=== PATIENT | female | born 1935 | race Caucasian/White ===

== ENCOUNTER → 2017-11-23 13:40 | Outpatient (CLI) | payer MEDICARE, OTHER, SELFPAY | PROVIDERS: Family Provider Family Medicine; PCP Family Medicine; Visit Provider Family Medicine | DX: M85.88 Other specified disorders of bone density and structure, other site (principal); Z78.0 Asymptomatic menopausal state; E07.9 Disorder of thyroid, unspecified; Z82.62 Family history of osteoporosis | CPT/HCPCS: 77080 ==

== ENCOUNTER → 2018-05-12 15:24 | Outpatient (CLI) | payer MEDICARE, OTHER, SELFPAY ==
--- NOTE | 2018-05-12 | DI.RAD.S_ITS ---
PROCEDURE: XR FEMUR RT MIN 2V INDICATIONS: Right Thigh Pain, intermittent TECHNIQUE: 2 views of the femur were acquired. COMPARISON: None. FINDINGS: Bones: No fractures or dislocations. No suspicious bony lesions. There is a severe right hip joint degeneration. Soft tissues: No suspicious soft tissue calcifications or masses. Moderate atherosclerosis. IMPRESSION: 1. No fracture or dislocation. 2. Severe right hip joint degeneration. 3. Atherosclerosis. Dictated by: Nathaly Hugo M.D. on 05/12/2018 at 17:39 Approved by: Nathaly Hugo M.D. on 05/12/2018 at 17:40
== END ==
PROVIDERS: PCP Family Medicine; Visit Provider Family Medicine
DX: M79.651 Pain in right thigh (principal); M16.11 Unilateral primary osteoarthritis, right hip; I70.90 Unspecified atherosclerosis
CPT/HCPCS: 73552

== ENCOUNTER 2018-07-22 10:30 | Outpatient (RCR) | payer MEDICARE, OTHER, SELFPAY ==
--- NOTE | 2018-06-03 14:30 | PT.OPPOC ---
Current Diagnoses Unilateral primary osteoarthritis, right hip (06/03/18) Pain in right hip (06/03/18) Stiffness of right hip, not elsewhere classified (06/03/18) Muscle weakness (generalized) (06/03/18) Trochanteric bursitis, right hip (06/03/18) Iliotibial band syndrome, right leg (06/03/18) Provider Visit Care Team Role Provider Type Jonatan Prince MD Primary Care Provider Physician Specialty: Family Practice Address: [address] [place] [address], [id number] Email: [email or web address] Nahum Diana MD Attending Provider Physician Specialty: Orthopedic Surgery Address: [address] [place] [address], [id number] Email: [email or web address] Plan Of Care PT-OP-T Assessment and Plan Start: 06/03/18 17:28 Freq: Status: Active Protocol: Document 06/03/18 13:45 DCW (Rec: 06/04/18 08:57 DCW [id number]) Physical Therapy Assessment Rehab Potential Rehabilitation Potential Fair Evaluation Complexity Number of Personal Factors/Comorbidities 1-2 Number of Body Systems Impaired 3 Clinical Presentation at Evaluation Evolving Impairments Impairments Functional Activities Functional Mobility Pain ROM Strength Other Concerns Barriers to Rehabilitation Severe R hip degeneration Goals Four Impairment ITB tenderness Farm Mechanic Goal (LTG) Pt to exhibit no tenderness to palpation along right ITB LTG Duration 08/02/18 Three Impairment Limited hip ROM Farm Mechanic Goal (LTG) R hip flexion to 110? R hip abduction to 20? R hip ER and IR to 20? each LTG Duration 08/02/18 Two Impairment Pt unable to tolerate working in her yard Jail Goal (LTG) Pt to return to normal level of yard work with no increased pain LTG Duration 08/02/18 One Impairment Pt does not have an appropriate Home Exercise Program Short Term Goal (STG) Pt to be independent and compliant with an appropriate HEP STG Duration 07/02/18 Assessment Summary Assessment Pt presents with signs and symptoms of right ITB syndrome and Greater Trochanteric bursitis, which is affecting her ability to ambulate without pain and work out in her yard, and gives her occasional pain up to 7/10. Additionally, although pt reports no actual hip pain, her right hip joint degeneration is severely affecting her range of motion and functional movement, and is likely the underlying cause of her Bursitis and ITB pain. Pt will likely benefit some from stretching and strengthening, as well as pain control modalities and Iontophoresis to decrease bursitis inflammation, however will in the long run likely require a SALONI, which pt reports she has already been planning, as she is unhappy which how much her hip has been limiting her. Physical Therapy Plan Frequency and Duration Frequency of Treatment 2x/Week Duration of Treatment 12 weeks Plan of Care Start Date 06/03/18 Plan of Care End Date 08/26/18 Therapeutic Interventions Therapeutic Interventions Aquatic Therapy Gait Training Home Exercise Program Joint Mobilizations Manual Therapy Neuromuscular Re-education Soft Tissue Mobilization Taping Therapeutic Activities Therapeutic Exercises Modalities Cold Pack/Ice Massage Electric Stimulation Hot Packs Iontophoresis Ultrasound Other Therapeutic Interventions Iontophoresis with Dexamethasone 4 mg/mL Next Visit Focus/Plan Next Note Type Treatment Note Next Visit Plan Flexibility, strengthening, STM, Ionto, US, E-stim Plan of Care Dates Plan of Care Start Date 06/03/18 Plan of Care End Date 08/26/18 Please Sign and Return: I have reviewed this Plan of Care and certify that the skilled therapy services above are required to meet the patient?s needs. Physician Signature Date Printed Name and Credentials Clinical Instructor Signature Printed Name and Credentials
--- NOTE | 2018-06-03 14:30 | PT.OIE ---
Current Diagnoses Unilateral primary osteoarthritis, right hip (06/03/18) Pain in right hip (06/03/18) Stiffness of right hip, not elsewhere classified (06/03/18) Muscle weakness (generalized) (06/03/18) Trochanteric bursitis, right hip (06/03/18) Iliotibial band syndrome, right leg (06/03/18) Past Surgical History History of carpal tunnel repair Status post appendectomy Status post hysterectomy Status post rotator cuff repair Provider Visit Care Team Role Provider Type Jonatan Prince MD Primary Care Provider Physician Specialty: Family Practice Address: [address] [place] [address], [address] Email: [email or web address] [email or web address] Diana MD Attending Provider Physician Specialty: Orthopedic Surgery Address: [address] [place] [address], [id number] Email: [email or web address] Physical Therapy Initial Evaluation PT-OP-A Visit Information Start: 06/03/18 17:28 Freq: Status: Active Protocol: Document 06/03/18 13:45 DCW (Rec: 06/03/18 17:37 DCW [id number]) Out-Patient Physical Therapy Visit Information Visit Information Visit Type Initial Evaluation Visit Start Time 13:45 Visit Stop Time 14:25 Total Visit Minutes 40 Visit Number 1 Number of RENDERER Visits 0 Evaluation Information Evaluation Date 06/03/18 PT-OP-B Current Condition Start: 06/03/18 17:28 Freq: Status: Active Protocol: Document 06/03/18 13:45 DCW (Rec: 06/03/18 17:37 DC [id number]) Current Condition History of Current Condition Onset Date 6 months Current Complaints pain and stiffness in right leg limiting mobility and function History of Current Condition Pt is an 82 year old female presenting with a six month history of right leg pain. Pt reports that it just started in November for no reason, and it was initially just a heaviness on my right thigh, which has slowly progressed to pain in her lateral upper leg . Pt notes that the pain worsens when first getting up or rolling over in bed. Does admits that her hip never really bothers be, it's just along the side, despite an x- ray on 05/12/18 showing severe right hip joint degeneration. Pt reports her pain and stiffness prevented a lot of her yard work over the summer, and is now beginning to limit her speed and distance when trying to walk. Prior Treatments and Tests R hip x-ray: severe right hip joint degeneration - maricarmen Hugo M.D on 05/12/18 Treatment Goals Patient/Caregiver Goals Pt would like to decrease pain and return to yard work with no limitations Prior Functional Status Baseline Function- ADL's Independent Baseline Function- Mobility Independent Current Functional Impairments (Reported) Functional Limitations- Recreation/ Unable to participate in Hobbies normal yard work due to pain and stiffness PT-OP-C Subjective Start: 06/03/18 17:28 Freq: Status: Active Protocol: Document 06/03/18 13:45 DCW (Rec: 06/03/18 17:37 DCW [id number]) OP-PT Subjective Patient Comments Patient Comments It's been getting worse over time. Patient Reported Progress Worse Patient Questionnaires Lower Extremity Functional Scale LEFS Score 41/80 = 51.25% LEFS Impairment 40 to 59% Impaired (Score 32- 47) OP-PT Pain Assessment Location Right Upper Lateral Leg Intensity 7 Scale Used Numeric (1 - 10) Description Aching Burning Dull Throbbing Frequency Occasional PT-OP-F Manual Assessment Start: 06/03/18 17:28 Freq: Status: Active Protocol: Document 06/03/18 13:45 DCW (Rec: 06/04/18 08:57 DCW [id number]) Manual Assessments Soft Tissue Assessment Soft Tissue Mobility Assessment Tenderness to palpation at GT Bursa and along ITB 2/4 - Pain with wincing Joint Mobility Assessment Joint Mobility Assessment Severely limited mobility with all movements in right hip, left hip WNL PT-OP-K Range of Motion Start: 06/03/18 17:28 Freq: Status: Active Protocol: Document 06/03/18 13:45 DCW (Rec: 06/04/18 08:57 DCW [id number]) Hip Goniometric Range of Motion Hip Measured in Degrees Left Passive Hip ROM WFL Yes Right Passive Hip ROM WFL No Testing Position Supine Flexion w/Knee Flexed 96 Straight Leg Raise 87 Abduction 7 Internal Rotation 13 External Rotation 5 PT-OP-L Special Tests Start: 06/03/18 17:28 Freq: Status: Active Protocol: Document 06/03/18 13:45 DCW (Rec: 06/04/18 08:57 DCW [id number]) Special Tests Hip Special Tests Thea's Test Test Results Positive Piriformis Test Results Negative Straight Leg Raise Test Results Negative for LBP CHEIKH Test Results Limited ROM made testing impossible PT-OP-M Strength Start: 06/03/18 17:28 Freq: Status: Active Protocol: Document 06/03/18 13:45 DCW (Rec: 06/04/18 08:57 DCW [id number]) Hip Strength Hip Manual Muscle Testing Right Flexion (L2) 3+ Fair+ Abduction 3+ Fair+ Adduction 4 Good External Rotation 4 Good Internal Rotation 4+ Good+ Left Flexion (L2) 4 Good Abduction 4- Good- Adduction 4 Good External Rotation 4+ Good+ Internal Rotation 4+ Good+ Knee Strength Knee Manual Muscle Testing Right Flexion (S2) 4+ Good+ Extension (L3) 4- Good- Comments Pain with extension testing Left Flexion (S2) 5 Normal Extension (L3) 5 Normal PT-OP-Q Treatments Start: 06/03/18 17:28 Freq: Status: Active Protocol: Document 06/03/18 13:45 DCW (Rec: 06/04/18 08:57 DCW [id number]) Therapeutic Exercises Supine Exercises Supine ITB stretch Supine Exercise Name ITB stretch Comments use left leg to IR right Sidelying Exercises Sidelying ITB stretch Sidelying Exercise Name ITB stretch /c top leg hanging over side of plinth Standing Exercises Standing ITB stretch Standing Exercise Name ITB stretch /c legs crossed PT-OP-T Assessment and Plan Start: 06/03/18 17:28 Freq: Status: Active Protocol: Document 06/03/18 13:45 DCW (Rec: 06/04/18 08:57 DCW [id number]) Physical Therapy Assessment Rehab Potential Rehabilitation Potential Fair Evaluation Complexity Number of Personal Factors/Comorbidities 1-2 Number of Body Systems Impaired 3 Clinical Presentation at Evaluation Evolving Impairments Impairments Functional Activities Functional Mobility Pain ROM Strength Other Concerns Barriers to Rehabilitation Severe R hip degeneration Goals Four Impairment ITB tenderness Half-Way Goal (LTG) Pt to exhibit no tenderness to palpation along right ITB LTG Duration 08/02/18 Three Impairment Limited hip ROM Instant Print Operator Goal (LTG) R hip flexion to 110? R hip abduction to 20? R hip ER and IR to 20? each LTG Duration 08/02/18 Two Impairment Pt unable to tolerate working in her yard Instant Print Operator Goal (LTG) Pt to return to normal level of yard work with no increased pain LTG Duration 08/02/18 One Impairment Pt does not have an appropriate Home Exercise Program Short Term Goal (STG) Pt to be independent and compliant with an appropriate HEP STG Duration 07/02/18 Assessment Summary Assessment Pt presents with signs and symptoms of right ITB syndrome and Greater Trochanteric bursitis, which is affecting her ability to ambulate without pain and work out in her yard, and gives her occasional pain up to 7/10. Additionally, although pt reports no actual hip pain, her right hip joint degeneration is severely affecting her range of motion and functional movement, and is likely the underlying cause of her Bursitis and ITB pain. Pt will likely benefit some from stretching and strengthening, as well as pain control modalities and Iontophoresis to decrease bursitis inflammation, however will in the long run likely require a SALONI, which pt reports she has already been planning, as she is unhappy which how much her hip has been limiting her. Physical Therapy Plan Frequency and Duration Frequency of Treatment 2x/Week Duration of Treatment 12 weeks Plan of Care Start Date 06/03/18 Plan of Care End Date 08/26/18 Therapeutic Interventions Therapeutic Interventions Aquatic Therapy Gait Training Home Exercise Program Joint Mobilizations Manual Therapy Neuromuscular Re-education Soft Tissue Mobilization Taping Therapeutic Activities Therapeutic Exercises Modalities Cold Pack/Ice Massage Electric Stimulation Hot Packs Iontophoresis Ultrasound Other Therapeutic Interventions Iontophoresis with Dexamethasone 4 mg/mL Next Visit Focus/Plan Next Note Type Treatment Note Next Visit Plan Flexibility, strengthening, STM, Ionto, US, E-stim
--- NOTE | 2018-06-22 16:51 | PT.OTN ---
Current Diagnoses Unilateral primary osteoarthritis, right hip (06/22/18) Physical Therapy Treatment Note PT-OP-A Visit Information Start: 06/03/18 17:28 Freq: Status: Active Protocol: Document 06/22/18 16:00 DCW (Rec: 06/22/18 16:51 DCW [id number]) Out-Patient Physical Therapy Visit Information Visit Information Visit Type Treatment Note Visit Start Time 16:00 Visit Stop Time 16:45 Total Visit Minutes 45 Visit Number 2 Number of MECHANICAL PROCESS ENGINEER Visits 0 Evaluation Information Evaluation Date 06/03/18 PT-OP-B Current Condition Start: 06/03/18 17:28 Freq: Status: Active Protocol: Document 06/03/18 13:45 DCW (Rec: 06/03/18 17:37 DCW [id number]) Current Condition History of Current Condition Onset Date 6 months Current Complaints pain and stiffness in right leg limiting mobility and function History of Current Condition Pt is an 82 year old female presenting with a six month history of right leg pain. Pt reports that it just started in November for no reason, and it was initially just a heaviness on my right thigh, which has slowly progressed to pain in her lateral upper leg . Pt notes that the pain worsens when first getting up or rolling over in bed. Does admits that her hip never really bothers be, it's just along the side, despite an x- ray on 05/12/18 showing severe right hip joint degeneration. Pt reports her pain and stiffness prevented a lot of her yard work over the summer, and is now beginning to limit her speed and distance when trying to walk. Prior Treatments and Tests R hip x-ray: severe right hip joint degeneration - per Nathaly Hugo M.D on 05/12/18 Treatment Goals Patient/Caregiver Goals Pt would like to decrease pain and return to yard work with no limitations Prior Functional Status Baseline Function- ADL's Independent Baseline Function- Mobility Independent Current Functional Impairments (Reported) Functional Limitations- Recreation/ Unable to participate in Hobbies normal yard work due to pain and stiffness PT-OP-C Subjective Start: 06/03/18 17:28 Freq: Status: Active Protocol: Document 06/22/18 16:00 DCW (Rec: 06/22/18 16:51 DCW [id number]) OP-PT Subjective Patient Comments Patient Comments Pt reports her pain goes and comes, but notes that it is not too bad right now. PT-OP-F Manual Assessment Start: 06/03/18 17:28 Freq: Status: Active Protocol: Document 06/03/18 13:45 DCW (Rec: 06/04/18 08:57 DCW [id number]) Manual Assessments Soft Tissue Assessment Soft Tissue Mobility Assessment Tenderness to palpation at GT Bursa and along ITB 2/4 - Pain with wincing Joint Mobility Assessment Joint Mobility Assessment Severely limited mobility with all movements in right hip, left hip WNL PT-OP-K Range of Motion Start: 06/03/18 17:28 Freq: Status: Active Protocol: Document 06/03/18 13:45 DCW (Rec: 06/04/18 08:57 DCW [id number]) Hip Goniometric Range of Motion Hip Measured in Degrees Left Passive Hip ROM WFL Yes Right Passive Hip ROM WFL No Testing Position Supine Flexion w/Knee Flexed 96 Straight Leg Raise 87 Abduction 7 Internal Rotation 13 External Rotation 5 PT-OP-L Special Tests Start: 06/03/18 17:28 Freq: Status: Active Protocol: Document 06/03/18 13:45 DCW (Rec: 06/04/18 08:57 DCW [id number]) Special Tests Hip Special Tests Thea's Test Test Results Positive Piriformis Test Results Negative Straight Leg Raise Test Results Negative for LBP CHEIKH Test Results Limited ROM made testing impossible PT-OP-M Strength Start: 06/03/18 17:28 Freq: Status: Active Protocol: Document 06/03/18 13:45 DCW (Rec: 06/04/18 08:57 DCW [id number]) Hip Strength Hip Manual Muscle Testing Right Flexion (L2) 3+ Fair+ Abduction 3+ Fair+ Adduction 4 Good External Rotation 4 Good Internal Rotation 4+ Good+ Left Flexion (L2) 4 Good Abduction 4- Good- Adduction 4 Good External Rotation 4+ Good+ Internal Rotation 4+ Good+ Knee Strength Knee Manual Muscle Testing Right Flexion (S2) 4+ Good+ Extension (L3) 4- Good- Comments Pain with extension testing Left Flexion (S2) 5 Normal Extension (L3) 5 Normal PT-OP-Q Treatments Start: 06/03/18 17:28 Freq: Status: Active Protocol: Document 06/22/18 16:00 DCW (Rec: 06/22/18 16:51 DCW [id number]) Cardio Equipment Recumbent Bicycle Duration (Minutes) 5 Resistance 3 Seat Position 1 + Lumbar pillow Gym Equipment Shuttle Recovery Unilateral Squats Details Right Resistance 25# Shuttle Recovery Platform Stable Bilateral Squats Resistance 37# Shuttle Recovery Platform Stable Therapeutic Exercises Standing Exercises Standing ITB stretch Standing Exercise Name ITB stretch /c legs crossed Other Exercises Resisted Side-stepping Other Exercise Name Resisted side-stepping Side bilateral Resistance Yellow Equipment Used T-band Manual Therapy Treatment Soft Tissue Mobilization ITB Body Location ITB Mobilization Type Strumming Sustained Pressure Intensity/Depth Moderate Piriformis Body Location Piriformis Mobilization Type Strumming Sustained Pressure Intensity/Depth Deep Manual Traction LE Traction Details Short-axis LE traction Body Position Hooklying PT-OP-R Modalities Start: 06/03/18 17:28 Freq: Status: Active Protocol: Document 06/22/18 16:00 DCW (Rec: 06/22/18 16:51 DCW [id number]) Iontophoresis Treatment Right Lateral Hip Treatment Medication Dexamethasone (-) Medication Amount (mL) (ml) 1.0 Medication Dosage 4 mg/mL Treatment Polarity Negative to Negative Treatment Duration (minutes) 5 PT-OP-T Assessment and Plan Start: 06/03/18 17:28 Freq: Status: Active Protocol: Document 06/22/18 16:00 DCW (Rec: 06/22/18 16:51 DCW [id number]) Physical Therapy Assessment Impairments Impairments Functional Activities Functional Mobility Pain ROM Strength Goals Four Impairment ITB tenderness Manager Sound Goal (LTG) Pt to exhibit no tenderness to palpation along right ITB LTG Duration 08/02/18 Three Impairment Limited hip ROM Retirement Goal (LTG) R hip flexion to 110? R hip abduction to 20? R hip ER and IR to 20? each LTG Duration 08/02/18 Two Impairment Pt unable to tolerate working in her yard Manager Sound Goal (LTG) Pt to return to normal level of yard work with no increased pain LTG Duration 08/02/18 One Impairment Pt does not have an appropriate Home Exercise Program Short Term Goal (STG) Pt to be independent and compliant with an appropriate HEP STG Duration 07/02/18 Assessment Summary Assessment Pt tired out quickly with activity, and by the end of her session reported she was feeling like she was pretty much done between her activity and the manual STM. Trial of Ionto at end of session, will assess effectiveness next visit. Physical Therapy Plan Frequency and Duration Frequency of Treatment 2x/Week Duration of Treatment 12 weeks Plan of Care Start Date 06/03/18 Plan of Care End Date 08/26/18 Therapeutic Interventions Therapeutic Interventions Aquatic Therapy Gait Training Home Exercise Program Joint Mobilizations Manual Therapy Neuromuscular Re-education Soft Tissue Mobilization Taping Therapeutic Activities Therapeutic Exercises Modalities Cold Pack/Ice Massage Electric Stimulation Hot Packs Iontophoresis Ultrasound Other Therapeutic Interventions Iontophoresis with Dexamethasone 4 mg/mL Next Visit Focus/Plan Next Note Type Treatment Note Next Visit Plan Flexibility, strengthening, STM, Ionto, US, E-stim
--- NOTE | 2018-06-25 15:19 | PT.OTN ---
Current Diagnoses Unilateral primary osteoarthritis, right hip (06/25/18) Physical Therapy Treatment Note PT-OP-A Visit Information Start: 06/03/18 17:28 Freq: Status: Active Protocol: Document 06/25/18 14:30 DCW (Rec: 06/25/18 15:18 DCW [id number]) Out-Patient Physical Therapy Visit Information Visit Information Visit Type Treatment Note Visit Start Time 14:30 Visit Stop Time 15:15 Total Visit Minutes 45 Visit Number 3 Number of METAL FABRICATING INSPECTOR Visits 0 Evaluation Information Evaluation Date 06/03/18 PT-OP-B Current Condition Start: 06/03/18 17:28 Freq: Status: Active Protocol: Document 06/03/18 13:45 DCW (Rec: 06/03/18 17:37 DCW [id number]) Current Condition History of Current Condition Onset Date 6 months Current Complaints pain and stiffness in right leg limiting mobility and function History of Current Condition Pt is an 82 year old female presenting with a six month history of right leg pain. Pt reports that it just started in November for no reason, and it was initially just a heaviness on my right thigh, which has slowly progressed to pain in her lateral upper leg . Pt notes that the pain worsens when first getting up or rolling over in bed. Does admits that her hip never really bothers be, it's just along the side, despite an x- ray on 05/12/18 showing severe right hip joint degeneration. Pt reports her pain and stiffness prevented a lot of her yard work over the summer, and is now beginning to limit her speed and distance when trying to walk. Prior Treatments and Tests R hip x-ray: severe right hip joint degeneration - per Nathaly Hugo M.D on 05/12/18 Treatment Goals Patient/Caregiver Goals Pt would like to decrease pain and return to yard work with no limitations Prior Functional Status Baseline Function- ADL's Independent Baseline Function- Mobility Independent Current Functional Impairments (Reported) Functional Limitations- Recreation/ Unable to participate in Hobbies normal yard work due to pain and stiffness PT-OP-C Subjective Start: 06/03/18 17:28 Freq: Status: Active Protocol: Document 06/25/18 14:30 DCW (Rec: 06/25/18 15:18 DCW [id number]) OP-PT Subjective Patient Comments Patient Comments I really felt it after last visit, but it was gone by the next morning. Feels that the Ionto patch was helpful, has noticed decreased tightness and soreness through her hip. PT-OP-F Manual Assessment Start: 06/03/18 17:28 Freq: Status: Active Protocol: Document 06/03/18 13:45 DCW (Rec: 06/04/18 08:57 DCW [id number]) Manual Assessments Soft Tissue Assessment Soft Tissue Mobility Assessment Tenderness to palpation at GT Bursa and along ITB 2/4 - Pain with wincing Joint Mobility Assessment Joint Mobility Assessment Severely limited mobility with all movements in right hip, left hip WNL PT-OP-K Range of Motion Start: 06/03/18 17:28 Freq: Status: Active Protocol: Document 06/03/18 13:45 DCW (Rec: 06/04/18 08:57 DCW [id number]) Hip Goniometric Range of Motion Hip Measured in Degrees Left Passive Hip ROM WFL Yes Right Passive Hip ROM WFL No Testing Position Supine Flexion w/Knee Flexed 96 Straight Leg Raise 87 Abduction 7 Internal Rotation 13 External Rotation 5 PT-OP-L Special Tests Start: 06/03/18 17:28 Freq: Status: Active Protocol: Document 06/03/18 13:45 DCW (Rec: 06/04/18 08:57 DCW [id number]) Special Tests Hip Special Tests Thea's Test Test Results Positive Piriformis Test Results Negative Straight Leg Raise Test Results Negative for LBP CHEIKH Test Results Limited ROM made testing impossible PT-OP-M Strength Start: 06/03/18 17:28 Freq: Status: Active Protocol: Document 06/03/18 13:45 DCW (Rec: 06/04/18 08:57 DCW [id number]) Hip Strength Hip Manual Muscle Testing Right Flexion (L2) 3+ Fair+ Abduction 3+ Fair+ Adduction 4 Good External Rotation 4 Good Internal Rotation 4+ Good+ Left Flexion (L2) 4 Good Abduction 4- Good- Adduction 4 Good External Rotation 4+ Good+ Internal Rotation 4+ Good+ Knee Strength Knee Manual Muscle Testing Right Flexion (S2) 4+ Good+ Extension (L3) 4- Good- Comments Pain with extension testing Left Flexion (S2) 5 Normal Extension (L3) 5 Normal PT-OP-Q Treatments Start: 06/03/18 17:28 Freq: Status: Active Protocol: Document 06/25/18 14:30 DCW (Rec: 06/25/18 15:18 DCW [id number]) Cardio Equipment Recumbent Bicycle Duration (Minutes) 6 Resistance 4 Seat Position 1 + Lumbar pillow Gym Equipment Shuttle Recovery Unilateral Squats Details Right Resistance 25# Shuttle Recovery Platform Stable Bilateral Squats Resistance 50# Shuttle Recovery Platform Stable Therapeutic Exercises Supine Exercises Bridging Supine Exercise Name Bridging Reps/Minutes 5 hold Supine ITB stretch Supine Exercise Name ITB stretch Comments use left leg to IR right Standing Exercises Lunge Standing Exercise Name BOSU Lunge Other Exercises Step-up/over/retro Other Exercise Name Step-up/over/retro in // bars Side right Equipment Used 4 step Resisted Side-stepping Other Exercise Name Resisted side-stepping Side bilateral Resistance Yellow Equipment Used T-band Manual Therapy Treatment Soft Tissue Mobilization ITB Body Location ITB Mobilization Type Strumming Sustained Pressure Intensity/Depth Moderate Piriformis Body Location Piriformis Mobilization Type Strumming Sustained Pressure Intensity/Depth Deep PT-OP-R Modalities Start: 06/03/18 17:28 Freq: Status: Active Protocol: Document 06/25/18 14:30 DCW (Rec: 06/25/18 15:18 DCW [id number]) Iontophoresis Treatment Right Lateral Hip Treatment Medication Dexamethasone (-) Medication Amount (mL) (ml) 1.0 Medication Dosage 4 mg/mL Treatment Polarity Negative to Negative Treatment Duration (minutes) 5 PT-OP-T Assessment and Plan Start: 06/03/18 17:28 Freq: Status: Active Protocol: Document 06/25/18 14:30 DCW (Rec: 06/25/18 15:18 DCW [id number]) Physical Therapy Assessment Impairments Impairments Functional Activities Functional Mobility Pain ROM Strength Goals Four Impairment ITB tenderness Prison Goal (LTG) Pt to exhibit no tenderness to palpation along right ITB LTG Duration 08/02/18 Three Impairment Limited hip ROM Prison Goal (LTG) R hip flexion to 110? R hip abduction to 20? R hip ER and IR to 20? each LTG Duration 08/02/18 Two Impairment Pt unable to tolerate working in her yard Senior Resident Care Director Goal (LTG) Pt to return to normal level of yard work with no increased pain LTG Duration 08/02/18 One Impairment Pt does not have an appropriate Home Exercise Program Short Term Goal (STG) Pt to be independent and compliant with an appropriate HEP STG Duration 07/02/18 Assessment Summary Assessment Pt showing much improvement today, feels like her hip overall is stronger. Planning SALONI in the upcoming weeks, and agreeable to continue therapy to help strengthen until then . Physical Therapy Plan Frequency and Duration Frequency of Treatment 2x/Week Duration of Treatment 12 weeks Plan of Care Start Date 06/03/18 Plan of Care End Date 08/26/18 Therapeutic Interventions Therapeutic Interventions Aquatic Therapy Gait Training Home Exercise Program Joint Mobilizations Manual Therapy Neuromuscular Re-education Soft Tissue Mobilization Taping Therapeutic Activities Therapeutic Exercises Modalities Cold Pack/Ice Massage Electric Stimulation Hot Packs Iontophoresis Ultrasound Other Therapeutic Interventions Iontophoresis with Dexamethasone 4 mg/mL Next Visit Focus/Plan Next Note Type Treatment Note Next Visit Plan Flexibility, strengthening, STM, Ionto, US, E-stim
--- NOTE | 2018-06-29 16:46 | PT.OTN ---
Current Diagnoses Unilateral primary osteoarthritis, right hip (06/29/18) Physical Therapy Treatment Note PT-OP-A Visit Information Start: 06/03/18 17:28 Freq: Status: Active Protocol: Document 06/29/18 16:00 DCW (Rec: 06/29/18 16:46 DCW [id number]) Out-Patient Physical Therapy Visit Information Visit Information Visit Type Treatment Note Visit Start Time 16:00 Visit Stop Time 16:45 Total Visit Minutes 45 Visit Number 4 Number of CELL OPERATOR Visits 0 Evaluation Information Evaluation Date 06/03/18 PT-OP-B Current Condition Start: 06/03/18 17:28 Freq: Status: Active Protocol: Document 06/03/18 13:45 DCW (Rec: 06/03/18 17:37 DCW [id number]) Current Condition History of Current Condition Onset Date 6 months Current Complaints pain and stiffness in right leg limiting mobility and function History of Current Condition Pt is an 82 year old female presenting with a six month history of right leg pain. Pt reports that it just started in November for no reason, and it was initially just a heaviness on my right thigh, which has slowly progressed to pain in her lateral upper leg . Pt notes that the pain worsens when first getting up or rolling over in bed. Does admits that her hip never really bothers be, it's just along the side, despite an x- ray on 05/12/18 showing severe right hip joint degeneration. Pt reports her pain and stiffness prevented a lot of her yard work over the summer, and is now beginning to limit her speed and distance when trying to walk. Prior Treatments and Tests R hip x-ray: severe right hip joint degeneration - per Nathaly Hugo M.D on 05/12/18 Treatment Goals Patient/Caregiver Goals Pt would like to decrease pain and return to yard work with no limitations Prior Functional Status Baseline Function- ADL's Independent Baseline Function- Mobility Independent Current Functional Impairments (Reported) Functional Limitations- Recreation/ Unable to participate in Hobbies normal yard work due to pain and stiffness PT-OP-C Subjective Start: 06/03/18 17:28 Freq: Status: Active Protocol: Document 06/29/18 16:00 DCW (Rec: 06/29/18 16:46 DCW [id number]) OP-PT Subjective Patient Comments Patient Comments Pt notes that she has no new complaints, everything is about the same. PT-OP-F Manual Assessment Start: 06/03/18 17:28 Freq: Status: Active Protocol: Document 06/03/18 13:45 DCW (Rec: 06/04/18 08:57 DCW [id number]) Manual Assessments Soft Tissue Assessment Soft Tissue Mobility Assessment Tenderness to palpation at GT Bursa and along ITB 2/4 - Pain with wincing Joint Mobility Assessment Joint Mobility Assessment Severely limited mobility with all movements in right hip, left hip WNL PT-OP-K Range of Motion Start: 06/03/18 17:28 Freq: Status: Active Protocol: Document 06/03/18 13:45 DCW (Rec: 06/04/18 08:57 DCW [id number]) Hip Goniometric Range of Motion Hip Measured in Degrees Left Passive Hip ROM WFL Yes Right Passive Hip ROM WFL No Testing Position Supine Flexion w/Knee Flexed 96 Straight Leg Raise 87 Abduction 7 Internal Rotation 13 External Rotation 5 PT-OP-L Special Tests Start: 06/03/18 17:28 Freq: Status: Active Protocol: Document 06/03/18 13:45 DCW (Rec: 06/04/18 08:57 DCW [id number]) Special Tests Hip Special Tests Thea's Test Test Results Positive Piriformis Test Results Negative Straight Leg Raise Test Results Negative for LBP CHEIKH Test Results Limited ROM made testing impossible PT-OP-M Strength Start: 06/03/18 17:28 Freq: Status: Active Protocol: Document 06/03/18 13:45 DCW (Rec: 06/04/18 08:57 DCW [id number]) Hip Strength Hip Manual Muscle Testing Right Flexion (L2) 3+ Fair+ Abduction 3+ Fair+ Adduction 4 Good External Rotation 4 Good Internal Rotation 4+ Good+ Left Flexion (L2) 4 Good Abduction 4- Good- Adduction 4 Good External Rotation 4+ Good+ Internal Rotation 4+ Good+ Knee Strength Knee Manual Muscle Testing Right Flexion (S2) 4+ Good+ Extension (L3) 4- Good- Comments Pain with extension testing Left Flexion (S2) 5 Normal Extension (L3) 5 Normal PT-OP-Q Treatments Start: 06/03/18 17:28 Freq: Status: Active Protocol: Document 06/29/18 16:00 DCW (Rec: 06/29/18 16:46 DCW [id number]) Cardio Equipment Recumbent Bicycle Duration (Minutes) 6 Resistance 4 Seat Position 1 + Lumbar pillow Gym Equipment Shuttle Recovery Unilateral Squats Details Right Resistance 25# Shuttle Recovery Platform Stable Bilateral Squats Resistance 50# Shuttle Recovery Platform Stable Therapeutic Exercises Standing Exercises Lunge Standing Exercise Name BOSU Lunge Other Exercises Step-up/over/retro Other Exercise Name Step-up/over/retro in // bars Side right Equipment Used 4 step Resisted Side-stepping Other Exercise Name Resisted side-stepping Side bilateral Resistance Yellow Equipment Used T-band Manual Therapy Treatment Soft Tissue Mobilization ITB Body Location ITB Mobilization Type Strumming Sustained Pressure Intensity/Depth Moderate Piriformis Body Location Piriformis Mobilization Type Strumming Sustained Pressure Intensity/Depth Deep Manual Traction LE Traction Details Short-axis LE traction Body Position Hooklying PT-OP-R Modalities Start: 06/03/18 17:28 Freq: Status: Active Protocol: Document 06/29/18 16:00 DCW (Rec: 06/29/18 16:46 DCW [id number]) Iontophoresis Treatment Right Lateral Hip Treatment Medication Dexamethasone (-) Medication Amount (mL) (ml) 1.0 Medication Dosage 4 mg/mL Treatment Polarity Negative to Negative Treatment Duration (minutes) 5 PT-OP-T Assessment and Plan Start: 06/03/18 17:28 Freq: Status: Active Protocol: Document 06/29/18 16:00 DCW (Rec: 06/29/18 16:46 DCW [id number]) Physical Therapy Assessment Impairments Impairments Functional Activities Functional Mobility Pain ROM Strength Goals Four Impairment ITB tenderness Robotic Machine Operator Goal (LTG) Pt to exhibit no tenderness to palpation along right ITB LTG Duration 08/02/18 Three Impairment Limited hip ROM [facility] Goal (LTG) R hip flexion to 110? R hip abduction to 20? R hip ER and IR to 20? each LTG Duration 08/02/18 Two Impairment Pt unable to tolerate working in her yard Robotic Machine Operator Goal (LTG) Pt to return to normal level of yard work with no increased pain LTG Duration 08/02/18 One Impairment Pt does not have an appropriate Home Exercise Program Short Term Goal (STG) Pt to be independent and compliant with an appropriate HEP STG Duration 07/02/18 Assessment Summary Assessment Pt continues to improve, has decreased complaints of stiffness, except for when initially getting up from sitting. Physical Therapy Plan Frequency and Duration Frequency of Treatment 2x/Week Duration of Treatment 12 weeks Plan of Care Start Date 06/03/18 Plan of Care End Date 08/26/18 Therapeutic Interventions Therapeutic Interventions Aquatic Therapy Gait Training Home Exercise Program Joint Mobilizations Manual Therapy Neuromuscular Re-education Soft Tissue Mobilization Taping Therapeutic Activities Therapeutic Exercises Modalities Cold Pack/Ice Massage Electric Stimulation Hot Packs Iontophoresis Ultrasound Other Therapeutic Interventions Iontophoresis with Dexamethasone 4 mg/mL Next Visit Focus/Plan Next Note Type Treatment Note Next Visit Plan Flexibility, strengthening, STM, Ionto, US, E-stim
--- NOTE | 2018-07-06 17:33 | PT.OTN ---
Current Diagnoses Unilateral primary osteoarthritis, right hip (07/06/18) Physical Therapy Treatment Note PT-OP-A Visit Information Start: 06/03/18 17:28 Freq: Status: Active Protocol: Document 07/06/18 16:50 DCW (Rec: 07/06/18 17:33 DCW [id number]) Out-Patient Physical Therapy Visit Information Visit Information Visit Type Treatment Note Visit Start Time 16:50 Visit Stop Time 17:30 Total Visit Minutes 40 Visit Number 5 Number of ACCOUNTING SUPPORT SPECIALIST Visits 0 Evaluation Information Evaluation Date 06/03/18 PT-OP-B Current Condition Start: 06/03/18 17:28 Freq: Status: Active Protocol: Document 06/03/18 13:45 DCW (Rec: 06/03/18 17:37 DCW [id number]) Current Condition History of Current Condition Onset Date 6 months Current Complaints pain and stiffness in right leg limiting mobility and function History of Current Condition Pt is an 82 year old female presenting with a six month history of right leg pain. Pt reports that it just started in November for no reason, and it was initially just a heaviness on my right thigh, which has slowly progressed to pain in her lateral upper leg . Pt notes that the pain worsens when first getting up or rolling over in bed. Does admits that her hip never really bothers be, it's just along the side, despite an x- ray on 05/12/18 showing severe right hip joint degeneration. Pt reports her pain and stiffness prevented a lot of her yard work over the summer, and is now beginning to limit her speed and distance when trying to walk. Prior Treatments and Tests R hip x-ray: severe right hip joint degeneration - per Nathaly Hugo M.D on 05/12/18 Treatment Goals Patient/Caregiver Goals Pt would like to decrease pain and return to yard work with no limitations Prior Functional Status Baseline Function- ADL's Independent Baseline Function- Mobility Independent Current Functional Impairments (Reported) Functional Limitations- Recreation/ Unable to participate in Hobbies normal yard work due to pain and stiffness PT-OP-C Subjective Start: 06/03/18 17:28 Freq: Status: Active Protocol: Document 07/06/18 16:50 DCW (Rec: 07/06/18 17:33 DCW [id number]) OP-PT Subjective Patient Comments Patient Comments Pt reports she was in [place] over the weekend, and I about did myself in with all the walking, reporting she was pretty fatigued, but her hip did not get worse, however it also is not really feeling any better either. PT-OP-F Manual Assessment Start: 06/03/18 17:28 Freq: Status: Active Protocol: Document 06/03/18 13:45 DCW (Rec: 06/04/18 08:57 DCW [id number]) Manual Assessments Soft Tissue Assessment Soft Tissue Mobility Assessment Tenderness to palpation at GT Bursa and along ITB 2/4 - Pain with wincing Joint Mobility Assessment Joint Mobility Assessment Severely limited mobility with all movements in right hip, left hip WNL PT-OP-K Range of Motion Start: 06/03/18 17:28 Freq: Status: Active Protocol: Document 06/03/18 13:45 DCW (Rec: 06/04/18 08:57 DCW [id number]) Hip Goniometric Range of Motion Hip Measured in Degrees Left Passive Hip ROM WFL Yes Right Passive Hip ROM WFL No Testing Position Supine Flexion w/Knee Flexed 96 Straight Leg Raise 87 Abduction 7 Internal Rotation 13 External Rotation 5 PT-OP-L Special Tests Start: 06/03/18 17:28 Freq: Status: Active Protocol: Document 06/03/18 13:45 DCW (Rec: 06/04/18 08:57 DCW [id number]) Special Tests Hip Special Tests Thea's Test Test Results Positive Piriformis Test Results Negative Straight Leg Raise Test Results Negative for LBP CHEIKH Test Results Limited ROM made testing impossible PT-OP-M Strength Start: 06/03/18 17:28 Freq: Status: Active Protocol: Document 06/03/18 13:45 DCW (Rec: 06/04/18 08:57 DCW [id number]) Hip Strength Hip Manual Muscle Testing Right Flexion (L2) 3+ Fair+ Abduction 3+ Fair+ Adduction 4 Good External Rotation 4 Good Internal Rotation 4+ Good+ Left Flexion (L2) 4 Good Abduction 4- Good- Adduction 4 Good External Rotation 4+ Good+ Internal Rotation 4+ Good+ Knee Strength Knee Manual Muscle Testing Right Flexion (S2) 4+ Good+ Extension (L3) 4- Good- Comments Pain with extension testing Left Flexion (S2) 5 Normal Extension (L3) 5 Normal PT-OP-Q Treatments Start: 06/03/18 17:28 Freq: Status: Active Protocol: Document 07/06/18 16:50 DCW (Rec: 07/06/18 17:33 DCW [id number]) Cardio Equipment Recumbent Bicycle Duration (Minutes) 6 Resistance 4 Seat Position 1 + Lumbar pillow Gym Equipment Cable Column (Body Solid) Hip Abduction Resistance 10# Shuttle Recovery Unilateral Squats Details Right Resistance 25# Shuttle Recovery Platform Stable Bilateral Squats Resistance 62# Shuttle Recovery Platform Stable Therapeutic Exercises Sidelying Exercises Reverse Clamshell Sidelying Exercise Name Reverse Clamshell Side right Clamshell Sidelying Exercise Name Clamshell Side right Other Exercises Skaters Other Exercise Name Combined hip ext/abd Side bilateral Resistance Yellow Equipment Used T-band Resisted Side-stepping Other Exercise Name Resisted side-stepping Side bilateral Resistance Yellow Equipment Used T-band Manual Therapy Treatment Soft Tissue Mobilization ITB Body Location ITB Mobilization Type Strumming Sustained Pressure Intensity/Depth Moderate Piriformis Body Location Piriformis Mobilization Type Strumming Sustained Pressure Intensity/Depth Deep Manual Traction LE Traction Details Short-axis LE traction Body Position Hooklying PT-OP-R Modalities Start: 06/03/18 17:28 Freq: Status: Active Protocol: Document 06/29/18 16:00 DCW (Rec: 06/29/18 16:46 DCW [id number]) Iontophoresis Treatment Right Lateral Hip Treatment Medication Dexamethasone (-) Medication Amount (mL) (ml) 1.0 Medication Dosage 4 mg/mL Treatment Polarity Negative to Negative Treatment Duration (minutes) 5 PT-OP-T Assessment and Plan Start: 06/03/18 17:28 Freq: Status: Active Protocol: Document 07/06/18 16:50 DCW (Rec: 07/06/18 17:33 DCW [id number]) Physical Therapy Assessment Impairments Impairments Functional Activities Functional Mobility Pain ROM Strength Goals Four Impairment ITB tenderness Replenishment Merchandising Associate Goal (LTG) Pt to exhibit no tenderness to palpation along right ITB LTG Duration 08/02/18 Three Impairment Limited hip ROM Usp Goal (LTG) R hip flexion to 110? R hip abduction to 20? R hip ER and IR to 20? each LTG Duration 08/02/18 Two Impairment Pt unable to tolerate working in her yard Replenishment Merchandising Associate Goal (LTG) Pt to return to normal level of yard work with no increased pain LTG Duration 08/02/18 One Impairment Pt does not have an appropriate Home Exercise Program Short Term Goal (STG) Pt to be independent and compliant with an appropriate HEP STG Duration 07/02/18 Assessment Summary Assessment Pt reports today that she would like to call her Ortho surgeon to schedule her SALONI, because it's going to happen sooner or later, I might as well just get it done. Pt does not feel the Ionto is helping any more, so it was skipped today. Physical Therapy Plan Frequency and Duration Frequency of Treatment 2x/Week Duration of Treatment 12 weeks Plan of Care Start Date 06/03/18 Plan of Care End Date 08/26/18 Therapeutic Interventions Therapeutic Interventions Aquatic Therapy Gait Training Home Exercise Program Joint Mobilizations Manual Therapy Neuromuscular Re-education Soft Tissue Mobilization Taping Therapeutic Activities Therapeutic Exercises Modalities Cold Pack/Ice Massage Electric Stimulation Hot Packs Iontophoresis Ultrasound Other Therapeutic Interventions Iontophoresis with Dexamethasone 4 mg/mL Next Visit Focus/Plan Next Note Type Treatment Note Next Visit Plan Flexibility, strengthening, STM, Ionto, US, E-stim
--- NOTE | 2018-07-13 17:31 | PT.OTN ---
Current Diagnoses Unilateral primary osteoarthritis, right hip (07/13/18) Physical Therapy Treatment Note PT-OP-A Visit Information Start: 06/03/18 17:28 Freq: Status: Active Protocol: Document 07/13/18 16:45 DCW (Rec: 07/13/18 17:30 DCW [id number]) Out-Patient Physical Therapy Visit Information Visit Information Visit Type Treatment Note Visit Start Time 16:45 Visit Stop Time 17:30 Total Visit Minutes 45 Visit Number 6 Number of CLIENT ENGAGEMENT MANAGER Visits 0 Evaluation Information Evaluation Date 06/03/18 PT-OP-B Current Condition Start: 06/03/18 17:28 Freq: Status: Active Protocol: Document 06/03/18 13:45 DCW (Rec: 06/03/18 17:37 DCW [id number]) Current Condition History of Current Condition Onset Date 6 months Current Complaints pain and stiffness in right leg limiting mobility and function History of Current Condition Pt is an 82 year old female presenting with a six month history of right leg pain. Pt reports that it just started in November for no reason, and it was initially just a heaviness on my right thigh, which has slowly progressed to pain in her lateral upper leg . Pt notes that the pain worsens when first getting up or rolling over in bed. Does admits that her hip never really bothers be, it's just along the side, despite an x- ray on 05/12/18 showing severe right hip joint degeneration. Pt reports her pain and stiffness prevented a lot of her yard work over the summer, and is now beginning to limit her speed and distance when trying to walk. Prior Treatments and Tests R hip x-ray: severe right hip joint degeneration - per Nathaly Hugo M.D on 05/12/18 Treatment Goals Patient/Caregiver Goals Pt would like to decrease pain and return to yard work with no limitations Prior Functional Status Baseline Function- ADL's Independent Baseline Function- Mobility Independent Current Functional Impairments (Reported) Functional Limitations- Recreation/ Unable to participate in Hobbies normal yard work due to pain and stiffness PT-OP-C Subjective Start: 06/03/18 17:28 Freq: Status: Active Protocol: Document 07/13/18 16:45 DCW (Rec: 07/13/18 17:30 DCW [id number]) OP-PT Subjective Patient Comments Patient Comments Pt reports she feels like her hips are getting worse in the morning, and it is taking her longer to get everything loosened up. PT-OP-F Manual Assessment Start: 06/03/18 17:28 Freq: Status: Active Protocol: Document 06/03/18 13:45 DCW (Rec: 06/04/18 08:57 DCW [id number]) Manual Assessments Soft Tissue Assessment Soft Tissue Mobility Assessment Tenderness to palpation at GT Bursa and along ITB 2/4 - Pain with wincing Joint Mobility Assessment Joint Mobility Assessment Severely limited mobility with all movements in right hip, left hip WNL PT-OP-K Range of Motion Start: 06/03/18 17:28 Freq: Status: Active Protocol: Document 06/03/18 13:45 DCW (Rec: 06/04/18 08:57 DCW [id number]) Hip Goniometric Range of Motion Hip Measured in Degrees Left Passive Hip ROM WFL Yes Right Passive Hip ROM WFL No Testing Position Supine Flexion w/Knee Flexed 96 Straight Leg Raise 87 Abduction 7 Internal Rotation 13 External Rotation 5 PT-OP-L Special Tests Start: 06/03/18 17:28 Freq: Status: Active Protocol: Document 06/03/18 13:45 DCW (Rec: 06/04/18 08:57 DCW [id number]) Special Tests Hip Special Tests Thea's Test Test Results Positive Piriformis Test Results Negative Straight Leg Raise Test Results Negative for LBP CHEIKH Test Results Limited ROM made testing impossible PT-OP-M Strength Start: 06/03/18 17:28 Freq: Status: Active Protocol: Document 06/03/18 13:45 DCW (Rec: 06/04/18 08:57 DCW [id number]) Hip Strength Hip Manual Muscle Testing Right Flexion (L2) 3+ Fair+ Abduction 3+ Fair+ Adduction 4 Good External Rotation 4 Good Internal Rotation 4+ Good+ Left Flexion (L2) 4 Good Abduction 4- Good- Adduction 4 Good External Rotation 4+ Good+ Internal Rotation 4+ Good+ Knee Strength Knee Manual Muscle Testing Right Flexion (S2) 4+ Good+ Extension (L3) 4- Good- Comments Pain with extension testing Left Flexion (S2) 5 Normal Extension (L3) 5 Normal PT-OP-Q Treatments Start: 06/03/18 17:28 Freq: Status: Active Protocol: Document 07/13/18 16:45 DCW (Rec: 07/13/18 17:30 DCW [id number]) Cardio Equipment Recumbent Bicycle Duration (Minutes) 6 Resistance 4 Seat Position 1 + Lumbar pillow Gym Equipment Cable Column (Body Solid) Hip Abduction Resistance 10# Shuttle Recovery Unilateral Squats Details Right Resistance 25# Shuttle Recovery Platform Stable Bilateral Squats Resistance 62# Shuttle Recovery Platform Stable Therapeutic Exercises Sidelying Exercises Reverse Clamshell Sidelying Exercise Name Reverse Clamshell Side right Clamshell Sidelying Exercise Name Clamshell Side right Other Exercises Skaters Other Exercise Name Combined hip ext/abd Side bilateral Resistance Yellow Equipment Used T-band Resisted Side-stepping Other Exercise Name Resisted side-stepping Side bilateral Resistance Yellow Equipment Used T-band Manual Therapy Treatment Soft Tissue Mobilization ITB Body Location ITB Mobilization Type Strumming Sustained Pressure Intensity/Depth Moderate Piriformis Body Location Piriformis Mobilization Type Strumming Sustained Pressure Intensity/Depth Deep Manual Traction LE Traction Details Short-axis LE traction Body Position Hooklying PT-OP-R Modalities Start: 06/03/18 17:28 Freq: Status: Active Protocol: Document 06/29/18 16:00 DCW (Rec: 06/29/18 16:46 DCW [id number]) Iontophoresis Treatment Right Lateral Hip Treatment Medication Dexamethasone (-) Medication Amount (mL) (ml) 1.0 Medication Dosage 4 mg/mL Treatment Polarity Negative to Negative Treatment Duration (minutes) 5 PT-OP-T Assessment and Plan Start: 06/03/18 17:28 Freq: Status: Active Protocol: Document 07/13/18 16:45 DCW (Rec: 07/13/18 17:30 DCW [id number]) Physical Therapy Assessment Impairments Impairments Functional Activities Functional Mobility Pain ROM Strength Goals Four Impairment ITB tenderness Recreational Therapist Goal (LTG) Pt to exhibit no tenderness to palpation along right ITB LTG Duration 08/02/18 Three Impairment Limited hip ROM Skilled Nursing Goal (LTG) R hip flexion to 110? R hip abduction to 20? R hip ER and IR to 20? each LTG Duration 08/02/18 Two Impairment Pt unable to tolerate working in her yard Skilled Nursing Goal (LTG) Pt to return to normal level of yard work with no increased pain LTG Duration 08/02/18 One Impairment Pt does not have an appropriate Home Exercise Program Short Term Goal (STG) Pt to be independent and compliant with an appropriate HEP STG Duration 07/02/18 Assessment Summary Assessment Pt requested having the Ionto patch again today, so she can compare how she feels in the morning. Physical Therapy Plan Frequency and Duration Frequency of Treatment 2x/Week Duration of Treatment 12 weeks Plan of Care Start Date 06/03/18 Plan of Care End Date 08/26/18 Therapeutic Interventions Therapeutic Interventions Aquatic Therapy Gait Training Home Exercise Program Joint Mobilizations Manual Therapy Neuromuscular Re-education Soft Tissue Mobilization Taping Therapeutic Activities Therapeutic Exercises Modalities Cold Pack/Ice Massage Electric Stimulation Hot Packs Iontophoresis Ultrasound Other Therapeutic Interventions Iontophoresis with Dexamethasone 4 mg/mL Next Visit Focus/Plan Next Note Type Treatment Note Next Visit Plan Flexibility, strengthening, STM, Ionto, US, E-stim
--- NOTE | 2018-07-15 16:43 | PT.OTN ---
Current Diagnoses Unilateral primary osteoarthritis, right hip (07/15/18) Physical Therapy Treatment Note PT-OP-A Visit Information Start: 06/03/18 17:28 Freq: Status: Active Protocol: Document 07/15/18 16:00 DCW (Rec: 07/15/18 16:42 DCW [id number]) Out-Patient Physical Therapy Visit Information Visit Information Visit Type Treatment Note Visit Start Time 16:00 Visit Stop Time 16:45 Total Visit Minutes 45 Visit Number 7 Number of POWDER CUTTING OPERATOR Visits 0 Evaluation Information Evaluation Date 06/03/18 PT-OP-B Current Condition Start: 06/03/18 17:28 Freq: Status: Active Protocol: Document 06/03/18 13:45 DCW (Rec: 06/03/18 17:37 DCW [id number]) Current Condition History of Current Condition Onset Date 6 months Current Complaints pain and stiffness in right leg limiting mobility and function History of Current Condition Pt is an 82 year old female presenting with a six month history of right leg pain. Pt reports that it just started in November for no reason, and it was initially just a heaviness on my right thigh, which has slowly progressed to pain in her lateral upper leg . Pt notes that the pain worsens when first getting up or rolling over in bed. Does admits that her hip never really bothers be, it's just along the side, despite an x- ray on 05/12/18 showing severe right hip joint degeneration. Pt reports her pain and stiffness prevented a lot of her yard work over the summer, and is now beginning to limit her speed and distance when trying to walk. Prior Treatments and Tests R hip x-ray: severe right hip joint degeneration - per Nathaly Hugo M.D on 05/12/18 Treatment Goals Patient/Caregiver Goals Pt would like to decrease pain and return to yard work with no limitations Prior Functional Status Baseline Function- ADL's Independent Baseline Function- Mobility Independent Current Functional Impairments (Reported) Functional Limitations- Recreation/ Unable to participate in Hobbies normal yard work due to pain and stiffness PT-OP-C Subjective Start: 06/03/18 17:28 Freq: Status: Active Protocol: Document 07/15/18 16:00 DCW (Rec: 07/15/18 16:42 DCW [id number]) OP-PT Subjective Patient Comments Patient Comments That patch made a significant difference last time. I had the best sleep I've had in a long time, and felt fantastic the next day. PT-OP-F Manual Assessment Start: 06/03/18 17:28 Freq: Status: Active Protocol: Document 06/03/18 13:45 DCW (Rec: 06/04/18 08:57 DCW [id number]) Manual Assessments Soft Tissue Assessment Soft Tissue Mobility Assessment Tenderness to palpation at GT Bursa and along ITB 2/4 - Pain with wincing Joint Mobility Assessment Joint Mobility Assessment Severely limited mobility with all movements in right hip, left hip WNL PT-OP-K Range of Motion Start: 06/03/18 17:28 Freq: Status: Active Protocol: Document 06/03/18 13:45 DCW (Rec: 06/04/18 08:57 DCW [id number]) Hip Goniometric Range of Motion Hip Measured in Degrees Left Passive Hip ROM WFL Yes Right Passive Hip ROM WFL No Testing Position Supine Flexion w/Knee Flexed 96 Straight Leg Raise 87 Abduction 7 Internal Rotation 13 External Rotation 5 PT-OP-L Special Tests Start: 06/03/18 17:28 Freq: Status: Active Protocol: Document 06/03/18 13:45 DCW (Rec: 06/04/18 08:57 DCW [id number]) Special Tests Hip Special Tests Thea's Test Test Results Positive Piriformis Test Results Negative Straight Leg Raise Test Results Negative for LBP CHEIKH Test Results Limited ROM made testing impossible PT-OP-M Strength Start: 06/03/18 17:28 Freq: Status: Active Protocol: Document 06/03/18 13:45 DCW (Rec: 06/04/18 08:57 DCW [id number]) Hip Strength Hip Manual Muscle Testing Right Flexion (L2) 3+ Fair+ Abduction 3+ Fair+ Adduction 4 Good External Rotation 4 Good Internal Rotation 4+ Good+ Left Flexion (L2) 4 Good Abduction 4- Good- Adduction 4 Good External Rotation 4+ Good+ Internal Rotation 4+ Good+ Knee Strength Knee Manual Muscle Testing Right Flexion (S2) 4+ Good+ Extension (L3) 4- Good- Comments Pain with extension testing Left Flexion (S2) 5 Normal Extension (L3) 5 Normal PT-OP-Q Treatments Start: 06/03/18 17:28 Freq: Status: Active Protocol: Document 07/15/18 16:00 DCW (Rec: 07/15/18 16:42 DCW [id number]) Cardio Equipment Recumbent Bicycle Duration (Minutes) 6 Resistance 4 Seat Position 1 + Lumbar pillow Gym Equipment Cable Column (Body Solid) Hip Abduction Resistance 10# Shuttle Recovery Unilateral Squats Details Right Resistance 37# Shuttle Recovery Platform Stable Bilateral Squats Resistance 62# Shuttle Recovery Platform Stable Therapeutic Exercises Other Exercises Skaters Other Exercise Name Combined hip ext/abd Side bilateral Resistance Yellow Equipment Used T-band Resisted Side-stepping Other Exercise Name Resisted side-stepping Side bilateral Resistance Yellow Equipment Used T-band Manual Therapy Treatment Soft Tissue Mobilization ITB Body Location ITB Mobilization Type Strumming Sustained Pressure Intensity/Depth Moderate Piriformis Body Location Piriformis Mobilization Type Strumming Sustained Pressure Intensity/Depth Deep Manual Traction LE Traction Details Short-axis LE traction Body Position Hooklying PT-OP-R Modalities Start: 06/03/18 17:28 Freq: Status: Active Protocol: Document 07/15/18 16:00 DCW (Rec: 07/15/18 16:43 DCW [id number]) Iontophoresis Treatment Right Lateral Hip Treatment Medication Dexamethasone (-) Medication Amount (mL) (ml) 1.0 Medication Dosage 4 mg/mL Treatment Polarity Negative to Negative Treatment Duration (minutes) 5 PT-OP-T Assessment and Plan Start: 06/03/18 17:28 Freq: Status: Active Protocol: Document 07/15/18 16:00 DCW (Rec: 07/15/18 16:42 DCW [id number]) Physical Therapy Assessment Impairments Impairments Functional Activities Functional Mobility Pain ROM Strength Goals Four Impairment ITB tenderness Chucking And Boring Machine Operator Goal (LTG) Pt to exhibit no tenderness to palpation along right ITB LTG Duration 08/02/18 Three Impairment Limited hip ROM Chucking And Boring Machine Operator Goal (LTG) R hip flexion to 110? R hip abduction to 20? R hip ER and IR to 20? each LTG Duration 08/02/18 Two Impairment Pt unable to tolerate working in her yard Longterm Goal (LTG) Pt to return to normal level of yard work with no increased pain LTG Duration 08/02/18 One Impairment Pt does not have an appropriate Home Exercise Program Short Term Goal (STG) Pt to be independent and compliant with an appropriate HEP STG Duration 07/02/18 Assessment Summary Assessment Pt feeling much better today, tolerates her TherEx well. Physical Therapy Plan Frequency and Duration Frequency of Treatment 2x/Week Duration of Treatment 12 weeks Plan of Care Start Date 06/03/18 Plan of Care End Date 08/26/18 Therapeutic Interventions Therapeutic Interventions Aquatic Therapy Gait Training Home Exercise Program Joint Mobilizations Manual Therapy Neuromuscular Re-education Soft Tissue Mobilization Taping Therapeutic Activities Therapeutic Exercises Modalities Cold Pack/Ice Massage Electric Stimulation Hot Packs Iontophoresis Ultrasound Other Therapeutic Interventions Iontophoresis with Dexamethasone 4 mg/mL Next Visit Focus/Plan Next Note Type Treatment Note Next Visit Plan Flexibility, strengthening, STM, Ionto, US, E-stim
--- NOTE | 2018-07-20 17:31 | PT.OTN ---
Current Diagnoses Unilateral primary osteoarthritis, right hip (07/20/18) Physical Therapy Treatment Note PT-OP-A Visit Information Start: 06/03/18 17:28 Freq: Status: Active Protocol: Document 07/20/18 17:00 DCW (Rec: 07/20/18 17:31 DCW [id number]) Out-Patient Physical Therapy Visit Information Visit Information Visit Type Treatment Note Visit Note Pt arrived 15 minutes late Visit Start Time 17:00 Visit Stop Time 17:30 Total Visit Minutes 30 Visit Number 8 Number of GERMINATION WORKER Visits 0 Evaluation Information Evaluation Date 06/03/18 PT-OP-B Current Condition Start: 06/03/18 17:28 Freq: Status: Active Protocol: Document 06/03/18 13:45 DCW (Rec: 06/03/18 17:37 DCW [id number]) Current Condition History of Current Condition Onset Date 6 months Current Complaints pain and stiffness in right leg limiting mobility and function History of Current Condition Pt is an 82 year old female presenting with a six month history of right leg pain. Pt reports that it just started in November for no reason, and it was initially just a heaviness on my right thigh, which has slowly progressed to pain in her lateral upper leg . Pt notes that the pain worsens when first getting up or rolling over in bed. Does admits that her hip never really bothers be, it's just along the side, despite an x- ray on 05/12/18 showing severe right hip joint degeneration. Pt reports her pain and stiffness prevented a lot of her yard work over the summer, and is now beginning to limit her speed and distance when trying to walk. Prior Treatments and Tests R hip x-ray: severe right hip joint degeneration - per Nathaly Hugo M.D on 05/12/18 Treatment Goals Patient/Caregiver Goals Pt would like to decrease pain and return to yard work with no limitations Prior Functional Status Baseline Function- ADL's Independent Baseline Function- Mobility Independent Current Functional Impairments (Reported) Functional Limitations- Recreation/ Unable to participate in Hobbies normal yard work due to pain and stiffness PT-OP-C Subjective Start: 06/03/18 17:28 Freq: Status: Active Protocol: Document 07/20/18 17:00 DCW (Rec: 07/20/18 17:31 DCW [id number]) OP-PT Subjective Patient Comments Patient Comments Pt apologizes for her late arrival, states that she was stuck at Dr Diana's office, but notes that we're getting closer to surgery. Pt also notes she is walking around better today than yesterday, but she doesn't really know what happened, because there doesn't seem to be any difference. PT-OP-F Manual Assessment Start: 06/03/18 17:28 Freq: Status: Active Protocol: Document 06/03/18 13:45 DCW (Rec: 06/04/18 08:57 DCW [id number]) Manual Assessments Soft Tissue Assessment Soft Tissue Mobility Assessment Tenderness to palpation at GT Bursa and along ITB 2/4 - Pain with wincing Joint Mobility Assessment Joint Mobility Assessment Severely limited mobility with all movements in right hip, left hip WNL PT-OP-K Range of Motion Start: 06/03/18 17:28 Freq: Status: Active Protocol: Document 06/03/18 13:45 DCW (Rec: 06/04/18 08:57 DCW [id number]) Hip Goniometric Range of Motion Hip Measured in Degrees Left Passive Hip ROM WFL Yes Right Passive Hip ROM WFL No Testing Position Supine Flexion w/Knee Flexed 96 Straight Leg Raise 87 Abduction 7 Internal Rotation 13 External Rotation 5 PT-OP-L Special Tests Start: 06/03/18 17:28 Freq: Status: Active Protocol: Document 06/03/18 13:45 DCW (Rec: 06/04/18 08:57 DCW [id number]) Special Tests Hip Special Tests Thea's Test Test Results Positive Piriformis Test Results Negative Straight Leg Raise Test Results Negative for LBP CHEIKH Test Results Limited ROM made testing impossible PT-OP-M Strength Start: 06/03/18 17:28 Freq: Status: Active Protocol: Document 06/03/18 13:45 DCW (Rec: 06/04/18 08:57 DCW [id number]) Hip Strength Hip Manual Muscle Testing Right Flexion (L2) 3+ Fair+ Abduction 3+ Fair+ Adduction 4 Good External Rotation 4 Good Internal Rotation 4+ Good+ Left Flexion (L2) 4 Good Abduction 4- Good- Adduction 4 Good External Rotation 4+ Good+ Internal Rotation 4+ Good+ Knee Strength Knee Manual Muscle Testing Right Flexion (S2) 4+ Good+ Extension (L3) 4- Good- Comments Pain with extension testing Left Flexion (S2) 5 Normal Extension (L3) 5 Normal PT-OP-Q Treatments Start: 06/03/18 17:28 Freq: Status: Active Protocol: Document 07/20/18 17:00 DCW (Rec: 07/20/18 17:31 DCW [id number]) Cardio Equipment Recumbent Bicycle Duration (Minutes) 6 Resistance 4 Seat Position 1 + Lumbar pillow Gym Equipment Shuttle Recovery Unilateral Squats Details Right Resistance 37# Shuttle Recovery Platform Stable Bilateral Squats Resistance 62# Shuttle Recovery Platform Stable Therapeutic Exercises Other Exercises Skaters Other Exercise Name Combined hip ext/abd Side bilateral Resistance Yellow Equipment Used T-band Resisted Side-stepping Other Exercise Name Resisted side-stepping Side bilateral Resistance Yellow Equipment Used T-band Manual Therapy Treatment Soft Tissue Mobilization ITB Body Location ITB Mobilization Type Strumming Sustained Pressure Intensity/Depth Moderate Piriformis Body Location Piriformis Mobilization Type Strumming Sustained Pressure Intensity/Depth Deep Manual Traction LE Traction Details Short-axis LE traction Body Position Hooklying PT-OP-R Modalities Start: 06/03/18 17:28 Freq: Status: Active Protocol: Document 07/15/18 16:00 DCW (Rec: 07/15/18 16:43 DCW [id number]) Iontophoresis Treatment Right Lateral Hip Treatment Medication Dexamethasone (-) Medication Amount (mL) (ml) 1.0 Medication Dosage 4 mg/mL Treatment Polarity Negative to Negative Treatment Duration (minutes) 5 PT-OP-T Assessment and Plan Start: 06/03/18 17:28 Freq: Status: Active Protocol: Document 07/20/18 17:00 DCW (Rec: 07/20/18 17:31 DCW [id number]) Physical Therapy Assessment Impairments Impairments Functional Activities Functional Mobility Pain ROM Strength Goals Four Impairment ITB tenderness Care Home Goal (LTG) Pt to exhibit no tenderness to palpation along right ITB LTG Duration 08/02/18 Three Impairment Limited hip ROM Care Home Goal (LTG) R hip flexion to 110? R hip abduction to 20? R hip ER and IR to 20? each LTG Duration 08/02/18 Two Impairment Pt unable to tolerate working in her yard C Python Developer Goal (LTG) Pt to return to normal level of yard work with no increased pain LTG Duration 08/02/18 One Impairment Pt does not have an appropriate Home Exercise Program Short Term Goal (STG) Pt to be independent and compliant with an appropriate HEP STG Duration 07/02/18 Assessment Summary Assessment Pt looking forward to her SALONI, has one remaining PT appointment scheduled, and will then return closer to her surgery for her pre-op [facility] visit. Physical Therapy Plan Frequency and Duration Frequency of Treatment 2x/Week Duration of Treatment 12 weeks Plan of Care Start Date 06/03/18 Plan of Care End Date 08/26/18 Therapeutic Interventions Therapeutic Interventions Aquatic Therapy Gait Training Home Exercise Program Joint Mobilizations Manual Therapy Neuromuscular Re-education Soft Tissue Mobilization Taping Therapeutic Activities Therapeutic Exercises Modalities Cold Pack/Ice Massage Electric Stimulation Hot Packs Iontophoresis Ultrasound Other Therapeutic Interventions Iontophoresis with Dexamethasone 4 mg/mL Next Visit Focus/Plan Next Note Type Treatment Note Next Visit Plan Flexibility, strengthening, STM, Ionto, US, E-stim
--- NOTE | 2018-07-22 11:11 | PT.OTN ---
Current Diagnoses Unilateral primary osteoarthritis, right hip (07/22/18) Physical Therapy Treatment Note PT-OP-A Visit Information Start: 06/03/18 17:28 Freq: Status: Active Protocol: Document 07/22/18 10:30 DCW (Rec: 07/22/18 11:11 DCW [id number]) Out-Patient Physical Therapy Visit Information Visit Information Visit Type Discharge Summary Visit Start Time 10:30 Visit Stop Time 11:15 Total Visit Minutes 45 Visit Number 9 Number of DEVELOPMENT LEAD Visits 0 Evaluation Information Evaluation Date 06/03/18 PT-OP-B Current Condition Start: 06/03/18 17:28 Freq: Status: Active Protocol: Document 06/03/18 13:45 DCW (Rec: 06/03/18 17:37 DCW [id number]) Current Condition History of Current Condition Onset Date 6 months Current Complaints pain and stiffness in right leg limiting mobility and function History of Current Condition Pt is an 82 year old female presenting with a six month history of right leg pain. Pt reports that it just started in November for no reason, and it was initially just a heaviness on my right thigh, which has slowly progressed to pain in her lateral upper leg . Pt notes that the pain worsens when first getting up or rolling over in bed. Does admits that her hip never really bothers be, it's just along the side, despite an x- ray on 05/12/18 showing severe right hip joint degeneration. Pt reports her pain and stiffness prevented a lot of her yard work over the summer, and is now beginning to limit her speed and distance when trying to walk. Prior Treatments and Tests R hip x-ray: severe right hip joint degeneration - per Nathaly Hugo M.D on 05/12/18 Treatment Goals Patient/Caregiver Goals Pt would like to decrease pain and return to yard work with no limitations Prior Functional Status Baseline Function- ADL's Independent Baseline Function- Mobility Independent Current Functional Impairments (Reported) Functional Limitations- Recreation/ Unable to participate in Hobbies normal yard work due to pain and stiffness PT-OP-C Subjective Start: 06/03/18 17:28 Freq: Status: Active Protocol: Document 07/22/18 10:30 DCW (Rec: 07/22/18 11:11 DCW [id number]) OP-PT Subjective Patient Comments Patient Comments Pt reports she has herself all scheduled out for therapy following her hip replacement. PT-OP-F Manual Assessment Start: 06/03/18 17:28 Freq: Status: Active Protocol: Document 06/03/18 13:45 DCW (Rec: 06/04/18 08:57 DCW [id number]) Manual Assessments Soft Tissue Assessment Soft Tissue Mobility Assessment Tenderness to palpation at GT Bursa and along ITB 2/4 - Pain with wincing Joint Mobility Assessment Joint Mobility Assessment Severely limited mobility with all movements in right hip, left hip WNL PT-OP-K Range of Motion Start: 06/03/18 17:28 Freq: Status: Active Protocol: Document 06/03/18 13:45 DCW (Rec: 06/04/18 08:57 DCW [id number]) Hip Goniometric Range of Motion Hip Measured in Degrees Left Passive Hip ROM WFL Yes Right Passive Hip ROM WFL No Testing Position Supine Flexion w/Knee Flexed 96 Straight Leg Raise 87 Abduction 7 Internal Rotation 13 External Rotation 5 PT-OP-L Special Tests Start: 06/03/18 17:28 Freq: Status: Active Protocol: Document 06/03/18 13:45 DCW (Rec: 06/04/18 08:57 DCW [id number]) Special Tests Hip Special Tests Thea's Test Test Results Positive Piriformis Test Results Negative Straight Leg Raise Test Results Negative for LBP CHEIKH Test Results Limited ROM made testing impossible PT-OP-M Strength Start: 06/03/18 17:28 Freq: Status: Active Protocol: Document 06/03/18 13:45 DCW (Rec: 06/04/18 08:57 DCW [id number]) Hip Strength Hip Manual Muscle Testing Right Flexion (L2) 3+ Fair+ Abduction 3+ Fair+ Adduction 4 Good External Rotation 4 Good Internal Rotation 4+ Good+ Left Flexion (L2) 4 Good Abduction 4- Good- Adduction 4 Good External Rotation 4+ Good+ Internal Rotation 4+ Good+ Knee Strength Knee Manual Muscle Testing Right Flexion (S2) 4+ Good+ Extension (L3) 4- Good- Comments Pain with extension testing Left Flexion (S2) 5 Normal Extension (L3) 5 Normal PT-OP-Q Treatments Start: 06/03/18 17:28 Freq: Status: Active Protocol: Document 07/22/18 10:30 DCW (Rec: 07/22/18 11:11 DCW [id number]) Cardio Equipment Recumbent Bicycle Duration (Minutes) 6 Resistance 4 Seat Position 1 + Lumbar pillow Gym Equipment Cable Column (Body Solid) Hip Abduction Resistance 10# Shuttle Recovery Unilateral Squats Details Right Resistance 37# Shuttle Recovery Platform Stable Bilateral Squats Resistance 62# Shuttle Recovery Platform Stable Therapeutic Exercises Other Exercises Skaters Other Exercise Name Combined hip ext/abd Side bilateral Resistance Yellow Equipment Used T-band Step-up/over/retro Other Exercise Name Step-up/over/retro in // bars Side right Equipment Used 4 step Resisted Side-stepping Other Exercise Name Resisted side-stepping Side bilateral Resistance Yellow Equipment Used T-band Manual Therapy Treatment Soft Tissue Mobilization ITB Body Location ITB Mobilization Type Strumming Sustained Pressure Intensity/Depth Moderate Piriformis Body Location Piriformis Mobilization Type Strumming Sustained Pressure Intensity/Depth Deep Manual Traction LE Traction Details Short-axis LE traction Body Position Hooklying PT-OP-R Modalities Start: 06/03/18 17:28 Freq: Status: Active Protocol: Document 07/15/18 16:00 DCW (Rec: 07/15/18 16:43 DCW [id number]) Iontophoresis Treatment Right Lateral Hip Treatment Medication Dexamethasone (-) Medication Amount (mL) (ml) 1.0 Medication Dosage 4 mg/mL Treatment Polarity Negative to Negative Treatment Duration (minutes) 5 PT-OP-T Assessment and Plan Start: 06/03/18 17:28 Freq: Status: Active Protocol: Document 07/22/18 10:30 DCW (Rec: 07/22/18 11:11 DCW [id number]) Physical Therapy Assessment Impairments Impairments Functional Activities Functional Mobility Pain ROM Strength Goals Four Impairment ITB tenderness Prison Goal (LTG) Pt to exhibit no tenderness to palpation along right ITB LTG Duration 08/02/18 Three Impairment Limited hip ROM Prison Goal (LTG) R hip flexion to 110? R hip abduction to 20? R hip ER and IR to 20? each LTG Duration 08/02/18 Two Impairment Pt unable to tolerate working in her yard Plasterer Journeyman Goal (LTG) Pt to return to normal level of yard work with no increased pain LTG Duration 08/02/18 One Impairment Pt does not have an appropriate Home Exercise Program Short Term Goal (STG) Pt to be independent and compliant with an appropriate HEP STG Duration 07/02/18 Assessment Summary Assessment Pt will now be discharged until her SALONI occurs in one month, will return to skilled PT with a new referral following surgery. Physical Therapy Plan Frequency and Duration Frequency of Treatment 2x/Week Duration of Treatment 12 weeks Plan of Care Start Date 06/03/18 Plan of Care End Date 08/26/18 Therapeutic Interventions Therapeutic Interventions Aquatic Therapy Gait Training Home Exercise Program Joint Mobilizations Manual Therapy Neuromuscular Re-education Soft Tissue Mobilization Taping Therapeutic Activities Therapeutic Exercises Modalities Cold Pack/Ice Massage Electric Stimulation Hot Packs Iontophoresis Ultrasound Other Therapeutic Interventions Iontophoresis with Dexamethasone 4 mg/mL Discharge Physical Therapy Discharge Comments Discharge until /p surgery. Next Visit Focus/Plan Next Note Type Discharge Summary
== END 2018-09-28 11:46 | disposition home or self-care (01) ==
LOC: PHYS 10:30
PROVIDERS: PCP Family Medicine; Visit Provider Orthopaedic Surgery
DX: M16.11 Unilateral primary osteoarthritis, right hip (principal)
CPT/HCPCS: 97110; 97140; 97162

== ENCOUNTER 2018-08-26 11:45 | Outpatient (RCR) | payer MEDICARE, OTHER, SELFPAY ==
--- NOTE | 2018-08-26 17:13 | PT.OPPOC ---
Current Diagnoses Unilateral primary osteoarthritis, unspecified hip (08/26/18) Provider Visit Care Team Role Provider Type Jonatan Prince MD Primary Care Provider Physician Specialty: Family Practice Address: [facility] [place], [address] Email: [email or web address] Nahum Diana MD Attending Provider Physician Specialty: Orthopedic Surgery Address: [address] [place] [address], [id number] Email: [email or web address] Plan Of Care PT-OP-T Assessment and Plan Start: 08/26/18 13:40 Freq: Status: Active Protocol: Document 08/26/18 16:10 EA (Rec: 08/30/18 13:52 EA [id number]) Physical Therapy Assessment Rehab Potential Rehabilitation Potential Good Evaluation Complexity Number of Personal Factors/Comorbidities 1-2 Number of Body Systems Impaired 3 Clinical Presentation at Evaluation Evolving Impairments Impairments Activity Tolerance Functional Mobility Gait Pain ROM Soft Tissue Mobility Strength Goals Four Impairment NO HEP in place Stone Setter Goal (LTG) Patient will exhibit independent in all HEP LTG Duration 4 wks Three Impairment 25/80 LEFS score Retirement Goal (LTG) LEFS score of > 55 LTG Duration 6 wks Two Impairment Impaired distance ambulation Retirement Goal (LTG) Patient will ambulate > 2 miles with no AD indep LTG Duration 6 wks One Impairment Impaired R hip ROM Retirement Goal (LTG) Patient will exhibit functional R HIP ROM to improve gait and mobility LTG Duration 6 wks Assessment Summary Assessment Pleasant 82 y/o F patient who is referred today for pre-hip surgery evaluation with a recommendation of hip pre- cautions, strengthening and home exercises program. Assessment reveals decreased R hip ROM with pain and weakness during MMT. Gait evaluation exhibits antalgic gait that requires walking poles to decreased pain. Patient, caregiver, and home care provider educated with all hip pre-cautions, HEP and safe mobility post the hip surgery . Pt demonstrates good understanding and agreeable to comply to all recommendation. Patient will require re- assessment on her first PT session post surgery. Physical Therapy Plan Frequency and Duration Frequency of Treatment 2x/Week Duration of Treatment 8 wks Plan of Care Start Date 08/26/18 Plan of Care End Date 10/21/18 Therapeutic Interventions Therapeutic Interventions Balance Training Gait Training Home Exercise Program Joint Mobilizations Manual Therapy Neuromuscular Re-education Patient/Caregiver Education Self-Care/Home Management Soft Tissue Mobilization Taping Therapeutic Exercises Modalities Cold Pack/Ice Massage Electric Stimulation Hot Packs Ultrasound Next Visit Focus/Plan Next Note Type Treatment Note Next Visit Plan Review HEP and pre-caution, reassess hip strength and ROM to away from pre-cautions. Plan of Care Dates Plan of Care Start Date 08/26/18 Plan of Care End Date 10/21/18 Please Sign and Return: I have reviewed this Plan of Care and certify that the skilled therapy services above are required to meet the patient?s needs. Physician Signature Date Printed Name and Credentials Clinical Instructor Signature Printed Name and Credentials
--- NOTE | 2018-08-26 17:13 | PT.OIE ---
Current Diagnoses Unilateral primary osteoarthritis, unspecified hip (08/26/18) Past Medical History (Last Updated 08/18/18 @ 14:18 by Odalys Aldrich RN) Easy bruisability (Acute) GERD (gastroesophageal reflux disease) (Acute) HLD (hyperlipidemia) (Acute) HTN (hypertension) (Acute) Hypothyroidism (Acute) Numbness and tingling in both hands (Acute) Ocular migraine (Acute) Osteoarthritis (Acute) Past Surgical History (Last Updated 08/18/18 @ 14:18 by Odalys Aldrich RN) History of bladder suspension procedure (Acute) Hx of bilateral cataract extraction (Acute) Hx of repair of left rotator cuff (Acute ~2006) History of carpal tunnel repair Status post appendectomy Status post hysterectomy Provider Visit Care Team Role Provider Type Jonatan Prince MD Primary Care Provider Physician Specialty: [facility] Address: [address] [place] [address], [address] Email: [email or web address] Nahum Diana MD Attending Provider Physician Specialty: Orthopedic Surgery Address: [address] [place] [address], [address] Email: [email or web address] Physical Therapy Initial Evaluation PT-OP-A Visit Information Start: 08/26/18 13:40 Freq: Status: Active Protocol: Document 08/26/18 16:10 EA (Rec: 08/30/18 13:52 EA [id number]) Out-Patient Physical Therapy Visit Information Visit Information Visit Type Initial Evaluation Visit Start Time 12:15 Visit Stop Time 13:00 Total Visit Minutes 45 Visit Number 1 Number of NUTRITION MANAGER Visits 0 Evaluation Information Evaluation Date 08/26/18 Precautions Precautions Pre-cautions to anterior SALONI PT-OP-B Current Condition Start: 08/26/18 13:40 Freq: Status: Active Protocol: Document 08/26/18 16:10 EA (Rec: 08/30/18 13:52 EA [id number]) Current Condition History of Current Condition Onset Date Pre-hip surgery 08/30/2018 Current Complaints Pre-hip surgery 08/30/18 History of Current Condition Pt presents today with limited hip mobility due to pain and stiffness of the right hip and is scheduled for a R SALONI surgery on 08/30/2018. Patient reports he went for a formal PT months ago and helped but not completely resolved the issue. Her and acting caregiver wants to know today about post surgery pre- cautions and exercises to perform after the surgery. Prior Treatments and Tests R hip x-ray: severe right hip joint degeneration - per Nathaly Hugo M.D on 05/12/18 R hip formal PT treament at Future Testing and Treatments Planned R total hip arthroplasty on Treatment Goals Patient/Caregiver Goals Pt would like to decrease pain and return to yard work with no limitations Prior Functional Status Baseline Function- ADL's Independent Baseline Function- Mobility Independent Baseline Function- Gait Able to amb > 2 miles prior to last month hip symptoms aggravation. Baseline Function- Work/School Retired. Lives alone with children comes and visit sometimes a in a month. Baseline Function- Recreation/Hobbies Likes to walk outdoors. Current Functional Impairments (Reported) Functional Limitations- ADL's Indep indoors, currently requires helps from friend and community with all outside ADL's Functional Limitations- Mobility/Gait Unable to walk more than a block indepedently and requires AD Functional Limitations- Work/School retired Functional Limitations- Recreation/ Unable to participate in Hobbies normal yard work due to pain and stiffness PT-OP-C Subjective Start: 08/26/18 13:40 Freq: Status: Active Protocol: Document 08/26/18 16:10 EA (Rec: 08/30/18 13:52 EA [id number]) OP-PT Subjective Patient Comments Patient Comments I would like to be able to get back to my previous level of function a month ago. Patient Reported Progress Worse Patient Questionnaires Lower Extremity Functional Scale LEFS Score 25 LEFS Impairment 60 to 79% Impaired (Score 17- 31) OP-PT Pain Assessment Location Right Hip Pain Location Details Right hip PT-OP-D Balance Start: 08/26/18 13:40 Freq: Status: Active Protocol: Document 08/26/18 16:27 EA (Rec: 08/31/18 07:28 EA [id number]) Balance Tests Single Limb Standing Single Limb- Right < 3 secs Single Limb- Left <5 seconds PT-OP-G Mobility & Gait Start: 08/26/18 13:40 Freq: Status: Active Protocol: Document 08/26/18 16:25 EA (Rec: 08/31/18 07:26 EA [id number]) OP Gait Assessment Gait Gait Assistance Required: Independent Distance (Feet) 100 Assistive Devices Assistive Device Straight Cane Gait Deviations General Gait Pattern Antalgic Factors Limiting Gait Function Factors Limiting Gait Function Decreased Strength Limited Range of Motion Pain PT-OP-K Range of Motion Start: 08/26/18 13:40 Freq: Status: Active Protocol: Document 08/26/18 16:10 EA (Rec: 08/30/18 13:52 EA [id number]) Hip Goniometric Range of Motion Hip Measured in Degrees Left Passive Hip ROM WFL Yes Right Passive Hip ROM WFL No Flexion w/Knee Flexed 90 Straight Leg Raise 80 Internal Rotation 5 External Rotation 20 Knee Goniometric Range of Motion Knee ROM Limitations Knee ROM Limitations Soft Tissue Tightness Bony Restriction Pain PT-OP-L Special Tests Start: 08/26/18 13:40 Freq: Status: Active Protocol: Document 08/26/18 16:10 EA (Rec: 08/30/18 13:52 EA [id number]) Special Tests Hip Special Tests Thea's Test Test Results Positive Piriformis Test Results Negative Straight Leg Raise Test Results Negative for LBP CHEIKH Test Results Test is not possible due to LOM PT-OP-M Strength Start: 08/26/18 13:40 Freq: Status: Active Protocol: Document 08/26/18 16:10 EA (Rec: 08/30/18 13:52 EA [id number]) Hip Strength Hip Manual Muscle Testing Right Flexion (L2) 3+ Fair+ Extension (S1) 4- Good- Abduction 3+ Fair+ Adduction 4- Good- External Rotation 3 Fair Internal Rotation 3 Fair Comments Weakness with pain Left Reason Not Measured WFL PT-OP-Q Treatments Start: 08/26/18 13:40 Freq: Status: Active Protocol: Document 08/26/18 16:10 EA (Rec: 08/30/18 13:52 EA [id number]) Self-Care/Home Management Treatment Education Patient Education Home Exercise Program Joint Protection Pain Management Posture Safety Caregiver Education Post surgery HEP education. Other Education Post surgery HEP, safety, pre- cautions, use of assistive device PT-OP-T Assessment and Plan Start: 08/26/18 13:40 Freq: Status: Active Protocol: Document 08/26/18 16:10 NANDA (Rec: 08/30/18 13:52 EA [id number]) Physical Therapy Assessment Rehab Potential Rehabilitation Potential Good Evaluation Complexity Number of Personal Factors/Comorbidities 1-2 Number of Body Systems Impaired 3 Clinical Presentation at Evaluation Evolving Impairments Impairments Activity Tolerance Functional Mobility Gait Pain ROM Soft Tissue Mobility Strength Goals Four Impairment NO HEP in place Senior Living Goal (LTG) Patient will exhibit independent in all HEP LTG Duration 4 wks Three Impairment 25/80 LEFS score Senior Living Goal (LTG) LEFS score of > 55 LTG Duration 6 wks Two Impairment Impaired distance ambulation Senior Living Goal (LTG) Patient will ambulate > 2 miles with no AD indep LTG Duration 6 wks One Impairment Impaired R hip ROM Rigging Loft Mechanic Goal (LTG) Patient will exhibit functional R HIP ROM to improve gait and mobility LTG Duration 6 wks Assessment Summary Assessment Pleasant 82 y/o F patient who is referred today for pre-hip surgery evaluation with a recommendation of hip pre- cautions, strengthening and home exercises program. Assessment reveals decreased R hip ROM with pain and weakness during MMT. Gait evaluation exhibits antalgic gait that requires walking poles to decreased pain. Patient, caregiver, and senior care specialist educated with all hip pre-cautions, HEP and safe mobility post the hip surgery . Pt demonstrates good understanding and agreeable to comply to all recommendation. Patient will require re- assessment on her first PT session post surgery. Physical Therapy Plan Frequency and Duration Frequency of Treatment 2x/Week Duration of Treatment 8 wks Plan of Care Start Date 08/26/18 Plan of Care End Date 10/21/18 Therapeutic Interventions Therapeutic Interventions Balance Training Gait Training Home Exercise Program Joint Mobilizations Manual Therapy Neuromuscular Re-education Patient/Caregiver Education Self-Care/Home Management Soft Tissue Mobilization Taping Therapeutic Exercises Modalities Cold Pack/Ice Massage Electric Stimulation Hot Packs Ultrasound Next Visit Focus/Plan Next Note Type Treatment Note Next Visit Plan Review HEP and pre-caution, reassess hip strength and ROM to away from pre-cautions.
--- NOTE | 2018-09-02 14:20 | PT.OPDS ---
Current Diagnoses Unilateral primary osteoarthritis, unspecified hip (08/26/18) Provider Visit Care Team Role Provider Type Jonatan Prince MD Primary Care Provider Physician Specialty: Family Practice Address: [facility] [place], [address] Email: [email or web address] Nahum Diana MD Attending Provider Physician Specialty: Orthopedic Surgery Address: [address] [place] [address], [address] Email: [email or web address] Visit Number Visit Number 1 Discharge Summary PT-OP-B Current Condition Start: 08/26/18 13:40 Freq: Status: Active Protocol: Document 08/26/18 16:10 EA (Rec: 08/30/18 13:52 EA [id number]) Current Condition History of Current Condition Onset Date Pre-hip surgery 08/30/2018 Current Complaints Pre-hip surgery 08/30/18 History of Current Condition Pt presents today with limited hip mobility due to pain and stiffness of the right hip and is scheduled for a R SALONI surgery on 08/30/2018. Patient reports he went for a formal PT months ago and helped but not completely resolved the issue. Her and acting caregiver wants to know today about post surgery pre- cautions and exercises to perform after the surgery. Prior Treatments and Tests R hip x-ray: severe right hip joint degeneration - per Nathaly Hugo M.D on 05/12/18 R hip formal PT treament at Future Testing and Treatments Planned R total hip arthroplasty on Treatment Goals Patient/Caregiver Goals Pt would like to decrease pain and return to yard work with no limitations Prior Functional Status Baseline Function- ADL's Independent Baseline Function- Mobility Independent Baseline Function- Gait Able to amb > 2 miles prior to last month hip symptoms aggravation. Baseline Function- Work/School Retired. Lives alone with children comes and visit sometimes a in a month. Baseline Function- Recreation/Hobbies Likes to walk outdoors. Current Functional Impairments (Reported) Functional Limitations- ADL's Indep indoors, currently requires helps from friend and community with all outside ADL's Functional Limitations- Mobility/Gait Unable to walk more than a block indepedently and requires AD Functional Limitations- Work/School retired Functional Limitations- Recreation/ Unable to participate in Hobbies normal yard work due to pain and stiffness PT-OP-C Subjective Start: 08/26/18 13:40 Freq: Status: Active Protocol: Document 09/02/18 14:16 EA (Rec: 09/02/18 14:20 EA [id number]) OP-PT Subjective Patient Comments Patient Comments [facility] reports discharge clints file as patient will be discharging to SNF for hip post surgery recovery. PT-OP-D Balance Start: 08/26/18 13:40 Freq: Status: Active Protocol: Document 08/26/18 16:27 EA (Rec: 08/31/18 07:28 EA [id number]) Balance Tests Single Limb Standing Single Limb- Right < 3 secs Single Limb- Left <5 seconds PT-OP-G Mobility & Gait Start: 08/26/18 13:40 Freq: Status: Active Protocol: Document 08/26/18 16:25 EA (Rec: 08/31/18 07:26 EA [id number]) OP Gait Assessment Gait Gait Assistance Required: Independent Distance (Feet) 100 Assistive Devices Assistive Device Straight Cane Gait Deviations General Gait Pattern Antalgic Factors Limiting Gait Function Factors Limiting Gait Function Decreased Strength Limited Range of Motion Pain PT-OP-K Range of Motion Start: 08/26/18 13:40 Freq: Status: Active Protocol: Document 08/26/18 16:10 EA (Rec: 08/30/18 13:52 EA [id number]) Hip Goniometric Range of Motion Hip Measured in Degrees Left Passive Hip ROM WFL Yes Right Passive Hip ROM WFL No Flexion w/Knee Flexed 90 Straight Leg Raise 80 Internal Rotation 5 External Rotation 20 Knee Goniometric Range of Motion Knee ROM Limitations Knee ROM Limitations Soft Tissue Tightness Bony Restriction Pain PT-OP-L Special Tests Start: 08/26/18 13:40 Freq: Status: Active Protocol: Document 08/26/18 16:10 EA (Rec: 08/30/18 13:52 EA [id number]) Special Tests Hip Special Tests Thea's Test Test Results Positive Piriformis Test Results Negative Straight Leg Raise Test Results Negative for LBP CHEIKH Test Results Test is not possible due to LOM PT-OP-M Strength Start: 08/26/18 13:40 Freq: Status: Active Protocol: Document 08/26/18 16:10 EA (Rec: 08/30/18 13:52 EA [id number]) Hip Strength Hip Manual Muscle Testing Right Flexion (L2) 3+ Fair+ Extension (S1) 4- Good- Abduction 3+ Fair+ Adduction 4- Good- External Rotation 3 Fair Internal Rotation 3 Fair Comments Weakness with pain Left Reason Not Measured WFL PT-OP-T Assessment and Plan Start: 08/26/18 13:40 Freq: Status: Active Protocol: Document 09/02/18 14:16 EA (Rec: 09/02/18 14:20 EA [id number]) Physical Therapy Assessment Assessment Summary Assessment Patient is discharge from skilled PT due to changed of medical status. Physical Therapy Plan Discharge Physical Therapy Discharge Reasons Change in Medical Status
== END 2018-09-09 11:08 ==
LOC: PHYS 11:45
PROVIDERS: PCP Family Medicine; Visit Provider Orthopaedic Surgery
DX: M16.10 Unilateral primary osteoarthritis, unspecified hip (principal)
CPT/HCPCS: 97110; 97161; 97535

== ENCOUNTER 2018-08-30 06:01 | Inpatient (IN) | payer MEDICARE, OTHER, SELFPAY ==
[2018-08-18 13:47] VITALS: BMI 23.4
[2018-08-30] VITALS (14 sets, daily range): BP systolic 106–176; BP diastolic 59–85; PULSE 56–100; RESP 12–19; TEMP 35.3–36.7; O2SAT 96–100; BMI 23.4
--- NOTE | 2018-08-30 | DI.RAD.S_ITS ---
PROCEDURE: XR HIP RT 1V INDICATIONS: RIGHT ANTERIOR HIP REPLACEMENT TECHNIQUE: 8 view(s) of the hip acquired. COMPARISON: None. FINDINGS: Bones: Intraoperative and immediate postoperative evaluations show sequence of preparation 4 and then placement of final total hip arthroplasty device on the right. Soft tissues: Overlying postoperative changes are noted. No suspicious soft tissue densities. IMPRESSION: Normal postoperative alignment at completion of the operative procedure detail through this study. Dictated by: Cristi Jones M.D. on 08/30/2018 at 10:23 Approved by: Cristi Jones M.D. on 08/30/2018 at 10:25
--- NOTE | 2018-08-30 06:00 | DI.RAD.S_ITS ---
PROCEDURE: XR HIP W PEL IF DONE RT 2V INDICATIONS: prosthesis placement TECHNIQUE: AP pelvis and view of the right hip acquired. COMPARISON: None. FINDINGS: Bones: Patient is status post right hip arthroplasty, with hardware components in expected positions. The hip joint appears congruent. The visualized bony structures appear intact. Soft tissues: Overlying postoperative changes are noted. No suspicious soft tissue densities. IMPRESSION: Normal alignment after right total hip arthroplasty. Dictated by: Cristi Jones M.D. on 08/30/2018 at 10:22 Approved by: Cristi Jones M.D. on 08/30/2018 at 10:23
[2018-08-30] MEDS: LACTATED RINGERS 1,000 ML 42 ML IV (07:06)
[2018-08-30] MEDS: PREGABALIN 75 MG CAPSULE PO (07:10)
[2018-08-30] MEDS: ACETAMINOPHEN 325 MG TABLET 975 MG PO (07:10)
[2018-08-30] MEDS: MELOXICAM 7.5 MG TABLET 15 MG PO (07:11)
[2018-08-30] MEDS: CLINDAMYCIN 900 MG/50 ML PIGGYBACK 50 MG IV ×2 (07:47→17:22)
--- NOTE | 2018-08-30 07:50 | PM.PREOP ---
Pre-operative Note Interval Note History & Physical reviewed/Exam performed by Physician: Yes Changes to H&P: No
--- NOTE | 2018-08-30 08:34 | SUR.OPER ---
Head on pillow. Supine on [place] table with both legs secured in boots,traction. Right leg under control of surgeon. Right arm across chest, elbow padded with gel, secured with sheet, left arm on padded arm board.
[2018-08-30] MEDS: ROPIVACAINE 0.5% PF 5 MG/ML 20ML AMP 60 ML INJ (08:45)
[2018-08-30] MEDS: MORPHINE 4 MG/ML INJ INJ (08:46)
[2018-08-30] MEDS: KETOROLAC 30 MG/ML VIAL IV (08:46)
[2018-08-30] MEDS: TRANEXAMIC ACID 1,000 MG VIAL 1000 MG INJ (08:47)
--- NOTE | 2018-08-30 10:14 | P.OP_ITS ---
Operative Date/Time/Diagnoses Date of procedure: 08/30/18 Time of procedure: 10:04 Pre-op diagnosis: Right hip degenerative joint disease Post-op diagnosis: same Procedure & Clinicians Procedure: Right total hip arthroplasty, direct anterior approach (CPT code 99773 with physicians assistant) Same procedure as scheduled: Yes Indications: Patient is an 82-year-old female with severe right hip DJD. The patient has pain with activities and at rest, limited ambulation and activity tolerance, difficulties with ADLs, and failure of conservative treatment. We have discussed the nature of condition, treatment options, risks and benefits, and patient elects to proceed with total hip arthroplasty via direct anterior approach and gives informed consent. Surgeon: Nahum Diana Traveling Nurse: Lyle Lopez Anesthesia Type: General and Spinal Operative Notes Closure Type: primary Specimen(s): none sent Prosthetic devices, grafts, tissues, transplants, or devices: Acetabulum: Sellers and Nephew R3 acetabular component size 46 mm Femoral component: Sellers [employer] Nephew Anthology stem size 4 with standard offset Femoral head: 28 mm + 0 cobalt chrome Estimated Blood Loss (mL): 150 Blood products transfused: none Procedure in detail: Patient brought to the operating room and after satisfactory induction of anesthetic, and administration of IV antibiotics and 1st intravenous dose of tranexamic acid the patient was placed on the [place] table with all bony prominences well padded and both feet in the ski boots in neutral position. right hip and lower extremity prepped and draped in usual sterile fashion. incision made over the anterolateral thigh beginning just distal and lateral to the ASIS and extending distally. fascia incised longitudinally over the TFL, and the intermuscular interval identified with a Cobra retractor placed in the superior capsule and the TFL and sartorius retracted with the Gelpi. Circumflex vessels then identified and cauterized and the pre capsular fat pad was removed. capsulotomy created in the capsule was retracted medially the lateral capsule was excised. femoral neck cut made according to preoperative templating with neck cut confirmed with C-arm. Femoral head was removed with the corkscrew device then acetabular retractors were placed. labrum and foveal tissue then excised and sequential reaming to 45 mm was performed with an excellent circumferential rim of the acetabulum. trial component had excellent and snug fit so a size 46 Sellers and Nephew R3 acetabular component was selected, inserted, and impacted into position under fluoroscopic guidance. Satisfactory position and fixation confirmed, the permanent liner was then inserted. The femur was then externally rotated, extended, and abducted and while doing this a further superior and supero posterior capsular release was performed. proximal femoral retractors were placed and the lateral femoral neck was entered with a box osteotome and a canal finder. The chili pepper broach was then placed down the canal, satisfactory position was confirmed with AP and lateral fluoroscopic images. Sequential broaching to 4 was performed in the 4 broach had a nice snug fit and was left in place for trial reduction which yielded excellent leg length range of motion and stability characteristics as well as satisfactory position, size, and leg length on fluoroscopic views. The trial broach were then removed and a size 4 Sellers and Nephew anthology stem was selected inserted and impacted into position with excellent position and fixation achieved. the final 28 mm +0 cobalt chrome head was impacted on the femoral component and the hip was reduced. excellent position and leg length was achieved and confirmed both visually and with fluoroscopy. The wound was copiously irrigated and the fascia overlying the TFL was closed with running 0 Vicryl. periarticular tissues were infiltrated with ropivacaine, Toradol, and morphine. Subcutaneous tissue closed with 2 O Vicryl and skin was closed with a running intracuticular locking stitch and skin further closed with skin adhesive. Sterile dressings applied, the anesthetic terminated, a 2nd dose of tranexamic acid was administered. patient taken to postanesthetic recovery in satisfactory condition. Complications: none Condition: stable Disposition: PACU Plan for aftercare: Patient will be admitted to the acute care roy, and anticipate discharge on postop day 1 or 2 with follow-up in office in 10-14 days. Outpatient physical therapy will be arranged and patient will continue to observe posterior hip precautions. Patient will continue use of postoperative Lovenox for 10 days postop.
[2018-08-30] MEDS: LACTATED RINGERS 1,000 ML 125 ML IV ×2 (10:28→18:15)
[2018-08-30] MEDS: ONDANSETRON 4 MG/2 ML INJ IV ×3 (11:12→18:31)
--- NOTE | 2018-08-30 13:29 | CM.DANOTE ---
DCP/Assessment: Reviewed chart. Patient is a 82yr old female admitted to [facility] today for right SALONI performed by Dr. Diana. PCP is Dr. Prince. Primary payor is 1)Medicare 2)[employer]. Met briefly with patient explained CM/SW role. Patient reports still being somewhat numb waist down. Patient reports that she resides alone in [place]. Patient resides in 1 level home and has 4 steps to enter. Patient reports that she hopes to go home when medically stable. Patient has son/Rommel and grandson/Hank available to assist if needed. Patient has outpatient therapy arranged at [facility] when appropriate. At this time notified patient that CM team would follow closely. Therapy evaluations pending and to soon to determine safest plan. P: Anticipate home, pending progress, recovery, and therapy. ALBERTO Causey Discharge Planning/Care Management Advanced directive, confirm from FAMILY Start: 08/30/18 10:39 Freq: Q24H Status: Active Protocol: Document 08/30/18 10:39 JOCELYNE (Rec: 08/30/18 10:40 JOCELYNE [id number]) Advance Directive, confirm on record Time 10:40 Person contacted hank Copy received Yes CM Discharge Assessment Start: 08/30/18 13:20 Freq: Status: Active Protocol: Document 08/30/18 13:20 KJS (Rec: 08/30/18 13:29 KJS [id number]) Discharge Planning Assessment Assigned Game Tester ALBERTO Causey Contact Information Rommel Warren Advance Directives? Yes Advance Directives on File No History Provided By Patient Prior Living Arrangements House Household Members none Type of transporation used prior to Drives own vehicle admit Independent with ADL's Yes Is patient alert and oriented? Yes Caregiver for Another No DME Already Rented / Owned FWW / Walker Patient/Family Preference OP PT Therapy Comment Patient has outpatient therapy arranged at [facility]. Barriers to Discharge No Comment Surgery today, therapy currently pending. Discharge Plan Home Transportation Arrangement Family to provide transport Whiteboard Updated in Patient Room with Yes name and ext. # of Game Tester Review Status In Process Next Review Type Continued Stay Review Pre-Anesthesia Assessment Start: 08/18/18 13:47 Freq: Status: Active Protocol: Document 08/18/18 13:47 CAB (Rec: 08/18/18 14:40 CAB [id number]) Pre-Anesthesia Assessment Patient Also Known As (JOSE MIGUEL Aguiar or [place] Patient Information Reviewed Via Phone Assessment Assessment Completed With Patient Diagnostic Results CBC EKG Electrolytes Comment Outside labs/ECG 08/05/18 scanned to record Primary Care Provider Jonatan Prince Seen Specialist in Last 12 Months Yes Specialist Seen Orthopedist Primary Language Portuguese Sales Program Coordinator Required No Height 152.4 cm Weight 54.431 kg Body Mass Index (BMI) 23.4 Hearing Ability Normal Visual Assist Glasses Magnifying Glass Dentition Type Partial- Upper Dental Implants Barriers to Learning None Other Aids No Hx Anesthesia Reactions No Hx Family Anesthesia Reaction No Hx Malignant Hyperthermia No Hx Blood Transfusions No Anesthesia Review Requested No Customer Account Specialist No alcohol intake current alcohol intake frequency 0-2 drinks per day Smoking Status Never smoker Substance Use Type does not use Pain Present Pain Reported Musculoskeletal Symptoms Abnormal Gait Difficulty Walking Joint Pain Joint Stiffness Limited Range of Motion Numbness History of Falling (Recent or History of No ) Patient is completely paralyzed or No completely immobile Mental Status Oriented to own ability Comment Walking stick Is patient on oxygen? No Does patient have CHAVARRIA/SOB Yes: Very rare Hx Sleep Apnea No Currently Taking a Beta Calvin No Can You Climb a Flight of Stairs Without Yes SOB Hx Chest Pain No Hx SOB Yes: Very rare Hx Syncope or Dizziness Yes: Dizziness maya rare Anti-Coagulant Therapy No Has a Tar Roofer No Cardiac Testing No Hx Pacemaker/ICD No Pacemaker Rep Required? No Cardiac Clearance Received Not Applicable Diet Type At Home Regular dysphagia No Bladder Pattern Incontinent Nocturia Urgency Urinary Catheter Present No Hx Urinary Self Catheterization No Diabetes No Patient No Lactating No Hx Drug Resistant Organism No Presence of External or Internal Medical Yes: Bilateral eye lens, Devices dental implants Have you traveled outside the [facility] in the last 30 days? Marital Status / Lives With none Prior Living Arrangements House Support System Child/Children Family Does the Patient Have Assistance After Yes Surgery Patient Discharge Plan Description Return Home Comment Family will stay w/pt at [facility] to assist with care Feels Safe in Current Environment Yes Been Physically Hurt or Threatened By a No Person in Current Environment Do you have thoughts of harming yourself None or others? Are you currently considering suicide? No Do you have a plan to hurt yourself or No Plan others? Do You Have Any Spiritual Beliefs That No May Affect Your HC Choices? Do You Have Any Cultural Practices That No May Affect Your HC Choices? Spiritual Referral In-House Rn Clinical Quality Comment [facility] Who Can We Speak to About Patient's Care Family, friends Identifying Code for Release of Patient Declines to issue Information Health Care Proxy/Next of Kin Rommel (son) Hank (Robert) Health Care Proxy Phone Number Rommel: [phone] Hank: [phone] Emergency Contact Name Rommel (son) Hank (Robert) Emergency Contact Phone Number Rommel: [phone] Hank: [phone] Advance Directives? Yes Advance Directives on File No Requested Patient Bring Advanced Yes Directives DOS PAC Instructions Do not shave/clip surgical site Durable medical equipment Medications to take/avoid Nasal antibiotic No ETOH/petroleum product on skin DOS NPO Post-op transportation Pre-surgical wash Sensory aids Sturdy shoes/comfortable clothes Do not bring valuables and remove jewelry
[2018-08-30] MEDS: METOCLOPRAMIDE 10 MG/2 ML INJ IV ×2 (14:22→21:35)
--- NOTE | 2018-08-30 14:36 | PT.IPTN ---
Current Diagnoses Unilateral primary osteoarthritis, right hip (08/30/18) Surgery Performed Operation Date: 08/30/18 07:45 Actual Procedures p Total Hip Arthroplasty/Anterior Approach(Right) - Nahum Diana MD Physical Therapy Treatment Note M3 PT-IP Subjective Start: 08/30/18 14:33 Freq: NEEDED Status: Active Protocol: Document 08/30/18 14:00 HH (Rec: 08/30/18 14:36 [id number]) Subjective Physical Therapy Visit Type Type Administrative Note Visit Start Time 14:00 Notes Per RN, pt has been vomiting and drowsy since she arrived to AC unit at 12pm. Pt states he feels weak and very nausea upon assessment, along with inability to mobilize her R LE yet. Reattempt PT later this pm/ tomorrow am depends on pt' s status. Post op SALONI anterior approach is given.
--- NOTE | 2018-08-30 14:59 | PC.NURSE ---
Pt has had nausea with emesis post op - given zofran x 2 doses and reglan IV with little to no effect. Call out to Dylan Diana and Lina who are in surgery at this time. Pt denies pain but complains of dizziness. Sensation reduced in lower extremities. O2 sats = 97% on RA.
--- NOTE | 2018-08-30 16:30 | PT.IPTN ---
Current Diagnoses Unilateral primary osteoarthritis, right hip (08/30/18) Surgery Performed Operation Date: 08/30/18 07:45 Actual Procedures p Total Hip Arthroplasty/Anterior Approach(Right) - Nahum Diana MD Physical Therapy Treatment Note M3 PT-IP Subjective Start: 08/30/18 14:33 Freq: NEEDED Status: Active Protocol: Document 08/30/18 16:00 HH (Rec: 08/30/18 16:30 [id number]) Subjective Physical Therapy Visit Type Type Administrative Note Visit Start Time 16:00 Notes Per RN Daisy, Pt is cont vomiting and given zofran x 2 doses and reglan IV with little to no effect. Dr. Diana was notified who is in surgery at that time. Pt is currently sleeping deeply upon assessment. Reattempt PT in tomorrow AM.
[2018-08-30] MEDS: NALOXONE 0.4 MG/ML VIAL IV (17:12)
[2018-08-31] VITALS (9 sets, daily range): BP systolic 114–155; BP diastolic 51–79; PULSE 70–83; RESP 16–18; TEMP 36.4–36.9; O2SAT 96–100
[2018-08-31] MEDS: LACTATED RINGERS 1,000 ML 125 ML IV ×2 (02:52→18:59)
--- NOTE | 2018-08-31 05:41 | PC.NURSE ---
Addendum entered by Anya William R.N. 08/31/18 06:55: Updated bladder scan showed <200ml, pt attempted to void but was unable, does not meet criteria for straight cath. Will pass on to day shift nurse. Original Note: Shift note: Pt has been quite somnolent but arousable on shift. Pt had been straight cath'd on evening shift at 2125, and at 0530 was still dry in brief and did not feel the urge to go. Bladder scan revealed average volume of 355ml which did not meet criteria for another in and out straight cath. Will check pt again before change of shift to see if volume has increased and/or pt feels the urge to urinate.
[2018-08-31 05:52] LABS: Hematocrit 29.3 % (36-46); Hemoglobin 10.4 g/dL (12.0-16.0)
[2018-08-31] MEDS: LEVOTHYROXINE 50 MCG TABLET PO (06:04)
[2018-08-31] MEDS: PANTOPRAZOLE 40 MG TABLET PO (06:04)
--- NOTE | 2018-08-31 09:25 | PM.PNPO.1 ---
Subjective Date Patient Seen: 08/31/18 Time Patient Seen: 09:25 Interval history: Hospital day 2, postop day 1 following right anterior total hip arthroplasty by Dr. Diana. Patient has remained stable postoperatively. She did have nausea and vomiting most of yesterday. Doing better this morning and able to eat a little bit. Also had difficulty voiding. She has not had any physical therapy yet other than getting up to chair. She does plan to go home post hospitalization with her grandson and his girlfriend helping to take care of her. Using Tylenol for pain. she would like to avoid narcotics if possible. Exam Vital Signs (past 8 hours): - 08/31/18 05:47 Temperature 97.7 F Pulse Rate 73 Respiratory Rate 16 Blood Pressure 122/70 Pulse Oximetry 99 Oxygen Delivery Method Room Air Oxygen Flow Rate 0 Narrative Exam Narrative: Alert, oriented no acute distress sitting in chair. Legs. Dressing to right hip is dry without drainage or inflammation. No calf pain or swelling. Pulses symmetrical. Objective Labs Result Diagrams: 08/31/18 05:35 Labs: Laboratory Results - last 24 hr 08/31/18 05:35 Hgb 10.4 L Hct 29.3 L Assessment & Plan Post-op Postoperative Procedures Operation Date: 08/30/18 07:45 Actual Procedures Side Surgeon p Total Hip Arthroplasty/Anterior Approach Right Nahum Diana MD Plan: Patient will work with PT today. observe for improvement and voiding and nausea and vomiting. Anticipate discharge home tomorrow if she is stable. she will need Lovenox prescription. Patient wants to avoid narcotics if possible. Quality VTE Deep Vein Thrombosis/Pulmonary Embolism Present on Admission: No
[2018-08-31] MEDS: ACETAMINOPHEN 325 MG TABLET 975 MG PO ×3 (09:27→21:20)
[2018-08-31] MEDS: LOSARTAN 50 MG TABLET PO (09:27)
[2018-08-31] MEDS: ASPIRIN EC 81 MG TABLET PO (09:27)
[2018-08-31] MEDS: SODIUM CHLORIDE 0.9% FLUSH 10 ML IV (09:28)
[2018-08-31] MEDS: ENOXAPARIN 40 MG/0.4 ML SYRINGE SUBCUT (09:28)
[2018-08-31] MEDS: ONDANSETRON 4 MG/2 ML INJ IV (09:49)
--- NOTE | 2018-08-31 10:14 | PT.IIE ---
Current Diagnoses Unilateral primary osteoarthritis, right hip (08/30/18) Surgery Performed Operation Date: 08/30/18 07:45 Actual Procedures p Total Hip Arthroplasty/Anterior Approach(Right) - Nahum Diana MD Surgical History (Last Updated 08/18/18 @ 14:18 by Odalys Aldrich RN) History of bladder suspension procedure (Acute) Hx of bilateral cataract extraction (Acute) Hx of repair of left rotator cuff (Acute ~2006) History of carpal tunnel repair Status post appendectomy Status post hysterectomy Medical History (Last Updated 08/18/18 @ 14:18 by Odalys Aldrich RN) Easy bruisability (Acute) GERD (gastroesophageal reflux disease) (Acute) HLD (hyperlipidemia) (Acute) HTN (hypertension) (Acute) Hypothyroidism (Acute) Numbness and tingling in both hands (Acute) Ocular migraine (Acute) Osteoarthritis (Acute) Physical Therapy Inpatient Evaluation/Re-Eval M1 PT/OT-IP Prior Functional Status Start: 08/30/18 14:33 Freq: NEEDED Status: Active Protocol: Document 08/31/18 08:13 EA (Rec: 08/31/18 08:16 EA [id number]) Medical Review Prior Functional Status Medical History Reviewed Yes Diet/Fluid Consistency Regular Communication Normal Mobility and Gait Indep in all mobility with difficulty in stairs and uneven surfaces; uses walking pole as PRN. Able to walk more than 200 ft a month prior to current condition. No fall in the past 6 months Social History Household Members family caregiver none Living Arrangements House Number of Floors (Floors) One Floor Number of Stairs To Enter/Railing? 4 steps to get in Home Environment Walk in Shower Built-In Shower Seat Home Equipment Front Wheel Walker Straight Cane Raised Toilet Seat w/Armrests Employment Status Retired Additional Social History Comment Lives alone with very supportive neighbours and niece/nephew who will stay with her few days after the surgery. M2 PT-IP Current Condition Start: 08/30/18 14:33 Freq: NEEDED Status: Active Protocol: Document 08/31/18 08:13 EA (Rec: 08/31/18 08:16 EA [id number]) Physical Therapy Current Condition Current Condition Evaluation Date 08/31/18 Treatment Diagnosis s/p R SALONI anterior approach Onset Date 08/30/2018 Precautions Anterior Hip Precautions No Hip Extension No Hip External Rotation Weight Bearing Status Weight Bearing Status Weight Bear as Tolerated M3 PT-IP Subjective Start: 08/30/18 14:33 Freq: NEEDED Status: Active Protocol: Document 08/31/18 09:57 EA (Rec: 08/31/18 10:08 EA [id number]) Subjective Physical Therapy Visit Type Type Initial Evaluation Visit Start Time 07:30 Visit Stop Time 08:10 Total Visit Minutes 40 Number of BARREL INSPECTOR TIGHT Visits 0 Physical Therapy Visit Comments Patient Comments Patient wants to get at least independent to all transfers and mobility with AD prior to discharge. Pt reports niece and nephew and neighbour who is a nurse will stay with her once d/c in the hospital. Patient Goals To get independent in all transfers and mobility prior to discharge. Therapy Pain Assessment Pain When Pain Assessed At Rest Pain Present Pain Present Pain Reported Location Right Anterior Hip Intensity 2 Scale Used Numeric (1 - 10) Description Acute M4 PT-IP Mobility and Gait Start: 08/30/18 14:33 Freq: NEEDED Status: Active Protocol: Document 08/31/18 09:57 EA (Rec: 08/31/18 10:08 EA [id number]) PT-Bed Mobility Assessment Rolling Type of Rolling Roll to Right Level of Assist Moderate Assistance 1 Person Assistance Supine to Sit Supine to Sit Moderate Assistance 1 Person Assistance Sit to Supine Sit to Supine Moderate Assistance 1 Person Assistance Scooting Scooting to Edge of Bed Moderate Assistance Scooting Up and Down in Bed Minimal Assistance PT-Transfer Assessment Sit to and From Stand Sit to and from Stand Minimal Assistance Equipment Transfer Assistive Device Gait Belt Front Wheeled Walker Transfers Transfer Destination Bed Chair Transfer Technique stepping Transfer Ability Level of Assist Minimal Assistance Comments Mobility Comments Patient requires Vc's for upright posture as patient tends to lean back; requires cues with weight bearing to bad side as tolerated. Gait Assessment Gait Gait Assistance Required: Minimum Assistance Distance (Feet) 6 Able to Maintain Weight Bearing Status Yes During Gait Assistive Devices Assistive Device Gait Belt Front Wheeled Walker Gait Deviations General Gait Pattern Step-to Gait Factors Limiting Gait Function Factors Limiting Gait Function Decreased Activity Tolerance Decreased Strength Limited Range of Motion Pain Comments Gait Comments Gait assessment is not applicable at this time but patient tend to avoid placing weight to right side; walking pre-caution implemented for anterior hip surgery. PT-Balance Assessment Sitting Balance and Reactions Static Sitting Balance Ability Fair Dynamic Sitting Balance Ability Fair Standing Balance and Reactions Static Standing Balance Ability Fair Dynamic Standing Balance Ability Fair M5 PT-IP Objective Assessments Start: 08/30/18 14:33 Freq: NEEDED Status: Active Protocol: Document 08/31/18 09:57 EA (Rec: 08/31/18 10:08 EA [id number]) Orientation Orientation/Cognition Level of Alertness Alert Orientation Name Age Birthday Month Date Year Day of Week Place Situation Language Function Ability No Deficits Noted Safety Awareness Understands Safety Issues Memory Description No Deficits Noted Gross Range of Motion Upper Extremity ROM Assessment Within Functional Limits Lower Extremity ROM Assessment Right Impaired Impairments Not tested to hip ER/flexion/ extension planes of motion due to post sx hip pre-cautions Strength Upper Extremity Strength Assessment Within Functional Limits Lower Extremity Strength Assessment Right Impaired Hip at least 3/5 Comments Strength Comments R hip Not tested ER/EXT/ rotators due to hip pre-caution but with at least 3/5 to all functional mobility. Coordination Assessment Gross Coordination Gross Coordination WNL Sensation Assessment Sensation Gross Sensation WNL Light Touch Intact Proprioception (Position) Intact M6 PT-IP Treatment Start: 08/30/18 14:33 Freq: NEEDED Status: Active Protocol: Document 08/31/18 09:57 EA (Rec: 08/31/18 10:08 EA [id number]) Physical Therapy Treatment Exercises Exercises Ankle Pumps Gluteal Sets Quad Sets Heel Slides Education Education Provided Precautions Weight Bearing Status Post-Op Packet Safety M7 PT-IP Assessment and Plan Start: 08/30/18 14:33 Freq: NEEDED Status: Active Protocol: Document 08/31/18 08:13 EA (Rec: 08/31/18 08:16 EA [id number]) PT Summary Assessment and Plan Potential Rehabilitation Potential Good Status of Condition at Evaluation Stable Summary Impairments Pain ROM Strength Balance Bed Mobility Transfers Gait Activity Tolerance Assessment Summary Patient exhibits decreased tolerance to transfers and gait due to pain, fatigue, right hip weakness, fair standing balance and requires mod assist at this time for safety. Noted slight c/o dizziness but normal vitals. Patient is good candidate for skilled PT to reach at least independent transfers and mobility at home prior to discharge. Goals Bed Mobility Goal Independent Transfer Goal Independent Gait Goal Independent Gait Distance 100 ft Days to Meet Goals 3 Frequency of Treatment Frequency Of Treatment Twice a Day Treatment Plan Physical Therapy Treatment Plan Bed Mobility Training Transfer Training Gait Training Therapeutic Exercise Post Op Education Discharge Planning Hot or Cold Pack Recommendations To Nursing Amount of Assist Needed 1 Person Assist Discharge Recommendations PT Discharge Recommendations Home with 24/11 Assist
--- NOTE | 2018-08-31 11:59 | PC.NURSE ---
Pt has been unable to void urine sufficiently this shift and last shift. Urination of 25mls into bed adan. Post residual void, bladder scan showed 589mls urine remaining. Per protocol on ortho order set, pt has been i/o cathed for a second time since she has arrived to the AC floor. 585mls urine has been drained. Urine is clear yellow.
--- NOTE | 2018-08-31 16:53 | PT.IPTN ---
Current Diagnoses Unilateral primary osteoarthritis, right hip (08/30/18) Surgery Performed Operation Date: 08/30/18 07:45 Actual Procedures p Total Hip Arthroplasty/Anterior Approach(Right) - Nahum Diana MD Physical Therapy Treatment Note M2 PT-IP Current Condition Start: 08/30/18 14:33 Freq: NEEDED Status: Active Protocol: Document 08/31/18 08:13 EA (Rec: 08/31/18 08:16 EA [id number]) Physical Therapy Current Condition Current Condition Evaluation Date 08/31/18 Treatment Diagnosis s/p R SALONI anterior approach Onset Date 08/30/2018 Precautions Anterior Hip Precautions No Hip Extension No Hip External Rotation Weight Bearing Status Weight Bearing Status Weight Bear as Tolerated M3 PT-IP Subjective Start: 08/30/18 14:33 Freq: NEEDED Status: Active Protocol: Document 08/31/18 14:35 CLB (Rec: 08/31/18 16:53 CLB [id number]) Subjective Physical Therapy Visit Type Type Treatment Note Visit Start Time 14:35 Visit Stop Time 15:05 Total Visit Minutes 30 Number of COMPUTER TYPESETTER KEYLINER Visits 1 Physical Therapy Visit Comments Patient Comments Pt wanting to transfer to BSC to try and urinate. Therapy Pain Assessment Pain When Pain Assessed During Mobility Pain Present Pain Present Pain Reported M4 PT-IP Mobility and Gait Start: 08/30/18 14:33 Freq: NEEDED Status: Active Protocol: Document 08/31/18 14:35 CLB (Rec: 08/31/18 16:53 CLB [id number]) PT-Bed Mobility Assessment Supine to Sit Supine to Sit Maximum Assistance 1 Person Assistance Head of Bed Elevated Bedrails Sit to Supine Sit to Supine Maximum Assistance 1 Person Assistance Scooting Scooting to Edge of Bed Maximum Assistance Scooting Up and Down in Bed Maximum Assistance PT-Transfer Assessment Sit to and From Stand Sit to and from Stand Minimal Assistance 1 Person Assistance Equipment Transfer Assistive Device Gait Belt Front Wheeled Walker Transfers Transfer Destination Bed Bedside Commode Transfer Technique stepping Transfer Ability Level of Assist Moderate Assistance 1 Person Assistance Comments Mobility Comments Pt requires vc for upright posture due to posterior lean, pt also needed cues for step sequencing and walker management. Pt able to urinate RN informed. Student nurse assisted with boosting pt up in bed. Gait Assessment Comments Gait Comments unable to ambulate due to fatigue after using BSC. M5 PT-IP Objective Assessments Start: 08/30/18 14:33 Freq: NEEDED Status: Active Protocol: Document 08/31/18 09:57 EA (Rec: 08/31/18 10:08 EA [id number]) Orientation Orientation/Cognition Level of Alertness Alert Orientation Name Age Birthday Month Date Year Day of Week Place Situation Language Function Ability No Deficits Noted Safety Awareness Understands Safety Issues Memory Description No Deficits Noted Gross Range of Motion Upper Extremity ROM Assessment Within Functional Limits Lower Extremity ROM Assessment Right Impaired Impairments Not tested to hip ER/flexion/ extension planes of motion due to pre-cautions Strength Upper Extremity Strength Assessment Within Functional Limits Lower Extremity Strength Assessment Right Impaired Hip at least 3/5 Comments Strength Comments R hip Not tested ER/EXT/ rotatrs due to hip pre-caution but with at least 3/5 to all functional mobility. Coordination Assessment Gross Coordination Gross Coordination WNL Sensation Assessment Sensation Gross Sensation WNL Light Touch Intact Proprioception (Position) Intact M6 PT-IP Treatment Start: 08/30/18 14:33 Freq: NEEDED Status: Active Protocol: Document 08/31/18 14:35 CLB (Rec: 08/31/18 16:53 CLB [id number]) Physical Therapy Treatment Exercises Exercises Quad Sets Heel Slides Education Education Provided Precautions M7 PT-IP Assessment and Plan Start: 08/30/18 14:33 Freq: NEEDED Status: Active Protocol: Document 08/31/18 14:35 CLB (Rec: 08/31/18 16:53 CLB [id number]) PT Summary Assessment and Plan Summary Impairments Pain ROM Strength Balance Bed Mobility Transfers Gait Activity Tolerance Assessment Summary Pt had one instance of dizziness with initial sit- stand. Pt sat down on bedside and dizziness subsided. Pt then was able to transfer [place] [facility] [place]iness. Pt required increased assist with all mobility today. Pt required Mod A for transfer [place] [facility] due to posterior lean, pt needed cues for step sequencing and walker management during step pivot transfer. Pt may require SNF rehab before returning home if pt is unable to improve mobility before d/c. If pt goes home CG training will be required before d/c home. Goals Bed Mobility Goal Independent Transfer Goal Independent Gait Goal Independent Gait Distance 100 ft Days to Meet Goals 3 Frequency of Treatment Frequency Of Treatment Twice a Day Treatment Plan Physical Therapy Treatment Plan Bed Mobility Training Transfer Training Gait Training Therapeutic Exercise Post Op Education Discharge Planning Hot or Cold Pack Other Recommendations and Next Treatment bed mobility, transfers, gait Focus and schedule CG training with grandson and neighbor. Recommendations To Nursing Amount of Assist Needed 1 Person Assist Discharge Recommendations PT Discharge Recommendations Home with 24/ Assist SNF Rehab Other Discharge Recommendations SNF rehab depending on assist at home and pt progression.
[2018-08-31] MEDS: FERROUS SULFATE 325 MG TABLET PO (17:19)
[2018-08-31] MEDS: ASCORBIC ACID 500 MG TABLET PO (17:19)
--- NOTE | 2018-08-31 18:08 | PC.NURSE ---
Addendum entered by Khadijah Holcomb R.N. 08/31/18 22:23: Stable post op course. Denies discomfort. Dsg to right hip CDI. Voiding qs, incont. @ times IVF continue as per orders. Call light w/in reach, bed alarm on for pt safety. Continue w/plan of care. Original Note: Pt visiting w/family. Denies discomfort at this time. Lungs clear, SpO2 98% RA Bri[place]ell Dsg to right hip CDI. IV LR infusing into right hand @ 125cc/hr via pump w/o incidence. Stable post op course. Call light w/in reach, be alrm on for pt safety.
[2018-09-01 03:08] VITALS: BP 154/81; PULSE 78; RESP 18; TEMP 36.6; O2SAT 95
[2018-09-01] MEDS: ACETAMINOPHEN 325 MG TABLET 975 MG PO ×3 (04:18→21:12)
[2018-09-01] MEDS: SODIUM CHLORIDE 0.9% FLUSH 10 ML IV ×3 (04:47→21:13)
[2018-09-01] MEDS: LEVOTHYROXINE 50 MCG TABLET PO (05:55)
[2018-09-01] MEDS: PANTOPRAZOLE 40 MG TABLET PO (05:55)
[2018-09-01 08:00] VITALS: BP 147/71; PULSE 71; RESP 14; TEMP 36.6; O2SAT 95
[2018-09-01] MEDS: FERROUS SULFATE 325 MG TABLET PO (09:06)
[2018-09-01] MEDS: LOSARTAN 50 MG TABLET PO (09:06)
[2018-09-01] MEDS: ENOXAPARIN 40 MG/0.4 ML SYRINGE SUBCUT (09:06)
[2018-09-01] MEDS: OXYCODONE IR 5 MG TABLET PO ×2 (09:13→13:00)
[2018-09-01] MEDS: ONDANSETRON 4 MG ODT PO (09:13)
--- NOTE | 2018-09-01 09:42 | P.PN_ITS ---
Subjective Date Patient Seen: 09/01/18 Time Patient Seen: 09:34 Interval history: 82 year old female who is POD#2 s/p right anterior hip arthroplasty with Dr. Diana. She states her pain is well controlled. She report nausea has resolved and has been tolerating food. Has been independently v oiding, though some issue with incontinence. Was able to mobilize with PT in the room but states it was very difficult and was only able to go to chair and commode. She denies any chest pain, shortness of breath or calf tenderness. Exam Vital Signs (past 8 hours): - 09/01/18 03:08 09/01/18 08:00 Temperature 97.9 F 97.9 F Pulse Rate 78 71 Respiratory Rate 18 14 Blood Pressure 154/81 H 147/71 H Pulse Oximetry 95 95 Oxygen Delivery Method Room Air Oxygen Flow Rate 0 Narrative Exam Narrative: Pleasant 82 year old female resting comfortably in bed, in no acute distress. Alert and oriented. Dressing in place over right hip is clean, dry, and intact with no visible drainage. Able to actively dorsiflex and plantar flex the foot and toes. Distal sensation intact with 2+ distal pulses. Objective Labs Result Diagrams: 08/31/18 05:35 Assessment & Plan Post-op Postoperative Procedures Operation Date: 08/30/18 07:45 Actual Procedures Side Surgeon p Total Hip Arthroplasty/Anterior Approach Right Nahum Diana MD 1. Patient has been slow to mobilize with PT and is having significant difficulty. She no longer has caregiver who will be present at home in her post op period. Due to her poor progress and her lack of support in the home environ may require short stay at SNF. 2. Consult to OT added today. 3. Continue pain control. Quality VTE Deep Vein Thrombosis/Pulmonary Embolism Present on Admission: No
--- NOTE | 2018-09-01 11:58 | PT.IPTN ---
Current Diagnoses Unilateral primary osteoarthritis, right hip (08/30/18) Surgery Performed Operation Date: 08/30/18 07:45 Actual Procedures p Total Hip Arthroplasty/Anterior Approach(Right) - Nahum Diana MD Physical Therapy Treatment Note M2 PT-IP Current Condition Start: 08/30/18 14:33 Freq: NEEDED Status: Active Protocol: Document 08/31/18 08:13 EA (Rec: 08/31/18 08:16 EA [id number]) Physical Therapy Current Condition Current Condition Evaluation Date 08/31/18 Treatment Diagnosis s/p R SALONI anterior approach Onset Date 08/30/2018 Precautions Anterior Hip Precautions No Hip Extension No Hip External Rotation Weight Bearing Status Weight Bearing Status Weight Bear as Tolerated M3 PT-IP Subjective Start: 08/30/18 14:33 Freq: NEEDED Status: Active Protocol: Document 09/01/18 10:05 CLB (Rec: 09/01/18 11:58 CLB [id number]) Subjective Physical Therapy Visit Type Type Treatment Note Visit Start Time 10:05 Visit Stop Time 10:35 Total Visit Minutes 30 Number of ELECTION CLERK Visits 2 Physical Therapy Visit Comments Patient Comments Pt willing to do therapy. States she feels more mentally clear today. Therapy Pain Assessment Pain When Pain Assessed During Mobility Pain Present Pain Present Pain Reported Location Right Anterior Hip Intensity 3 Scale Used Numeric (1 - 10) M4 PT-IP Mobility and Gait Start: 08/30/18 14:33 Freq: NEEDED Status: Active Protocol: Document 09/01/18 10:05 CLB (Rec: 09/01/18 11:58 CLB [id number]) PT-Bed Mobility Assessment Rolling Type of Rolling Roll to Right Level of Assist Minimal Assistance 1 Person Assistance Supine to Sit Supine to Sit Minimal Assistance 1 Person Assistance Head of Bed Elevated Bedrails Scooting Scooting to Edge of Bed Standby Assistance PT-Transfer Assessment Sit to and From Stand Sit to and from Stand Minimal Assistance 1 Person Assistance Equipment Transfer Assistive Device Gait Belt Front Wheeled Walker Transfers Transfer Destination Chair Transfer Technique Stand Step Pivot Transfer Ability Level of Assist Minimal Assistance 1 Person Assistance Comments Mobility Comments Pt improved with bed mobility but needs increased time. Pt felt dizzy when sitting BP when seated at EOB 167/87, dizziness subsided. Pt felt a bit dizzy with standing BP 157/76. Gait Assessment Gait Gait Assistance Required: Minimum Assistance Distance (Feet) 10 Able to Maintain Weight Bearing Status Yes During Gait Assistive Devices Assistive Device Gait Belt Front Wheeled Walker Gait Deviations General Gait Pattern Step-to Gait Factors Limiting Gait Function Factors Limiting Gait Function Decreased Activity Tolerance Decreased Strength Limited Range of Motion Pain Comments Gait Comments Pt able to ambulate ~10ft with chair follow Min A. Pt able to manage FWW but needs cues for walker/step sequencing. M5 PT-IP Objective Assessments Start: 08/30/18 14:33 Freq: NEEDED Status: Active Protocol: Document 08/31/18 09:57 EA (Rec: 08/31/18 10:08 EA [id number]) Orientation Orientation/Cognition Level of Alertness Alert Orientation Name Age Birthday Month Date Year Day of Week Place Situation Language Function Ability No Deficits Noted Safety Awareness Understands Safety Issues Memory Description No Deficits Noted Gross Range of Motion Upper Extremity ROM Assessment Within Functional Limits Lower Extremity ROM Assessment Right Impaired Impairments Not tested to hip ER/flexion/ extension planes of motion due to pre-cautions Strength Upper Extremity Strength Assessment Within Functional Limits Lower Extremity Strength Assessment Right Impaired Hip at least 3/5 Comments Strength Comments R hip Not tested ER/EXT/ rotatrs due to hip pre-caution but with at least 3/5 to all functional mobility. Coordination Assessment Gross Coordination Gross Coordination WNL Sensation Assessment Sensation Gross Sensation WNL Light Touch Intact Proprioception (Position) Intact M6 PT-IP Treatment Start: 08/30/18 14:33 Freq: NEEDED Status: Active Protocol: Document 09/01/18 10:05 CLB (Rec: 09/01/18 11:58 CLB [id number]) Physical Therapy Treatment Exercises Exercises Ankle Pumps Quad Sets Heel Slides Education Education Provided Precautions Weight Bearing Status M7 PT-IP Assessment and Plan Start: 08/30/18 14:33 Freq: NEEDED Status: Active Protocol: Document 09/01/18 10:05 CLB (Rec: 09/01/18 11:58 CLB [id number]) PT Summary Assessment and Plan Summary Impairments Pain ROM Strength Balance Bed Mobility Transfers Gait Activity Tolerance Assessment Summary Pt improving with bed mobility but requires increased time and cues for sequencing to EOB . Pt requires Min A for ambulation and cues for walker /step sequencing. According to pt her grandson will not be able to assist her at home. Pt would benefit from SNF rehab to increase strength and endurance for safe independence before returning home. Goals Bed Mobility Goal Independent Transfer Goal Independent Gait Goal Independent Gait Distance 100 ft Days to Meet Goals 3 Frequency of Treatment Frequency Of Treatment Twice a Day Treatment Plan Physical Therapy Treatment Plan Bed Mobility Training Transfer Training Gait Training Therapeutic Exercise Post Op Education Discharge Planning Hot or Cold Pack Other Recommendations and Next Treatment bed mobility, transfers and Focus gait. Recommendations To Nursing Amount of Assist Needed 1 Person Assist Discharge Recommendations PT Discharge Recommendations SNF Rehab
[2018-09-01 12:25] VITALS: BP 176/78; PULSE 75; RESP 16; TEMP 37.1; O2SAT 99
--- NOTE | 2018-09-01 14:42 | PC.NURSE ---
Jess.Violet. is an 82 year old female, former high school learning support teacher, who is day two post-op for a Right Hip arthroplasty. Patient has allergy to latex. Patient expressed increase in pain with movement but did successful ambulate to bedside commode. Patient has requested narcotic pain meds in relation to PT. Patient has good muscle strength demonstrated by lifting of pelvic floor when using bedpan and beside transfer. Patient is aware of the need to keep hydrating and produce stool, evidenced by using coffee and water to move things along. I&O's seem appropriately balanced. Patient has not had any complaints of nausea today. Patient is OX4 and is pleasant to talk to.
--- NOTE | 2018-09-01 14:55 | PC.NURSE ---
Day Shift Note: Patient doing well this shift. Patient allowed percolone to help with pain control and has had good results with that. Patient able to work more with PT/OT with better pain control. Patient still moving slowly in and out of bed and ambulation but posture and toleration with mobilization much better today per patient and PT. No acute distress. Will continue to monitor.
--- NOTE | 2018-09-01 15:06 | OT.IP.EVAL ---
Current Diagnoses Unilateral primary osteoarthritis, right hip (08/30/18) Surgery Performed Operation Date: 08/30/18 07:45 Actual Procedures p Total Hip Arthroplasty/Anterior Approach(Right) - Nahum Diana MD Past Medical History (Last Updated 08/18/18 @ 14:18 by Odalys Aldrich, RN) Easy bruisability (Acute) GERD (gastroesophageal reflux disease) (Acute) HLD (hyperlipidemia) (Acute) HTN (hypertension) (Acute) Hypothyroidism (Acute) Numbness and tingling in both hands (Acute) Ocular migraine (Acute) Osteoarthritis (Acute) Surgical History (Last Updated 08/18/18 @ 14:18 by Odalys Aldrich RN) History of bladder suspension procedure (Acute) Hx of bilateral cataract extraction (Acute) Hx of repair of left rotator cuff (Acute ~2006) History of carpal tunnel repair Status post appendectomy Status post hysterectomy Occupational Therapy Inpatient Evaluation/Re-Eval M1 PT/OT-IP Prior Functional Status Start: 08/30/18 14:33 Freq: NEEDED Status: Active Protocol: Document 09/01/18 15:06 LEONARDO (Rec: 09/02/18 08:40 LEONARDO [id number]) Medical Review Prior Functional Status Medical History Reviewed Yes Diet/Fluid Consistency Regular Communication WNL Mobility and Gait Pt states she was indep in all mobility with difficulty in stairs and uneven surfaces; uses walking pole PRN. Able to walk more than 200 ft a month prior to current condition. No falls in the past 6 months Activities of Daily Living and IADL's Pt states she was indep with all self care, IADLS, driving and manages her own meds and finances. She hires help with some yard work. Prior Functional Level (Other details) Pt has one cat. Friends are caring for it while pt in the hospital. Social History Household Members caregiver none Living Arrangements House Number of Floors (Floors) One Floor Number of Stairs To Enter/Railing? 4 steps to enter Home Environment Standard Height Toilet Walk in Shower Tub/Shower Built-In Shower Seat Home Equipment Front Wheel Walker Straight Cane Raised Toilet Seat w/Armrests Employment Status Retired Additional Social History Comment Lives alone, has supportive neighbors, son lives [place] of [place], grandson lives locally; pt has not identified anyone who can provide 24 hr assist after d/c M2 OT-IP Current Condition Start: 09/01/18 13:37 Freq: Status: Active Protocol: Document 09/01/18 15:06 PJM (Rec: 09/02/18 08:40 PJM [email or web address]) Occupational Therapy Current Condition Current Condition Evaluation Date 09/01/18 Treatment Diagnosis decreased self care, mobility s/p R SALONI Diagnosis Onset Date 08/30/18 Post Operative Precautions Anterior Hip Precautions No Hip Extension No Hip External Rotation Weight Bearing Status Weight Bearing Status Weight Bear as Tolerated M3 OT- IP Subjective and Pain Start: 09/01/18 13:37 Freq: Status: Active Protocol: Document 09/01/18 15:06 PJM (Rec: 09/02/18 08:40 PJM [email or web address]) OT- Subjective Occupational Therapy Visit Type Type Initial Evaluation Visit Start Time 14:29 Visit Stop Time 15:06 Total Visit Minutes 37 Notes Pt up in chair when therapist arrived. Occupational Therapy Visit Comments Patient Comments I don't think I can manage on my own at home yet. Patient/Caregiver Goals to get stronger and be independent again OT Pain Assessment Pain When Pain Assessed After Treatment Pain Present Pain Present Pain Reported Location Right Anterior Hip Intensity 4 Scale Used Numeric (1 - 10) Description Aching Acute Pain Behaviors Guarding Management Techniques Distraction Timing of Activity with Medications M4 OT- IP ADL's Start: 09/01/18 13:37 Freq: Status: Active Protocol: Document 09/01/18 15:06 PJM (Rec: 09/02/18 08:40 PJM [email or web address]) OT JLF-Jujz-Astfnkh General Evaluation Self-Feeding Ability Independent OT ADL-Grooming General Evaluation Grooming Ability Standby Assistance Areas Needing Assistance Retrieving/Set-up of Grooming Items Combing/Brushing Hair Face Washing Comments OT Grooming Comments after set up in chair OT ADL-Oral Care General Eval Oral Care Ability Standby Assistance Areas of Assistance Retrieving/Set-Up of Items Devices Oral Care Devices Toothbrush Comments Oral Care Comments after set up in chair OT ADL-Dressing General Eval Upper Body Dressing Ability Standby Assistance Lower Body Dressing Ability Maximum Assistance Assistive Devices Dressing Assistive Devices Long Handled Shoe Horn Surgical Specialist Sock Aid Comments OT Dressing Comments Began education with pt re: use of partnership manager, sock aid and long shoe horn to increase independence in lower body dressing. Although pt does not have a forward flexion precaution, she is unable to bend over to reach her feet due to incisional pain. Provided partnership manager to pt at her request. Pt already has hard sock aid, but has been unable to use it effectively at home. Provided long shoe horn. pt ahs obtained slip on shoes. OT ADL-Toileting Comments OT Toileting Comments did not occur this session OT ADL-Bathing Comments OT Bathing Comments to be assessed as activity tolerance improves M5 OT- IP IADL's Start: 09/01/18 13:37 Freq: Status: Active Protocol: Document 09/01/18 15:06 PJM (Rec: 09/02/18 08:40 PJ [email or web address]) OT-Instrumental Activities of Daily Living Deficits IADL Deficits Identified Deficits Home Safety Awareness Awareness of Need for Assistance at Home Good Awareness Ability to Problem Solve Emergency Able to Problem Solve Situations Medication Management Medication Management No Deficits Identified Money Management Money Management No Deficits Identified Meal Preparation Meal Preparation Comments pt currently need assist with all meal prep due to decreased mobility and activity tolerance Public Relations Supervisor Public Relations Supervisor Comments pt currently need assist with all cable installer repairer due to decreased mobility and activity tolerance Driving Driving Comments pt currently needs assist with transport due to decreased RLE function M6 OT- IP Functional Cognition Start: 09/01/18 13:37 Freq: Status: Active Protocol: Document 09/01/18 15:06 PJM (Rec: 09/02/18 08:40 PJ [email or web address]) Cognitive Factors Limiting Selfcare Function Cognitive Ability Level of Alertness Alert Patient Orientation Name Age Birthday Month Date Year Day of Week Place Situation Attention Span Ability Capable of Focused Attention Capable of Sustained Attention Ability to Follow Commands Able to Follow One Step Commands Memory Description Short Term Impaired Safety Awareness Decreased Recall of Precautions Decreased Ability to Apply Precautions Underestimates Need for Assistance Problem Solving Ability Needs Assist to Identify Solutions Cognitive Comments Cognitive Assessment Comments Pt presents with slowed speed of processing and decreased problem solving re: use of adaptive equipt even after initial demo. Pt has difficulty verbalizing anterior hip precautions. practice OT- Vision and Hearing OT- Hearing Assessment OT- Hearing Assessment WFL OT- Vision Assessment Visual Acuity Glasses For Reading Vision Assessment Comments pt s/p B cataract surgery M7 OT- IP Mobility and Balance Start: 09/01/18 13:37 Freq: Status: Active Protocol: Document 09/01/18 15:06 PJM (Rec: 09/02/18 08:40 PJ [email or web address]) OT-Transfer Assessment Comments Mobility Comments pt seen up in chair this session, see P.T. notes OT- Gait Assessment Comments Gait Ability Comments pt seen up in chair this session, see P.T. notes OT- Balance Assessment Sitting Balance and Reactions Static Sitting Balance Ability Good Dynamic Sitting Balance Ability Good M8 OT- IP Objective Assessments Start: 09/01/18 13:37 Freq: Status: Active Protocol: Document 09/01/18 15:06 PJM (Rec: 09/02/18 08:40 PJ [email or web address]) OT Gross Range of Motion Upper Extremity Range of Motion Assessment Within Functional Limits ROM Impairments R shoulder scaption ~110 degrees, L shoulder scaption ~ 90 degrees s/p RCR 6 yrs ago. BUE AROM is adequate for indep self care. OT Strength Upper Extremity Strength Assessment Within Functional Limits Hand Marketing Administrator Strength Hand Dominance Right OT- Coordination Assessment Comments Coordination Comments BUE WFL OT-Muscle Tone Assessment Muscle Tone WNL Yes OT Sensation Assessment Comments Summary Comments Pt denies deficits in BUE's Edema Edema Absent M9 OT- IP Assessment and Plan Start: 09/01/18 13:37 Freq: Status: Active Protocol: Document 09/01/18 15:06 PJM (Rec: 09/02/18 08:40 PJ [email or web address]) OT Summary Assessment and Plan Potential Rehabilitation Potential Good Analytic Complexity at Evaluation Low Summary OT Impairments Pain Strength Balance Functional Cognition Functional Mobility Grooming Dressing Toileting Bathing Toilet Transfers Shower Transfers Assessment Summary Low complexity OT assessment completed with emphasis on self care skills on this 82 yr old pt s/p elective R SALONI. Pt progressing slowly with activity tolerance and functional mobility/transfers. She has only walked 10 ft with P.T. with chair follow. Pt currently has performance deficits in speed of processing and functional problem solving of adapted ADL techniques which may be pain medication related. She also has decreased independence in all standing self care tasks such as grooming at sink, lower body dressing, bathing and toileting. Pt is not safe to return home alone and currently requires 24 hr assist for safety. Recommend SNF at d/c for further rehab services. Pt is motivated to return to independent living in her own home. Goals Grooming Goal Standby Assistance Dressing Goal Minimal Assistance Toileting Goal Minimal Assistance Bathing Goal Minimal Assistance Toilet Transfer Goal Contact Guard Assistance Shower Transfer Goal Contact Guard Assistance Patient/Caregiver Education Goal Demonstrate Post-Op Precautions Demonstrate Energy Conservation and Pacing OT-Other Goals Grooming to be done standing aat sink with no loss of balance. Days to Meet Goals 3 Frequency of Treatment Frequency Of Treatment Once a Day Treatment Plan OT Treatment Plan ADL Training Functional Mobility Patient/Family Education Discharge Planning Discharge Recommendations OT Discharge Recommendations SNF Rehab Home Equipment Needs partnership manager and long shoe horn provided
--- NOTE | 2018-09-01 15:39 | PT.IPTN ---
Current Diagnoses Unilateral primary osteoarthritis, right hip (08/30/18) Surgery Performed Operation Date: 08/30/18 07:45 Actual Procedures p Total Hip Arthroplasty/Anterior Approach(Right) - Nahum Diana MD Physical Therapy Treatment Note M2 PT-IP Current Condition Start: 08/30/18 14:33 Freq: NEEDED Status: Active Protocol: Document 08/31/18 08:13 EA (Rec: 08/31/18 08:16 EA [id number]) Physical Therapy Current Condition Current Condition Evaluation Date 08/31/18 Treatment Diagnosis s/p R SALONI anterior approach Onset Date 08/30/2018 Precautions Anterior Hip Precautions No Hip Extension No Hip External Rotation Weight Bearing Status Weight Bearing Status Weight Bear as Tolerated M3 PT-IP Subjective Start: 08/30/18 14:33 Freq: NEEDED Status: Active Protocol: Document 09/01/18 15:37 LJ (Rec: 09/01/18 15:39 LJ [email or web address]) Subjective Physical Therapy Visit Type Type Patient Refusal Notes Nursing in room with pt assisting her off the BSC. Pt states she is in too much pain and has done too much activity recently to do any more today. M4 PT-IP Mobility and Gait Start: 08/30/18 14:33 Freq: NEEDED Status: Active Protocol: Document 09/01/18 10:05 CLB (Rec: 09/01/18 11:58 CLB [id number]) PT-Bed Mobility Assessment Rolling Type of Rolling Roll to Right Level of Assist Minimal Assistance 1 Person Assistance Supine to Sit Supine to Sit Minimal Assistance 1 Person Assistance Head of Bed Elevated Bedrails Scooting Scooting to Edge of Bed Standby Assistance PT-Transfer Assessment Sit to and From Stand Sit to and from Stand Minimal Assistance 1 Person Assistance Equipment Transfer Assistive Device Gait Belt Front Wheeled Walker Transfers Transfer Destination Chair Transfer Technique Stand Step Pivot Transfer Ability Level of Assist Minimal Assistance 1 Person Assistance Comments Mobility Comments Pt improved with bed mobility but needs increased time. Pt felt dizzy when sitting BP when seated at EOB 167/87, dizziness subsided. Pt felt a bit dizzy with standing BP 157/76. Gait Assessment Gait Gait Assistance Required: Minimum Assistance Distance (Feet) 10 Able to Maintain Weight Bearing Status Yes During Gait Assistive Devices Assistive Device Gait Belt Front Wheeled Walker Gait Deviations General Gait Pattern Step-to Gait Factors Limiting Gait Function Factors Limiting Gait Function Decreased Activity Tolerance Decreased Strength Limited Range of Motion Pain Comments Gait Comments Pt able to ambulate ~10ft with chair follow Min A. Pt able to manage FWW but needs cues for walker/step sequencing. M5 PT-IP Objective Assessments Start: 08/30/18 14:33 Freq: NEEDED Status: Active Protocol: Document 08/31/18 09:57 EA (Rec: 08/31/18 10:08 EA [id number]) Orientation Orientation/Cognition Level of Alertness Alert Orientation Name Age Birthday Month Date Year Day of Week Place Situation Language Function Ability No Deficits Noted Safety Awareness Understands Safety Issues Memory Description No Deficits Noted Gross Range of Motion Upper Extremity ROM Assessment Within Functional Limits Lower Extremity ROM Assessment Right Impaired Impairments Not tested to hip ER/flexion/ extension planes of motion due to pre-cautions Strength Upper Extremity Strength Assessment Within Functional Limits Lower Extremity Strength Assessment Right Impaired Hip at least 3/5 Comments Strength Comments R hip Not tested ER/EXT/ rotatrs due to hip pre-caution but with at least 3/5 to all functional mobility. Coordination Assessment Gross Coordination Gross Coordination WNL Sensation Assessment Sensation Gross Sensation WNL Light Touch Intact Proprioception (Position) Intact M6 PT-IP Treatment Start: 08/30/18 14:33 Freq: NEEDED Status: Active Protocol: Document 09/01/18 10:05 CLB (Rec: 09/01/18 11:58 CLB [id number]) Physical Therapy Treatment Exercises Exercises Ankle Pumps Quad Sets Heel Slides Education Education Provided Precautions Weight Bearing Status M7 PT-IP Assessment and Plan Start: 08/30/18 14:33 Freq: NEEDED Status: Active Protocol: Document 09/01/18 10:05 CLB (Rec: 09/01/18 11:58 CLB [id number]) PT Summary Assessment and Plan Summary Impairments Pain ROM Strength Balance Bed Mobility Transfers Gait Activity Tolerance Assessment Summary Pt improving with bed mobility but requires increased time and cues for sequencing to EOB . Pt requires Min A for ambulation and cues for walker /step sequencing. According to pt her grandson will not be able to assist her at home. Pt would benefit from SNF rehab to increase strength and endurance for safe independence before returning home. Goals Bed Mobility Goal Independent Transfer Goal Independent Gait Goal Independent Gait Distance 100 ft Days to Meet Goals 3 Frequency of Treatment Frequency Of Treatment Twice a Day Treatment Plan Physical Therapy Treatment Plan Bed Mobility Training Transfer Training Gait Training Therapeutic Exercise Post Op Education Discharge Planning Hot or Cold Pack Other Recommendations and Next Treatment bed mobility, transfers and Focus gait. Recommendations To Nursing Amount of Assist Needed 1 Person Assist Discharge Recommendations PT Discharge Recommendations SNF Rehab
[2018-09-01 15:48] VITALS: BP 122/90; PULSE 77; RESP 20; TEMP 36.7; O2SAT 96
[2018-09-01 19:51] VITALS: BP 168/78; PULSE 76; RESP 20; TEMP 36.6; O2SAT 99
[2018-09-02] VITALS (11 sets, daily range): BP systolic 82–181; BP diastolic 41–87; PULSE 64–78; RESP 16–20; TEMP 36.4–37; O2SAT 96–98
[2018-09-02] MEDS: ACETAMINOPHEN 325 MG TABLET 975 MG PO ×3 (04:07→20:46)
--- NOTE | 2018-09-02 04:24 | PC.NURSE ---
C/O burning sensation when voiding, will report to day RN. Pt. requesting [facility]AC before DC today. Will Cont. POC & monitor.
[2018-09-02] MEDS: LEVOTHYROXINE 50 MCG TABLET PO (05:54)
[2018-09-02] MEDS: PANTOPRAZOLE 40 MG TABLET PO (05:55)
[2018-09-02] MEDS: BISACODYL 10 MG SUPP PR (08:48)
[2018-09-02] MEDS: MAGNESIUM HYDROXIDE 30 ML UDC PO (08:48)
[2018-09-02] MEDS: ENOXAPARIN 40 MG/0.4 ML SYRINGE SUBCUT (08:48)
[2018-09-02] MEDS: LOSARTAN 50 MG TABLET PO (08:49)
[2018-09-02] MEDS: FERROUS SULFATE 325 MG TABLET PO (08:49)
[2018-09-02] MEDS: SODIUM CHLORIDE 0.9% FLUSH 10 ML IV ×2 (08:50→20:45)
[2018-09-02] MEDS: ONDANSETRON 4 MG ODT PO ×2 (08:51→12:50)
[2018-09-02] MEDS: OXYCODONE IR 5 MG TABLET PO ×2 (08:51→13:38)
[2018-09-02 10:59] LABS: Appearance Urine UA SL CLOUDY; Bilirubin Urine UA NEGATIVE (NEGATIVE); Color Urine UA YELLOW; Glucose Urine UA NEGATIVE (Negative); Ketones Urine UA NEGATIVE (NEGATIVE); Leukocyte Esterase Urine UA 3+ (NEGATIVE); Nitrite Urine UA NEGATIVE (Negative); Occult Blood Urine UA 3+ (Negative); Protein Urine UA NEGATIVE (Negative); Urobilinogen Urine UA 0.2 E.U./dL (0.2)
[2018-09-02 11:29] LABS: Bacteria Urine Many (>30); Culture Indicated Urine Specimen Cultured; RBC Urine 30-100/HPF (0-5/HPF); Squamous Epithelial Cell Urine 1-5 /HPF (0-5/HPF); Transitional Epi Cells Urine 0-1/HPF (0-5/HPF); WBC Urine >100/HPF (0-5/HPF)
--- NOTE | 2018-09-02 12:16 | PT.IPTN ---
Current Diagnoses Unilateral primary osteoarthritis, right hip (08/30/18) Surgery Performed Operation Date: 08/30/18 07:45 Actual Procedures p Total Hip Arthroplasty/Anterior Approach(Right) - Nahum Diana MD Physical Therapy Treatment Note M2 PT-IP Current Condition Start: 08/30/18 14:33 Freq: NEEDED Status: Active Protocol: Document 08/31/18 08:13 EA (Rec: 08/31/18 08:16 EA [id number]) Physical Therapy Current Condition Current Condition Evaluation Date 08/31/18 Treatment Diagnosis s/p R SALONI anterior approach Onset Date 08/30/2018 Precautions Anterior Hip Precautions No Hip Extension No Hip External Rotation Weight Bearing Status Weight Bearing Status Weight Bear as Tolerated M3 PT-IP Subjective Start: 08/30/18 14:33 Freq: NEEDED Status: Active Protocol: Document 09/02/18 12:08 SA (Rec: 09/02/18 12:16 SA [email or web address]) Subjective Physical Therapy Visit Type Type Treatment Note Visit Start Time 09:33 Visit Stop Time 10:10 Total Visit Minutes 37 Number of REAL ESTATE ASSESSOR Visits 3 Physical Therapy Visit Comments Patient Comments Pt needing to get up and go to bathroom. Patient Goals To get indepedent in all transfers and mobility prior to discharge. Therapy Pain Assessment Pain When Pain Assessed During Mobility Pain Present Pain Present Pain Reported Location Right Anterior Hip Intensity 3 Scale Used Numeric (1 - 10) Pain Management Techniques Apply Cold Re-positioning Timing of Activity with Medications M4 PT-IP Mobility and Gait Start: 08/30/18 14:33 Freq: NEEDED Status: Active Protocol: Document 09/02/18 12:08 SA (Rec: 09/02/18 12:16 SA [email or web address]) PT-Bed Mobility Assessment Rolling Type of Rolling Roll to Right Level of Assist Minimal Assistance 1 Person Assistance Supine to Sit Supine to Sit Minimal Assistance 1 Person Assistance Sit to Supine Sit to Supine Minimal Assistance 1 Person Assistance Scooting Scooting to Edge of Bed Standby Assistance PT-Transfer Assessment Sit to and From Stand Sit to and from Stand Minimal Assistance 1 Person Assistance Equipment Transfer Assistive Device Gait Belt Front Wheeled Walker Transfers Transfer Destination Bedside Commode Transfer Technique Stand Step Pivot Transfer Ability Level of Assist Contact Guard Assistance Minimal Assistance 1 Person Assistance Comments Mobility Comments Pt Min A with bed mobility, Min-CGA with transfers and improved during session as we completed several txs, pt needs increased time for all mobility tasks. Gait Assessment Gait Gait Assistance Required: Contact Guard Assist 1 Person Assist Distance (Feet) 20 Able to Maintain Weight Bearing Status Yes During Gait Assistive Devices Assistive Device Gait Belt Front Wheeled Walker Gait Deviations General Gait Pattern Step-to Gait Factors Limiting Gait Function Factors Limiting Gait Function Decreased Activity Tolerance Decreased Strength Limited Range of Motion Pain Comments Gait Comments Gait training in room with step to gait pattern, pt understands anterior hip precautions, decreasing level of asisst with txs. M5 PT-IP Objective Assessments Start: 08/30/18 14:33 Freq: NEEDED Status: Active Protocol: Document 08/31/18 09:57 EA (Rec: 08/31/18 10:08 EA [id number]) Orientation Orientation/Cognition Level of Alertness Alert Orientation Name Age Birthday Month Date Year Day of Week Place Situation Language Function Ability No Deficits Noted Safety Awareness Understands Safety Issues Memory Description No Deficits Noted Gross Range of Motion Upper Extremity ROM Assessment Within Functional Limits Lower Extremity ROM Assessment Right Impaired Impairments Not tested to hip ER/flexion/ extension planes of motion due to pre-cautions Strength Upper Extremity Strength Assessment Within Functional Limits Lower Extremity Strength Assessment Right Impaired Hip at least 3/5 Comments Strength Comments R hip Not tested ER/EXT/ rotatrs due to hip pre-caution but with at least 3/5 to all functional mobility. Coordination Assessment Gross Coordination Gross Coordination WNL Sensation Assessment Sensation Gross Sensation WNL Light Touch Intact Proprioception (Position) Intact M6 PT-IP Treatment Start: 08/30/18 14:33 Freq: NEEDED Status: Active Protocol: Document 09/02/18 12:08 SA (Rec: 09/02/18 12:16 SA [email or web address]) Physical Therapy Treatment Exercises Exercises Ankle Pumps Quad Sets Heel Slides Education Education Provided Precautions Weight Bearing Status M7 PT-IP Assessment and Plan Start: 08/30/18 14:33 Freq: NEEDED Status: Active Protocol: Document 09/02/18 12:08 SA (Rec: 09/02/18 12:16 [id number]) PT Summary Assessment and Plan Summary Assessment Summary Gradual improvements with mobility, pt is anxious and anticipates pain, needs increased time to perform tasks and states it is hurting less today with movement. Pt will benefit from SNF placement for continued rehab prior to d/c home. Frequency of Treatment Frequency Of Treatment Twice a Day Treatment Plan Physical Therapy Treatment Plan Bed Mobility Training Transfer Training Gait Training Therapeutic Exercise Post Op Education Discharge Planning Hot or Cold Pack Other Recommendations and Next Treatment bed mobility, transfers and Focus gait. Recommendations To Nursing Amount of Assist Needed 1 Person Assist Discharge Recommendations PT Discharge Recommendations [facility] Rehab [id number]
--- NOTE | 2018-09-02 13:09 | PC.NURSE ---
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 Patient is having poor pain management due to avoidance of narcotics. Ambulation is difficult due to pain. Patient did agree to a narcotic along with anti-nausea medication. Ambulation to bedside commode was successful but patient stated that she felt weak and shaky. Patient requested to transferred back to bed. While on commode patient was able to have a small bowel movement. Small amount of prolapsed rectum noted. Will continue to monitor.
--- NOTE | 2018-09-02 13:47 | OT.IP.TRT ---
Current Diagnoses Unilateral primary osteoarthritis, right hip (08/30/18) Surgery Performed Operation Date: 08/30/18 07:45 Actual Procedures p Total Hip Arthroplasty/Anterior Approach(Right) - Nahum Diana MD Occupational Therapy Treatment Note M2 OT-IP Current Condition Start: 09/01/18 13:37 Freq: Status: Active Protocol: Document 09/01/18 15:06 PJM (Rec: 09/02/18 08:40 PJM [id number]) Occupational Therapy Current Condition Current Condition Evaluation Date 09/01/18 Treatment Diagnosis decreased self care, mobility s/p R SALONI Diagnosis Onset Date 08/30/18 Post Operative Precautions Anterior Hip Precautions No Hip Extension No Hip External Rotation Weight Bearing Status Weight Bearing Status Weight Bear as Tolerated M3 OT- IP Subjective and Pain Start: 09/01/18 13:37 Freq: Status: Active Protocol: Document 09/02/18 13:47 PJM (Rec: 09/02/18 18:17 PJM [id number]) OT- Subjective Occupational Therapy Visit Type Type Treatment Note Visit Start Time 13:35 Visit Stop Time 13:47 Total Visit Minutes 12 Notes Pt's son here for education this session. Per RN, pt had episode of hypotension with possible vasovagal episode while on bedpan this afternoon . Pt may also have new UTI per RN. Hospitalist consult pending. Occupational Therapy Visit Comments Patient Comments I can't practice with that stuff right now because I had a bad spell on the bedpan, but my son is here so will you tell him about it? Patient/Caregiver Goals to get stronger and go home OT Pain Assessment Pain When Pain Assessed After Treatment Pain Present Pain Present Pain Reported Location Right Anterior Hip Intensity 3 Description Aching Acute M4 OT- IP ADL's Start: 09/01/18 13:37 Freq: Status: Active Protocol: Document 09/02/18 13:47 PJM (Rec: 09/02/18 18:17 PJM [id number]) OT ADL-Dressing Comments OT Dressing Comments Provided education to pt's son re: use of adaptive equipment for lower body dressing. Pt provided with sintering press operator yesterday. Son to pickler helper her hard sock aid from home and bring both to pt either here or at rehab facility. Also provided education re: optimal clothing choices for rehab and son to obtain additional clothing for pt. M5 OT- IP IADL's Start: 09/01/18 13:37 Freq: Status: Active Protocol: Document 09/01/18 15:06 PJM (Rec: 09/02/18 08:40 PJ [id number]) OT-Instrumental Activities of Daily Living Deficits IADL Deficits Identified Deficits Home Safety Awareness Awareness of Need for Assistance at Home Good Awareness Ability to Problem Solve Emergency Able to Problem Solve Situations Medication Management Medication Management No Deficits Identified Money Management Money Management No Deficits Identified Meal Preparation Meal Preparation Comments pt currently need assist with all meal prep due to decreased mobility and activity tolerance Neurology Specialist Neurology Specialist Comments pt currently need assist with all partition setter due to decreased mobility and activity tolerance Driving Driving Comments pt currently needs assist with transport due to decreased RLE function M9 OT- IP Assessment and Plan Start: 09/01/18 13:37 Freq: Status: Active Protocol: Document 09/02/18 13:47 PJM (Rec: 09/02/18 18:17 PJ [id number]) OT Summary Assessment and Plan Potential Rehabilitation Potential Good Summary OT Impairments Pain Strength Balance Functional Cognition Functional Mobility Grooming Dressing Toileting Bathing Toilet Transfers Shower Transfers Assessment Summary Son here for education re: rehab process as described above. P.T. arrived at end of session to work with pt also. Pt may d/c to SNF tomorrow for further rehab services as medical status permits. Will continue OT plan of care here if pt does not d/c. Goals Grooming Goal Standby Assistance Dressing Goal Minimal Assistance Toileting Goal Minimal Assistance Bathing Goal Minimal Assistance Toilet Transfer Goal Contact Guard Assistance Shower Transfer Goal Contact Guard Assistance Patient/Caregiver Education Goal Demonstrate Post-Op Precautions Demonstrate Energy Conservation and Pacing OT-Other Goals Grooming to be done standing at sink with no loss of balance. Days to Meet Goals 3 Frequency of Treatment Frequency Of Treatment Once a Day Treatment Plan OT Treatment Plan ADL Training Functional Mobility Patient/Family Education Discharge Planning Discharge Recommendations OT Discharge Recommendations SNF Rehab Home Equipment Needs sintering press operator and long shoe horn provided
--- NOTE | 2018-09-02 14:11 | PC.NURSE ---
Addendum entered by Rusty Sandoval R.N. 09/02/18 14:51: charge nurse able to reach May[facility] Wright. ordered hospitalist consult. Original Note: PATIENT HAD EPISODE OF HYPOTENSION, NAUSEA AND LIGHTHEADEDNESS WHILE IN BED THIS AFTERNOON. SHE WAS ACTUALLY ON THE BEDPAN AND WAS HAVING A BM. HER BLOOD PRESSURE WENT DOWN TO 88/44, AND WHEN RECHECKED 5MIN LATER REMAINED THERE. SL ZOFRAN GIVEN. FAX SENT DOWN TO [facility] [place] REGARDING SAME, AND ALSO THAT UA CAME BACK POSITIVE. RECHECKED BP AFTERWARDS AND SBP IN THE 140'S/ . NAUSEA AND LIGHTHEADEDNESS HAD RESOLVED. THINKING POSSIBLY VASOVAGAL. [facility] IN [place] SUITE CALLED WITH [facility] . SHE WOULD LIKE ORTHOSTATIC VS OBTAINED AND CALLED INTO [facility]. VS FOLLOWS: LAYING 181/68. SITTING 154/80. STANDING 149/87 HR 79. PATIENT ASYMPTOMATIC. AFTER AMBULATING IN PATIENT SAT DOWN, REPORTED MILD LIGHTHEADEDNESS W/ BP 153/69. HR 77. LEFT [facility] W/ CLINIC FOR [facility] WRIGHT TO RETURN CALL.
--- NOTE | 2018-09-02 15:48 | CM.DPNOTE ---
Addendum entered by ALBERTO Medina 09/03/18 15:39: DC today to [facility], pt remains agreeable to this plan. [facility] coordinated details to include faxing of DC ppk and PASRR, p/u time arranged and RN/pt notified of such. P: DC to [facility] via w/c. JW Original Note: Therapy team continues to recommend SNF. Pt aware her care/rehab needs exceed what is available from her family at her home and she is now agreeable to SNF stay, requests [facility]. This [employer] SYSTEMS ENGINEER worked w/ Nancy at [facility] to secure bed for pt's DC today. DC got cancelled by Ortho team as they wanted to request a hospitalist consult d/t a vaso event on the commode and positive UTI. Updated [facility] and encouraged them to hold a bed for pt tomorrow. This FUEL CELL SYSTEMS ENGINEER following closely for coordination of safe DCP. PASRR completed. ALBERTO Medina
--- NOTE | 2018-09-02 16:20 | P.CONS_ITS ---
History of Present Illness Date Patient Seen: 09/02/18 Time Patient Seen: 16:18 Chief complaint: [id number] Reason for consult: Hypotension Requesting provider: Bindu Tobias Narrative: 82-year-old female with past medical history of osteoarthritis, hypothyroidism, hypertension, hyperlipidemia, GERD was admitted under the orthopedics team for right hip replacement. Patient underwent preop and successful procedure on 08/30/2018. Patient was recovering well and was planned to go to rehab facility today. Earlier in the afternoon, patient needed to have a bowel movement. When she was sitting on the bed adan and pushing, patient all of the sudden felt lightheadedness and became very sweaty which lasted a few minutes. During that time patient was noted to be hypotensive with blood pressure 88/44 and pulse of 65. She did not lose her consciousness at that time. No confusion. Patient states she did felt a little nauseous at that time, but did not vomit. She does states she has been constipated since the procedure as she has not had 1 bowel movement since 08/30/2018. After patient has passed stool, her blood pressure and pulse went up to normal again. Repeat vitals have been subsequently normal. Orthostatics were done and were negative. Hospitalist team was consulted for an episode of hypotension. Patient states she has never had this problem in her life before. However, she also states she is usually very regular with bowel movements and this is 1 of the very few times in her life she is constipated. Otherwise patient is feeling great. She is no longer lightheaded or nauseous. Denies any chest pain or shortness of breath. Denies any abdominal pain. Denies any urinary symptoms. [facility] Medical History (Updated 08/18/18 @ 14:18 by Odalys Aldrich RN) Easy bruisability (Acute) GERD (gastroesophageal reflux disease) (Acute) HLD (hyperlipidemia) (Acute) HTN (hypertension) (Acute) Hypothyroidism (Acute) Numbness and tingling in both hands (Acute) Ocular migraine (Acute) Osteoarthritis (Acute) Surgical History (Updated 08/18/18 @ 14:18 by Odalys Aldrich RN) History of bladder suspension procedure (Acute) Hx of bilateral cataract extraction (Acute) Hx of repair of left rotator cuff (Acute ~2006) History of carpal tunnel repair Status post appendectomy Status post hysterectomy Social History household members: caregiver and none Smoking Status: Never smoker alcohol intake: current Social History household members: caregiver and none Smoking Status: Never smoker alcohol intake: current Meds Home Medications Medication Instructions Recorded Confirmed Type Myrbetriq 25 mg PO BEDTIME 08/18/18 08/18/18 History Premarin 0.3 mg PO DAILY 08/18/18 08/30/18 History levothyroxine 50 mcg PO DAILY 08/18/18 08/18/18 History losartan 50 mg PO DAILY 08/18/18 08/18/18 History rabeprazole 20 mg PO DAILY 08/18/18 08/18/18 History acetaminophen 975 mg PO TID #0 tab 09/02/18 Rx enoxaparin [Lovenox] 40 mg SUBCUT DAILY 6 Days #2.4 ml 09/02/18 Rx ferrous sulfate 325 mg PO DAILY #0 tab 09/02/18 Rx hydroxyzine pamoate 25 mg PO Q6HR PRN #0 cap 09/02/18 Rx magnesium hydroxide [Milk of 5 ml PO BEDTIME PRN #118 ml 09/02/18 Rx Magnesia] ondansetron 4 mg PO Q4HR PRN #40 tab 09/02/18 Rx oxycodone 5 mg PO Q3HR PRN 2 Days #12 tab 09/02/18 Rx Allergies Allergy/AdvReac Type Severity Reaction Status Date / Time latex Allergy Intermediate Rash Verified 08/30/18 11:12 doxycycline [DOXYCYCLINE] Allergy Unknown Pt does Verified 08/30/18 11:12 not remember nitrofurantoin Allergy Unknown Verified 08/30/18 11:12 [NITROFURANTOIN] sulfamethoxazole Allergy Unknown Pt does Verified 08/30/18 11:12 [From SEPTRA] not remember trimethoprim [From SEPTRA] Allergy Unknown Pt does Verified 08/30/18 11:12 not remember ranitidine AdvReac Severe Diarrhea Verified 08/30/18 11:12 amoxicillin [From Augmentin] AdvReac Unknown Pt does Verified 08/30/18 11:12 not remember clavulanic acid AdvReac Unknown Pt does Verified 08/30/18 11:12 [From Augmentin] not remember Review of Systems Review of Systems All systems reviewed & are unremarkable except as noted in HPI and below Exam Vital Signs (past 8 hours): - 09/02/18 11:58 09/02/18 12:42 09/02/18 12:44 Temperature 97.7 F Pulse Rate 75 67 65 Respiratory Rate 16 Blood Pressure 150/71 H 118/62 82/41 L Blood Pressure [Orthostatic Lying] Blood Pressure [Orthostatic Sitting] Blood Pressure [Orthostatic Standing] Pulse Oximetry 97 09/02/18 12:49 09/02/18 13:07 09/02/18 13:50 Temperature Pulse Rate 64 71 Respiratory Rate Blood Pressure 88/44 L 143/65 H Blood Pressure [Orthostatic Lying] 181/68 H Blood Pressure [Orthostatic Sitting] 154/80 H Blood Pressure [Orthostatic Standing] 149/87 H Pulse Oximetry 09/02/18 15:58 Temperature 97.6 F Pulse Rate 76 Respiratory Rate 20 Blood Pressure 139/68 Blood Pressure [Orthostatic Lying] Blood Pressure [Orthostatic Sitting] Blood Pressure [Orthostatic Standing] Pulse Oximetry 98 Oxygen Delivery Method Room Air Oxygen Flow Rate 0 Narrative Exam Narrative: General: No acute distress, A/O x3 HEENT: PERRLA bilaterally, moist mucous membranes. Normocephalic/atraumatic head Neck: Supple, no LAD or JVD CV: Regular rate rhythm, no murmurs or gallops Respiratory: Clear to auscultation bilaterally, no wheezes or crackles GI: Positive bowel sounds in all 4 quadrants, no tenderness. No organomegaly Extremities: Right lower extremity is propped with pillows was dressings in place. No edema observed Neuro: No focal deficits, AAO x3 Psych: Appropriate mood and behavior. Able to make her own decisions. Objective Labs Result Diagrams: 08/31/18 05:35 Labs: Laboratory Results - last 24 hr 09/02/18 10:20 Urine Color Yellow Urine Appearance Sl cloudy Urine pH 7.0 Ur Specific Gary 1.010 Urine Protein Negative Urine Glucose (UA) Negative Urine Ketones Negative Urine Occult Blood 3+ H Urine Nitrate Negative Urine Bilirubin Negative Urine Urobilinogen 0.2 Ur Leukocyte Esterase 3+ H Urine RBC 30-100/hpf H Urine WBC >100/hpf H Ur Squamous Epith Cells 1-5 /hpf Ur Transition Epith Cell 0-1/hpf Urine Bacteria Many (>30) H Ur Culture Indicated? Specimen cultured Assessment & Plan Assessment & Plan narrative: 82-year-old female with past medical history of osteoarthritis, hypothyroidism, hypertension, hyperlipidemia, GERD was admitted under the orthopedics team for right hip replacement. Hospitalist services were consulted for transient hypotension. 1. Transient hypotension, acute, resolved -likely due to vasovagal reaction given constipation -orthostatics are negative -recommend bowel regimen with senna/docusate 1 tab p.o. b.i.d. with MiraLax daily as needed to ensure regular bowel movements while patient is on [place] and oxycodone for pain control -will give 500 cc NS bolus to optimize intravascular volume 2. UTI, acute -UA performed today revealed more than 100 WBCs, positive for leukocyte esterase, and many bacteria -recommend starting patient on ceftriaxone IV while pending for urine cultures 3. Hypertension -blood pressure is now stable after hypotensive episodes -continue losartan daily -monitor blood pressure 4. Hypothyroidism, chronic, controlled -continue levothyroxine 5. Status post right hip arthroplasty -management as per primary team Dispo: Patient is back to baseline. Transient hypotension was likely vasovagal reaction, which is benign. Recommend to optimize bowel regimen. Also recommend treatment for UTI with ceftriaxone IV until blood cultures are back. Will sign off but feel free to contact if you have any more questions. Thank you.
[2018-09-02] MEDS: SODIUM CHLORIDE 0.9% 500 ML 1000 ML IV (16:21)
--- NOTE | 2018-09-02 16:30 | PT.IPTN ---
Current Diagnoses Unilateral primary osteoarthritis, right hip (08/30/18) Surgery Performed Operation Date: 08/30/18 07:45 Actual Procedures p Total Hip Arthroplasty/Anterior Approach(Right) - Nahum Diana MD Physical Therapy Treatment Note M2 PT-IP Current Condition Start: 08/30/18 14:33 Freq: NEEDED Status: Active Protocol: Document 08/31/18 08:13 EA (Rec: 08/31/18 08:16 EA [id number]) Physical Therapy Current Condition Current Condition Evaluation Date 08/31/18 Treatment Diagnosis s/p R SALONI anterior approach Onset Date 08/30/2018 Precautions Anterior Hip Precautions No Hip Extension No Hip External Rotation Weight Bearing Status Weight Bearing Status Weight Bear as Tolerated M3 PT-IP Subjective Start: 08/30/18 14:33 Freq: NEEDED Status: Active Protocol: Document 09/02/18 16:08 SA (Rec: 09/02/18 16:30 SA [id number]) Subjective Physical Therapy Visit Type Type Treatment Note Visit Start Time 13:43 Visit Stop Time 14:13 Total Visit Minutes 30 Number of PODIATRY PROFESSOR Visits 4 Physical Therapy Visit Comments Patient Comments Pt in room with son present, agreeable to PT. Patient Goals To get indepedent in all transfers and mobility prior to discharge. Therapy Pain Assessment Pain When Pain Assessed During Mobility Pain Present Pain Present Pain Reported Location Right Anterior Hip Intensity 3 Scale Used Numeric (1 - 10) Pain Management Techniques Apply Cold Re-positioning Timing of Activity with Medications M4 PT-IP Mobility and Gait Start: 08/30/18 14:33 Freq: NEEDED Status: Active Protocol: Document 09/02/18 16:08 SA (Rec: 09/02/18 16:30 SA [id number]) PT-Bed Mobility Assessment Rolling Type of Rolling Roll to Right Level of Assist Minimal Assistance 1 Person Assistance Supine to Sit Supine to Sit Minimal Assistance 1 Person Assistance Sit to Supine Sit to Supine Minimal Assistance 1 Person Assistance Scooting Scooting to Edge of Bed Standby Assistance Scooting Up and Down in Bed Minimal Assistance PT-Transfer Assessment Sit to and From Stand Sit to and from Stand Contact Guard Assistance Moderate Assistance 1 Person Assistance Equipment Transfer Assistive Device Gait Belt Front Wheeled Walker Transfers Transfer Destination Bed Transfer Technique Stand Step Pivot Transfer Ability Level of Assist Contact Guard Assistance 1 Person Assistance Comments Mobility Comments Monitored BP through out session. Supine:181/68, seated 154/80, standing 149/87 and seated after ambulation 153/69 . Pt did not have c/o dizziness with mobility. Gait Assessment Gait Gait Assistance Required: Contact Guard Assist 1 Person Assist Distance (Feet) 40 Able to Maintain Weight Bearing Status Yes During Gait Assistive Devices Assistive Device Gait Belt Front Wheeled Walker Gait Deviations General Gait Pattern Step-to Gait Factors Limiting Gait Function Factors Limiting Gait Function Decreased Activity Tolerance Decreased Strength Limited Range of Motion Pain Comments Gait Comments Gradual increase in gait tolerance, pt maintains step to gait pattern well and uses FWW safely. M5 PT-IP Objective Assessments Start: 08/30/18 14:33 Freq: NEEDED Status: Active Protocol: Document 08/31/18 09:57 EA (Rec: 08/31/18 10:08 EA [id number]) Orientation Orientation/Cognition Level of Alertness Alert Orientation Name Age Birthday Month Date Year Day of Week Place Situation Language Function Ability No Deficits Noted Safety Awareness Understands Safety Issues Memory Description No Deficits Noted Gross Range of Motion Upper Extremity ROM Assessment Within Functional Limits Lower Extremity ROM Assessment Right Impaired Impairments Not tested to hip ER/flexion/ extension planes of motion due to pre-cautions Strength Upper Extremity Strength Assessment Within Functional Limits Lower Extremity Strength Assessment Right Impaired Hip at least 3/5 Comments Strength Comments R hip Not tested ER/EXT/ rotatrs due to hip pre-caution but with at least 3/5 to all functional mobility. Coordination Assessment Gross Coordination Gross Coordination WNL Sensation Assessment Sensation Gross Sensation WNL Light Touch Intact Proprioception (Position) Intact M6 PT-IP Treatment Start: 08/30/18 14:33 Freq: NEEDED Status: Active Protocol: Document 09/02/18 16:08 (Rec: 09/02/18 16:30 [id number]) Physical Therapy Treatment Exercises Exercises Ankle Pumps Quad Sets Heel Slides Education Education Provided Precautions Weight Bearing Status M7 PT-IP Assessment and Plan Start: 08/30/18 14:33 Freq: NEEDED Status: Active Protocol: Document 09/02/18 16:08 SA (Rec: 09/02/18 16:30 [id number]) PT Summary Assessment and Plan Summary Assessment Summary Pt making gradual mobility gains and BPs better this afternoon, anticipate pt being ready for d/c to SNF soon. Frequency of Treatment Frequency Of Treatment Twice a Day Treatment Plan Physical Therapy Treatment Plan Bed Mobility Training Transfer Training Gait Training Therapeutic Exercise Post Op Education Discharge Planning Hot or Cold Pack Other Recommendations and Next Treatment bed mobility, transfers and Focus gait. Recommendations To Nursing Amount of Assist Needed 1 Person Assist Discharge Recommendations PT Discharge Recommendations SNF Rehab
--- NOTE | 2018-09-02 16:45 | P.PN_ITS ---
Subjective Date Patient Seen: 09/02/18 Interval history: Called to the evaluate patient after blood pressure dropped secondary to a vasovagal response while on the commode. Patient's color is better after receiving 1500 cc of fluid. Because patient was anemic at hemoglobin 10.4 2 days ago, I did order repeat labs to make sure that her hemoglobin has not dropped excessively. Hospitalist saw the patient and has signed off. The UA taken from bedpan had a lot of bacteria in it but it was not a clean catch. We will see what the culture status is tomorrow. Exam Vital Signs (past 8 hours): - 09/02/18 11:58 09/02/18 12:42 09/02/18 12:44 Temperature 97.7 F Pulse Rate 75 67 65 Respiratory Rate 16 Blood Pressure 150/71 H 118/62 82/41 L Blood Pressure [Orthostatic Lying] Blood Pressure [Orthostatic Sitting] Blood Pressure [Orthostatic Standing] Pulse Oximetry 97 09/02/18 12:49 09/02/18 13:07 09/02/18 13:50 Temperature Pulse Rate 64 71 Respiratory Rate Blood Pressure 88/44 L 143/65 H Blood Pressure [Orthostatic Lying] 181/68 H Blood Pressure [Orthostatic Sitting] 154/80 H Blood Pressure [Orthostatic Standing] 149/87 H Pulse Oximetry 09/02/18 15:58 Temperature 97.6 F Pulse Rate 76 Respiratory Rate 20 Blood Pressure 139/68 Blood Pressure [Orthostatic Lying] Blood Pressure [Orthostatic Sitting] Blood Pressure [Orthostatic Standing] Pulse Oximetry 98 Oxygen Delivery Method Room Air Oxygen Flow Rate 0 Narrative Exam Narrative: Well-developed, well-nourished, no acute distress. Alert and oriented to person, place, and time. Dressing on operative hip is clean, dry, and intact with no signs of drainage. Minimal erythema and generalized swelling around the surgical site. Neurovascularly intact in the operative extremity with a soft and compressible calf. Range of motion of the operative ankle intact. Objective Labs Result Diagrams: 08/31/18 05:35 Labs: Laboratory Results - last 24 hr 09/02/18 10:20 Urine Color Yellow Urine Appearance Sl cloudy Urine pH 7.0 Ur Specific [place] 1.010 Urine Protein Negative Urine Glucose (UA) Negative Urine Ketones Negative Urine Occult Blood 3+ H Urine Nitrate Negative Urine Bilirubin Negative Urine Urobilinogen 0.2 Ur Leukocyte Esterase 3+ H Urine RBC 30-100/hpf H Urine WBC >100/hpf H Ur Squamous Epith Cells 1-5 /hpf Ur Transition Epith Cell 0-1/hpf Urine Bacteria Many (>30) H Ur Culture Indicated? Specimen cultured Assessment & Plan Post-op Postoperative Procedures Operation Date: 08/30/18 07:45 Actual Procedures Side Surgeon p Total Hip Arthroplasty/Anterior Approach Right Nahum Diana MD 1. Hypotension secondary to vasovagal response-fluids, bowel regiment. 2. Bacteremia-wait for culture since UA was a dirty catch. 3. POD #3 s/p above procedure-to SNF tomorrow if medically stable. Quality VTE Deep Vein Thrombosis/Pulmonary Embolism Present on Admission: No
[2018-09-02 16:53] LABS: Add Manual Diff / Slide Review NO; Basophils Absolute Auto 0 /uL (0-100); Basophils Percent Auto 0.1 % (0-2); Eosinophils Absolute Auto 100 /uL (0-450); Eosinophils Percent Auto 0.7 % (2-4); Hematocrit 28.8 % (36-46); Hemoglobin 9.8 g/dL (12.0-16.0); Lymphocytes Absolute Auto 1000 /uL (1100-4500); Lymphocytes Percent Auto 9.4 % (25-40); Mean Corpuscular HGB Conc 34.1 % (30-36); Mean Corpuscular Hemoglobin 30.7 PG (26-34); Mean Corpuscular Volume 90.1 fL (80-100); Monocytes Absolute Auto 700 /uL (0-900); Monocytes Percent Auto 6.9 % (3-14); Neutrophils Absolute Auto 8500 /uL (1500-7000); Neutrophils Percent Auto 82.9 % (50-75); Platelet Count 184 X10^3/uL (150-400); Red Blood Cell Count 3.19 X10^6/uL (4.0-5.2); Red Cell Distribution Width 12.7 % (11.6-14.8); White Blood Cell Count 10.2 X10^3/uL (4.5-11.0)
[2018-09-02 17:05] LABS: BUN Creatinine Ratio 16.7 (6-22); Blood Urea Nitrogen 15 mg/dL (7-17); Calcium 7.6 mg/dL (8.4-10.2); Carbon Dioxide 27 mmol/L (22-32); Chloride 100 mmol/L (98-107); Estimated Glomerular Filt Rate > 60.0 mL/min (>60); Glucose 110 mg/dL (80-110); HEMOLYSIS < 15 (0-50); Magnesium 1.6 mg/dL (1.6-2.3); Potassium 3.9 mmol/L (3.4-5.1); Sodium 133 mmol/L (137-145)
[2018-09-02] MEDS: DOCUSATE 100 MG CAPSULE PO (20:46)
[2018-09-03 00:40] VITALS: BP 158/72; PULSE 78; RESP 16; TEMP 36.8; O2SAT 97
[2018-09-03 05:00] VITALS: BP 146/69; PULSE 71; RESP 18; TEMP 36.7; O2SAT 97
[2018-09-03] MEDS: PANTOPRAZOLE 40 MG TABLET PO (05:52)
[2018-09-03] MEDS: LEVOTHYROXINE 50 MCG TABLET PO (05:52)
--- NOTE | 2018-09-03 07:37 | P.DS_ITS ---
History of Present Illness Date Patient Seen: 09/03/18 Chief complaint: [id number] Narrative: Patient is seen bedside status post right anterior total hip arthroplasty by Dr. Diana on 08/30/2018. Patient is postop day 4. Patient did not go to rehab yesterday she a hypotensive episode likely secondary to vasovagal response during a bowel movement. Her vital signs improved after 1.5 L bolus of NS. Her labs yesterday were stable. She does have mild anemia likely secondary to acute blood loss perioperatively. She is complaining more today of burning with urination but feels better overall. Denies nausea/vomiting/chest pain/shortness of breath. Discharge Providers Date of admission: 08/30/18 06:01 Discharge Date: 09/03/18 Primary care physician: Jonatan Prince MD Consults: 08/30/18 10:21 Consult to Discharge Planning Routine Comment: Consult to Physical Therapy Evaluate & Treat Comment: Physician Instructions: post op SALONI protocol Consult to Respiratory Therapy Evaluate & Treat Comment: Physician Instructions: Evaluate and treat 08/30/18 10:38 Consult to Pastoral Services Routine Comment: pt states always nice ot talk 09/01/18 09:24 Consult to Occupational Therapy Evaluate & Treat Comment: s/p right total hip Physician Instructions: Evaluate and treat 09/02/18 14:41 Consult to Hospitalist Service Routine Comment: Consulting Provider: Danielle Terry Reason for consultation: needed for assesment vital signs abnormal Has provider been notified: Yes Discharge provider: Bindu Tobias PA-C Summary Discharge Diagnosis: Right hip osteoarthritis Stable mild anemia secondary to acute blood loss wolf-operatively UTI Hospital Course: Patient admitted to the hospital s/p R. anterior SALONI with Dr. Diana on 08/30/18. Patient tolerated the procedure well with no major complications. They were transferred to the acute care floor where they were placed on the standard joint replacement pathway and protocol. They were seen by physical therapy who recommended that they be discharged to a SNF. She had mild hypertensive episode on 08/31/18 likely secondary to a vasovagal response. She was bolused and felt better afterwards. She also had symptoms of UTI, but UA was not performed with a clean catch. Will treat preemptively based on symptoms. They were stable and ready for discharge on 09/03/18. Status at Discharge Cognitive/behavioral status at discharge: oriented Functional status at discharge: independent ambulation Overall status at discharge: patient is progressing back to baseline Time Spent with Patient Less than 30 minutes Exam Vital Signs (past 8 hours): - 09/03/18 00:40 09/03/18 05:00 Temperature 98.3 F 98.1 F Pulse Rate 78 71 Respiratory Rate 16 18 Blood Pressure 158/72 H 146/69 H Pulse Oximetry 97 97 Oxygen Delivery Method Room Air Oxygen Flow Rate 0 Narrative Exam Narrative: Well-developed, well-nourished, no acute distress. Alert and oriented to person, place, and time. Dressing on operative hip is clean, dry, and intact with no signs of drainage. Minimal erythema and generalized swelling around the surgical site. Neurovascularly intact in the operative extremity with a soft and compressible calf. Range of motion of the operative ankle intact. Objective Labs Result Diagrams: 09/02/18 16:45 09/02/18 16:45 Labs: Laboratory Results - last 24 hr 09/02/18 09/02/18 09/02/18 10:20 16:45 16:45 WBC 10.2 RBC 3.19 L Hgb 9.8 L Hct 28.8 L MCV 90.1 MCH 30.7 MCHC 34.1 RDW 12.7 Plt Count 184 Neut % (Auto) 82.9 H Lymph % (Auto) 9.4 L [place] % (Auto) 6.9 Eos % (Auto) 0.7 L Baso % (Auto) 0.1 Neut # (Auto) 8500 H Lymph # (Auto) 1000 L [place] # (Auto) 700 Eos # (Auto) 100 Baso # (Auto) 0 Sodium 133 L Potassium 3.9 Chloride 100 Carbon Dioxide 27 BUN 15 Creatinine 0.90 Estimated GFR > 60.0 BUN/Creatinine Ratio 16.7 Glucose 110 Calcium 7.6 L Magnesium 1.6 Urine Color Yellow Urine Appearance Sl cloudy Urine pH 7.0 Ur Specific [place] 1.010 Urine Protein Negative Urine Glucose (UA) Negative Urine Ketones Negative Urine Occult Blood 3+ H Urine Nitrate Negative Urine Bilirubin Negative Urine Urobilinogen 0.2 Ur Leukocyte Esterase 3+ H Urine RBC 30-100/hpf H Urine WBC >100/hpf H Ur Squamous Epith Cells 1-5 /hpf Ur Transition Epith Cell 0-1/hpf Urine Bacteria Many (>30) H Ur Culture Indicated? Specimen cultured Discharge Plan Discharge Plan Patient Disposition: SNF Under care of provider: facility provider Discharge comment: Treat UTI symptoms 5 days of ceftin and pyridium. Retest as needed with UA and clean catch. I certify the [facility] care is medically necessary on a continuing basis for any conditions for which he/ she received care during this hospitalization.: Yes The receiving facility has agreed to accept transfer and provide medical treatment.: Yes Discharge Med Rec/Prescriptions Prescriptions: New acetaminophen 325 mg Tablet 975 mg PO TID Qty: 0 RF: 0 ferrous sulfate 325 mg (65 mg iron) Tablet 325 mg PO DAILY Qty: 0 RF: 0 oxycodone 5 mg Tablet 5 mg PO Q3HR PRN (Reason: Pain, Severe (7-10)) 2 Days Qty: 12 RF: 0 hydroxyzine pamoate 25 mg Capsule 25 mg PO Q6HR PRN (Reason: Spasms) Qty: 0 RF: 0 ondansetron 4 mg Tablet,Disintegrating 4 mg PO Q4HR PRN (Reason: Nausea) Qty: 40 RF: 0 magnesium hydroxide [Milk of Magnesia] 400 mg/5 mL suspension 5 ml PO BEDTIME PRN (Reason: constipation) Qty: 118 RF: 0 sennosides [senna] 8.6 mg Tablet 8.6 mg PO BID Qty: 0 RF: 0 phenazopyridine 100 mg Tablet 100 mg PO TID 5 Days Qty: 15 RF: 0 docusate sodium 100 mg Capsule 100 mg PO BID Qty: 0 RF: 0 enoxaparin [Lovenox] 40 mg/0.4 mL syringe 40 mg SUBCUT DAILY 6 Days Qty: 2.4 RF: 0 cefuroxime axetil 250 mg Tablet 500 mg PO BID 5 Days Qty: 0 RF: 0 Continued losartan 50 mg Tablet 50 mg PO DAILY RF: 0 rabeprazole 20 mg Tablet,Delayed Release (Dr/Ec) 20 mg PO DAILY RF: 0 Premarin 0.3 mg Tablet 0.3 mg PO DAILY RF: 0 levothyroxine 50 mcg Capsule 50 mcg PO DAILY RF: 0 Myrbetriq 25 mg Tablet Extended Release 24 Hr 25 mg PO BEDTIME RF: 0 Discontinued ibuprofen [Advil] 200 mg Tablet 200 mg PO QID PRN (Reason: Pain) RF: 0 Follow up/Referrals: Nahum Diana MD [Physician] - (Follow up in the office at your previously scheduled post-operative appointment.) Discharge Health Status Precautions: [place] Provider Discharge Instructions Diet: Diet as Tolerated Activity: Weight bearing as tolerated. Follow anterior hip precautions Cold/Heat Therapy: Apply ice to affected area for 20 minutes at a time at least hourly while awake. Other treatments: Please refer to [facility] path book for other questions and concerns Skin/Wound/Dressing Care Report to your healthcare provider any signs of infection, such as:: chills, fever, night sweats, increased pain, unusual drainage and unusual redness Dressing: Keep dressing clean, dry, and intact. May shower with it in place but no soaking. Special Rehabilitation Services Reason for rehabilitation: Post-operative therapy Rehab type: Physical therapy and Occupational therapy Restrictions to mobility: Follow anterior hip precautions Visit Report/Discharge Packet Instructions: DI for Hip Replacement Stand Alone Forms: Surgery Discharge Discharge Data Primary Care Provider: Jonatan Prince Attending Provider: Nahum Diana Admit Date/Time: 08/30/18 06:01 Quality VTE Deep Vein Thrombosis/Pulmonary Embolism Present on Admission: No
[2018-09-03 07:50] VITALS: BP 96/42; PULSE 61
[2018-09-03 08:00] VITALS: BP 146/77; PULSE 70; RESP 16; TEMP 36.8; O2SAT 96
[2018-09-03] MEDS: ACETAMINOPHEN 325 MG TABLET 975 MG PO (08:44)
[2018-09-03] MEDS: ENOXAPARIN 40 MG/0.4 ML SYRINGE SUBCUT (08:44)
[2018-09-03] MEDS: ONDANSETRON 4 MG ODT PO (08:44)
[2018-09-03] MEDS: SODIUM CHLORIDE 0.9% FLUSH 10 ML IV (08:45)
[2018-09-03] MEDS: FERROUS SULFATE 325 MG TABLET PO (08:45)
--- NOTE | 2018-09-03 09:03 | PC.NURSE ---
Addendum entered by Rusty Sandoval R.N. 09/03/18 13:48: report given to NEHAL Morin at [facility]. Reported the episode below, and the hypotensive episode yesterday as well in detail. she will monitor for same at snf. Original Note: PATIENT UP TO COMMODE, HAD SOFT BM AND URINE, STOOD TO TRANSF TO RECLINER AND BECAME DIZZY AND NAUSEATED IMMEDIATELY. UPON SITTING BP WAS OBTAINED 96/42 HR 61. SYMPTOMS RESOLVED QUICKLY AFTER SITTING. BP RECHECKED 5MIN LATER 145/70 HR 72. HOSPITALIST AND ORTHO PA NOTIFIED OF SAME. TRANSIENT VASOVAGAL SYMPTOMS, BENIGN PROCESS PER HOSPITALIST. OK TO GIVE BP MED ORDERED AND TRANSF TO SNF TODAY PLANNED.
[2018-09-03] MEDS: cefUROXime 250 MG TABLET 500 MG PO (10:17)
[2018-09-03] MEDS: PHENAZOPYRIDINE 100 MG TABLET PO (10:17)
[2018-09-03] MEDS: LOSARTAN 50 MG TABLET PO (10:17)
[2018-09-03 12:30] VITALS: BP 139/65; PULSE 75; RESP 17; TEMP 36.8; O2SAT 97
== END 2018-09-03 14:30 | DRG 470 ==
PROVIDERS: Physician Assistant; Physician Assistant Surgical; Admitting Provider Orthopaedic Surgery; PCP Family Medicine; Visit Provider Orthopaedic Surgery
PROC: 0SR902Z Replacement of Right Hip Joint with Metal on Polyethylene Synthetic Substitute, Open Approach (ICD-10-PCS; CPT 27130; principal; 2018-08-30 07:45)
DX: M16.11 Unilateral primary osteoarthritis, right hip (principal); N39.0 Urinary tract infection, site not specified; D62 Acute posthemorrhagic anemia; I10 Essential (primary) hypertension; E78.5 Hyperlipidemia, unspecified; E03.9 Hypothyroidism, unspecified; K21.9 Gastro-esophageal reflux disease without esophagitis; R11.2 Nausea with vomiting, unspecified; I95.9 Hypotension, unspecified; R55 Syncope and collapse
CPT/HCPCS: 36415; 73501; 73502; 76000; 80048; 81001; 83735; 85014; 85018; 85025; 87077; 87086; 87186; 97110; 97116; 97161; 97165; 97530; 97535; C1776; J1100; J1650; J1885; J2270; J2274; J2310; J2405; J2704; J2765; J2795

== ENCOUNTER → 2018-10-21 08:33 | Outpatient (ROUT) | payer MEDICARE, OTHER, SELFPAY ==
[2018-09-23 16:43] VITALS: BMI 23.4
[2018-10-21 08:56] LABS: Add Manual Diff / Slide Review NO; Alanine Aminotransferase 15 IU/L (9-52); Albumin 4.3 g/dL (3.5-5.0); Albumin Globulin Ratio 1.2 (1.0-2.8); Alkaline Phosphatase 81 U/L (38-126); Aspartate Aminotransferase 29 IU/L (14-36); Basophils Absolute Auto 0 /uL (0-100); Basophils Percent Auto 0.8 % (0-2); Bilirubin Total 0.5 mg/dL (0.2-1.3); Blood Urea Nitrogen 17 mg/dL (7-17); Calcium 9.6 mg/dL (8.4-10.2); Carbon Dioxide 28 mmol/L (22-32); Chloride 103 mmol/L (98-107); Cholesterol 294 mg/dL (140-199); Eosinophils Absolute Auto 300 /uL (0-450); Eosinophils Percent Auto 5.4 % (2-4); Estimated Glomerular Filt Rate 53.3 mL/min (>60); Globulin 3.6 g/dL (1.7-4.1); Glucose 97 mg/dL (80-110); HDL Cholesterol 46 mg/dL (40-60); HEMOLYSIS < 15 (0-50); Hematocrit 35.5 % (36-46); Hemoglobin 11.9 g/dL (12.0-16.0); LDL Cholesterol Calculated 220 mg/dL (<100); Lymphocytes Absolute Auto 1300 /uL (1100-4500); Lymphocytes Percent Auto 22.8 % (25-40); Mean Corpuscular HGB Conc 33.4 % (30-36); Mean Corpuscular Hemoglobin 29.9 PG (26-34); Mean Corpuscular Volume 89.6 fL (80-100); Monocytes Absolute Auto 300 /uL (0-900); Monocytes Percent Auto 5.7 % (3-14); Neutrophils Absolute Auto 3900 /uL (1500-7000); Neutrophils Percent Auto 65.3 % (50-75); Platelet Count 338 X10^3/uL (150-400); Potassium 4.7 mmol/L (3.4-5.1); Red Blood Cell Count 3.97 X10^6/uL (4.0-5.2); Sodium 139 mmol/L (137-145); Total Protein 7.9 g/dL (6.3-8.2); Triglycerides 140 mg/dL (35-150); White Blood Cell Count 5.9 X10^3/uL (4.5-11.0)
[2018-10-21 09:24] LABS: Thyroid Stimulating Hormone 3.48 uIU/mL (0.47-4.68)
== END ==
PROVIDERS: PCP Family Medicine; Visit Provider Family Medicine
DX: E78.5 Hyperlipidemia, unspecified (principal); D64.9 Anemia, unspecified; E03.9 Hypothyroidism, unspecified; N18.3 Chronic kidney disease, stage 3 (moderate)
CPT/HCPCS: 80053; 80061; 84443; 85025

== ENCOUNTER 2019-02-02 12:24 | Emergency (ER) | payer MEDICARE, OTHER, SELFPAY ==
[2018-09-23 16:43] VITALS: BMI 23.4
[2019-02-02 13:10] VITALS: BP 180/64; PULSE 69; RESP 16; TEMP 36.3; O2SAT 94; BMI 22.4
--- NOTE | 2019-02-02 13:25 | DI.RAD.S_ITS ---
PROCEDURE: XR HAND RT MIN 3V INDICATIONS: cat bite open wound TECHNIQUE: 3 views of the hand(s) acquired. COMPARISON: [facility], , HAND 3V RIGHT, 09/10/2007, 11:38. FINDINGS: Bones: No fractures or dislocations. Carpal bones are normally aligned. No suspicious bony lesions. Advanced degenerative arthritis involving the wrist, with severe radiocarpal joint space loss, severe triscaphe joint degenerative change and advanced first carpometacarpal degenerative change. Widening of the space between the scaphoid and lunate. Large subchondral cysts in the distal radius. Degenerative arthritis involving the second and third DIPs and PIPs. Question subluxations at the second and third MCP joints. Soft tissues: No suspicious soft tissue calcifications. No soft tissue gas or radiopaque foreign body. IMPRESSION: 1. No findings suspicious for osteomyelitis or radiopaque foreign body or infection with a gas-forming organism. 2. Advanced degenerative change as described above. Dictated by: Reji Jewell M.D. on 02/02/2019 at 14:17 Approved by: Reji Jewell M.D. on 02/02/2019 at 14:22
--- NOTE | 2019-02-02 13:25 | DI.RAD.S_ITS ---
PROCEDURE: XR FOREARM RT 2V INDICATIONS: cat bite open wound TECHNIQUE: 2 views of the forearm were acquired. COMPARISON: [facility], , FOREARM RIGHT, 09/06/2012, 14:33. FINDINGS: Bones: No fractures or dislocations. No suspicious bony lesions. The severe degenerative change at the wrist, involving the radiocarpal joint and base of the thumb. Soft tissues: No suspicious soft tissue calcifications or masses. No soft tissue gas. No radiopaque foreign body. IMPRESSION: No evidence acute bony abnormality of the right forearm. No soft tissue gas or radiopaque foreign body. Dictated by: Reji Jewell M.D. on 02/02/2019 at 14:14 Approved by: Reji Jewell M.D. on 02/02/2019 at 14:17
[2019-02-02 15:30] VITALS: BP 180/62; PULSE 67; RESP 17; O2SAT 94
[2019-02-02] MEDS: MOXIFLOXACIN HCL 400 MG TABLET PO (16:26)
[2019-02-02] MEDS: ACETAMINOPHEN 325 MG TABLET 650 MG PO (16:27)
[2019-02-02] MEDS: IBUPROFEN 400 MG TABLET PO (16:27)
--- NOTE | 2019-02-02 16:50 | ED_ITS ---
HPI - Skin/Abscess/Foreign Bdy <XIN Feliz - Last Filed: 02/03/19 02:48> General Chief complaint: Skin/Abscess/Foreign Body Stated complaint: right thumb/hand laceration x30 minutes Time Seen by Provider: 02/02/19 15:45 Source: patient Mode of arrival: Ambulatory Limitations: no limitations History of Present Illness HPI narrative: This is a 83-year-old female, nonsmoker, who presents with a neighbor after she had injured multiple areas on right dorsal thumb, volar and dorsal aspect of forearm. Patient states her pet cat got scared when it saw a stray cat outside the house when the patient attempted to scare it off and got away and accidentally bit and clawed her skin at 11:00 a.m. and sustained deep cuts with puncture wounds. Patient reports her tetanus immunization is up-to-date till 2021. She has right dominant hand. Patient reports he is able to move her affected hand with full range of motion. Reports sensation is intact. Patient denies fever but reports chills and not feeling well. Patient denies on anticoagulants or anti-platelets. Patient reports throbbing pain as 10. Related Data Home Medications Medication Instructions Recorded Confirmed Premarin 0.3 mg PO DAILY 08/18/18 09/23/18 losartan 50 mg PO DAILY 08/18/18 02/02/19 rabeprazole 20 mg PO DAILY 08/18/18 02/02/19 latanoprost 1 drp OPHTHALMIC (EYE) DIRECTED 02/02/19 02/02/19 levothyroxine 50 mcg PO DAILY 02/02/19 02/02/19 mirabegron [Myrbetriq] 50 mg PO BEDTIME 02/02/19 02/02/19 Previous Rx's Medication Instructions Recorded acetaminophen 975 mg PO TID #0 tab 09/02/18 ferrous sulfate 325 mg PO DAILY #0 tab 09/02/18 hydroxyzine pamoate 25 mg PO Q6HR PRN #0 cap 09/02/18 magnesium hydroxide [Milk of 5 ml PO BEDTIME PRN #118 ml 09/02/18 Magnesia] ondansetron 4 mg PO Q4HR PRN #40 tab 09/02/18 docusate sodium 100 mg PO BID #0 cap 09/03/18 sennosides [senna] 8.6 mg PO BID #0 tab 09/03/18 moxifloxacin 400 mg PO DAILY 9 Days #9 tab 02/02/19 Allergies Allergy/AdvReac Type Severity Reaction Status Date / Time latex Allergy Intermediate Rash Verified 09/23/18 17:50 doxycycline [DOXYCYCLINE] Allergy Unknown Pt does Verified 09/23/18 17:50 not remember nitrofurantoin Allergy Unknown Verified 09/23/18 17:50 [NITROFURANTOIN] sulfamethoxazole Allergy Unknown Pt does Verified 09/23/18 17:50 [From SEPTRA] not remember trimethoprim [From SEPTRA] Allergy Unknown Pt does Verified 09/23/18 17:50 not remember ranitidine AdvReac Severe Diarrhea Verified 09/23/18 17:50 amoxicillin [From Augmentin] AdvReac Unknown Pt does Verified 09/23/18 17:50 not remember clavulanic acid AdvReac Unknown Pt does Verified 09/23/18 17:50 [From Augmentin] not remember Review of Systems <XIN Feliz - Last Filed: 02/03/19 02:48> Review of Systems Narrative: General: Reports chills and malaise. Denies fever, fatigue, sweats. HEENT: Denies sinus pain, ear pain, sore throat, difficulty swallowing, dizziness. Respiratory: Denies dyspnea, cough, wheezing, hemoptysis, sputum. Cardiovascular: Denies chest pain, palpitations, orthopnea, edema. Gastrointestinal: Denies nausea, vomiting, abdominal pain, diarrhea, constipation, melena. : Denies dysuria, frequency, incontinence, hematuria, urinary retention. Musculoskeletal: See HPI Skin: See HPI Neurologic: Denies weakness, headache, numbness, change in speech, confusion, seizures, incoordination. Psychiatric: No concerning psychosocial issues. 12-point review of systems is negative except for those stated above. PFSH <XIN Feliz - Last Filed: 02/03/19 02:48> Medical History Easy bruisability (Acute) GERD (gastroesophageal reflux disease) (Acute) HLD (hyperlipidemia) (Acute) HTN (hypertension) (Acute) Hypothyroidism (Acute) Numbness and tingling in both hands (Acute) Ocular migraine (Acute) Osteoarthritis (Acute) Surgical History History of bladder suspension procedure (Acute) History of carpal tunnel repair Hx of bilateral cataract extraction (Acute) Hx of repair of left rotator cuff (Acute ~2006) Status post appendectomy Status post hysterectomy Status post rotator cuff repair (Deleted) Social History household members: caregiver and none Smoking Status: Never smoker alcohol intake: current Social History household members: caregiver and none Smoking Status: Never smoker alcohol intake: current Exam <XIN Feliz - Last Filed: 02/03/19 02:48> Narrative Exam Narrative: General appearance: well developed, well nourished, in no acute distress. Head: normocephalic, atraumatic, no scalp lesions, non-tender. Eye: pupil equal, round. EOMI. Nose: nares patent. Oral: mucosa moist. Neck/Thyroid: neck supple, full range of motion, no visible masses. Skin: Deep 4 cm laceration to volar aspect of base of right thumb, mild erythema, bruise, swelling. Deep 4.5 cm skin tear on right forearm continue with this slow oozing bleeding. Multiple small lacerations and puncture wounds on volar and dorsal aspect of forearm. No suspicious rashes, lesions over visible areas. Warm and dry. Heart: no clubbing, no cyanosis, no edema. Lungs: Breathing even and unlabored. No stridor. No accessory muscles used. Chest: normal shape and expansion. Abdomen: non-obese, non-distended. Neurologic: alert and oriented. Cognitive exam, [employer] and PNS grossly intact on informal exam. Psych: good eye contact, normal affect. Initial Vital Signs Initial Vital Signs: Vital Signs Temperature 97.4 F L 02/02/19 13:10 Pulse Rate 69 02/02/19 13:10 Respiratory Rate 16 02/02/19 13:10 Blood Pressure 180/64 H 02/02/19 13:10 Pulse Oximetry 94 02/02/19 13:10 Extrem Right upper extremity: hand Details: abnormal to inspection, neuromotor exam normal, neurosensory exam normal, tendon exam normal, tenderness, vascular exam Details: radial pulse present and normal capillary refill, normal ROM of fingers, warmth Location: of the thumb, swelling Location: of the thumb, laceration (4 cm right base of thumb volar aspect, 4.5cm skin tear on right forearm in volar aspect) and ecchymosis <Vreenice Lynn DO - Last Filed: 02/07/19 19:37> Initial Vital Signs Initial Vital Signs: Vital Signs Temperature 97.4 F L 02/02/19 13:10 Pulse Rate 69 02/02/19 13:10 Respiratory Rate 16 02/02/19 13:10 Blood Pressure 180/64 H 02/02/19 13:10 Pulse Oximetry 94 02/02/19 13:10 Procedures <Mainor GutiérrezXIN Torres - Last Filed: 02/03/19 02:48> Laceration Repair Laceration 1: Side (If applicable): right Size (cm): 4 Description: linear and irregular Depth: simple, single layer Local Anesthetic: lidocaine 1% and with bicarb Amount of anesthesia used (mL): 2 Pre-repair: wound explored and irrigated extensively Skin layer closed with: nylon Size (cm): 4-0 Number of sutures: 3 Technique: simple, interrupted (Loose suture applied) Laceration 2: Side (If applicable): right (Volar aspect forearm) Size (cm): 4.5 Description: irregular Pre-repair: wound explored and irrigated extensively Skin layer closed with: steri-strips (3) Course <XIN Feliz - Last Filed: 02/03/19 02:48> Orders Ordered: Discontinued Medications Acetaminophen (Tylenol) 650 mg PO NOW ONE Stop: 02/02/19 15:55 Last Admin: 02/02/19 16:27 Dose: 650 mg Documented by: JUANISTO Bacitracin (Bacitracin) 3 applic TOP NOW ONE Stop: 02/02/19 16:51 Last Admin: 02/02/19 18:02 Dose: 3 applic Documented by: JUANISTO Ibuprofen (Advil) 400 mg PO NOW ONE Stop: 02/02/19 15:55 Last Admin: 02/02/19 16:27 Dose: 400 mg Documented by: JUANISTO Lidocaine/Sodium Bicarbonate (Buffered Lidocaine 10 Ml Syr) 10 ml INJ NOW ONE Stop: 02/02/19 16:53 Last Admin: 02/02/19 18:03 Dose: 10 ml Documented by: TERI Moxifloxacin HCl (Avelox) 400 mg PO NOW ONE Stop: 02/02/19 15:55 Last Admin: 02/02/19 16:26 Dose: 400 mg Documented by: TERI Vital Signs Vital signs: Vital Signs - 8 hr 02/02/19 13:10 02/02/19 15:30 Temperature 97.4 F L Pulse Rate 69 67 Respiratory Rate 16 17 Blood Pressure 180/64 H Blood Pressure [Left Arm] 180/62 H Pulse Oximetry 94 94 <Verenice Lynn DO - Last Filed: 02/07/19 19:37> Orders Ordered: Discontinued Medications Acetaminophen (Tylenol) 650 mg PO NOW ONE Stop: 02/02/19 15:55 Last Admin: 02/02/19 16:27 Dose: 650 mg Documented by: TERI Bacitracin (Bacitracin) 3 applic TOP NOW ONE Stop: 02/02/19 16:51 Last Admin: 02/02/19 18:02 Dose: 3 applic Documented by: TERI Ibuprofen (Advil) 400 mg PO NOW ONE Stop: 02/02/19 15:55 Last Admin: 02/02/19 16:27 Dose: 400 mg Documented by: TERI Lidocaine/Sodium Bicarbonate (Buffered Lidocaine 10 Ml Syr) 10 ml INJ NOW ONE Stop: 02/02/19 16:53 Last Admin: 02/02/19 18:03 Dose: 10 ml [facility]ed [facility]: [facility] Moxifloxacin HCl (Avelox) 400 mg PO NOW ONE Stop: 02/02/19 15:55 Last Admin: 02/02/19 16:26 Dose: 400 mg Documented by: TERI Vital Signs Vital signs: Vital Signs - 8 hr 02/02/19 13:10 02/02/19 15:30 Temperature 97.4 F L Pulse Rate 69 67 Respiratory Rate 16 17 Blood Pressure 180/64 H Blood Pressure [Left Arm] 180/62 H Pulse Oximetry 94 94 MDM - Skin/Abscess/Foreign Bdy <XIN Feliz - Last Filed: 02/03/19 02:48> Differential Diagnosis Differential diagnosis: Likely other (Cat bites and scratch) Medical Records Attestation: I reviewed the patient's medical records. Imaging Data XR-Hand RT: Radiologist's impression: [address] [address] XRay Report Signed Patient: Ny Mcallister [facility]#: [id number] : 8Acct:[id number] Age/Sex: 83 / FDate of Service: 02/02/19 Loc: ED Accession Number: [id number] Procedure: XR hand RT min 3V Ordering Provider: Verenice Lynn D.O. PROCEDURE: XR HAND RT MIN 3V INDICATIONS: cat bite open wound TECHNIQUE: 3 views of the hand(s) acquired. COMPARISON: [facility], HAND 3V RIGHT, 09/10/2007, 11:38. FINDINGS: Bones: No fractures or dislocations. Carpal bones are normally aligned. No suspicious bony lesions. Advanced degenerative arthritis involving the wrist, with severe radiocarpal joint space loss, severe triscaphe joint degenerative change and advanced first carpometacarpal degenerative change. Widening of the space between the scaphoid and lunate. Large subchondral cysts in the distal radius. Degenerative arthritis involving the second and third DIPs and PIPs. Question subluxations at the second and third MCP joints. Soft tissues: No suspicious soft tissue calcifications. No soft tissue gas or radiopaque foreign body. IMPRESSION: 1. No findings suspicious for osteomyelitis or radiopaque foreign body or infection with a gas-forming organism. 2. Advanced degenerative change as described above. Dictated by: Reji Jewell M.D. on 02/02/2019 at 14:17 Approved by: Reji Jewell M.D. on 02/02/2019 at 14:22 XR-Forearm LT: Radiologist's impression: [address] [address] XRay Report Signed Patient: Ny Mcallister MMR#: [id number] : 8At:[id number] Age/Sex: 83 / FDate of Service: 02/02/19 Loc: ED Accession Number: [id number] Procedure: XR forearm RT 2V Ordering Provider: Verenice Lynn D.O. PROCEDURE: XR FOREARM RT 2V INDICATIONS: cat bite open wound TECHNIQUE: 2 views of the forearm were acquired. COMPARISON: [facility], FOREARM RIGHT, 09/06/2012, 14:33. FINDINGS: Bones: No fractures or dislocations. No suspicious bony lesions. The severe degenerative change at the wrist, involving the radiocarpal joint and base of the thumb. Soft tissues: No suspicious soft tissue calcifications or masses. No soft tissue gas. No radiopaque foreign body. IMPRESSION: No evidence acute bony abnormality of the right forearm. No soft tissue gas or radiopaque foreign body. Dictated by: Reji Jewell M.D. on 02/02/2019 at 14:14 Approved by: Reji Jewell M.D. on 02/02/2019 at 14:17 [facility] Narrative Medical decision making narrative: This is a 83-year-old female status post cat bites and scratches by her pad CT inadvertentely. X-ray of right hand and forearms were obtained without acute findings such as bony lesions, foreign bodies or soft tissue gas. Patient was medicated with moxifloxacin 400 mg tab while she was waiting for wound repair due to the patient has allergies to Augmentin, doxycycline, sulfa based medication. Patient's soaked affected arm in Hibiclens and water. Wound has been irrigated and explored. Dr. Lynn kindly assess the patient's wounds at the bedside with me. Due to the deep laceration on her volar aspect of base of right thumb, 3 loose sutures had applied after discussing risk of infection of animal bites after considering not suturing which will take long period to heal. The forearm skin tear was not viable for suture due to patient's very thin and fragile skin. The skin tear was repaired by Guillaume Steri-Strips and Adaptic non adhering porous stressing with antibiotic medication. See procedure note. Slow oozing from this site has been stopped by direct pressure. Wound care was discussed with patient and patient's neighbor who is a nurse. Patient advised to follow up with her primary care physician in a day or 2 for wound recheck. Strict return precautions were discussed with patient and neighbor. Advised to take [id number] Tylenol and Motrin as needed for discomfort and elevate affected arm above chest and use ice pack on an of for next couple of days for swelling. Patient agrees with treatment plan and verbalized the understanding and no further questions were expressed at this time. <Verenice Lynn, DO - Last Filed: 02/07/19 19:37> [facility] Narrative Medical decision making narrative: Patient was physically evaluated by myself as well as our nurse practitioner. Plan for very loose closure at the wrist as patient is high risk for infection. But the area is quite gapped. At the forearm plan for some Steri-Strips although patient will definitely has scarring at both sites. We discussed that she needs to return immediately if she is having any worsening or new signs of infection. Discharge Plan Departure Patient Disposition: Home Clinical Impression: Cat bite of forearm Qualifiers: Encounter type: initial encounter Laterality: right Qualified Code(s): S51.851A - Open bite of right forearm, initial encounter Cellulitis Qualifiers: Site of cellulitis: extremity Site of cellulitis of extremity: upper extremity Laterality: right Qualified Code(s): L03.113 - Cellulitis of right upper limb Discharge Date/Time: 02/02/19 18:30 Instructions: DI for Cellulitis -- Adult, DI for Animal Bites Activity Restrictions/Additional Instructions: You have been diagnosed with [cat bites and scratches on right forearm and hand. Right thumb laceration was repaired with loose suture x3 and cellulitis ]. What to do: *Take your medications as directed. Take antibiotic medication daily for next 6 days. Your medication has been transfer needed to [facility] in [place]. *Please do not get your wound soaked in the water until suture removal. Keep your dressing intact for next 24 hrs. After then, you could remove your dressing, wash with soap and water. Pat dry with clean paper towel and dress it with antibiotic ointment. You can change dressing as needed and daily. Please monitor for signs and symptoms for infection such as increasing redness, swelling, warmth, pain, fever, purulent discharge. If this occurs, please return to ED or follow up with your primary care physician since your wound may be gotten infected. Please follow up with your primary care provider in 1-2 days for recheck wound. Your suture should be removed [7-10] days. This can be done by your primary provider, walk-in clinic or here in ED. Please keep your wound clean, dry and intact all times. Prescriptions: New moxifloxacin 400 mg tablet 400 mg PO DAILY 9 Days Qty: 9 RF: 0 No Action losartan 50 mg Tablet 50 mg PO DAILY RF: 0 rabeprazole 20 mg Tablet,Delayed Release (Dr/Ec) 20 mg PO DAILY RF: 0 Premarin 0.3 mg Tablet 0.3 mg PO DAILY RF: 0 acetaminophen 325 mg Tablet 975 mg PO TID Qty: 0 RF: 0 ferrous sulfate 325 mg (65 mg iron) Tablet 325 mg PO DAILY Qty: 0 RF: 0 hydroxyzine pamoate 25 mg Capsule 25 mg PO Q6HR PRN (Reason: Spasms) Qty: 0 RF: 0 ondansetron 4 mg Tablet,Disintegrating 4 mg PO Q4HR PRN (Reason: Nausea) Qty: 40 RF: 0 magnesium hydroxide [Milk of Magnesia] 400 mg/5 mL suspension 5 ml PO BEDTIME PRN (Reason: constipation) Qty: 118 RF: 0 sennosides [senna] 8.6 mg Tablet 8.6 mg PO BID Qty: 0 RF: 0 docusate sodium 100 mg Capsule 100 mg PO BID Qty: 0 RF: 0 latanoprost 0.005 % drops 1 drp ophthalmic (eye) DIRECTED RF: 0 levothyroxine 50 mcg tablet 50 mcg PO DAILY RF: 0 Myrbetriq 50 mg tablet extended release 24 hr 50 mg PO BEDTIME RF: 0 Referrals: Patience Gordillo MD [Primary Care Provider] -
[2019-02-02 17:15] VITALS: BP 174/75; PULSE 73; RESP 19; O2SAT 100
[2019-02-02] MEDS: BACITRACIN OINT 0.9 GM PCKT 3 APPLIC TOP (18:02)
[2019-02-02] MEDS: LIDO 1%/SOD BICARB 8.4% (10ML) 10 ML SYRINGE INJ (18:03)
== END 2019-02-02 18:30 | disposition home or self-care (01) ==
PROVIDERS: Emergency Provider Nurse Practitioner Family; PCP Student in an Organized Health Care Education/Training Program
DX: S51.851A Open bite of right forearm, initial encounter (principal); L03.113 Cellulitis of right upper limb
CPT/HCPCS: 12002; 73090; 73130; 99282; 99283

== ENCOUNTER → 2019-06-01 13:34 | Outpatient (CLI) | payer MEDICARE, OTHER, SELFPAY ==
[2018-09-23 16:43] VITALS: BMI 23.4
--- NOTE | 2019-06-01 | DI.CT.S_ITS ---
PROCEDURE: CT HEAD/BRAIN WO/W CON INDICATIONS: UNEXPLAINED FATIGUE TECHNIQUE: 4.5 mm thick angled axial sections acquired from the foramen magnum to the vertex both before and after the administration of intravenous contrast, with coronal and sagittal reformats. For radiation dose reduction, the following was used: automated exposure control, adjustment of mA and/or kV according to patient size. COMPARISON: [facility], CT, HEAD WITHOUT CONTRAST, 05/17/2016, 12:14. [facility], CT, HEAD WITHOUT CONTRAST, 12/08/2014, 15:42. FINDINGS: Image quality: Excellent. CSF spaces: Basal cisterns are patent. No extra-axial fluid collections. Ventricles are symmetric in size and shape. Brain: No midline shift. No intracranial bleeds or masses. No abnormal intracranial enhancement. There is cerebral volume loss for age. There is periventricular white matter chronic small vessel ischemic change. There is intracranial internal carotid artery atherosclerosis. Skull and face: Calvarium and visualized facial bones appear intact, without suspicious lesions. Sinuses: Visualized sinuses and mastoids are clear. IMPRESSION: Normal for advanced age, source of unexplained fatigue is not found. Dictated by: Cristi Jones M.D. on 06/01/2019 at 16:00 Approved by: Cristi Jones M.D. on 06/01/2019 at 16:01
--- NOTE | 2019-06-01 | DI.CT.S_ITS ---
PROCEDURE: CT CHEST ABD PEL W CON INDICATIONS: UNEXPLAINED FATIGUE TECHNIQUE: After the administration of oral and intravenous contrast, 5 mm thick sections acquired from the lung apices to the symphysis. 5 mm coronal and sagittal reformats were performed, with additional 7 mm coronal MIP reformats through the lungs. For radiation dose reduction, the following was used: automated exposure control, adjustment of mA and/or kV according to patient size. COMPARISON: None. FINDINGS: Image quality: Excellent. CHEST: Lungs and pleura: No acute airspace opacities. There are areas of mild linear scarring at each lung base, best seen at the posterior aspect of the inferior left lower lobe and the anterior aspect of the left upper lobe inferiorly (lingular segment). No pleural effusions or pneumothorax. Central and peripheral airways appear patent and normal in caliber. Mediastinum: Heart size is normal. No pericardial effusion. No mediastinal or hilar adenopathy by size criteria. Thoracic aorta and central pulmonary arteries are normal in size. Esophagus is abnormal in caliber distally, where a masslike region of thickening of the distal esophageal wall extends into the gastric lumen. also are abnormally thickened. appears thickened up to 2.9 cm in this area (series 6 image 46). The gastric wall more inferiorly appears unusually homogeneous, with asymmetric left lateral wall thickening up to 2.3 cm. Chest wall: No axillary or supraclavicular adenopathy by size criteria. Thyroid gland appears normal where well seen.. ABDOMEN: Solid organs: Liver is normal in size and enhancement. Gallbladder contains a single small calcified gallstone. Biliary system is non dilated. Pancreas enhances normally. Spleen is normal in size and enhancement. No adrenal nodules. Kidneys demonstrate normal size and enhancement, without hydronephrosis. Peritoneum and bowel: Bowel loops demonstrate normal wall thickness and caliber. No free fluid or air. Nodes and vessels: No retroperitoneal or mesenteric adenopathy by size criteria. Aorta and inferior vena cava are normal in size. Miscellaneous: No ventral hernias. PELVIS: Genitourinary: Bladder wall thickness is normal. Miscellaneous: No inguinal hernias or adenopathy. Bones: No suspicious bony lesions. No vertebral body compression fractures. IMPRESSION: Abnormal mural thickening of the distal esophagus, extending contiguously into the gastric wall greater on the left than the right, with an appearance worrisome for representing esophagogastric region malignancy such as adenocarcinoma or lymphoma. Endoscopy for biopsy and further evaluation likely is warranted. Also, a nuclear medicine PET CT scanning may be warranted at this time. Dictated by: Cristi Jones M.D. on 06/01/2019 at 17:34 Approved by: Cristi Jones M.D. on 06/01/2019 at 17:41
--- NOTE | 2019-06-07 09:47 | ONC.MSW ---
Description: Initial Referral Navigation T/C Activity: Called pt to confirm that we received her referral, introduced myself as the navigator and briefly explained the role and availability of navigation. Pt states that her son is planning to fly in from out of state to attend her initial consult visit here, and that she feels well supported by local friends/neighbors. Of note, she shared that her of pancreatic cancer, thus she is feeling very anxious. REGIONAL SALES DIRECTOR offered reassurance and explained what to expect with the first visit with the oncologist. No further immediate needs identified at this time. Forwarded to scheduling for next urgent appt. time.
== END ==
PROVIDERS: Family Provider Orthopaedic Surgery; PCP Student in an Organized Health Care Education/Training Program; Visit Provider Student in an Organized Health Care Education/Training Program
DX: R53.83 Other fatigue (principal); R55 Syncope and collapse; K22.9 Disease of esophagus, unspecified; K80.20 Calculus of gallbladder without cholecystitis without obstruction
CPT/HCPCS: 70470; 71260; 74177; Q9967

== ENCOUNTER → 2019-06-15 13:18 | Oncology outpatient (ONC) | payer MEDICARE, OTHER, SELFPAY ==
[2018-09-23 16:43] VITALS: BMI 23.4
--- NOTE | 2019-06-14 14:12 | ONC.SCHED ---
[facility]
[2019-06-15 14:17] VITALS: BP 134/67; PULSE 65; RESP 18; TEMP 36.5; O2SAT 97
--- NOTE | 2019-06-15 14:27 | P.CONONC_ITS ---
History of Present Illness - Data of Consult Primary Care Provider: Patience Gordillo MD - Consult Narrative Reason for consult: Gastric wall thickening, possible malignancy Narrative: Ny Mcallister is a 83 year old female with history of hypertension and hypothyroidism. She underwent right hip replacement approximately 10 months ago in August 2018. Since that time, she has been gradually losing weight, about 10 lb, without associated dysphagia or pain. she has been very fatigued. No fevers or sweats. Based on the above symptoms, she underwent CT chest abdomen and pelvis on 06/01/2019. According to Dr. Cristi Jones, this showed abnormal mural thickening of the distal esophagus, extending continuously into the gastric wall, greater on the left than the right, with an appearance worrisome for esophagogastric region malignancy, such as adenocarcinoma or lymphoma. Endoscopy was recommended, as well as PET scan for further evaluation. Subsequent PET scan on 06/08/2019 showed mild gastric wall thickening with low level FDG uptake (SUV approximately 3) is along the mucosa. Findings were felt to be nondiagnostic for malignancy, but could also represent infection or inflammatory gastritis. Further evaluation with upper endoscopy was recommended. In addition, the patient had mild FDG uptake within a small mediastinal and right hilar lymph nodes, thought to be reactive. Incidental note was made of a large hiatal hernia, colonic diverticulosis, and cholelithiasis without evidence of acute cholecystitis. Energy remains poor. She denies any significant pain. there is no family history of GI malignancy. She is a nonsmoker, although she lived with 2 smokers. She drinks a glass of wine daily. CC: Azam Pedro MD Patient reports pain?: No Home Medications and Allergies Home Medications Medication Instructions Recorded Confirmed Type losartan 50 mg PO DAILY 08/18/18 06/15/19 History rabeprazole 20 mg PO DAILY 08/18/18 06/15/19 History acetaminophen 975 mg PO TID #0 tab 09/02/18 06/15/19 Rx ferrous sulfate 325 mg PO DAILY #0 tab 09/02/18 06/15/19 Rx latanoprost 1 drp OPHTHALMIC (EYE) DIRECTED 02/02/19 06/15/19 History levothyroxine 50 mcg PO DAILY 02/02/19 06/15/19 History mirabegron [Myrbetriq] 50 mg PO BEDTIME 02/02/19 06/15/19 History Allergies Allergy/AdvReac Type Severity Reaction Status Date / Time latex Allergy Intermediate Rash Verified 09/23/18 17:50 doxycycline [DOXYCYCLINE] Allergy Unknown Pt does Verified 09/23/18 17:50 not remember nitrofurantoin Allergy Unknown Verified 09/23/18 17:50 [NITROFURANTOIN] sulfamethoxazole Allergy Unknown Pt does Verified 09/23/18 17:50 [From SEPTRA] not remember trimethoprim [From SEPTRA] Allergy Unknown Pt does Verified 09/23/18 17:50 not remember ranitidine AdvReac Severe Diarrhea Verified 09/23/18 17:50 amoxicillin [From Augmentin] AdvReac Unknown Pt does Verified 09/23/18 17:50 not remember clavulanic acid AdvReac Unknown Pt does Verified 09/23/18 17:50 [From Augmentin] not remember Medical History - Medical, Surgical, Family History Medical History: Medical History (Last Reviewed 06/15/19 @ 15:05 by Azam Pedro MD) Easy bruisability GERD (gastroesophageal reflux disease) HLD (hyperlipidemia) HTN (hypertension) Hypothyroidism Numbness and tingling in both hands Ocular migraine Osteoarthritis Surgical History: Surgical History (Last Reviewed 06/15/19 @ 15:05 by Azam Pedro MD) History of bladder suspension procedure History of carpal tunnel repair Hx of bilateral cataract extraction Hx of repair of left rotator cuff Onset Date: ~2006 Status post appendectomy Status post hysterectomy Status post rotator cuff repair - Social History Smoking Status: Never smoker Alcohol Intake: current Alcohol Intake Frequency: 0-2 drinks per day Review of Systems - Patient Self-Reported Symptoms SR Constitution: Weight loss/gain SR Genitourinary issues: Frequent urination Gastrointestinal: no change in appetite, no dysphagia, no abdominal pain Exam Vital signs: Vital Signs Temp Pulse Resp BP Pulse Ox 06/15/19 14:17 97.7 F 65 18 134/67 97 Intake and Output 06/14/19 06/15/19 06/15/19 23:59 07:59 15:59 Other: Weight 54.5 kg Patient Weight 06/15/19 23:59 Weight 54.5 kg Narrative: HEENT: Pupils equally round reactive to light extraocular muscles intact sclerae anicteric conjunctiva pink mucous membranes moist no oral lesions Nodes no palpable adenopathy in the neck axilla or groin Chest: Clear throughout Cardiac exam regular rate and rhythm with normal S1 and S2 Abdomen: Soft nontender with normoactive bowel tones no splenomegaly or masses Extremities: Trace pedal edema 2+ distal pulses no calf tenderness Results - Imaging Additional studies: Procedures Closed [endoscopic] biopsy of large intestine (01/12/14) Colonoscopy (06/23/11) Assessment and Plan (1) Gastric wall thickening Current visit: Yes Status: Acute Evaluation of poor energy and [address] weight loss included [address] chest abdomen and pelvis on 06/01/2019, which revealed gastric wall thickening, suspicious for malignancy. Subsequent PET scan is very nonspecific, with mild gastric wall thickening, with minimal elevation of SUV uptake of 2.9. In addition, there were nonspecific right hilar and mediastinal lymph nodes with maximum SUV of 3 .1. His unclear if findings are due to malignancy (gastric adenocarcinoma, lymphoma), infection, or inflammation. Agree with plans for upper endoscopy, which is scheduled with Dr. Aaliyah Geronimo in [place] on or about 06/27/2019. In the meantime, check tumor markers CEA, LDH, and sed rate, as well as baseline CBC. If endoscopy reveals a malignant lesion, we will schedule urgent follow-up for treatment recommendations, which may be heavily influenced by her advanced age. If endoscopy is benign, recommend further evaluation with her primary care provider. Thank you very much for allowing us to participate in your patient's care.
--- NOTE | 2019-06-15 14:46 | ONC.MSW ---
Description: New Patient F/F Visit Activity: Met with pt to introduce myself in person as the navigator, provided services card and established initial rapport. Pt is accompanied by her neighbor, who is planning to transport her and accompany her to visits. Pt's recently, she has struggled with grief and severe fatigue for months. CANOE MAKER provided information re: resources and ongoing support available through navigation. She has no immediate needs identified at this time. Will plan to monitor for adjustment to diagnosis and next steps in the treatment plan.
[2019-06-15 15:30] LABS: Add Manual Diff / Slide Review NO; Basophils Absolute Auto 0 /uL (0-100); Basophils Percent Auto 0.6 % (0-2); Eosinophils Absolute Auto 200 /uL (0-450); Hemoglobin 12.6 g/dL (12.0-16.0); Lymphocytes Absolute Auto 1400 /uL (1100-4500); Lymphocytes Percent Auto 17.7 % (25-40); Mean Corpuscular Hemoglobin 31.2 PG (26-34); Monocytes Absolute Auto 500 /uL (0-900); Monocytes Percent Auto 6.1 % (3-14); Neutrophils Absolute Auto 5800 /uL (1500-7000); Neutrophils Percent Auto 72.6 % (50-75); Platelet Count 252 X10^3/uL (150-400); Red Blood Cell Count 4.04 X10^6/uL (4.0-5.2); Red Cell Distribution Width 12.7 % (11.6-14.8); White Blood Cell Count 7.9 X10^3/uL (4.5-11.0)
[2019-06-15 15:48] LABS: Alanine Aminotransferase 14 IU/L (<35); Albumin 4.1 g/dL (3.5-5.0); Albumin Globulin Ratio 1.1 (1.0-2.8); Alkaline Phosphatase 71 U/L (38-126); Aspartate Aminotransferase 25 IU/L (14-36); BUN Creatinine Ratio 26.7 (6-22); Bilirubin Total 0.3 mg/dL (0.2-1.3); Blood Urea Nitrogen 24 mg/dL (7-17); Calcium 9.4 mg/dL (8.4-10.2); Carbon Dioxide 27 mmol/L (22-32); Chloride 100 mmol/L (98-107); Estimated Glomerular Filt Rate > 60.0 mL/min (>60); Globulin 3.6 g/dL (1.7-4.1); Glucose 104 mg/dL (80-110); HEMOLYSIS < 15 (0-50); Lactate Dehydrogenase 392 U/L (313-618); Potassium 4.3 mmol/L (3.4-5.1); Sodium 135 mmol/L (137-145); Total Protein 7.7 g/dL (6.3-8.2)
[2019-06-15 16:15] LABS: Erythrocyte Sedimentation Rate 24 MM/HR (0-20)
== END ==
PROVIDERS: Family Provider Orthopaedic Surgery; PCP Student in an Organized Health Care Education/Training Program; Referring Provider Student in an Organized Health Care Education/Training Program; Visit Provider Internal Medicine Hematology & Oncology
DX: K31.89 Other diseases of stomach and duodenum (principal); R63.4 Abnormal weight loss; K21.9 Gastro-esophageal reflux disease without esophagitis; R20.0 Anesthesia of skin; R53.83 Other fatigue; K44.9 Diaphragmatic hernia without obstruction or gangrene; K57.90 Diverticulosis of intestine, part unspecified, without perforation or abscess without bleeding; K80.20 Calculus of gallbladder without cholecystitis without obstruction; I10 Essential (primary) hypertension; E03.9 Hypothyroidism, unspecified; E78.5 Hyperlipidemia, unspecified
CPT/HCPCS: 36415; 80053; 83615; 85025; 85651; 99205; 99215

== ENCOUNTER 2020-02-02 10:30 | Outpatient (RCR) | payer MEDICARE, OTHER, SELFPAY ==
[2018-09-23 16:43] VITALS: BMI 23.4
--- NOTE | 2019-04-07 20:33 | PT.OIE ---
Current Diagnoses Unilateral primary osteoarthritis, left knee (04/07/19) Past Medical History (Last Reviewed 02/03/19 @ 02:22 by XIN Feliz) Easy bruisability (Acute) GERD (gastroesophageal reflux disease) (Acute) HLD (hyperlipidemia) (Acute) HTN (hypertension) (Acute) Hypothyroidism (Acute) Numbness and tingling in both hands (Acute) Ocular migraine (Acute) Osteoarthritis (Acute) Past Surgical History (Last Reviewed 02/03/19 @ 02:22 by XIN Feliz) History of bladder suspension procedure (Acute) History of carpal tunnel repair Hx of bilateral cataract extraction (Acute) Hx of repair of left rotator cuff (Acute ~2006) Status post appendectomy Status post hysterectomy Status post rotator cuff repair (Deleted) Visit Care Team Role Provider Type Patience Gordillo MD Primary Care Provider Physician Specialty: Family Practice Address: [address] [place] [address], [facility] Email: [email or web address] Nahum Diana MD Attending Provider Physician Specialty: Orthopedic Surgery Address: [address] [place] [address], [facility] Email: [email or web address] [facility] Initial Evaluation PT-OP-A Visit Information Start: 04/10/19 19:52 Freq: Status: Active Protocol: Document 04/07/19 11:15 [facility] (Rec: 04/10/19 20:33 [facility] [email or web address]) Out-Patient Physical Therapy Visit Information Visit Information Visit Type Initial Evaluation Visit Note 83 year old female who underwent a Right Total hip replacement August 30 and has new c/o left sided knee pain that began after the hip replacement Visit Start Time 11:15 Visit Stop Time 12:00 Total Visit Minutes 45 Visit Number 1 Evaluation Information Evaluation Date 04/07/19 PT-OP-B Current Condition Start: 04/10/19 19:52 Freq: Status: Active Protocol: Document 04/07/19 11:15 AM[facility] (Rec: 04/10/19 20:33 AM[facility] [email or web address]) Current Condition History of Current Condition Onset Date August 2018 Current Complaints complaints of left sided knee pain that began following her hip surgery History of Current Condition 83 year old female who 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 She notes she did really well with her hip rehab and is now walking with a walking stick in the left hand. She reports though that she began experiencing knee pain in the left knee with walking after her hip surgery. She reports feeling off kilter and has low energy since her surgery. She is limited at this time to walking only a few blocks due to left knee pain. Other past medical history includes hx of back pain, arthritis, high blood pressure Treatment Goals Patient/Caregiver Goals Ny would like to return to a walking routine without knee pain as at this time she is limited to a few blocks at a time PT-OP-C Subjective Start: 04/10/19 19:52 Freq: Status: Active Protocol: Document 04/07/19 11:15 [facility] (Rec: 04/10/19 20:33 [facility] [email or web address]) Patient Questionnaires Lower Extremity Functional Scale LEFS Score 41 LEFS Impairment 40 to 59% Impaired (Score 32- 47) OP-PT Pain Assessment Pain Assessment Grid Paper Pain Assessment Grid Completed Yes Location Left Medial Knee Intensity 2 Scale Used Numeric (1 - 10) PT-OP-F Manual Assessment Start: 04/10/19 19:52 Freq: Status: Active Protocol: Document 04/07/19 11:15 [facility] (Rec: 04/10/19 20:33 [facility] [email or web address]) Manual Assessments Soft Tissue Assessment Soft Tissue Mobility Assessment left quadratus lumborum tightness, left paraspinal tightness, Joint Mobility Assessment Joint Mobility Assessment full knee joint ROM, equal leg length today, SI instability noted with + ASLR test PT-OP-J Posture/Palpation/Skin Start: 04/10/19 19:52 Freq: Status: Active Protocol: Document 04/07/19 11:15 [facility] (Rec: 04/10/19 20:33 [facility] [email or web address]) Posture Evaluation Comments Posture Comments pt stands with the left knee bent and leaning to the left, she also has a forward shoulder posture with a flexed trunk PT-OP-K Range of Motion Start: 04/10/19 19:52 Freq: Status: Active Protocol: Document 04/07/19 11:15 [facility] (Rec: 04/10/19 20:33 [facility] [email or web address]) Knee Goniometric Range of Motion Knee Right Knee ROM WFL Yes Left Knee ROM WFL Yes PT-OP-M Strength Start: 04/10/19 19:52 Freq: Status: Active Protocol: Document 04/07/19 11:15 [facility] (Rec: 04/10/19 20:33 [facility] [email or web address]) Trunk Strength Trunk Manual Muscle Testing Flexion 3+ Fair+ Core Stabilization poor core stabilization Hip Strength Hip Manual Muscle Testing Right Flexion (L2) 4 Good Extension (S1) 3 Fair Abduction 3 Fair External Rotation 3 Fair Internal Rotation 4- Good- Left Flexion (L2) 4 Good Extension (S1) 4 Good Abduction 3+ Fair+ Adduction 4 Good External Rotation 3+ Fair+ Internal Rotation 4 Good Knee Strength Knee Manual Muscle Testing Left Flexion (S2) 4 Good Extension (L3) 4 Good Right Flexion (S2) 5 Normal Extension (L3) 5 Normal PT-OP-Q Treatments Start: 04/10/19 19:52 Freq: Status: Active Protocol: Document 04/07/19 11:15 [facility] (Rec: 04/10/19 20:33 [facility] [email or web address]) Therapeutic Exercises Supine Exercises supine TA facilitation with marches Supine Exercise Name Supine TA facilitation with marches Side bilateral Reps/Minutes x 10 each side Comments cues to keep pelvis stable lower trunk rotations Supine Exercise Name lower trunk rotations Side bilateral Bridging Supine Exercise Name Bridging Side bilateral Reps/Minutes 2 x 10 reps Comments cues to keep ASIS in the same plane as left gluteals do not want to fire Sitting Exercises 1 Sitting Exercise Name seated sidebend stretch Side bilateral Reps/Minutes x 5 reps each side Gait Training Gait Activity 1 Description gait training with walking stick Device Used walking stick PT-OP-T Assessment and Plan Start: 04/10/19 19:52 Freq: Status: Active Protocol: Document 04/07/19 11:15 [facility] (Rec: 04/10/19 20:33 [facility] [email or web address]) Physical Therapy Assessment Rehab Potential Rehabilitation Potential Good Evaluation Complexity Number of Personal Factors/Comorbidities 0 Number of Body Systems Impaired 1-2 Clinical Presentation at Evaluation Stable Impairments Impairments Activity Tolerance,Balance, Functional Activities, Functional Mobility,Gait,Pain, Posture,Soft Tissue Mobility, Strength Goals Five Impairment unable to perform a single leg stance on the left LE Tests Superintendent Goal (LTG) Stefania is able to balance 10 seconds or greater standing on the left LE Four Impairment tightness of the left lateral lumbar paraspinals and quadratus lumborum Short Term Goal (STG) pt is given stretching exercises to help her alignement in standing and decrease pressure down to her knee STG Duration 4 weeks Three Impairment 41/80 LEFS score Tests Superintendent Goal (LTG) LEFS score of > 55 LTG Duration 6 wks Two Impairment decreased core stability with left lateral lean Tests Superintendent Goal (LTG) Stefania demonstrates improved core control and she is able to lift into a bridge position with her pelvis equal and stable. LTG Duration 8 weeks One Impairment left sided knee pain limiting walking distance to two blocks at this time Short Term Goal (STG) Stefania is educated on use of her walking stick with gait to help decrease strain on her left knee STG Duration 4 weeks Tests Superintendent Goal (LTG) Stefania is able to increase her walking duration to 30 minutes of walking with decreased c/o pain in the left knee LTG Duration 8 weeks Assessment Summary Assessment Ny Wang) presents to physical therapy today with complaints of left sided knee pain that began following her hip replacement on the right hip in August of 2018. She reports feeling as if she has low energy and is Off Kilter With standing, Stefania is standing with her left knee bent and is leaning to the left. I measured her leg length today and didn't find a difference between the two sides. She is very tight is in the side of her spinal musculature and quadratus lumborum. She is also very weak in her core at this time with a lot of pelvic instability. With bridges her left side of her pelvis is down compared to her right and she is not fully firing her left gluteal muscles. She presents with full knee ROM on the left. She is using a hiking stick for gait but is not setting it down with each step. She would benefit from core stabilization and gluteal strengthening to balance her pelvis, gait training with her walking stick, side body stretches and postural education to help her overall stability. Physical Therapy Plan Frequency and Duration Frequency of Treatment 2x/Week Duration of Treatment 8 Plan of Care Start Date 04/07/19 Plan of Care End Date 06/02/19 Therapeutic Interventions Therapeutic Interventions Home Exercise Program,Manual Therapy,Neuromuscular Re- education,Patient/Caregiver Education,Self-Care/Home Management,Soft Tissue Mobilization,Therapeutic Exercises Modalities Cold Pack/Ice Massage Next Visit Focus/Plan Next Note Type Treatment Note Next Visit Plan review HEP ( see chart), work on gait with walking stick, work on core and gluteal control, stretches for the left side body, begin the recumbent bike for cardio.
--- NOTE | 2019-04-11 09:45 | PT.OTN ---
Current Diagnoses Unilateral primary osteoarthritis, left knee (04/11/19) Physical Therapy Treatment Note PT-OP-A Visit Information Start: 04/10/19 19:52 Freq: Status: Active Protocol: Document 04/11/19 09:07 SP (Rec: 04/11/19 11:54 SP [id number]) Out-Patient Physical Therapy Visit Information Visit Information Visit Type Treatment Note Visit Start Time 09:07 Visit Stop Time 09:45 Total Visit Minutes 38 PT-OP-B Current Condition Start: 04/10/19 19:52 Freq: Status: Active Protocol: Document 04/07/19 11:15 [facility] (Rec: 04/10/19 20:33 [facility] [email or web address]) Current Condition History of Current Condition Onset Date August 2018 Current Complaints complaints of left sided knee pain that began following her hip surgery History of Current Condition 83 year old female who 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 She notes she did really well with her hip rehab and is now walking with a walking stick in the left hand. She reports though that she began experiencing knee pain in the left knee with walking after her hip surgery. She reports feeling off kilter and has low energy since her surgery. She is limited at this time to walking only a few blocks due to left knee pain. Other past medical history includes hx of back pain, arthritis, high blood pressure Treatment Goals Patient/Caregiver Goals Ny would like to return to a walking routine without knee pain as at this time she is limited to a few blocks at a time PT-OP-C Subjective Start: 04/10/19 19:52 Freq: Status: Active Protocol: Document 04/11/19 09:07 SP (Rec: 04/11/19 11:54 SP [id number]) OP-PT Subjective Patient Comments Patient Comments Pt stated did well with exercises, little tired but good work out last tx. Pt stated wants to get back to yoga but hasn't been able to get on the floor since her surgery. PT-OP-F Manual Assessment Start: 04/10/19 19:52 Freq: Status: Active Protocol: Document 04/07/19 11:15 [facility] (Rec: 04/10/19 20:33 [facility] [email or web address]) Manual Assessments Soft Tissue Assessment Soft Tissue Mobility Assessment left quadratus lumborum tightness, left paraspinal tightness, Joint Mobility Assessment Joint Mobility Assessment full knee joint ROM, equal leg length today, SI instability noted with + ASLR test PT-OP-J Posture/Palpation/Skin Start: 04/10/19 19:52 Freq: Status: Active Protocol: Document 04/07/19 11:15 AM[facility] (Rec: 04/10/19 20:33 [facility] [email or web address]) Posture Evaluation Comments Posture Comments pt stands with the left knee bent and leaning to the left, she also has a forward shoulder posture with a flexed trunk PT-OP-K Range of Motion Start: 04/10/19 19:52 Freq: Status: Active Protocol: Document 04/07/19 11:15 AMH (Rec: 04/10/19 20:33 [facility] [email or web address]) Knee Goniometric Range of Motion Knee Right Knee ROM WFL Yes Left Knee ROM WFL Yes PT-OP-M Strength Start: 04/10/19 19:52 Freq: Status: Active Protocol: Document 04/07/19 11:15 AMH (Rec: 04/10/19 20:33 [facility] [email or web address]) Trunk Strength Trunk Manual Muscle Testing Flexion 3+ Fair+ Core Stabilization poor core stabilization Hip Strength Hip Manual Muscle Testing Right Flexion (L2) 4 Good Extension (S1) 3 Fair Abduction 3 Fair External Rotation 3 Fair Internal Rotation 4- Good- Left Flexion (L2) 4 Good Extension (S1) 4 Good Abduction 3+ Fair+ Adduction 4 Good External Rotation 3+ Fair+ Internal Rotation 4 Good Knee Strength Knee Manual Muscle Testing Left Flexion (S2) 4 Good Extension (L3) 4 Good Right Flexion (S2) 5 Normal Extension (L3) 5 Normal PT-OP-Q Treatments Start: 04/10/19 19:52 Freq: Status: Active Protocol: Document 04/11/19 09:07 SP (Rec: 04/11/19 11:54 SP [id number]) Therapeutic Exercises Supine Exercises knee fallouts TB Supine Exercise Name hooklying Resistance TB L 2 Reps/Minutes 2x10 reps Comments cued for slow pacing control and stable pelvis supine TA facilitation with marches Supine Exercise Name Supine TA facilitation with marches Side bilateral Reps/Minutes 2x 10 each side Comments cues to keep pelvis stable and slow pacing control lower trunk rotations Supine Exercise Name lower trunk rotations Side bilateral Reps/Minutes 2x5 Bridging Supine Exercise Name Bridging Side bilateral Reps/Minutes 2 x 10 reps Comments cues to keep ASIS in the same plane as left gluteals do not want to fire Supine ITB stretch Supine Exercise Name HS and ITB Side bilateral Equipment Used strap Reps/Minutes 20 x2 Gait Training Gait Activity 1 Description gait training with walking stick Device Used walking stick Surface level Distance/Duration 20 ft x3 laps Treatment Focus chest lift plum posture with mirror for self feedback Comments R lat lean improved with cuing PT-OP-T Assessment and Plan Start: 04/10/19 19:52 Freq: Status: Active Protocol: Document 04/11/19 09:07 SP (Rec: 04/11/19 11:54 SP [id number]) Physical Therapy Assessment Goals Five Impairment unable to perform a single leg stance on the left LE Jail Goal (LTG) Stefania is able to balance 10 seconds or greater standing on the left LE Four Impairment tightness of the left lateral lumbar paraspinals and quadratus lumborum Short Term Goal (STG) pt is given stretching exercises to help her alignement in standing and decrease pressure down to her knee STG Duration 4 weeks Three Impairment 41/80 LEFS score Advanced Solutions Architect Goal (LTG) LEFS score of > 55 LTG Duration 6 wks Two Impairment decreased core stability with left lateral lean Advanced Solutions Architect Goal (LTG) Stefania demonstrates improved core control and she is able to lift into a bridge position with her pelvis equal and stable. LTG Duration 8 weeks One Impairment left sided knee pain limiting walking distance to two blocks at this time Short Term Goal (STG) Stefania is educated on use of her walking stick with gait to help decrease strain on her left knee STG Duration 4 weeks Jail Goal (LTG) Stefania is able to increase her walking duration to 30 minutes of walking with decreased c/o pain in the left knee LTG Duration 8 weeks Assessment Summary Assessment Tx focused on HEP review and elevated plum posture during gait with mirror for self feedback. Cued patient for slow pacing during ex and gait to allow for core stabilization and strengthening. Noted improved upright posture leaving today. Added resisted knee fallout and HS/ITB stretching, sit to stands. Physical Therapy Plan Frequency and Duration Frequency of Treatment 2x/Week Duration of Treatment 8 Plan of Care Start Date 04/07/19 Plan of Care End Date 06/02/19 Therapeutic Interventions Therapeutic Interventions Home Exercise Program,Manual Therapy,Neuromuscular Re- education,Patient/Caregiver Education,Self-Care/Home Management,Soft Tissue Mobilization,Therapeutic Exercises Modalities Cold Pack/Ice Massage Discharge Physical Therapy Discharge Comments Discharge until /p surgery. Next Visit Focus/Plan Next Note Type Treatment Note Next Visit Plan Assess last tx and added rafat for self feedback. Review HEP (see chart), work on gait with walking stick, work on core and gluteal control, stretches for the left side body, begin the recumbant bike for cardio.
--- NOTE | 2019-04-13 09:45 | PT.OTN ---
Current Diagnoses Unilateral primary osteoarthritis, left knee (04/13/19) Physical Therapy Treatment Note PT-OP-A Visit Information Start: 04/10/19 19:52 Freq: Status: Active Protocol: Document 04/13/19 09:05 SP (Rec: 04/13/19 09:59 SP [id number]) Out-Patient Physical Therapy Visit Information Visit Information Visit Type Treatment Note Visit Start Time 09:05 Visit Stop Time 09:45 Total Visit Minutes 40 Visit Number 3 Number of ENTRY LEVEL MACHINE OPERATOR Visits 2 PT-OP-B Current Condition Start: 04/10/19 19:52 Freq: Status: Active Protocol: Document 04/07/19 11:15 [facility] (Rec: 04/10/19 20:33 [facility] [email or web address]) Current Condition History of Current Condition Onset Date August 2018 Current Complaints complaints of left sided knee pain that began following her hip surgery History of Current Condition 83 year old female who 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 She notes she did really well with her hip rehab and is now walking with a walking stick in the left hand. She reports though that she began experiencing knee pain in the left knee with walking after her hip surgery. She reports feeling off kilter and has low energy since her surgery. She is limited at this time to walking only a few blocks due to left knee pain. Other past medical history includes hx of back pain, arthritis, high blood pressure Treatment Goals Patient/Caregiver Goals Ny would like to return to a walking routine without knee pain as at this time she is limited to a few blocks at a time PT-OP-C Subjective Start: 04/10/19 19:52 Freq: Status: Active Protocol: Document 04/13/19 09:05 SP (Rec: 04/13/19 09:59 SP [id number]) OP-PT Subjective Patient Comments Patient Comments Pt stated L knee pretty stiff pre PT today and no concerns to report after last tx. Pt stated was able to perform 20 min on [employer] track, was doing 30 min prior to surgery. Is compliant with HEP and using mirror at home for self visual walking as did in PT last visit. PT-OP-F Manual Assessment Start: 04/10/19 19:52 Freq: Status: Active Protocol: Document 04/07/19 11:15 [facility] (Rec: 04/10/19 20:33 [facility] [email or web address]) Manual Assessments Soft Tissue Assessment Soft Tissue Mobility Assessment left quadratus lumborum tightness, left paraspinal tightness, Joint Mobility Assessment Joint Mobility Assessment full knee joint ROM, equal leg length today, SI instability noted with + ASLR test PT-OP-J Posture/Palpation/Skin Start: 04/10/19 19:52 Freq: Status: Active Protocol: Document 04/07/19 11:15 [facility] (Rec: 04/10/19 20:33 [facility] [email or web address]) Posture Evaluation Comments Posture Comments pt stands with the left knee bent and leaning to the left, she also has a forward shoulder posture with a flexed trunk PT-OP-K Range of Motion Start: 04/10/19 19:52 Freq: Status: Active Protocol: Document 04/07/19 11:15 AMH (Rec: 04/10/19 20:33 [facility] [email or web address]) Knee Goniometric Range of Motion Knee Right Knee ROM WFL Yes Left Knee ROM WFL Yes PT-OP-M Strength Start: 04/10/19 19:52 Freq: Status: Active Protocol: Document 04/07/19 11:15 [facility] (Rec: 04/10/19 20:33 [facility] [email or web address]) Trunk Strength Trunk Manual Muscle Testing Flexion 3+ Fair+ Core Stabilization poor core stabilization Hip Strength Hip Manual Muscle Testing Right Flexion (L2) 4 Good Extension (S1) 3 Fair Abduction 3 Fair External Rotation 3 Fair Internal Rotation 4- Good- Left Flexion (L2) 4 Good Extension (S1) 4 Good Abduction 3+ Fair+ Adduction 4 Good External Rotation 3+ Fair+ Internal Rotation 4 Good Knee Strength Knee Manual Muscle Testing Left Flexion (S2) 4 Good Extension (L3) 4 Good Right Flexion (S2) 5 Normal Extension (L3) 5 Normal PT-OP-Q Treatments Start: 04/10/19 19:52 Freq: Status: Active Protocol: Document 04/13/19 09:05 SP (Rec: 04/13/19 09:59 SP [id number]) Cardio Equipment Recumbent Bicycle Duration (Minutes) 6 Resistance 4 Seat Position 1 Other back pad @ back rest Therapeutic Exercises Supine Exercises knee fallouts TB Supine Exercise Name hooklying Resistance TB L 2 Reps/Minutes 2x10 reps Comments cued for slow pacing control and stable pelvis supine TA facilitation with marches Supine Exercise Name Supine TA facilitation with marches Side bilateral Reps/Minutes 2x 10 each side Comments cues to keep pelvis stable and slow pacing control lower trunk rotations Supine Exercise Name lower trunk rotations Side bilateral Reps/Minutes x10 Bridging Supine Exercise Name Bridging Side bilateral Reps/Minutes 2 x 10 reps Comments cues to keep ASIS in the same plane as left gluteals do not want to fire Supine ITB stretch Supine Exercise Name HS and ITB Side bilateral Equipment Used strap Reps/Minutes 20 x2 each Other Exercises Step-up/over/retro Other Exercise Name Step-up Side bilateral Equipment Used 4 step Reps/Minutes 2x10 Comments initially contact rail x3 then able to complete with no support, cue slow p Gait Training Gait Activity 1 Description gait training forward then high knee march Device Used no AD Surface level Distance/Duration 20 ft x3 laps Treatment Focus chest lift plum posture with mirror for self feedback Comments Improvement in R lean self corrections with mirror PT-OP-T Assessment and Plan Start: 04/10/19 19:52 Freq: Status: Active Protocol: Document 04/13/19 09:05 SP (Rec: 04/13/19 09:59 SP [id number]) Physical Therapy Assessment Goals Five Impairment unable to perform a single leg stance on the left LE Cloth Calender Goal (LTG) Stefania is able to balance 10 seconds or greater standing on the left LE Four Impairment tightness of the left lateral lumbar paraspinals and quadratus lumborum Short Term Goal (STG) pt is given stretching exercises to help her alignement in standing and decrease pressure down to her knee STG Duration 4 weeks Three Impairment 41/80 LEFS score Assisted Goal (LTG) LEFS score of > 55 LTG Duration 6 wks Two Impairment decreased core stability with left lateral lean Assisted Goal (LTG) Stefania demonstrates improved core control and she is able to lift into a bridge position with her pelvis equal and stable. LTG Duration 8 weeks One Impairment left sided knee pain limiting walking distance to two blocks at this time Short Term Goal (STG) Stefania is educated on use of her walking stick with gait to help decrease strain on her left knee STG Duration 4 weeks Assisted Goal (LTG) Stefania is able to increase her walking duration to 30 minutes of walking with decreased c/o pain in the left knee LTG Duration 8 weeks Assessment Summary Assessment Introduced recumbent bike warm up with reported decreased tightness in L knee as revolutions progressed. Assessed pelvic alignment with equal B. Cued slow pacing supine knee fallouts to allow for pelvis stability. Added step ups initially with contact support then patient was able to perform no support but cued for safety awareness of foot full support on step and slow eccentric step down for improvement in balance and stability SBA. Pt reported no more tightness in L knee end of tx. Improvement noted in self postural corrections with mirror during gait no AD today, added modified tanna knee stepping during gait with quick pacing smaller step length improved 2nd lap. Physical Therapy Plan Frequency and Duration Frequency of Treatment 2x/Week Duration of Treatment 8 Plan of Care Start Date 04/07/19 Plan of Care End Date 06/02/19 Therapeutic Interventions Therapeutic Interventions Home Exercise Program,Manual Therapy,Neuromuscular Re- education,Patient/Caregiver Education,Self-Care/Home Management,Soft Tissue Mobilization,Therapeutic Exercises Modalities Cold Pack/Ice Massage Next Visit Focus/Plan Next Note Type Treatment Note Next Visit Plan Assess response to added bike warm up and step ups to HEP last tx. Continue per PT POC:Review HEP (see chart), work on gait with walking stick, work on core and gluteal control, stretches for the left side body, begin the recumbant bike for cardio.
--- NOTE | 2019-04-18 10:02 | PT.OTN ---
Current Diagnoses Unilateral primary osteoarthritis, left knee (04/18/19) Physical Therapy Treatment Note PT-OP-A Visit Information Start: 04/10/19 19:52 Freq: Status: Active Protocol: Document 04/18/19 09:00 AMB (Rec: 04/18/19 09:38 AMB [id number]) Out-Patient Physical Therapy Visit Information Visit Information Visit Type Treatment Note Visit Start Time 09:05 Visit Stop Time 09:45 Total Visit Minutes 40 Visit Number 4 Number of BOILER HELPER Visits 0 PT-OP-B Current Condition Start: 04/10/19 19:52 Freq: Status: Active Protocol: Document 04/07/19 11:15 AMH (Rec: 04/10/19 20:33 AMH [email or web address]) Current Condition History of Current Condition Onset Date August 2018 Current Complaints complaints of left sided knee pain that began following her hip surgery History of Current Condition 83 year old female who 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 She notes she did really well with her hip rehab and is now walking with a walking stick in the left hand. She reports though that she began experiencing knee pain in the left knee with walking after her hip surgery. She reports feeling off kilter and has low energy since her surgery. She is limited at this time to walking only a few blocks due to left knee pain. Other past medical history includes hx of back pain, arthritis, high blood pressure Treatment Goals Patient/Caregiver Goals Ny would like to return to a walking routine without knee pain as at this time she is limited to a few blocks at a time PT-OP-C Subjective Start: 04/10/19 19:52 Freq: Status: Active Protocol: Document 04/18/19 09:00 AMB (Rec: 04/18/19 09:38 AMB [id number]) OP-PT Subjective Patient Comments Patient Comments Pt feels that she is feeling overall stronger. It is difficult to do her exercises at home sometimes because her bed is soft and getting on and off the floor is challenging. PT-OP-F Manual Assessment Start: 04/10/19 19:52 Freq: Status: Active Protocol: Document 04/07/19 11:15 AMH (Rec: 04/10/19 20:33 AMH [email or web address]) Manual Assessments Soft Tissue Assessment Soft Tissue Mobility Assessment left quadratus lumborum tightness, left paraspinal tightness, Joint Mobility Assessment Joint Mobility Assessment full knee joint ROM, equal leg length today, SI instability noted with + ASLR test PT-OP-J Posture/Palpation/Skin Start: 04/10/19 19:52 Freq: Status: Active Protocol: Document 04/07/19 11:15 AMH (Rec: 04/10/19 20:33 AMH [email or web address]) Posture Evaluation Comments Posture Comments pt stands with the left knee bent and leaning to the left, she also has a forward shoulder posture with a flexed trunk PT-OP-K Range of Motion Start: 04/10/19 19:52 Freq: Status: Active Protocol: Document 04/07/19 11:15 AMH (Rec: 04/10/19 20:33 AMH [email or web address]) Knee Goniometric Range of Motion Knee Right Knee ROM WFL Yes Left Knee ROM WFL Yes PT-OP-M Strength Start: 04/10/19 19:52 Freq: Status: Active Protocol: Document 04/07/19 11:15 AMH (Rec: 04/10/19 20:33 AMH [email or web address]) Trunk Strength Trunk Manual Muscle Testing Flexion 3+ Fair+ Core Stabilization poor core stabilization Hip Strength Hip Manual Muscle Testing Right Flexion (L2) 4 Good Extension (S1) 3 Fair Abduction 3 Fair External Rotation 3 Fair Internal Rotation 4- Good- Left Flexion (L2) 4 Good Extension (S1) 4 Good Abduction 3+ Fair+ Adduction 4 Good External Rotation 3+ Fair+ Internal Rotation 4 Good Knee Strength Knee Manual Muscle Testing Left Flexion (S2) 4 Good Extension (L3) 4 Good Right Flexion (S2) 5 Normal Extension (L3) 5 Normal PT-OP-Q Treatments Start: 04/10/19 19:52 Freq: Status: Active Protocol: Document 04/18/19 09:00 AMB (Rec: 04/18/19 09:38 AMB [id number]) Therapeutic Exercises Supine Exercises 1 Supine Exercise Name SLR Side bilateral Reps/Minutes 2x10 knee fallouts TB Supine Exercise Name hooklying Resistance TB L 2 Reps/Minutes 2x10 reps Comments cued for slow pacing control and stable pelvis supine TA facilitation with marches Supine Exercise Name Supine TA facilitation with marches Side bilateral Reps/Minutes 2x 10 each side Comments cues to keep pelvis stable and slow pacing control lower trunk rotations Supine Exercise Name lower trunk rotations Side bilateral Reps/Minutes x10 Supine ITB stretch Supine Exercise Name HS and ITB Side left Equipment Used strap Reps/Minutes 20 x2 each Sidelying Exercises Clamshell Sidelying Exercise Name Clamshell Side bilateral PT-OP-T Assessment and Plan Start: 04/10/19 19:52 Freq: Status: Active Protocol: Document 04/18/19 09:59 AMB (Rec: 04/18/19 10:01 AMB [email or web address]) Physical Therapy Assessment Assessment Summary Assessment Pt liked recumbent bike warm up, although is slow with it. Short step length bilaterally . Physical Therapy Plan Next Visit Focus/Plan Next Note Type Treatment Note Next Visit Plan Reassess gait/ balancd with walking stick.
--- NOTE | 2019-04-29 15:40 | PT.OTN ---
Current Diagnoses Unilateral primary osteoarthritis, left knee (04/29/19) Physical Therapy Treatment Note PT-OP-A Visit Information Start: 04/10/19 19:52 Freq: Status: Active Protocol: Document 04/29/19 14:30 LJ (Rec: 04/29/19 15:40 LJ [id number]) Out-Patient Physical Therapy Visit Information Visit Information Visit Type Treatment Note Visit Start Time 14:30 Visit Stop Time 15:17 Total Visit Minutes 47 Visit Number 5 Number of ELECTRONICS TEACHER Visits 1 PT-OP-B Current Condition Start: 04/10/19 19:52 Freq: Status: Active Protocol: Document 04/07/19 11:15 AMH (Rec: 04/10/19 20:33 AMH [email or web address]) Current Condition History of Current Condition Onset Date August 2018 Current Complaints complaints of left sided knee pain that began following her hip surgery History of Current Condition 83 year old female who 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 She notes she did really well with her hip rehab and is now walking with a walking stick in the left hand. She reports though that she began experiencing knee pain in the left knee with walking after her hip surgery. She reports feeling off kilter and has low energy since her surgery. She is limited at this time to walking only a few blocks due to left knee pain. Other past medical history includes hx of back pain, arthritis, high blood pressure Treatment Goals Patient/Caregiver Goals Ny would like to return to a walking routine without knee pain as at this time she is limited to a few blocks at a time PT-OP-C Subjective Start: 04/10/19 19:52 Freq: Status: Active Protocol: Document 04/29/19 14:30 LJ (Rec: 04/29/19 15:40 [id number]) OP-PT Subjective Patient Comments Patient Comments Pt states she has not been consistent with exercises. She feels very tired and can't do as much as she thinks she should be doing. Unable to complete 20 minutes on her nordic track when she used to complete 30 each day PT-OP-F Manual Assessment Start: 04/10/19 19:52 Freq: Status: Active Protocol: Document 04/07/19 11:15 AMH (Rec: 04/10/19 20:33 AMH [email or web address]) Manual Assessments Soft Tissue Assessment Soft Tissue Mobility Assessment left quadratus lumborum tightness, left paraspinal tightness, Joint Mobility Assessment Joint Mobility Assessment full knee joint ROM, equal leg length today, SI instability noted with + ASLR test PT-OP-J Posture/Palpation/Skin Start: 04/10/19 19:52 Freq: Status: Active Protocol: Document 04/07/19 11:15 AMH (Rec: 04/10/19 20:33 [facility] [email or web address]) Posture Evaluation Comments Posture Comments pt stands with the left knee bent and leaning to the left, she also has a forward shoulder posture with a flexed trunk PT-OP-K Range of Motion Start: 04/10/19 19:52 Freq: Status: Active Protocol: Document 04/07/19 11:15 AMH (Rec: 04/10/19 20:33 [facility] [email or web address]) Knee Goniometric Range of Motion Knee Right Knee ROM WFL Yes Left Knee ROM WFL Yes PT-OP-M Strength Start: 04/10/19 19:52 Freq: Status: Active Protocol: Document 04/07/19 11:15 AMH (Rec: 04/10/19 20:33 [facility] [email or web address]) Trunk Strength Trunk Manual Muscle Testing Flexion 3+ Fair+ Core Stabilization poor core stabilization Hip Strength Hip Manual Muscle Testing Right Flexion (L2) 4 Good Extension (S1) 3 Fair Abduction 3 Fair External Rotation 3 Fair Internal Rotation 4- Good- Left Flexion (L2) 4 Good Extension (S1) 4 Good Abduction 3+ Fair+ Adduction 4 Good External Rotation 3+ Fair+ Internal Rotation 4 Good Knee Strength Knee Manual Muscle Testing Left Flexion (S2) 4 Good Extension (L3) 4 Good Right Flexion (S2) 5 Normal Extension (L3) 5 Normal PT-OP-Q Treatments Start: 04/10/19 19:52 Freq: Status: Active Protocol: Document 04/29/19 14:30 LJ (Rec: 04/29/19 15:40 LJ [id number]) Cardio Equipment Recumbent Stepper (Sci-Fit) Duration (Minutes) 10 Resistance 2.5 Therapeutic Exercises Supine Exercises 1 Supine Exercise Name SLR Side bilateral Reps/Minutes 2x10 knee fallouts TB Supine Exercise Name hooklying Resistance TB L 2 Reps/Minutes 2x10 reps Comments cued for slow pacing control and stable pelvis supine TA facilitation with marches Supine Exercise Name Supine TA facilitation with marches Side bilateral Reps/Minutes 2x 10 each side Comments cues to keep pelvis stable and slow pacing control Bridging Supine Exercise Name Bridging Side bilateral Reps/Minutes 2 x 10 reps Comments cues to keep ASIS in the same plane as left gluteals do not want to fire Supine ITB stretch Supine Exercise Name HS and ITB Side bilateral Comments contract-relax Sidelying Exercises Clamshell Sidelying Exercise Name Clamshell Side bilateral Equipment Used TB L2 Sitting Exercises seated marches Side bilateral Reps/Minutes 2 min Comments cues for core involvement and good posture Standing Exercises hip extension Side bilateral Reps/Minutes 15x Comments hh on railing Other Exercises Resisted Side-stepping Other Exercise Name Resisted side-stepping Side bilateral Resistance Yellow Equipment Used T-band Gait Training Gait Activity 1 Description gait training forward then high knee march Device Used no AD Surface level Distance/Duration 20 ft x3 laps Treatment Focus chest lift plum posture with mirror for self feedback Comments Improvement in R lean self corrections with mirror Emphasis on heel strike w/RLE PT-OP-T Assessment and Plan Start: 04/10/19 19:52 Freq: Status: Active Protocol: Document 04/29/19 14:30 LARISA (Rec: 04/29/19 15:40 LARISA [id number]) Physical Therapy Assessment Rehab Potential Rehabilitation Potential Good Evaluation Complexity Number of Personal Factors/Comorbidities 0 Number of Body Systems Impaired 1-2 Clinical Presentation at Evaluation Stable Impairments Impairments Activity Tolerance,Balance, Functional Activities, Functional Mobility,Gait,Pain, Posture,Soft Tissue Mobility, Strength Other Concerns Barriers to Rehabilitation Severe R hip degeneration Goals Five Impairment unable to perform a single leg stance on the left LE Specialty Plant Supervisor Goal (LTG) Stefania is able to balance 10 seconds or greater standing on the left LE Four Impairment tightness of the left lateral lumbar paraspinals and quadratus lumborum Short Term Goal (STG) pt is given stretching exercises to help her alignement in standing and decrease pressure down to her knee STG Duration 4 weeks Three Impairment 41/80 LEFS score Jail Goal (LTG) LEFS score of > 55 LTG Duration 6 wks Two Impairment decreased core stability with left lateral lean Specialty Plant Supervisor Goal (LTG) Stefania demonstrates improved core control and she is able to lift into a bridge position with her pelvis equal and stable. LTG Duration 8 weeks One Impairment left sided knee pain limiting walking distance to two blocks at this time Short Term Goal (STG) Stefania is educated on use of her walking stick with gait to help decrease strain on her left knee STG Duration 4 weeks Specialty Plant Supervisor Goal (LTG) Stefania is able to increase her walking duration to 30 minutes of walking with decreased c/o pain in the left knee LTG Duration 8 weeks Assessment Summary Assessment Pt tolerated treatment and exercises well. She is aware of her deficits with posture and gait and can correct with verbal and manual cueing. Her endurance will need improvement to progress exercises. Increase glute strengthening and gait tolerance with proper posture. Physical Therapy Plan Frequency and Duration Frequency of Treatment 2x/Week Duration of Treatment 8 Plan of Care Start Date 04/07/19 Plan of Care End Date 06/02/19 Therapeutic Interventions Therapeutic Interventions Home Exercise Program,Manual Therapy,Neuromuscular Re- education,Patient/Caregiver Education,Self-Care/Home Management,Soft Tissue Mobilization,Therapeutic Exercises Modalities Cold Pack/Ice Massage Next Visit Focus/Plan Next Note Type Treatment Note Next Visit Plan Reassess gait/ balance with walking stick. Incorporate balance exercises
--- NOTE | 2019-05-03 15:20 | PT.OTN ---
Current Diagnoses Unilateral primary osteoarthritis, left knee (05/03/19) Physical Therapy Treatment Note PT-OP-A Visit Information Start: 04/10/19 19:52 Freq: Status: Active Protocol: Document 05/03/19 14:39 SP (Rec: 05/03/19 15:50 SP [id number]) Out-Patient Physical Therapy Visit Information Visit Information Visit Type Treatment Note Visit Start Time 14:39 Visit Stop Time 15:20 Total Visit Minutes 41 Visit Number 6 Number of WORD PROCESSOR Visits 2 PT-OP-B Current Condition Start: 04/10/19 19:52 Freq: Status: Active Protocol: Document 04/07/19 11:15 AMH (Rec: 04/10/19 20:33 AMH [email or web address]) Current Condition History of Current Condition Onset Date August 2018 Current Complaints complaints of left sided knee pain that began following her hip surgery History of Current Condition 83 year old female who 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 She notes she did really well with her hip rehab and is now walking with a walking stick in the left hand. She reports though that she began experiencing knee pain in the left knee with walking after her hip surgery. She reports feeling off kilter and has low energy since her surgery. She is limited at this time to walking only a few blocks due to left knee pain. Other past medical history includes hx of back pain, arthritis, high blood pressure Treatment Goals Patient/Caregiver Goals Ny would like to return to a walking routine without knee pain as at this time she is limited to a few blocks at a time PT-OP-C Subjective Start: 04/10/19 19:52 Freq: Status: Active Protocol: Document 05/03/19 14:39 SP (Rec: 05/03/19 15:50 SP [id number]) OP-PT Subjective Patient Comments Patient Comments Pt stated her balance is as good today, frustrated. Pt demonstrates just step over step length and walking cane contact each step. PT-OP-F Manual Assessment Start: 04/10/19 19:52 Freq: Status: Active Protocol: Document 04/07/19 11:15 AMH (Rec: 04/10/19 20:33 AMH [email or web address]) Manual Assessments Soft Tissue Assessment Soft Tissue Mobility Assessment left quadratus lumborum tightness, left paraspinal tightness, Joint Mobility Assessment Joint Mobility Assessment full knee joint ROM, equal leg length today, SI instability noted with + ASLR test PT-OP-J Posture/Palpation/Skin Start: 04/10/19 19:52 Freq: Status: Active Protocol: Document 04/07/19 11:15 AMH (Rec: 04/10/19 20:33 AMH [email or web address]) Posture Evaluation Comments Posture Comments pt stands with the left knee bent and leaning to the left, she also has a forward shoulder posture with a flexed trunk PT-OP-K Range of Motion Start: 04/10/19 19:52 Freq: Status: Active Protocol: Document 04/07/19 11:15 AMH (Rec: 04/10/19 20:33 AMH [email or web address]) Knee Goniometric Range of Motion Knee Right Knee ROM WFL Yes Left Knee ROM WFL Yes PT-OP-M Strength Start: 04/10/19 19:52 Freq: Status: Active Protocol: Document 04/07/19 11:15 AMH (Rec: 04/10/19 20:33 AMH [email or web address]) Trunk Strength Trunk Manual Muscle Testing Flexion 3+ Fair+ Core Stabilization poor core stabilization Hip Strength Hip Manual Muscle Testing Right Flexion (L2) 4 Good Extension (S1) 3 Fair Abduction 3 Fair External Rotation 3 Fair Internal Rotation 4- Good- Left Flexion (L2) 4 Good Extension (S1) 4 Good Abduction 3+ Fair+ Adduction 4 Good External Rotation 3+ Fair+ Internal Rotation 4 Good Knee Strength Knee Manual Muscle Testing Left Flexion (S2) 4 Good Extension (L3) 4 Good Right Flexion (S2) 5 Normal Extension (L3) 5 Normal PT-OP-Q Treatments Start: 04/10/19 19:52 Freq: Status: Active Protocol: Document 05/03/19 14:39 SP (Rec: 05/03/19 15:50 SP [id number]) Therapeutic Exercises Supine Exercises knee fallouts TB Supine Exercise Name hooklying Resistance TB L 2 Reps/Minutes 2x10 reps Comments cued for slow pacing control and stable pelvis supine TA facilitation with marches Supine Exercise Name Supine TA facilitation with marches Side bilateral Reps/Minutes 2x 10 each side Comments cues to keep pelvis stable and slow pacing control Bridging Supine Exercise Name Bridging Side bilateral Equipment Used Y TB loop Reps/Minutes 3x5 reps Comments cues to keep ASIS in the same plane as left gluteals do not want to fire Standing Exercises heel raises Reps/Minutes 2x10 hip extension Side bilateral Equipment Used HH on raised table Reps/Minutes 15x Comments cued hip ER Gait Training Gait Activity 1 Description gait training forward then high knee march Device Used no AD Surface level Distance/Duration 20 ft x3 laps Treatment Focus chest lift plum posture with mirror for self feedback Comments Improvement in trunk alignment , cued for allowing BUE arm swing. Neuro Re-Education Treatment Balance Activities stepping activities Details forward/backward/side stepping Surface level Equipment ladder, mirror Reps/Duration 3 laps each direction Comments no AD, cued step over step 2 laps without walking cane, 1 lap with walking cane for support, felt little dizzy looking down at ladder. PT-OP-T Assessment and Plan Start: 04/10/19 19:52 Freq: Status: Active Protocol: Document 05/03/19 14:39 SP (Rec: 05/03/19 15:50 SP [id number]) Physical Therapy Assessment Goals Five Impairment unable to perform a single leg stance on the left LE Special Machine Operator Goal (LTG) Stefania is able to balance 10 seconds or greater standing on the left LE Four Impairment tightness of the left lateral lumbar paraspinals and quadratus lumborum Short Term Goal (STG) pt is given stretching exercises to help her alignement in standing and decrease pressure down to her knee STG Duration 4 weeks Three Impairment 41/80 LEFS score Snf Goal (LTG) LEFS score of > 55 LTG Duration 6 wks Two Impairment decreased core stability with left lateral lean Special Machine Operator Goal (LTG) Stefania demonstrates improved core control and she is able to lift into a bridge position with her pelvis equal and stable. LTG Duration 8 weeks One Impairment left sided knee pain limiting walking distance to two blocks at this time Short Term Goal (STG) Stefania is educated on use of her walking stick with gait to help decrease strain on her left knee STG Duration 4 weeks Special Machine Operator Goal (LTG) Stefania is able to increase her walking duration to 30 minutes of walking with decreased c/o pain in the left knee LTG Duration 8 weeks Assessment Summary Assessment Pt tolerated tx well today. She reported L knee little more irritated during RLE hip ext (SLS on L) contact support but stated tolerated just needed to adjust second set. Pt was able to add hip abd TB during maintained bridge, standing heel raises AROM and forward/backward walking and side stepping ladder balance activitites today, noted improvement with increased stride length and decreased walking cane light contact every other step end of tx. Physical Therapy Plan Frequency and Duration Frequency of Treatment 2x/Week Duration of Treatment 8 Plan of Care Start Date 04/07/19 Plan of Care End Date 06/02/19 Therapeutic Interventions Therapeutic Interventions Home Exercise Program,Manual Therapy,Neuromuscular Re- education,Patient/Caregiver Education,Self-Care/Home Management,Soft Tissue Mobilization,Therapeutic Exercises Modalities Cold Pack/Ice Massage Next Visit Focus/Plan Next Note Type Treatment Note Next Visit Plan Assess added hip abd bridge TB , standing heel raises, balance f/b/side stepping ladder last tx. Next tx Reassess gait/ balance without walking stick. Incorporate balance exercises
--- NOTE | 2019-05-11 09:22 | PT.OTN ---
Current Diagnoses Unilateral primary osteoarthritis, left knee (05/10/19) Physical Therapy Treatment Note PT-OP-A Visit Information Start: 04/10/19 19:52 Freq: Status: Active Protocol: Document 05/10/19 18:19 [facility] (Rec: 05/11/19 09:17 [facility] [email or web address]) Out-Patient Physical Therapy Visit Information Visit Information Visit Type Treatment Note Visit Start Time 15:15 Visit Stop Time 16:00 Total Visit Minutes 45 Visit Number 7 Number of EXCEPTIONAL CHILDREN TEACHER ASSISTANT Visits 3 Evaluation Information Evaluation Date 04/07/19 PT-OP-B Current Condition Start: 04/10/19 19:52 Freq: Status: Active Protocol: Document 04/07/19 11:15 [facility] (Rec: 04/10/19 20:33 [facility] [email or web address]) Current Condition History of Current Condition Onset Date August 2018 Current Complaints complaints of left sided knee pain that began following her hip surgery History of Current Condition 83 year old female who 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 She notes she did really well with her hip rehab and is now walking with a walking stick in the left hand. She reports though that she began experiencing knee pain in the left knee with walking after her hip surgery. She reports feeling off kilter and has low energy since her surgery. She is limited at this time to walking only a few blocks due to left knee pain. Other past medical history includes hx of back pain, arthritis, high blood pressure Treatment Goals Patient/Caregiver Goals Ny would like to return to a walking routine without knee pain as at this time she is limited to a few blocks at a time PT-OP-C Subjective Start: 04/10/19 19:52 Freq: Status: Active Protocol: Document 05/10/19 18:19 [facility] (Rec: 05/11/19 09:17 [facility] [email or web address]) OP-PT Subjective Patient Comments Patient Comments pt is seeing her primary care doctor tomorrow. She states her energy level is very low since her surgery. I know my body and something is not right She does note that she is not experiencing as much knee pain now. PT-OP-F Manual Assessment Start: 04/10/19 19:52 Freq: Status: Active Protocol: Document 04/07/19 11:15 [facility] (Rec: 04/10/19 20:33 [facility] [email or web address]) Manual Assessments Soft Tissue Assessment Soft Tissue Mobility Assessment left quadratus lumborum tightness, left paraspinal tightness, Joint Mobility Assessment Joint Mobility Assessment full knee joint ROM, equal leg length today, SI instability noted with + ASLR test PT-OP-J Posture/Palpation/Skin Start: 04/10/19 19:52 Freq: Status: Active Protocol: Document 04/07/19 11:15 [facility] (Rec: 04/10/19 20:33 [facility] [email or web address]) Posture Evaluation Comments Posture Comments pt stands with the left knee bent and leaning to the left, she also has a forward shoulder posture with a flexed trunk PT-OP-K Range of Motion Start: 04/10/19 19:52 Freq: Status: Active Protocol: Document 04/07/19 11:15 [facility] (Rec: 04/10/19 20:33 [facility] [email or web address]) Knee Goniometric Range of Motion Knee Right Knee ROM WFL Yes Left Knee ROM WFL Yes PT-OP-M Strength Start: 04/10/19 19:52 Freq: Status: Active Protocol: Document 04/07/19 11:15 [facility] (Rec: 04/10/19 20:33 [facility] [email or web address]) Trunk Strength Trunk Manual Muscle Testing Flexion 3+ Fair+ Core Stabilization poor core stabilization Hip Strength Hip Manual Muscle Testing Right Flexion (L2) 4 Good Extension (S1) 3 Fair Abduction 3 Fair External Rotation 3 Fair Internal Rotation 4- Good- Left Flexion (L2) 4 Good Extension (S1) 4 Good Abduction 3+ Fair+ Adduction 4 Good External Rotation 3+ Fair+ Internal Rotation 4 Good Knee Strength Knee Manual Muscle Testing Left Flexion (S2) 4 Good Extension (L3) 4 Good Right Flexion (S2) 5 Normal Extension (L3) 5 Normal PT-OP-Q Treatments Start: 04/10/19 19:52 Freq: Status: Active Protocol: Document 05/10/19 15:15 [facility] (Rec: 05/11/19 09:21 [facility] [email or web address]) Cardio Equipment Recumbent Bicycle Duration (Minutes) 5 Gym Equipment Shuttle Recovery Bilateral Squats Resistance 50# Shuttle Recovery Platform Stable Reps/Time 3 x 10 reps Therapeutic Exercises Supine Exercises 1 Supine Exercise Name SLR Side bilateral Reps/Minutes 2x10 knee fallouts TB Supine Exercise Name hooklying Resistance TB L 2 Reps/Minutes 2x10 reps Comments cued for slow pacing control and stable pelvis supine TA facilitation with marches Supine Exercise Name Supine TA facilitation with marches Side bilateral Reps/Minutes 2x 10 each side Comments cues to keep pelvis stable and slow pacing control lower trunk rotations Supine Exercise Name lower trunk rotations Side bilateral Reps/Minutes x10 Bridging Supine Exercise Name Bridging Side bilateral Equipment Used Y TB loop Reps/Minutes 3x5 reps Comments cues to keep ASIS in the same plane as left gluteals do not want to fire Sidelying Exercises Clamshell Sidelying Exercise Name Clamshell Side bilateral Equipment Used TB L2 Standing Exercises 2 Standing Exercise Name side steps in standing in parallel bars 1 Standing Exercise Name standing marches Reps/Minutes 2 x 10 reps Comments in parallel bars heel raises Reps/Minutes 2x10 PT-OP-T Assessment and Plan Start: 04/10/19 19:52 Freq: Status: Active Protocol: Document 05/10/19 15:15 [facility] (Rec: 05/11/19 09:21 [facility] [email or web address]) Physical Therapy Assessment Assessment Summary Assessment pt is tolerating more exercise and looks better with her bridges than when I saw her last. She needs continued strengthening of her core and hip musculature. She will see her doctor today for additional lab work as to why her energy level has been so low since her surgery Physical Therapy Plan Frequency and Duration Frequency of Treatment 2x/Week Duration of Treatment 8 Plan of Care Start Date 04/07/19 Plan of Care End Date 06/02/19 Therapeutic Interventions Therapeutic Interventions Home Exercise Program,Manual Therapy,Neuromuscular Re- education,Patient/Caregiver Education,Self-Care/Home Management,Soft Tissue Mobilization,Therapeutic Exercises Modalities Cold Pack/Ice Massage Next Visit Focus/Plan Next Note Type Treatment Note Next Visit Plan contine to progress strength and balance and try to work on increased endurance with cardio work
--- NOTE | 2019-05-20 14:40 | PT-OP ANOTE ---
Pt called 23 min prior to appt to cancel appt due to snow and poor road conditions attempted but not felt safe so returned home. PACKER tried calling patient remind of next appt 05/23/19 at 1300 but no voicemail available to leave a message.
--- NOTE | 2019-05-23 14:10 | PT.OTN ---
Current Diagnoses Unilateral primary osteoarthritis, left knee (05/23/19) Physical Therapy Treatment Note PT-OP-A Visit Information Start: 04/10/19 19:52 Freq: Status: Active Protocol: Document 05/23/19 13:23 [facility] (Rec: 05/23/19 16:44 [facility] [id number]) Out-Patient Physical Therapy Visit Information Visit Information Visit Type Treatment Note Visit Note DRY HOUSE ATTENDANT student observed with patient permission. 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 She notes she did really well with her hip rehab and is now walking with a walking stick in the left hand. She reports though that she began experiencing knee pain in the left knee with walking after her hip surgery. She reports feeling off kilter and has low energy since her surgery. She is limited at this time to walking only a few blocks due to left knee pain. Other past medical history includes hx of back pain, arthritis, high blood pressure Treatment Goals Patient/Caregiver Goals Ny would like to return to a walking routine without knee pain as at this time she is limited to a few blocks at a time PT-OP-C Subjective Start: 04/10/19 19:52 Freq: Status: Active Protocol: Document 05/23/19 13:23 [facility] (Rec: 05/23/19 16:44 [facility] [id number]) OP-PT Subjective Patient Comments Patient Comments Pt stated frustrated still tired alot and not walking as well as would like due to R knee today than L. Willing to work getting on/off floor as discussed a previous treatment to be able to Yoga again. Pt stated Dr Gordillo increased her BP meds to 4 tablets daily but unsure how to take them, so still just taking 2 tab daily when wakes up. Pt stated hasn't taken BP logs as recommended at last appt for awareness of readings. PT-OP-F Manual Assessment Start: 04/10/19 19:52 Freq: Status: Active Protocol: Document 04/07/19 11:15 [facility] (Rec: 04/10/19 20:33 [facility] [email or web address]) Manual Assessments Soft Tissue Assessment Soft Tissue Mobility Assessment left quadratus lumborum tightness, left paraspinal tightness, Joint Mobility Assessment Joint Mobility Assessment full knee joint ROM, equal leg length today, SI instability noted with + ASLR test PT-OP-J Posture/Palpation/Skin Start: 04/10/19 19:52 Freq: Status: Active Protocol: Document 04/07/19 11:15 [facility] (Rec: 04/10/19 20:33 [facility] [email or web address]) Posture Evaluation Comments Posture Comments pt stands with the left knee bent and leaning to the left, she also has a forward shoulder posture with a flexed trunk PT-OP-K Range of Motion Start: 04/10/19 19:52 Freq: Status: Active Protocol: Document 04/07/19 11:15 [facility] (Rec: 04/10/19 20:33 [facility] [email or web address]) Knee Goniometric Range of Motion Knee Right Knee ROM WFL Yes Left Knee ROM WFL Yes PT-OP-M Strength Start: 04/10/19 19:52 Freq: Status: Active Protocol: Document 04/07/19 11:15 [facility] (Rec: 04/10/19 20:33 [facility] [email or web address]) Trunk Strength Trunk Manual Muscle Testing Flexion 3+ Fair+ Core Stabilization poor core stabilization Hip Strength Hip Manual Muscle Testing Right Flexion (L2) 4 Good Extension (S1) 3 Fair Abduction 3 Fair External Rotation 3 Fair Internal Rotation 4- Good- Left Flexion (L2) 4 Good Extension (S1) 4 Good Abduction 3+ Fair+ Adduction 4 Good External Rotation 3+ Fair+ Internal Rotation 4 Good Knee Strength Knee Manual Muscle Testing Left Flexion (S2) 4 Good Extension (L3) 4 Good Right Flexion (S2) 5 Normal Extension (L3) 5 Normal PT-OP-Q Treatments Start: 04/10/19 19:52 Freq: Status: Active Protocol: Document 05/23/19 13:23 [facility] (Rec: 05/23/19 16:44 [facility] [id number]) Therapeutic Exercises Supine Exercises knee fallouts TB Supine Exercise Name hooklying Resistance TB L 2 Equipment Used table initially, floor yoga mat Reps/Minutes 2x10 reps Comments cued for slow pacing control and stable pelvis lower trunk rotations Supine Exercise Name lower trunk rotations Side bilateral Reps/Minutes x10 Bridging Supine Exercise Name Bridging Side bilateral Resistance Y TB loop Equipment Used Table initially, floor yoga mat Reps/Minutes 3x5 reps Comments cues to keep ASIS in the same plane as left gluteals do not want to fire Therapeutic Activity Therapeutic Activity on/ off floor Comments on/ off floor with use of chair for support and yoga mat , cued motor planning R knee front down, L knee front up. Self-Care/Home Management Treatment Education Patient Education Safety Caregiver Education Taking BP meds as prescribed and if questions to call Dr office and pharmacist. PT-OP-T Assessment and Plan Start: 04/10/19 19:52 Freq: Status: Active Protocol: Document 05/23/19 13:23 [facility] (Rec: 05/23/19 16:44 [facility] [id number]) Physical Therapy Assessment Goals Five Impairment unable to perform a single leg stance on the left LE Senior Functional Analyst Goal (LTG) Stefania is able to balance 10 seconds or greater standing on the left LE Four Impairment tightness of the left lateral lumbar paraspinals and quadratus lumborum Short Term Goal (STG) pt is given stretching exercises to help her alignement in standing and decrease pressure down to her knee STG Duration 4 weeks Three Impairment 41/80 LEFS score Senior Functional Analyst Goal (LTG) LEFS score of > 55 LTG Duration 6 wks Two Impairment decreased core stability with left lateral lean Senior Functional Analyst Goal (LTG) Stefania demonstrates improved core control and she is able to lift into a bridge position with her pelvis equal and stable. LTG Duration 8 weeks One Impairment left sided knee pain limiting walking distance to two blocks at this time Short Term Goal (STG) Stefania is educated on use of her walking stick with gait to help decrease strain on her left knee STG Duration 4 weeks Halfway Goal (LTG) Stefania is able to increase her walking duration to 30 minutes of walking with decreased c/o pain in the left knee LTG Duration 8 weeks Assessment Summary Assessment Tx focused on HEP supine review initially and welcoming on working on getting onto floor to be ableto do Yoga a personal goal to get back to. Once on floor patient became light headed and dizzy supine BP taken 168/92, 2 min later 170/105, once went away 5 min seated on floor 182/90 and became light headed again so returned to supine with BLE elevated on wedge. 5 min was able to sit up in chair non symptomatic and stated felt ok to go home but BP reading 190 /90. DRY HOUSE ATTENDANT called Dr Gordillo's office, was not there but spoke with Dr. Carney and instructed BP readings have been common seen in office if patient non symptomatic can go home and continue self readings and call office to be seen by Dr Gordillo tomorrow. Discussed Dr. Carney instructions and taking BP meds as prescribed, logging self readings and call to be seen tomorrow with patient verbal understanding before left, non symptomatic. Pt demonstrated same gait: small base, decreased trunk rotation or UE swing using walking stick in LUE upon leaving, no LOB or devations and declined use following her to car. Physical Therapy Plan Frequency and Duration Frequency of Treatment 2x/Week Duration of Treatment 8 Plan of Care Start Date 04/07/19 Plan of Care End Date 06/02/19 Therapeutic Interventions Therapeutic Interventions Home Exercise Program,Manual Therapy,Neuromuscular Re- education,Patient/Caregiver Education,Self-Care/Home Management,Soft Tissue Mobilization,Therapeutic Exercises Modalities Cold Pack/Ice Massage Next Visit Focus/Plan Next Note Type Treatment Note Next Visit Plan Assess how responded after last tx and follow up with Dr Gordillo next day with BPs elevated during tx. Next tx take BPs for baseline and ask how is taking meds. continue to progress strength and balance and try to work on increased endurance with cardio work
--- NOTE | 2019-05-26 13:50 | PT.OTN ---
Current Diagnoses Unilateral primary osteoarthritis, left knee (05/26/19) Physical Therapy Treatment Note PT-OP-A Visit Information Start: 04/10/19 19:52 Freq: Status: Active Protocol: Document 05/26/19 13:25 [facility] (Rec: 05/26/19 13:33 [facility] [id number]) Out-Patient Physical Therapy Visit Information Visit Information Visit Type Treatment Note Visit Start Time 11:15 Visit Stop Time 12:00 Total Visit Minutes 45 Visit Number 9 Number of DOUBLE BOTTOM DRIVER Visits 0 PT-OP-B Current Condition Start: 04/10/19 19:52 Freq: Status: Active Protocol: Document 04/07/19 11:15 [facility] (Rec: 04/10/19 20:33 [facility] [email or web address]) Current Condition History of Current Condition Onset Date August 2018 Current Complaints complaints of left sided knee pain that began following her hip surgery History of Current Condition 83 year old female who 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 She notes she did really well with her hip rehab and is now walking with a walking stick in the left hand. She reports though that she began experiencing knee pain in the left knee with walking after her hip surgery. She reports feeling off kilter and has low energy since her surgery. She is limited at this time to walking only a few blocks due to left knee pain. Other past medical history includes hx of back pain, arthritis, high blood pressure Treatment Goals Patient/Caregiver Goals Ny would like to return to a walking routine without knee pain as at this time she is limited to a few blocks at a time PT-OP-C Subjective Start: 04/10/19 19:52 Freq: Status: Active Protocol: Document 05/26/19 13:25 [facility] (Rec: 05/26/19 13:33 [facility] [id number]) OP-PT Subjective Patient Comments Patient Comments Pt reports she has been monitoring her blood pressure at home. She has not tried yet to increase her dose of blood pressure medication as she notes she is worried it will make her dizzy. She notes sheh ad her blood work done and is waiting those results. SHe c/o her legs being very heavy especially the right side anterior thigh PT-OP-F Manual Assessment Start: 04/10/19 19:52 Freq: Status: Active Protocol: Document 04/07/19 11:15 [facility] (Rec: 04/10/19 20:33 [facility] [email or web address]) Manual Assessments Soft Tissue Assessment Soft Tissue Mobility Assessment left quadratus lumborum tightness, left paraspinal tightness, Joint Mobility Assessment Joint Mobility Assessment full knee joint ROM, equal leg length today, SI instability noted with + ASLR test PT-OP-J Posture/Palpation/Skin Start: 04/10/19 19:52 Freq: Status: Active Protocol: Document 04/07/19 11:15 [facility] (Rec: 04/10/19 20:33 [facility] [email or web address]) Posture Evaluation Comments Posture Comments pt stands with the left knee bent and leaning to the left, she also has a forward shoulder posture with a flexed trunk PT-OP-K Range of Motion Start: 04/10/19 19:52 Freq: Status: Active Protocol: Document 04/07/19 11:15 [facility] (Rec: 04/10/19 20:33 [facility] [email or web address]) Knee Goniometric Range of Motion Knee Right Knee ROM WFL Yes Left Knee ROM WFL Yes PT-OP-M Strength Start: 04/10/19 19:52 Freq: Status: Active Protocol: Document 04/07/19 11:15 [facility] (Rec: 04/10/19 20:33 [facility] [email or web address]) Trunk Strength Trunk Manual Muscle Testing Flexion 3+ Fair+ Core Stabilization poor core stabilization Hip Strength Hip Manual Muscle Testing Right Flexion (L2) 4 Good Extension (S1) 3 Fair Abduction 3 Fair External Rotation 3 Fair Internal Rotation 4- Good- Left Flexion (L2) 4 Good Extension (S1) 4 Good Abduction 3+ Fair+ Adduction 4 Good External Rotation 3+ Fair+ Internal Rotation 4 Good Knee Strength Knee Manual Muscle Testing Left Flexion (S2) 4 Good Extension (L3) 4 Good Right Flexion (S2) 5 Normal Extension (L3) 5 Normal PT-OP-Q Treatments Start: 04/10/19 19:52 Freq: Status: Active Protocol: Document 05/26/19 13:25 [facility] (Rec: 05/26/19 13:33 [facility] [id number]) Cardio Equipment Recumbent Elliptical (BiodExceleraRx) Duration (Minutes) 6 Resistance [address] the [address] forward Gym Equipment Shuttle Recovery Unilateral Squats Details Right Resistance 37# Shuttle Recovery Platform Stable Bilateral Squats Resistance 50# Shuttle Recovery Platform Stable Reps/Time 3 x 10 reps Therapeutic Exercises Supine Exercises 1 Supine Exercise Name SLR Side bilateral Reps/Minutes 2x10 Bridging Supine Exercise Name Bridging Side bilateral Resistance Y TB loop Equipment Used Table initially, floor yoga mat Reps/Minutes 3x5 reps Comments cues to keep ASIS in the same plane as left gluteals do not want to fire Standing Exercises standing squats Standing Exercise Name standing squats Comments in parallel bars with chair behind her 2 Standing Exercise Name side steps in standing in parallel bars Reps/Minutes 4 xms length of parallel bars 1 Standing Exercise Name standing marches Reps/Minutes 2 x 10 reps Comments in parallel bars heel raises Standing Exercise Name heel raises in parallel bars Reps/Minutes 2x10 Manual Therapy Treatment Soft Tissue Mobilization right quadriceps Body Location right quadriceps Mobilization Type Myofascial Release Intensity/Depth Moderate Body Position Supine Comments pt responded well and felt that she had been very tight in her right thight. She was educated on self massage with rolling pin in a seated position PT-OP-T Assessment and Plan Start: 04/10/19 19:52 Freq: Status: Active Protocol: Document 05/26/19 13:25 [facility] (Rec: 05/26/19 13:33 [facility] [id number]) Physical Therapy Assessment Goals Five Impairment unable to perform a single leg stance on the left LE Detention Goal (LTG) Stefania is able to balance 10 seconds or greater standing on the left LE GOAL NOT YET MET Four Impairment tightness of the left lateral lumbar paraspinals and quadratus lumborum Short Term Goal (STG) pt is given stretching exercises to help her alignement in standing and decrease pressure down to her knee GOOD PROGRESS STG Duration 4 weeks Three Impairment 41/80 LEFS score Detention Goal (LTG) LEFS score of > 55 Goal not yet met LTG Duration 6 wks Two Impairment decreased core stability with left lateral lean Saturator Tender Goal (LTG) Stefania demonstrates improved core control and she is able to lift into a bridge position with her pelvis equal and stable. Excellent progress LTG Duration 8 weeks One Impairment left sided knee pain limiting walking distance to two blocks at this time Short Term Goal (STG) Stefania is educated on use of her walking stick with gait to help decrease strain on her left knee GOAL MET STG Duration 4 weeks Detention Goal (LTG) Stefania is able to increase her walking duration to 30 minutes of walking with decreased c/o pain in the left knee Currently at 10 minutes LTG Duration 8 weeks Progress Towards Goals Progress Towards Goals Slow Progress due to Activity Tolerance Assessment Summary Assessment Ny has been treated in PT for c/o left sided knee pain and overall weakness that she states began following 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 With treatment c/o knee pain have decreased although Ny reports today that all her joints ache. She also reports a feeling of heaviness in both her legs. She has experienced a great deal of fatigue since her surgery and this is still with her. Last visit her blood pressure was taken as she had become very dizzy and light headed after a transfer to the floor. It was found at that time that her physician had increased her blood pressure medication but she had not yet increased her dose. Her doctors office was called and this wasd documented. Ny is tolerating PT well and she is able to do 5-10 minutes at home on her nordic track which she loves to exercise on. She would like to get up to 30 minutes on this. Her blood pressure is 150/85 today, no c/o dizzyness. We did not attmept getting down on the floor today but this would be good to try and resume. Ny would benefit from continued PT and work up as to her extreme fatigue she reports in this past year. Physical Therapy Plan Frequency and Duration Frequency of Treatment 2x/Week Duration of Treatment 8 Plan of Care Start Date 04/07/19 Plan of Care End Date 06/02/19 Next Visit Focus/Plan Next Note Type Treatment Note Next Visit Plan continue to progress strength, balance, and cardiovasular endurance
--- NOTE | 2019-05-26 13:57 | PT.OPPOC ---
Physical, Occupational & Speech Therapy At [facility] Current Diagnoses Unilateral primary osteoarthritis, left knee (05/26/19) Visit Care Team Role Provider Type Patience Gordillo MD Primary Care Provider Physician Specialty: Family Practice Address: [address] [place] [address], [facility] [place], [address] Email: [email or web address] Diana MD Attending Provider Physician Specialty: Orthopedic Surgery Address: [address] [place] [address], [id number] Email: [email or web address] Plan Of Care PT-OP-T Assessment and Plan Start: 04/10/19 19:52 Freq: Status: Active Protocol: Document 05/26/19 13:25 [facility] (Rec: 05/26/19 13:33 [facility] [id number]) Physical Therapy Assessment Goals Five Impairment unable to perform a single leg stance on the left LE Money Market Dealer Goal (LTG) Stefania is able to balance 10 seconds or greater standing on the left LE GOAL NOT YET MET Four Impairment tightness of the left lateral lumbar paraspinals and quadratus lumborum Short Term Goal (STG) pt is given stretching exercises to help her alignment in standing and decrease pressure down to her knee GOOD PROGRESS STG Duration 4 weeks Three Impairment 41/80 LEFS score Money Market Dealer Goal (LTG) LEFS score of > 55 Goal not yet met LTG Duration 6 wks Two Impairment decreased core stability with left lateral lean Money Market Dealer Goal (LTG) Stefania demonstrates improved core control and she is able to lift into a bridge position with her pelvis equal and stable. Excellent progress LTG Duration 8 weeks One Impairment left sided knee pain limiting walking distance to two blocks at this time Short Term Goal (STG) Stefania is educated on use of her walking stick with gait to help decrease strain on her left knee GOAL MET STG Duration 4 weeks Fci Goal (LTG) Stefania is able to increase her walking duration to 30 minutes of walking with decreased c/o pain in the left knee Currently at 10 minutes LTG Duration 8 weeks Progress Towards Goals Progress Towards Goals Slow Progress due to Activity Tolerance Assessment Summary Assessment Ny has been treated in PT for c/o left sided knee pain and overall weakness that she states began following 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 With treatment c/o knee pain have decreased although Ny reports today that all her joints ache. She also reports a feeling of heaviness in both her legs. She has experienced a great deal of fatigue since her surgery and this is still with her. Last visit her blood pressure was taken as she had become very dizzy and light headed after a transfer to the floor. It was found at that time that her physician had increased her blood pressure medication but she had not yet increased her dose. Her doctors office was called and this wasd documented. Ny is tolerating PT well and she is able to do 5-10 minutes at home on her nordic track which she loves to exercise on. She would like to get up to 30 minutes on this. Her blood pressure is 150/85 today, no c/o dizziness. We did not attempt getting down on the floor today but this would be good to try and resume. Ny would benefit from continued PT and work up as to her extreme fatigue she reports in this past year. Physical Therapy Plan Frequency and Duration Frequency of Treatment 2x/Week Duration of Treatment 8 Plan of Care Start Date 05/26/19 Plan of Care End Date 07/21/19 Therapeutic Interventions Therapeutic Interventions Balance Training,Gait Training ,Home Exercise Program,Manual Therapy,Patient/Caregiver Education,Self-Care/Home Management,Soft Tissue Mobilization,Therapeutic Exercises Next Visit Focus/Plan Next Note Type Treatment Note Next Visit Plan continue to progress strength, balance, and cardiovasular endurance to meet above goals. Plan of Care Dates Plan of Care Start Date 05/26/19 Plan of Care End Date 07/21/19 Electronically Signed by: Eloise Sharp, PT 05/26/19 [id number] Please Sign and Return: I have reviewed this Plan of Care and certify that the skilled therapy services above are required to meet the patient?s needs. Physician Signature Date Printed Name and Credentials Clinical Instructor Signature Printed Name and Credentials
--- NOTE | 2019-05-26 13:58 | PT.OPPN ---
Current Diagnoses Unilateral primary osteoarthritis, left knee (05/26/19) Physical Therapy Progress Note PT-OP-A Visit Information Start: 04/10/19 19:52 Freq: Status: Active Protocol: Document 05/26/19 13:25 [facility] (Rec: 05/26/19 13:33 [facility] [id number]) Out-Patient Physical Therapy Visit Information Visit Information Visit Type Treatment Note Visit Start Time 11:15 Visit Stop Time 12:00 Total Visit Minutes 45 Visit Number 9 Number of TAPE RECORDER REPAIRER Visits 0 PT-OP-B Current Condition Start: 04/10/19 19:52 Freq: Status: Active Protocol: Document 04/07/19 11:15 [facility] (Rec: 04/10/19 20:33 [facility] [id number]) Current Condition History of Current Condition Onset Date August 2018 Current Complaints complaints of left sided knee pain that began following her hip surgery History of Current Condition 83 year old female who 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 She notes she did really well with her hip rehab and is now walking with a walking stick in the left hand. She reports though that she began experiencing knee pain in the left knee with walking after her hip surgery. She reports feeling off kilter and has low energy since her surgery. She is limited at this time to walking only a few blocks due to left knee pain. Other past medical history includes hx of back pain, arthritis, high blood pressure Treatment Goals Patient/Caregiver Goals Ny would like to return to a walking routine without knee pain as at this time she is limited to a few blocks at a time PT-OP-C Subjective Start: 04/10/19 19:52 Freq: Status: Active Protocol: Document 05/26/19 13:25 [facility] (Rec: 05/26/19 13:33 [facility] [id number]) OP-PT Subjective Patient Comments Patient Comments Pt reports she has been monitoring her blood pressure at home. She has not tried yet to increase her dose of blood pressure medication as she notes she is worried it will make her dizzy. She notes sheh ad her blood work done and is waiting those results. SHe c/o her legs being very heavy especially the right side anterior thigh PT-OP-F Manual Assessment Start: 04/10/19 19:52 Freq: Status: Active Protocol: Document 04/07/19 11:15 [facility] (Rec: 04/10/19 20:33 [facility] [id number]) Manual Assessments Soft Tissue Assessment Soft Tissue Mobility Assessment left quadratus lumborum tightness, left paraspinal tightness, Joint Mobility Assessment Joint Mobility Assessment full knee joint ROM, equal leg length today, SI instability noted with + ASLR test PT-OP-J Posture/Palpation/Skin Start: 04/10/19 19:52 Freq: Status: Active Protocol: Document 04/07/19 11:15 [facility] (Rec: 04/10/19 20:33 [facility] [id number]) Posture Evaluation Comments Posture Comments pt stands with the left knee bent and leaning to the left, she also has a forward shoulder posture with a flexed trunk PT-OP-K Range of Motion Start: 04/10/19 19:52 Freq: Status: Active Protocol: Document 04/07/19 11:15 [facility] (Rec: 04/10/19 20:33 [facility] [id number]) Knee Goniometric Range of Motion Knee Measured in Degrees Right Knee ROM WFL Yes Left Knee ROM WFL Yes PT-OP-M Strength Start: 04/10/19 19:52 Freq: Status: Active Protocol: Document 04/07/19 11:15 [facility] (Rec: 04/10/19 20:33 [facility] [id number]) Trunk Strength Trunk Manual Muscle Testing Flexion 3+ Fair+ Core Stabilization poor core stabilization Hip Strength Hip Manual Muscle Testing Right Flexion (L2) 4 Good Extension (S1) 3 Fair Abduction 3 Fair External Rotation 3 Fair Internal Rotation 4- Good- Left Flexion (L2) 4 Good Extension (S1) 4 Good Abduction 3+ Fair+ Adduction 4 Good External Rotation 3+ Fair+ Internal Rotation 4 Good Knee Strength Knee Manual Muscle Testing Left Flexion (S2) 4 Good Extension (L3) 4 Good Right Flexion (S2) 5 Normal Extension (L3) 5 Normal PT-OP-T Assessment and Plan Start: 04/10/19 19:52 Freq: Status: Active Protocol: Document 05/26/19 13:25 [facility] (Rec: 05/26/19 13:33 [facility] [id number]) Physical Therapy Assessment Goals Five Impairment unable to perform a single leg stance on the left LE Information Systems Security Officer Goal (LTG) Stefania is able to balance 10 seconds or greater standing on the left LE GOAL NOT YET MET Four Impairment tightness of the left lateral lumbar paraspinals and quadratus lumborum Short Term Goal (STG) pt is given stretching exercises to help her alignement in standing and decrease pressure down to her knee GOOD PROGRESS STG Duration 4 weeks Three Impairment 41/80 LEFS score Residential Goal (LTG) LEFS score of > 55 Goal not yet met LTG Duration 6 wks Two Impairment decreased core stability with left lateral lean Residential Goal (LTG) Stefania demonstrates improved core control and she is able to lift into a bridge position with her pelvis equal and stable. Excellent progress LTG Duration 8 weeks One Impairment left sided knee pain limiting walking distance to two blocks at this time Short Term Goal (STG) Stefania is educated on use of her walking stick with gait to help decrease strain on her left knee GOAL MET STG Duration 4 weeks Information Systems Security Officer Goal (LTG) Stefania is able to increase her walking duration to 30 minutes of walking with decreased c/o pain in the left knee Currently at 10 minutes LTG Duration 8 weeks Progress Towards Goals Progress Towards Goals Slow Progress due to Activity Tolerance Assessment Summary Assessment Ny has been treated in PT for c/o left sided knee pain and overall weakness that she states began following 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 With treatment c/o knee pain have decreased although Ny reports today that all her joints ache. She also reports a feeling of heaviness in both her legs. She has experienced a great deal of fatigue since her surgery and this is still with her. Last visit her blood pressure was taken as she had become very dizzy and light headed after a transfer to the floor. It was found at that time that her physician had increased her blood pressure medication but she had not yet increased her dose. Her doctors office was called and this wasd documented. Ny is tolerating PT well and she is able to do 5-10 minutes at home on her nordic track which she loves to exercise on. She would like to get up to 30 minutes on this. Her blood pressure is 150/85 today, no c/o dizzyness. We did not attmept getting down on the floor today but this would be good to try and resume. Ny would benefit from continued PT and work up as to her extreme fatigue she reports in this past year. Physical Therapy Plan Frequency and Duration Frequency of Treatment 2x/Week Duration of Treatment 8 Plan of Care Start Date 05/26/19 Plan of Care End Date 07/21/19 Therapeutic Interventions Therapeutic Interventions Balance Training,Gait Training ,Home Exercise Program,Manual Therapy,Patient/Caregiver Education,Self-Care/Home Management,Soft Tissue Mobilization,Therapeutic Exercises Next Visit Focus/Plan Next Note Type Treatment Note Next Visit Plan continue to progress strength, balance, and cardiovasular endurance to meet above goals.
--- NOTE | 2019-05-31 16:39 | PT.OTN ---
Current Diagnoses Unilateral primary osteoarthritis, left knee (05/31/19) Physical Therapy Treatment Note PT-OP-A Visit Information Start: 04/10/19 19:52 Freq: Status: Active Protocol: Document 05/31/19 16:32 [facility] (Rec: 05/31/19 16:39 [facility] [id number]) Out-Patient Physical Therapy Visit Information Visit Information Visit Type Treatment Note Visit Start Time 11:15 Visit Stop Time 12:00 Total Visit Minutes 45 Visit Number 10 Number of LITHOGRAPHIC RETOUCHER APPRENTICE Visits 0 PT-OP-B Current Condition Start: 04/10/19 19:52 Freq: Status: Active Protocol: Document 04/07/19 11:15 [facility] (Rec: 04/10/19 20:33 [facility] [id number]) Current Condition History of Current Condition Onset Date August 2018 Current Complaints complaints of left sided knee pain that began following her hip surgery History of Current Condition 83 year old female who 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 She notes she did really well with her hip rehab and is now walking with a walking stick in the left hand. She reports though that she began experiencing knee pain in the left knee with walking after her hip surgery. She reports feeling off kilter and has low energy since her surgery. She is limited at this time to walking only a few blocks due to left knee pain. Other past medical history includes hx of back pain, arthritis, high blood pressure Treatment Goals Patient/Caregiver Goals Ny would like to return to a walking routine without knee pain as at this time she is limited to a few blocks at a time PT-OP-C Subjective Start: 04/10/19 19:52 Freq: Status: Active Protocol: Document 05/31/19 16:32 [facility] (Rec: 05/31/19 16:39 [facility] [id number]) OP-PT Subjective Patient Comments Patient Comments pt reports she has started increasing her blood pressure medication and saw her doctor this am. She will also be seeing a general engineer. She reports just feeling so low energy and reports it is just not her. Her legs feel very heavy. She reports taking a fall yesterday while talking on the phone with her son, her foot got caught up on the throw rug PT-OP-F Manual Assessment Start: 04/10/19 19:52 Freq: Status: Active Protocol: Document 04/07/19 11:15 [facility] (Rec: 04/10/19 20:33 [facility] [id number]) Manual Assessments Soft Tissue Assessment Soft Tissue Mobility Assessment left quadratus lumborum tightness, left paraspinal tightness, Joint Mobility Assessment Joint Mobility Assessment full knee joint ROM, equal leg length today, SI instability noted with + ASLR test PT-OP-J Posture/Palpation/Skin Start: 04/10/19 19:52 Freq: Status: Active Protocol: Document 04/07/19 11:15 [facility] (Rec: 04/10/19 20:33 [facility] [email or web address]) Posture Evaluation Comments Posture Comments pt stands with the left knee bent and leaning to the left, she also has a forward shoulder posture with a flexed trunk PT-OP-K Range of Motion Start: 04/10/19 19:52 Freq: Status: Active Protocol: Document 04/07/19 11:15 [facility] (Rec: 04/10/19 20:33 [facility] [email or web address]) Knee Goniometric Range of Motion Knee Right Knee ROM WFL Yes Left Knee ROM WFL Yes PT-OP-M Strength Start: 04/10/19 19:52 Freq: Status: Active Protocol: Document 04/07/19 11:15 [facility] (Rec: 04/10/19 20:33 [facility] [email or web address]) Trunk Strength Trunk Manual Muscle Testing Flexion 3+ Fair+ Core Stabilization poor core stabilization Hip Strength Hip Manual Muscle Testing Right Flexion (L2) 4 Good Extension (S1) 3 Fair Abduction 3 Fair External Rotation 3 Fair Internal Rotation 4- Good- Left Flexion (L2) 4 Good Extension (S1) 4 Good Abduction 3+ Fair+ Adduction 4 Good External Rotation 3+ Fair+ Internal Rotation 4 Good Knee Strength Knee Manual Muscle Testing Left Flexion (S2) 4 Good Extension (L3) 4 Good Right Flexion (S2) 5 Normal Extension (L3) 5 Normal PT-OP-Q Treatments Start: 04/10/19 19:52 Freq: Status: Active Protocol: Document 05/31/19 16:32 [facility] (Rec: 05/31/19 16:39 [facility] [email or web address]) Cardio Equipment Recumbent Elliptical (Biodex) Duration (Minutes) 8 Resistance [address] forward Gym Equipment Shuttle Recovery Unilateral Squats Details Unilateral squats Resistance 37# Shuttle Recovery Platform Stable Reps/Time x 15 each leg Bilateral Squats Resistance 50# Shuttle Recovery Platform Stable Reps/Time 3 x 10 reps Therapeutic Exercises Sitting Exercises 1 Sitting Exercise Name seated theraband roll outs Equipment Used level 2 theraband Reps/Minutes 3 x 10 reps Standing Exercises standing squats Standing Exercise Name standing squats Comments in parallel bars with chair behind her 2 Standing Exercise Name side steps in standing in parallel bars Reps/Minutes 4 xms length of parallel bars 1 Standing Exercise Name standing marches Reps/Minutes 2 x 10 reps Comments in parallel bars heel raises Standing Exercise Name heel raises in parallel bars Reps/Minutes 2x10 Manual Therapy Treatment Soft Tissue Mobilization right quadriceps Body Location right quadriceps Mobilization Type Myofascial Release Intensity/Depth Moderate Body Position Supine Comments pt responded well and felt that she had been very tight in her right thigh. She was educated on self massage with rolling pin in a seated position PT-OP-T Assessment and Plan Start: 04/10/19 19:52 Freq: Status: Active Protocol: Document 05/31/19 16:32 [facility] (Rec: 05/31/19 16:39 [facility] [id number]) Physical Therapy Assessment Assessment Summary Assessment continue to work on pts endurance, monitor blood pressure with increase in medication. Include balance training due to fall. I educated Ny today that the throw rugs maybe a tripping hazard for her. We also talked about her getting a life alert to wear incase of a fall. Physical Therapy Plan Frequency and Duration Frequency of Treatment 2x/Week Duration of Treatment 8 Plan of Care Start Date 05/26/19 Plan of Care End Date 07/21/19
--- NOTE | 2019-06-20 11:16 | PT.OTN ---
Current Diagnoses Unilateral primary osteoarthritis, left knee (06/20/19) Physical Therapy Treatment Note PT-OP-A Visit Information Start: 04/10/19 19:52 Freq: Status: Active Protocol: Document 06/20/19 10:26 SP (Rec: 06/20/19 11:24 SP [id number]) Out-Patient Physical Therapy Visit Information Visit Information Visit Type Treatment Note Visit Start Time 10:26 Visit Stop Time 11:16 Total Visit Minutes 50 Visit Number 11 Number of FILTROSE CRUSHER Visits 1 PT-OP-B Current Condition Start: 04/10/19 19:52 Freq: Status: Active Protocol: Document 04/07/19 11:15 [facility] (Rec: 04/10/19 20:33 [facility] [email or web address]) Current Condition History of Current Condition Onset Date August 2018 Current Complaints complaints of left sided knee pain that began following her hip surgery History of Current Condition 83 year old female who 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 She notes she did really well with her hip rehab and is now walking with a walking stick in the left hand. She reports though that she began experiencing knee pain in the left knee with walking after her hip surgery. She reports feeling off kilter and has low energy since her surgery. She is limited at this time to walking only a few blocks due to left knee pain. Other past medical history includes hx of back pain, arthritis, high blood pressure Treatment Goals Patient/Caregiver Goals Ny would like to return to a walking routine without knee pain as at this time she is limited to a few blocks at a time PT-OP-C Subjective Start: 04/10/19 19:52 Freq: Status: Active Protocol: Document 06/20/19 10:26 SP (Rec: 06/20/19 11:24 SP [id number]) OP-PT Subjective Patient Comments Patient Comments Pt reported frustrated no one has figured out why so tired still and doesn't feel making gains. Pt stated is having an endoscopy done. PT-OP-F Manual Assessment Start: 04/10/19 19:52 Freq: Status: Active Protocol: Document 04/07/19 11:15 [facility] (Rec: 04/10/19 20:33 [facility] [email or web address]) Manual Assessments Soft Tissue Assessment Soft Tissue Mobility Assessment left quadratus lumborum tightness, left paraspinal tightness, Joint Mobility Assessment Joint Mobility Assessment full knee joint ROM, equal leg length today, SI instability noted with + ASLR test PT-OP-J Posture/Palpation/Skin Start: 04/10/19 19:52 Freq: Status: Active Protocol: Document 04/07/19 11:15 [facility] (Rec: 04/10/19 20:33 [facility] [email or web address]) Posture Evaluation Comments Posture Comments pt stands with the left knee bent and leaning to the left, she also has a forward shoulder posture with a flexed trunk PT-OP-K Range of Motion Start: 04/10/19 19:52 Freq: Status: Active Protocol: Document 04/07/19 11:15 [facility] (Rec: 04/10/19 20:33 [facility] [email or web address]) Knee Goniometric Range of Motion Knee Right Knee ROM WFL Yes Left Knee ROM WFL Yes PT-OP-M Strength Start: 04/10/19 19:52 Freq: Status: Active Protocol: Document 04/07/19 11:15 [facility] (Rec: 04/10/19 20:33 [facility] [email or web address]) Trunk Strength Trunk Manual Muscle Testing Flexion 3+ Fair+ Core Stabilization poor core stabilization Hip Strength Hip Manual Muscle Testing Right Flexion (L2) 4 Good Extension (S1) 3 Fair Abduction 3 Fair External Rotation 3 Fair Internal Rotation 4- Good- Left Flexion (L2) 4 Good Extension (S1) 4 Good Abduction 3+ Fair+ Adduction 4 Good External Rotation 3+ Fair+ Internal Rotation 4 Good Knee Strength Knee Manual Muscle Testing Left Flexion (S2) 4 Good Extension (L3) 4 Good Right Flexion (S2) 5 Normal Extension (L3) 5 Normal PT-OP-Q Treatments Start: 04/10/19 19:52 Freq: Status: Active Protocol: Document 06/20/19 10:26 SP (Rec: 06/20/19 11:24 SP [id number]) Cardio Equipment Recumbent Elliptical (Biodex) Duration (Minutes) 8 Resistance 2 Seat Position seat 6 Other Vitals post activity: 162/74, 80 bpm Gym Equipment Shuttle Recovery Unilateral Squats Details Unilateral squats Resistance 37# Shuttle Recovery Platform Stable Reps/Time x 15 each leg Bilateral Squats Resistance 50# Shuttle Recovery Platform Stable Reps/Time 3 x 10 reps Therapeutic Exercises Standing Exercises hurdles Standing Exercise Name forward step to and step through, side step Reps/Minutes Length of parallel bars x 4 Comments in parallel bars, contact 1 hand 2 Standing Exercise Name step up and over Equipment Used 2lb ankle weights, 4in step Reps/Minutes 5 reps both directions Comments f/ side 1 Standing Exercise Name step taps foward Equipment Used 2lb ankle weights, 4in step Reps/Minutes 2 x 10 reps Comments in parallel bars, contact 2> 1 UE support PT-OP-T Assessment and Plan Start: 04/10/19 19:52 Freq: Status: Active Protocol: Document 06/20/19 10:26 SP (Rec: 06/20/19 11:24 SP [id number]) Physical Therapy Assessment Goals Five Impairment unable to perform a single leg stance on the left LE Band Reamer Machine Operator Goal (LTG) Stefania is able to balance 10 seconds or greater standing on the left LE GOAL NOT YET MET Four Impairment tightness of the left lateral lumbar paraspinals and quadratus lumborum Short Term Goal (STG) pt is given stretching exercises to help her alignement in standing and decrease pressure down to her knee GOOD PROGRESS STG Duration 4 weeks Three Impairment 41/80 LEFS score Band Reamer Machine Operator Goal (LTG) LEFS score of > 55 Goal not yet met LTG Duration 6 wks Two Impairment decreased core stability with left lateral lean Snf Goal (LTG) Stefania demonstrates improved core control and she is able to lift into a bridge position with her pelvis equal and stable. Excellent progress LTG Duration 8 weeks One Impairment left sided knee pain limiting walking distance to two blocks at this time Short Term Goal (STG) Stefania is educated on use of her walking stick with gait to help decrease strain on her left knee GOAL MET STG Duration 4 weeks Band Reamer Machine Operator Goal (LTG) Stefania is able to increase her walking duration to 30 minutes of walking with decreased c/o pain in the left knee Currently at 10 minutes LTG Duration 8 weeks Assessment Summary Assessment Tx focused on strengthening upright and balance with stable vital, non symptomatic during tx. Cued for proper knee alignment during shuttle recovery with slow pacing and incorporated standing glut facilitation during step ups f /lateral and increased stride oral stepping with contact of initially 2 UE on //bars then decreased to 1 UE. Pt reported quad soreness but feels doing some good workouts . No pain but noted L knee crepitus during exercises. Physical Therapy Plan Frequency and Duration Frequency of Treatment 2x/Week Duration of Treatment 8 Plan of Care Start Date 05/26/19 Plan of Care End Date 07/21/19 Therapeutic Interventions Therapeutic Interventions Balance Training,Gait Training ,Home Exercise Program,Manual Therapy,Patient/Caregiver Education,Self-Care/Home Management,Soft Tissue Mobilization,Therapeutic Exercises Next Visit Focus/Plan Next Note Type Treatment Note Next Visit Plan Check Vitals: BP, HR pre and with activity. Assess response to standidng strengthening and balance activities last tx. continue to progress strength, balance, and cardiovasular endurance to meet above goals.
--- NOTE | 2019-06-22 12:38 | PT.OTN ---
Current Diagnoses Unilateral primary osteoarthritis, left knee (06/22/19) Physical Therapy Treatment Note PT-OP-A Visit Information Start: 04/10/19 19:52 Freq: Status: Active Protocol: Document 06/22/19 12:29 AM[facility] (Rec: 06/22/19 12:38 [facility] [email or web address]) Out-Patient Physical Therapy Visit Information Visit Information Visit Type Treatment Note Visit Start Time 11:15 Visit Stop Time 12:00 Total Visit Minutes 45 Visit Number 12 Number of CRM MANAGER Visits 0 PT-OP-B Current Condition Start: 04/10/19 19:52 Freq: Status: Active Protocol: Document 04/07/19 11:15 AM[facility] (Rec: 04/10/19 20:33 [facility] [email or web address]) Current Condition History of Current Condition Onset Date August 2018 Current Complaints complaints of left sided knee pain that began following her hip surgery History of Current Condition 83 year old female who 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 She notes she did really well with her hip rehab and is now walking with a walking stick in the left hand. She reports though that she began experiencing knee pain in the left knee with walking after her hip surgery. She reports feeling off kilter and has low energy since her surgery. She is limited at this time to walking only a few blocks due to left knee pain. Other past medical history includes hx of back pain, arthritis, high blood pressure Treatment Goals Patient/Caregiver Goals Ny would like to return to a walking routine without knee pain as at this time she is limited to a few blocks at a time PT-OP-C Subjective Start: 04/10/19 19:52 Freq: Status: Active Protocol: Document 06/22/19 12:29 [facility] (Rec: 06/22/19 12:38 [facility] [email or web address]) OP-PT Subjective Patient Comments Patient Comments pt reports her knee is doing better overall other than stiffness. She still feels so fatigued. She has a appointment with a jig hand on Jun 27 to evaluate her thyroid PT-OP-F Manual Assessment Start: 04/10/19 19:52 Freq: Status: Active Protocol: Document 04/07/19 11:15 [facility] (Rec: 04/10/19 20:33 [facility] [email or web address]) Manual Assessments Soft Tissue Assessment Soft Tissue Mobility Assessment left quadratus lumborum tightness, left paraspinal tightness, Joint Mobility Assessment Joint Mobility Assessment full knee joint ROM, equal leg length today, SI instability noted with + ASLR test PT-OP-J Posture/Palpation/Skin Start: 04/10/19 19:52 Freq: Status: Active Protocol: Document 04/07/19 11:15 [facility] (Rec: 04/10/19 20:33 [facility] [email or web address]) Posture Evaluation Comments Posture Comments pt stands with the left knee bent and leaning to the left, she also has a forward shoulder posture with a flexed trunk PT-OP-K Range of Motion Start: 04/10/19 19:52 Freq: Status: Active Protocol: Document 04/07/19 11:15 AM[facility] (Rec: 04/10/19 20:33 [facility] [email or web address]) Knee Goniometric Range of Motion Knee Right Knee ROM WFL Yes Left Knee ROM WFL Yes PT-OP-M Strength Start: 04/10/19 19:52 Freq: Status: Active Protocol: Document 04/07/19 11:15 AM[facility] (Rec: 04/10/19 20:33 [facility] [email or web address]) Trunk Strength Trunk Manual Muscle Testing Flexion 3+ Fair+ Core Stabilization poor core stabilization Hip Strength Hip Manual Muscle Testing Right Flexion (L2) 4 Good Extension (S1) 3 Fair Abduction 3 Fair External Rotation 3 Fair Internal Rotation 4- Good- Left Flexion (L2) 4 Good Extension (S1) 4 Good Abduction 3+ Fair+ Adduction 4 Good External Rotation 3+ Fair+ Internal Rotation 4 Good Knee Strength Knee Manual Muscle Testing Left Flexion (S2) 4 Good Extension (L3) 4 Good Right Flexion (S2) 5 Normal Extension (L3) 5 Normal PT-OP-Q Treatments Start: 04/10/19 19:52 Freq: Status: Active Protocol: Document 06/22/19 12:29 AM[facility] (Rec: 06/22/19 12:38 [facility] [email or web address]) Cardio Equipment Recumbent Elliptical (Biodex) Duration (Minutes) 8 Resistance 2 Seat Position seat 6 Other 160/70 Gym Equipment Shuttle Recovery Unilateral Squats Details Unilateral squats Resistance 37# Shuttle Recovery Platform Stable Reps/Time x 15 each leg Bilateral Squats Resistance 50# Shuttle Recovery Platform Stable Reps/Time 3 x 10 reps Therapeutic Exercises Sitting Exercises 2 Sitting Exercise Name seated knee extension Resistance 1# ankle weights Reps/Minutes 3 x 10 reps Standing Exercises side steps with theraband Standing Exercise Name sidesteps with theraband Reps/Minutes 4 xms the length of the parallel bars hurdles Standing Exercise Name forward step to and step through, side step Reps/Minutes Length of parallel bars x 4 Comments in parallel bars, contact 1 hand standing squats Standing Exercise Name standing squats Comments in parallel bars with chair behind her 2 Standing Exercise Name step up and over Equipment Used 2lb ankle weights, 4in step Reps/Minutes 5 reps both directions Comments f/ side 1 Standing Exercise Name step taps forward Equipment Used 2lb ankle weights, 4in step Reps/Minutes 2 x 10 reps Comments in parallel bars, contact 2> 1 UE support PT-OP-T Assessment and Plan Start: 04/10/19 19:52 Freq: Status: Active Protocol: Document 06/22/19 12:29 AM[facility] (Rec: 06/22/19 12:38 [facility] [email or web address]) Physical Therapy Assessment Assessment Summary Assessment Pt liked the ankle weights added last visit, she is tolerating increased ther ex and resistance without pain. She is hoping to check out the [facility] balance and exercises classes for when she is done with PT. She will see endocrinology on thursdayJun 27 for thyroid work up Physical Therapy Plan Frequency and Duration Frequency of Treatment 2x/Week Duration of Treatment 8 Plan of Care Start Date 05/26/19 Plan of Care End Date 07/21/19 Next Visit Focus/Plan Next Note Type Treatment Note Next Visit Plan Continue working with endurance and strengthening of the LE, gluteal work and balance for improved gait
--- NOTE | 2019-07-01 13:45 | PT.OTN ---
Current Diagnoses Unilateral primary osteoarthritis, left knee (07/01/19) Physical Therapy Treatment Note PT-OP-A Visit Information Start: 04/10/19 19:52 Freq: Status: Active Protocol: Document 07/01/19 13:11 SP (Rec: 07/01/19 13:46 SP [id number]) Out-Patient Physical Therapy Visit Information Visit Information Visit Type Treatment Note Visit Start Time 13:11 Visit Stop Time 13:45 Total Visit Minutes 34 Visit Number 13 Number of [address]IEF DEPUTY COURT CLERK Visits 1 PT-OP-B Current Condition Start: 04/10/19 19:52 Freq: Status: Active Protocol: Document 04/07/19 11:15 [facility] (Rec: 04/10/19 20:33 [facility] [email or web address]) Current Condition History of Current Condition Onset Date August 2018 Current Complaints complaints of left sided knee pain that began following her hip surgery History of Current Condition 83 year old female who 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 She notes she did really well with her hip rehab and is now walking with a walking stick in the left hand. She reports though that she began experiencing knee pain in the left knee with walking after her hip surgery. She reports feeling off kilter and has low energy since her surgery. She is limited at this time to walking only a few blocks due to left knee pain. Other past medical history includes hx of back pain, arthritis, high blood pressure Treatment Goals Patient/Caregiver Goals Ny would like to return to a walking routine without knee pain as at this time she is limited to a few blocks at a time PT-OP-C Subjective Start: 04/10/19 19:52 Freq: Status: Active Protocol: Document 07/01/19 13:11 SP (Rec: 07/01/19 13:46 SP [id number]) OP-PT Subjective Patient Comments Patient Comments Pt reports having trouble with knees and keeping in good alignment and stiffness, not enought energy to do nortic track lately, to fatigued and testing lately isn't giving her anwers at to why. Pt stated taking another med recently that is keeping her BP in lower 120s, improvement. PT-OP-F Manual Assessment Start: 04/10/19 19:52 Freq: Status: Active Protocol: Document 04/07/19 11:15 [facility] (Rec: 04/10/19 20:33 [facility] [email or web address]) Manual Assessments Soft Tissue Assessment Soft Tissue Mobility Assessment left quadratus lumborum tightness, left paraspinal tightness, Joint Mobility Assessment Joint Mobility Assessment full knee joint ROM, equal leg length today, SI instability noted with + ASLR test PT-OP-J Posture/Palpation/Skin Start: 04/10/19 19:52 Freq: Status: Active Protocol: Document 04/07/19 11:15 [facility] (Rec: 04/10/19 20:33 [facility] [email or web address]) Posture Evaluation Comments Posture Comments pt stands with the left knee bent and leaning to the left, she also has a forward shoulder posture with a flexed trunk PT-OP-K Range of Motion Start: 04/10/19 19:52 Freq: Status: Active Protocol: Document 04/07/19 11:15 [facility] (Rec: 04/10/19 20:33 [facility] [email or web address]) Knee Goniometric Range of Motion Knee Right Knee ROM WFL Yes Left Knee ROM WFL Yes PT-OP-M Strength Start: 04/10/19 19:52 Freq: Status: Active Protocol: Document 04/07/19 11:15 [facility] (Rec: 04/10/19 20:33 [facility] [email or web address]) Trunk Strength Trunk Manual Muscle Testing Flexion 3+ Fair+ Core Stabilization poor core stabilization Hip Strength Hip Manual Muscle Testing Right Flexion (L2) 4 Good Extension (S1) 3 Fair Abduction 3 Fair External Rotation 3 Fair Internal Rotation 4- Good- Left Flexion (L2) 4 Good Extension (S1) 4 Good Abduction 3+ Fair+ Adduction 4 Good External Rotation 3+ Fair+ Internal Rotation 4 Good Knee Strength Knee Manual Muscle Testing Left Flexion (S2) 4 Good Extension (L3) 4 Good Right Flexion (S2) 5 Normal Extension (L3) 5 Normal PT-OP-Q Treatments Start: 04/10/19 19:52 Freq: Status: Active Protocol: Document 07/01/19 13:11 SP (Rec: 07/01/19 13:46 SP [id number]) Cardio Equipment Recumbent Elliptical ([email or web address]) Duration (Minutes) 6 Resistance 1 Seat Position 6 Other 162/76 Therapeutic Exercises Sitting Exercises 2 Sitting Exercise Name seated knee extension Resistance 1# ankle weights Reps/Minutes 3 x 10 reps, hold 2 sec each rep end range ext Comments cued slow controlled Standing Exercises side steps with theraband Standing Exercise Name sidesteps with theraband Resistance YTB Equipment Used 20 ft length rail Reps/Minutes 4 xms the length of the parallel bars hurdles Standing Exercise Name forward step to and step through, side step Reps/Minutes Rail 2 laps each Comments in parallel bars, contact 1 hand Gait Training Gait Activity 1 Description f/b/ side stepping Device Used walking cane Comments cuing increased stride, slow pacing, and head up PT-OP-T Assessment and Plan Start: 04/10/19 19:52 Freq: Status: Active Protocol: Document 07/01/19 13:11 SP (Rec: 07/01/19 13:46 SP [id number]) Physical Therapy Assessment Goals Five Impairment unable to perform a single leg stance on the left LE Quality Liaison Goal (LTG) Stefania is able to balance 10 seconds or greater standing on the left LE GOAL NOT YET MET Four Impairment tightness of the left lateral lumbar paraspinals and quadratus lumborum Short Term Goal (STG) pt is given stretching exercises to help her alignement in standing and decrease pressure down to her knee GOOD PROGRESS STG Duration 4 weeks Three Impairment 41/80 LEFS score Quality Liaison Goal (LTG) LEFS score of > 55 Goal not yet met LTG Duration 6 wks Two Impairment decreased core stability with left lateral lean Quality Liaison Goal (LTG) Stefania demonstrates improved core control and she is able to lift into a bridge position with her pelvis equal and stable. Excellent progress LTG Duration 8 weeks One Impairment left sided knee pain limiting walking distance to two blocks at this time Short Term Goal (STG) Stefania is educated on use of her walking stick with gait to help decrease strain on her left knee GOAL MET STG Duration 4 weeks Usp Goal (LTG) Stefania is able to increase her walking duration to 30 minutes of walking with decreased c/o pain in the left knee Currently at 10 minutes LTG Duration 8 weeks Assessment Summary Assessment Pt stated knees noticing tiring during LAQ, Standing ex at rail, tiring needed seated rest between sets withrail 1 UE contact. Reported little dizzy during walking using walking cane cued looking up with little improvement so seated rest helped. Physical Therapy Plan Frequency and Duration Frequency of Treatment 2x/Week Duration of Treatment 8 Plan of Care Start Date 05/26/19 Plan of Care End Date 07/21/19 Therapeutic Interventions Therapeutic Interventions Balance Training,Gait Training ,Home Exercise Program,Manual Therapy,Patient/Caregiver Education,Self-Care/Home Management,Soft Tissue Mobilization,Therapeutic Exercises Next Visit Focus/Plan Next Note Type Treatment Note Next Visit Plan Continue working with endurance and strengthening of the LE, gluteal work and balance for improved gait
--- NOTE | 2019-07-05 15:23 | PT.OTN ---
Current Diagnoses Unilateral primary osteoarthritis, left knee (07/05/19) Physical Therapy Treatment Note PT-OP-A Visit Information Start: 04/10/19 19:52 Freq: Status: Active Protocol: Document 07/05/19 14:28 SP (Rec: 07/05/19 15:47 SP [id number]) Out-Patient Physical Therapy Visit Information Visit Information Visit Type Treatment Note Visit Start Time 14:30 Visit Stop Time 15:23 Total Visit Minutes 53 Visit Number 14 Number of VFX ARTIST Visits 2 PT-OP-B Current Condition Start: 04/10/19 19:52 Freq: Status: Active Protocol: Document 04/07/19 11:15 [facility] (Rec: 04/10/19 20:33 [facility] [email or web address]) Current Condition History of Current Condition Onset Date August 2018 Current Complaints complaints of left sided knee pain that began following her hip surgery History of Current Condition 83 year old female who 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 She notes she did really well with her hip rehab and is now walking with a walking stick in the left hand. She reports though that she began experiencing knee pain in the left knee with walking after her hip surgery. She reports feeling off kilter and has low energy since her surgery. She is limited at this time to walking only a few blocks due to left knee pain. Other past medical history includes hx of back pain, arthritis, high blood pressure Treatment Goals Patient/Caregiver Goals Ny would like to return to a walking routine without knee pain as at this time she is limited to a few blocks at a time PT-OP-C Subjective Start: 04/10/19 19:52 Freq: Status: Active Protocol: Document 07/05/19 14:28 SP (Rec: 07/05/19 15:47 SP [id number]) OP-PT Subjective Patient Comments Patient Comments Pt reported quad feel achy pre PT. Pt stated was able to use her nortictrack since last tx . PT-OP-F Manual Assessment Start: 04/10/19 19:52 Freq: Status: Active Protocol: Document 04/07/19 11:15 [facility] (Rec: 04/10/19 20:33 [facility] [email or web address]) Manual Assessments Soft Tissue Assessment Soft Tissue Mobility Assessment left quadratus lumborum tightness, left paraspinal tightness, Joint Mobility Assessment Joint Mobility Assessment full knee joint ROM, equal leg length today, SI instability noted with + ASLR test PT-OP-J Posture/Palpation/Skin Start: 04/10/19 19:52 Freq: Status: Active Protocol: Document 04/07/19 11:15 [facility] (Rec: 04/10/19 20:33 [facility] [email or web address]) Posture Evaluation Comments Posture Comments pt stands with the left knee bent and leaning to the left, she also has a forward shoulder posture with a flexed trunk PT-OP-K Range of Motion Start: 04/10/19 19:52 Freq: Status: Active Protocol: Document 04/07/19 11:15 [facility] (Rec: 04/10/19 20:33 [facility] [email or web address]) Knee Goniometric Range of Motion Knee Right Knee ROM WFL Yes Left Knee ROM WFL Yes PT-OP-M Strength Start: 04/10/19 19:52 Freq: Status: Active Protocol: Document 04/07/19 11:15 [facility] (Rec: 04/10/19 20:33 [facility] [email or web address]) Trunk Strength Trunk Manual Muscle Testing Flexion 3+ Fair+ Core Stabilization poor core stabilization Hip Strength Hip Manual Muscle Testing Right Flexion (L2) 4 Good Extension (S1) 3 Fair Abduction 3 Fair External Rotation 3 Fair Internal Rotation 4- Good- Left Flexion (L2) 4 Good Extension (S1) 4 Good Abduction 3+ Fair+ Adduction 4 Good External Rotation 3+ Fair+ Internal Rotation 4 Good Knee Strength Knee Manual Muscle Testing Left Flexion (S2) 4 Good Extension (L3) 4 Good Right Flexion (S2) 5 Normal Extension (L3) 5 Normal PT-OP-Q Treatments Start: 04/10/19 19:52 Freq: Status: Active Protocol: Document 07/05/19 14:28 SP (Rec: 07/05/19 15:47 SP [id number]) Cardio Equipment Recumbent Elliptical ([employer]) Duration (Minutes) 6 Resistance 1 Seat Position 6 Other post Therapeutic Exercises Prone Exercises knee flexion Prone Exercise Name quad stretch (HS curl) Resistance AROM and strap (LB started discomfort if held to long) Reps/Minutes hold 10 sec Comments cued slow tolerant range Sitting Exercises 2 Sitting Exercise Name seated knee extension Resistance 1# ankle weights Reps/Minutes 3 x 10 reps, hold 2 sec each rep end range ext Comments cued slow controlled Standing Exercises tandem Standing Exercise Name modified stagger stance Equipment Used chair behind, rail front Reps/Minutes 10 sec single stance Equipment Used contact rail 1 finger Reps/Minutes 10 sec L, 9 sec R standing squats Standing Exercise Name standing squats Comments at rail, chair behind her 1 Standing Exercise Name step taps foward Equipment Used 1lb ankle weights, 4in step Reps/Minutes 2 x 10 reps Comments in parallel bars, contact 2> 1 UE support Other Exercises Step-up/over/retro Other Exercise Name Step-up f/ lateral Side bilateral Resistance 1# leg wt Equipment Used 4 step Reps/Minutes x10 each Comments initially contact rail x3 then able to complete with no support, cue slow p Manual Therapy Treatment Soft Tissue Mobilization right quadriceps Body Location L quad Mobilization Type Cross-Friction,Myofascial Release Intensity/Depth Moderate Body Position Supine PT-OP-T Assessment and Plan Start: 04/10/19 19:52 Freq: Status: Active Protocol: Document 07/05/19 14:28 SP (Rec: 07/05/19 15:47 SP [id number]) Physical Therapy Assessment Goals Five Impairment unable to perform a single leg stance on the left LE [employer] Production Team Member Goal (LTG) Stefania is able to balance 10 seconds or greater standing on the left LE GOAL NOT YET MET Four Impairment tightness of the left lateral lumbar paraspinals and quadratus lumborum Short Term Goal (STG) pt is given stretching exercises to help her alignement in standing and decrease pressure down to her knee GOOD PROGRESS STG Duration 4 weeks Three Impairment 41/80 LEFS score [employer] Production Team Member Goal (LTG) LEFS score of > 55 Goal not yet met LTG Duration 6 wks Two Impairment decreased core stability with left lateral lean Care Home Goal (LTG) Stefania demonstrates improved core control and she is able to lift into a bridge position with her pelvis equal and stable. Excellent progress LTG Duration 8 weeks One Impairment left sided knee pain limiting walking distance to two blocks at this time Short Term Goal (STG) Stefania is educated on use of her walking stick with gait to help decrease strain on her left knee GOAL MET STG Duration 4 weeks Care Home Goal (LTG) Stefania is able to increase her walking duration to 30 minutes of walking with decreased c/o pain in the left knee Currently at 10 minutes LTG Duration 8 weeks Assessment Summary Assessment Tx focused on cardio, strengthening and endurance of LEs and gluteal facilitation. Pt stated quad tiring and mentioned L knee little swelling but was pre PT, responded well my quad feels looser when leaving. Pt concerned only few more appts and feel needs to continue, provided purple 2x/wk for 4 weeks and can cancel if needed but will get her passed noted POC update needed prior to 07/19/19. Physical Therapy Plan Frequency and Duration Frequency of Treatment 2x/Week Duration of Treatment 8 Plan of Care Start Date 05/26/19 Plan of Care End Date 07/21/19 Therapeutic Interventions Therapeutic Interventions Balance Training,Gait Training ,Home Exercise Program,Manual Therapy,Patient/Caregiver Education,Self-Care/Home Management,Soft Tissue Mobilization,Therapeutic Exercises Next Visit Focus/Plan Next Note Type Treatment Note Next Visit Plan Assess response to leg wt LAQ, step taps, up/overs, hurdles f/b/s stepping, and sit to stands last tx. Continue working with endurance and strengthening of the LE, gluteal work and balance for improved gait
--- NOTE | 2019-07-07 17:25 | PT.OTN ---
Current Diagnoses Unilateral primary osteoarthritis, left knee (07/07/19) Physical Therapy Treatment Note PT-OP-A Visit Information Start: 04/10/19 19:52 Freq: Status: Active Protocol: Document 07/07/19 14:36 [facility] (Rec: 07/07/19 15:11 [facility] [id number]) Out-Patient Physical Therapy Visit Information Visit Information Visit Type Treatment Note Visit Start Time 14:30 Visit Stop Time 15:15 Total Visit Minutes 45 Visit Number 15 Number of PUBLIC AFFAIRS SPECIALIST Visits 0 PT-OP-B Current Condition Start: 04/10/19 19:52 Freq: Status: Active Protocol: Document 04/07/19 11:15 [facility] (Rec: 04/10/19 20:33 [facility] [email or web address]) Current Condition History of Current Condition Onset Date August 2018 Current Complaints complaints of left sided knee pain that began following her hip surgery History of Current Condition 83 year old female who 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 She notes she did really well with her hip rehab and is now walking with a walking stick in the left hand. She reports though that she began experiencing knee pain in the left knee with walking after her hip surgery. She reports feeling off kilter and has low energy since her surgery. She is limited at this time to walking only a few blocks due to left knee pain. Other past medical history includes hx of back pain, arthritis, high blood pressure Treatment Goals Patient/Caregiver Goals Ny would like to return to a walking routine without knee pain as at this time she is limited to a few blocks at a time PT-OP-C Subjective Start: 04/10/19 19:52 Freq: Status: Active Protocol: Document 07/07/19 14:36 [facility] (Rec: 07/07/19 15:11 [facility] [id number]) OP-PT Subjective Patient Comments Patient Comments endoscopy was performed last week. Everything was normal. Appointment with the rda is next. She stiffened up with the car ride and her left knee is really tight today PT-OP-F Manual Assessment Start: 04/10/19 19:52 Freq: Status: Active Protocol: Document 04/07/19 11:15 [facility] (Rec: 04/10/19 20:33 [facility] [email or web address]) Manual Assessments Soft Tissue Assessment Soft Tissue Mobility Assessment left quadratus lumborum tightness, left paraspinal tightness, Joint Mobility Assessment Joint Mobility Assessment full knee joint ROM, equal leg length today, SI instability noted with + ASLR test PT-OP-J Posture/Palpation/Skin Start: 04/10/19 19:52 Freq: Status: Active Protocol: Document 04/07/19 11:15 [facility] (Rec: 04/10/19 20:33 [facility] [email or web address]) Posture Evaluation Comments Posture Comments pt stands with the left knee bent and leaning to the left, she also has a forward shoulder posture with a flexed trunk PT-OP-K Range of Motion Start: 04/10/19 19:52 Freq: Status: Active Protocol: Document 04/07/19 11:15 [facility] (Rec: 04/10/19 20:33 [facility] [email or web address]) Knee Goniometric Range of Motion Knee Right Knee ROM WFL Yes Left Knee ROM WFL Yes PT-OP-M Strength Start: 04/10/19 19:52 Freq: Status: Active Protocol: Document 04/07/19 11:15 [facility] (Rec: 04/10/19 20:33 [facility] [email or web address]) Trunk Strength Trunk Manual Muscle Testing Flexion 3+ Fair+ Core Stabilization poor core stabilization Hip Strength Hip Manual Muscle Testing Right Flexion (L2) 4 Good Extension (S1) 3 Fair Abduction 3 Fair External Rotation 3 Fair Internal Rotation 4- Good- Left Flexion (L2) 4 Good Extension (S1) 4 Good Abduction 3+ Fair+ Adduction 4 Good External Rotation 3+ Fair+ Internal Rotation 4 Good Knee Strength Knee Manual Muscle Testing Left Flexion (S2) 4 Good Extension (L3) 4 Good Right Flexion (S2) 5 Normal Extension (L3) 5 Normal PT-OP-Q Treatments Start: 04/10/19 19:52 Freq: Status: Active Protocol: Document 07/07/19 14:36 [facility] (Rec: 07/07/19 15:11 [facility] [id number]) Cardio Equipment Recumbent Elliptical ([employer]) Duration (Minutes) 6 Resistance 1 Seat Position 6 Other post Gym Equipment Shuttle Recovery Unilateral Squats Details Unilateral squats Resistance 37# Shuttle Recovery Platform Stable Reps/Time x 15 each leg Bilateral Squats Resistance 50# Shuttle Recovery Platform Stable Reps/Time 3 x 10 reps Therapeutic Exercises Sitting Exercises 2 Sitting Exercise Name seated knee extension Resistance 1# ankle weights Reps/Minutes 3 x 10 reps, hold 2 sec each rep end range ext Comments cued slow controlled Standing Exercises tandem Standing Exercise Name modified stagger stance Equipment Used chair behind, rail front Reps/Minutes 10 sec single stance Equipment Used contact rail 1 finger Reps/Minutes 10 sec L, 9 sec R side steps with theraband Standing Exercise Name sidesteps with theraband Resistance YTB Equipment Used 20 ft length rail Reps/Minutes 4 xms the length of the parallel bars hurdles Standing Exercise Name forward step to and step through, side step Reps/Minutes Rail 2 laps each Comments in parallel bars, contact 1 hand standing squats Standing Exercise Name standing squats Comments at rail, chair behind her 2 Standing Exercise Name step up and over Equipment Used 2lb ankle weights, 4in step Reps/Minutes 5 reps both directions Comments f/ side 1 Standing Exercise Name step taps foward Equipment Used 1lb ankle weights, 4in step Reps/Minutes 2 x 10 reps Comments in parallel bars, contact 2> 1 UE support heel raises Standing Exercise Name heel raises in parallel bars Reps/Minutes 2x10 Standing ITB stretch Standing Exercise Name ITB stretch /c legs crossed PT-OP-T Assessment and Plan Start: 04/10/19 19:52 Freq: Status: Active Protocol: Document 07/07/19 17:22 [facility] (Rec: 07/07/19 17:25 [facility] [email or web address]) Physical Therapy Assessment Assessment Summary Assessment pt reports her left knee loosened up with treatment today. Continue to work on balance and strengthening and continued endurance Physical Therapy Plan Frequency and Duration Frequency of Treatment 2x/Week Duration of Treatment 8 Plan of Care Start Date 05/26/19 Plan of Care End Date 07/21/19 Therapeutic Interventions Therapeutic Interventions Balance Training,Gait Training ,Home Exercise Program,Manual Therapy,Patient/Caregiver Education,Self-Care/Home Management,Soft Tissue Mobilization,Therapeutic Exercises Next Visit Focus/Plan Next Note Type Treatment Note Next Visit Plan work on upright strengthening and balance, forward and side stepping and continue working on overall strength of the LE
--- NOTE | 2019-07-11 11:55 | PT-OP ANOTE ---
Pt cancelled today's appt, commented concerned with merritt virus.
--- NOTE | 2019-10-06 09:46 | PT.OTRE ---
Current Diagnoses Unilateral primary osteoarthritis, left knee (10/06/19) Muscle weakness (generalized) (10/06/19) Difficulty in walking, not elsewhere classified (10/06/19) Past Medical History (Last Reviewed 06/15/19 @ 15:05 by Azam Pedro MD) Easy bruisability (Acute) GERD (gastroesophageal reflux disease) (Acute) HLD (hyperlipidemia) (Acute) HTN (hypertension) (Acute) Hypothyroidism (Acute) Numbness and tingling in both hands (Acute) Ocular migraine (Acute) Osteoarthritis (Acute) Surgical History (Last Reviewed 06/15/19 @ 15:05 by Azam Pedro MD) History of bladder suspension procedure (Acute) History of carpal tunnel repair Hx of bilateral cataract extraction (Acute) Hx of repair of left rotator cuff (Acute ~2006) Status post appendectomy Status post hysterectomy Status post rotator cuff repair (Deleted) Visit Care Team Role Provider Type Patience Gordillo MD Primary Care Provider Physician Specialty: Family Practice Address: [address] [place] [address], [facility] Email: [email or web address] Diana MD Attending Provider Physician Specialty: Orthopedic Surgery Address: [address] [place] [address], [facility] Email: [email or web address] Physical Therapy Re-Evaluation PT-OP-A Visit Information Start: 04/10/19 19:52 Freq: Status: Active Protocol: Document 10/06/19 09:46 HH (Rec: 10/10/19 15:20 HH [email or web address]) Out-Patient Physical Therapy Visit Information Visit Information Visit Type Re-Evaluation Visit Note last visit 07/06 due clinic closure from COVID-19 Visit Start Time 09:46 Visit Stop Time 10:30 Total Visit Minutes 44 Visit Number 16 Number of ALTERATIONS TAILOR Visits 0 PT-OP-B Current Condition Start: 04/10/19 19:52 Freq: Status: Active Protocol: Document 04/07/19 11:15 AMH (Rec: 04/10/19 20:33 AMH [email or web address]) Current Condition History of Current Condition Onset Date August 2018 Current Complaints complaints of left sided knee pain that began following her hip surgery History of Current Condition 83 year old female who 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 She notes she did really well with her hip rehab and is now walking with a walking stick in the left hand. She reports though that she began experiencing knee pain in the left knee with walking after her hip surgery. She reports feeling off kilter and has low energy since her surgery. She is limited at this time to walking only a few blocks due to left knee pain. Other past medical history includes hx of back pain, arthritis, high blood pressure Treatment Goals Patient/Caregiver Goals Ny would like to return to a walking routine without knee pain as at this time she is limited to a few blocks at a time PT-OP-C Subjective Start: 04/10/19 19:52 Freq: Status: Active Protocol: Document 10/06/19 09:46 HH (Rec: 10/10/19 15:20 HH [email or web address]) OP-PT Subjective Patient Comments Patient Comments Porsche been getting tired easily and havent done any physical activities since the lockdown. I have no energy and i noticed my balance is getting worse too. I do not have any knee pain at this point. OP-PT Pain Assessment Location Left Medial Knee Pain Location Details pain free Intensity 0 Scale Used Numeric (0 - 10) PT-OP-D Balance Start: 10/10/19 14:49 Freq: Status: Active Protocol: Document 10/06/19 09:46 HH (Rec: 10/10/19 15:20 HH [email or web address]) Balance Tests Single Limb Standing Single Limb- Right 9s Single Limb- Left 6s Tandem Tandem Standing R foot in front = 11s Lfoot in front =6s PT-OP-E Functional Tests Start: 10/10/19 14:49 Freq: Status: Active Protocol: Document 10/06/19 09:46 HH (Rec: 10/10/19 15:20 HH [email or web address]) Functional Tests 6 Minute Walk Test Distance 650ft Device Used hiking stick on RUE Comments small steps noted Five Times Sit to Stand Test Score 15s Comments without UE support PT-OP-F Manual Assessment Start: 04/10/19 19:52 Freq: Status: Active Protocol: Document 04/07/19 11:15 AMH (Rec: 04/10/19 20:33 AMH [email or web address]) Manual Assessments Soft Tissue Assessment Soft Tissue Mobility Assessment left quadratus lumborum tightness, left paraspinal tightness, Joint Mobility Assessment Joint Mobility Assessment full knee joint ROM, equal leg length today, SI instability noted with + ASLR test PT-OP-J Posture/Palpation/Skin Start: 04/10/19 19:52 Freq: Status: Active Protocol: Document 04/07/19 11:15 AMH (Rec: 04/10/19 20:33 AMH [email or web address]) Posture Evaluation Comments Posture Comments pt stands with the left knee bent and leaning to the left, she also has a forward shoulder posture with a flexed trunk PT-OP-K Range of Motion Start: 04/10/19 19:52 Freq: Status: Active Protocol: Document 04/07/19 11:15 AMH (Rec: 04/10/19 20:33 AMH [email or web address]) Knee Goniometric Range of Motion Knee Measured in Degrees Right Knee ROM WFL Yes Left Knee ROM WFL Yes PT-OP-M Strength Start: 04/10/19 19:52 Freq: Status: Active Protocol: Document 10/06/19 09:46 HH (Rec: 10/10/19 15:24 HH [email or web address]) Hip Strength Hip Manual Muscle Testing Left Flexion (L2) 4 Good Extension (S1) 4- Good- Abduction 4- Good- Knee Strength Knee Manual Muscle Testing Left Flexion (S2) 4- Good- Extension (L3) 4- Good- PT-OP-Q Treatments Start: 04/10/19 19:52 Freq: Status: Active Protocol: Document 07/07/19 14:36 AMH (Rec: 07/07/19 15:11 AMH [email or web address]) Cardio Equipment Recumbent Elliptical (Biodex) Duration (Minutes) 6 Resistance 1 Seat Position 6 Other post Gym Equipment Shuttle Recovery Unilateral Squats Details Unilateral squats Resistance 37# Shuttle Recovery Platform Stable Reps/Time x 15 each leg Bilateral Squats Resistance 50# Shuttle Recovery Platform Stable Reps/Time 3 x 10 reps Therapeutic Exercises Sitting Exercises 2 Sitting Exercise Name seated knee extension Resistance 1# ankle weights Reps/Minutes 3 x 10 reps, hold 2 sec each rep end range ext Comments cued slow controlled Standing Exercises tandem Standing Exercise Name modified stagger stance Equipment Used chair behind, rail front Reps/Minutes 10 sec single stance Equipment Used contact rail 1 finger Reps/Minutes 10 sec L, 9 sec R side steps with theraband Standing Exercise Name sidesteps with theraband Resistance YTB Equipment Used 20 ft length rail Reps/Minutes 4 xms the length of the parallel bars hurdles Standing Exercise Name forward step to and step through, side step Reps/Minutes Rail 2 laps each Comments in parallel bars, contact 1 hand standing squats Standing Exercise Name standing squats Comments at rail, chair behind her 2 Standing Exercise Name step up and over Equipment Used 2lb ankle weights, 4in step Reps/Minutes 5 reps both directions Comments f/ side 1 Standing Exercise Name step taps foward Equipment Used 1lb ankle weights, 4in step Reps/Minutes 2 x 10 reps Comments in parallel bars, contact 2> 1 UE support heel raises Standing Exercise Name heel raises in parallel bars Reps/Minutes 2x10 Standing ITB stretch Standing Exercise Name ITB stretch /c legs crossed PT-OP-T Assessment and Plan Start: 04/10/19 19:52 Freq: Status: Active Protocol: Document 10/06/19 09:46 (Rec: 10/10/19 15:20 [email or web address]) Physical Therapy Assessment Rehab Potential Rehabilitation Potential Good Evaluation Complexity Number of Personal Factors/Comorbidities 1-2 Number of Body Systems Impaired 1-2 Clinical Presentation at Evaluation Stable Impairments Impairments Activity Tolerance,Functional Activities,Functional Mobility ,Gait,Pain,Posture,Soft Tissue Mobility,Strength Goals LLE strength Impairment weakness with LLE Mcfp Goal (LTG) Pt will improve her L LE single leg stance and tandem by 5 seconds or greater. LTG Duration 8weeks 6MWT Impairment poor activity tolerance Short Term Goal (STG) Pt will be able to reach 800 ft for 6MWT with/ without hiking stick STG Duration 4 weeks Collating Machine Operator Goal (LTG) Pt will be able to reach 1000ft for 6 MWT without hiking stick to improve her community mobility LTG Duration 8 weeks Five Impairment unable to perform a single leg stance on LLE Short Term Goal (STG) 10/09 cont in progress LLE = 6s , R=9s STG Duration 4 weeks Mcfp Goal (LTG) Stefania will be able to balance 10 seconds or greater standing on L LE to improve her balance . LTG Duration 8 weeks Four Mcfp Goal (LTG) Goal met: Pt is not complaining about her low back discomfort Three Impairment 41/80 LEFS in may Mcfp Goal (LTG) will assess next visit. One Impairment L sided knee pain Mcfp Goal (LTG) Goal: 10/09 pt does not have L knee pain at this point Progress Towards Goals Progress Towards Goals Slow Progress due to Medical Issues,Slow Progress - Other Assessment Summary Assessment Pt returned to clinic today d/ t clinic closure from COVID 19 . Pt cont to present ongiong generalized and unexplained weakness that significantly limit her activity tolerance. Pt also reports her balance has been getting poor especially during gait but her SLS/ tandem stance were both within functional limits. This PT spoke to previous leading therapist and she noticed pt's strength and fatigue have not been improved much during her course of PT. Checked EMR regarding pt's oncology consult from 06/15 and stated Evaluation of poor energy and 10 lb weight loss included CT chest abdomen and pelvis on , which revealed gastric wall thickening, suspicious for malignancy. Subsequent PET scan is very nonspecific . This PT will cont monitor pt's symptoms and will cont assess neurological signs for next visit. Pt will benefit from skilled pt to improve her overall balance and generalized muscle weakness. Physical Therapy Plan Frequency and Duration Frequency of Treatment 2x/Week Duration of Treatment 8 Plan of Care Start Date 10/10/19 Plan of Care End Date 12/09/19 Therapeutic Interventions Therapeutic Interventions Balance Training,Gait Training ,Home Exercise Program,Manual Therapy,Patient/Caregiver Education,Self-Care/Home Management,Soft Tissue Mobilization,Therapeutic Exercises Next Visit Focus/Plan Next Note Type Treatment Note Next Visit Plan check with pt's recent weight gain, appetite, blood work, MD visit start with stepper work on upright strengthening and balance, forward and side stepping and continue working on overall strength of the LE
--- NOTE | 2019-10-10 15:25 | PT.OPPOC ---
Physical, Occupational & Speech Therapy At [facility] Current Diagnoses Unilateral primary osteoarthritis, left knee (10/06/19) Muscle weakness (generalized) (10/06/19) Difficulty in walking, not elsewhere classified (10/06/19) Visit Care Team Role Provider Type Patience Gordillo MD Primary Care Provider Physician Specialty: Family Practice Address: [address] [place] [address], [facility] [place], [address] Email: [email or web address] Nahum Diana MD Attending Provider Physician Specialty: Orthopedic Surgery Address: [address] [place] [address], [place], [address] Email: [email or web address] Plan Of Care PT-OP-T Assessment and Plan Start: 04/10/19 19:52 Freq: Status: Active Protocol: Document 10/06/19 09:46 HH (Rec: 10/10/19 15:20 [email or web address]) Physical Therapy Assessment Rehab Potential Rehabilitation Potential Good Evaluation Complexity Number of Personal Factors/Comorbidities 1-2 Number of Body Systems Impaired 1-2 Clinical Presentation at Evaluation Stable Impairments Impairments Activity Tolerance,Functional Activities,Functional Mobility ,Gait,Pain,Posture,Soft Tissue Mobility,Strength Goals LLE strength Impairment weakness with LLE Speech Correction Consultant Goal (LTG) Pt will improve her L LE single leg stance and tandem by 5 seconds or greater. LTG Duration 8weeks 6MWT Impairment poor activity tolerance Short Term Goal (STG) Pt will be able to reach 800 ft for 6MWT with/ without hiking stick STG Duration 4 weeks Custodial Goal (LTG) Pt will be able to reach 1000ft for 6 MWT without hiking stick to improve her community mobility LTG Duration 8 weeks Five Impairment unable to perform a single leg stance on LLE Short Term Goal (STG) 10/09 cont in progress LLE = 6s , R=9s STG Duration 4 weeks Custodial Goal (LTG) Stefania will be able to balance 10 seconds or greater standing on L LE to improve her balance . LTG Duration 8 weeks Four Speech Correction Consultant Goal (LTG) Goal met: Pt is not complaining about her low back discomfort Three Impairment 41/80 LEFS in may Speech Correction Consultant Goal (LTG) will assess next visit. One Impairment L sided knee pain Speech Correction Consultant Goal (LTG) Goal: 10/09 pt does not have L knee pain at this point Progress Towards Goals Progress Towards Goals Slow Progress due to Medical Issues,Slow Progress - Other Assessment Summary Assessment Pt returned to clinic today d/ t clinic closure from COVID 19 . Pt cont to present ongiong generalized and unexplained weakness that significantly limit her activity tolerance. Pt also reports her balance has been getting poor especially during gait but her SLS/ tandem stance were both within functional limits. This PT spoke to previous leading therapist and she noticed pt's strength and fatigue have not been improved much during her course of PT. Checked EMR regarding pt's oncology consult from 06/15 and stated Evaluation of poor energy and 10 lb weight loss included CT chest abdomen and pelvis on , which revealed gastric wall thickening, suspicious for malignancy. Subsequent PET scan is very nonspecific . This PT will cont monitor pt's symptoms and will cont assess neurological signs for next visit. Pt will benefit from skilled pt to improve her overall balance and generalized muscle weakness. Physical Therapy Plan Frequency and Duration Frequency of Treatment 2x/Week Duration of Treatment 8 Plan of Care Start Date 10/10/19 Plan of Care End Date 12/09/19 Therapeutic Interventions Therapeutic Interventions Balance Training,Gait Training ,Home Exercise Program,Manual Therapy,Patient/Caregiver Education,Self-Care/Home Management,Soft Tissue Mobilization,Therapeutic Exercises Next Visit Focus/Plan Next Note Type Treatment Note Next Visit Plan check with pt's recent weight gain, appetite, blood work, MD visit start with stepper work on upright strengthening and balance, forward and side stepping and continue working on overall strength of the LE Plan of Care Dates Plan of Care Start Date 10/10/19 Plan of Care End Date 12/09/19 Electronically Signed by: Alcira Hood, PT 10/10/19 2326 Please Sign and Return: I have reviewed this Plan of Care and certify that the skilled therapy services above are required to meet the patient?s needs. Physician Signature Date Printed Name and Credentials Clinical Instructor Signature Printed Name and Credentials
--- NOTE | 2019-10-11 16:12 | PT.OTN ---
Current Diagnoses Unilateral primary osteoarthritis, left knee (10/11/19) Muscle weakness (generalized) (10/11/19) Difficulty in walking, not elsewhere classified (10/11/19) Physical Therapy Treatment Note PT-OP-A Visit Information Start: 04/10/19 19:52 Freq: Status: Active Protocol: Document 10/11/19 14:45 HH (Rec: 10/11/19 16:11 HH [id number]) Out-Patient Physical Therapy Visit Information Visit Information Visit Type Treatment Note Visit Start Time 14:30 Visit Stop Time 15:15 Total Visit Minutes 45 Visit Number 15 Number of ROLL MILL OPERATOR Visits 0 PT-OP-B Current Condition Start: 04/10/19 19:52 Freq: Status: Active Protocol: Document 04/07/19 11:15 AMH (Rec: 04/10/19 20:33 AMH [email or web address]) Current Condition History of Current Condition Onset Date August 2018 Current Complaints complaints of left sided knee pain that began following her hip surgery History of Current Condition 83 year old female who 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 She notes she did really well with her hip rehab and is now walking with a walking stick in the left hand. She reports though that she began experiencing knee pain in the left knee with walking after her hip surgery. She reports feeling off kilter and has low energy since her surgery. She is limited at this time to walking only a few blocks due to left knee pain. Other past medical history includes hx of back pain, arthritis, high blood pressure Treatment Goals Patient/Caregiver Goals Ny would like to return to a walking routine without knee pain as at this time she is limited to a few blocks at a time PT-OP-C Subjective Start: 04/10/19 19:52 Freq: Status: Active Protocol: Document 10/11/19 14:45 HH (Rec: 10/11/19 16:11 HH [email or web address]) OP-PT Subjective Patient Comments Patient Comments I just feel like i dont have any energy all the time. PT-OP-D Balance Start: 10/10/19 14:49 Freq: Status: Active Protocol: Document 10/06/19 09:46 HH (Rec: 10/10/19 15:20 HH [email or web address]) Balance Tests Single Limb Standing Single Limb- Right 9s Single Limb- Left 6s Tandem Tandem Standing R foot in front = 11s Lfoot in front =6s PT-OP-E Functional Tests Start: 10/10/19 14:49 Freq: Status: Active Protocol: Document 10/06/19 09:46 HH (Rec: 10/10/19 15:20 HH [email or web address]) Functional Tests 6 Minute Walk Test Distance 650ft Device Used hiking stick on RUE Comments small steps noted Five Times Sit to Stand Test Score 15s Comments without UE support PT-OP-F Manual Assessment Start: 04/10/19 19:52 Freq: Status: Active Protocol: Document 04/07/19 11:15 AMH (Rec: 04/10/19 20:33 AMH [email or web address]) Manual Assessments Soft Tissue Assessment Soft Tissue Mobility Assessment left quadratus lumborum tightness, left paraspinal tightness, Joint Mobility Assessment Joint Mobility Assessment full knee joint ROM, equal leg length today, SI instability noted with + ASLR test PT-OP-J Posture/Palpation/Skin Start: 04/10/19 19:52 Freq: Status: Active Protocol: Document 04/07/19 11:15 AMH (Rec: 04/10/19 20:33 AMH [email or web address]) Posture Evaluation Comments Posture Comments pt stands with the left knee bent and leaning to the left, she also has a forward shoulder posture with a flexed trunk PT-OP-K Range of Motion Start: 04/10/19 19:52 Freq: Status: Active Protocol: Document 04/07/19 11:15 AMH (Rec: 04/10/19 20:33 AMH [email or web address]) Knee Goniometric Range of Motion Knee Right Knee ROM WFL Yes Left Knee ROM WFL Yes PT-OP-M Strength Start: 04/10/19 19:52 Freq: Status: Active Protocol: Document 10/06/19 09:46 HH (Rec: 10/10/19 15:24 HH [email or web address]) Hip Strength Hip Manual Muscle Testing Left Flexion (L2) 4 Good Extension (S1) 4- Good- Abduction 4- Good- Knee Strength Knee Manual Muscle Testing Left Flexion (S2) 4- Good- Extension (L3) 4- Good- PT-OP-Q Treatments Start: 04/10/19 19:52 Freq: Status: Active Protocol: Document 10/11/19 14:45 HH (Rec: 10/11/19 16:11 HH [email or web address]) Cardio Equipment Recumbent Stepper (Sci-Fit) Duration (Minutes) 5 Resistance 3 Recumbent Bicycle Duration (Minutes) 5 Resistance 3 Gym Equipment Shuttle Balance red Details ankle strategy Reps/Duration 3 mins each Comments with knee extended and slightly bent x 3 mins each from B UE support to 1 finger touch to no support. Neuro Re-Education Treatment Balance Activities heel toe Surface ground level4 rounds Equipment next to //bar Comments semi tandem walker lack of reciprocal armswings noted PT-OP-T Assessment and Plan Start: 04/10/19 19:52 Freq: Status: Active Protocol: Document 10/11/19 14:45 HH (Rec: 10/11/19 16:11 HH [email or web address]) Physical Therapy Assessment Goals LLE strength Impairment weakness with LLE Wire Machine Cutter Goal (LTG) Pt will improve her L LE single leg stance and tandem by 5 seconds or greater. LTG Duration 8weeks 6MWT Impairment poor activity tolerance Short Term Goal (STG) Pt will be able to reach 800 ft for 6MWT with/ without hiking stick STG Duration 4 weeks Wire Machine Cutter Goal (LTG) Pt will be able to reach 1000ft for 6 MWT without hiking stick to improve her community mobility LTG Duration 8 weeks Five Impairment unable to perform a single leg stance on LLE Short Term Goal (STG) 10/09 cont in progress LLE = 6s , R=9s STG Duration 4 weeks Wire Machine Cutter Goal (LTG) Stefania will be able to balance 10 seconds or greater standing on L LE to improve her balance . LTG Duration 8 weeks Four Alf Goal (LTG) Goal met: Pt is not complaining about her low back discomfort Three Impairment 41/80 LEFS in may Wire Machine Cutter Goal (LTG) will assess next visit. One Impairment L sided knee pain Alf Goal (LTG) Goal: 10/09 pt does not have L knee pain at this point Assessment Summary Assessment Reviewed PMH with pt today who stated her both PET scan/ lab work from early this year was unremarkable for any pathology. Will cont closely monitor pt's activity tolerance. Introduced pt to endurance training today followed by balancing training . She seems to have difficulty with ankle strategy while using balance board. Given pt heel toe walk at home next to support. Physical Therapy Plan Next Visit Focus/Plan Next Note Type Treatment Note Next Visit Plan assess post session tolerance start with stepper work on upright strengthening and balance, forward and side stepping and continue working on overall strength of the LE
--- NOTE | 2019-10-13 16:50 | PT.OTN ---
Current Diagnoses Unilateral primary osteoarthritis, left knee (10/13/19) Muscle weakness (generalized) (10/13/19) Difficulty in walking, not elsewhere classified (10/13/19) Physical Therapy Treatment Note PT-OP-A Visit Information Start: 04/10/19 19:52 Freq: Status: Active Protocol: Document 10/13/19 13:38 LRN (Rec: 10/13/19 14:20 LRN [id number]) Out-Patient Physical Therapy Visit Information Visit Information Visit Type Treatment Note Visit Start Time 13:38 Visit Stop Time 14:16 Total Visit Minutes 38 Visit Number 16 Number of LABORER CHEESEMAKING Visits 0 Precautions Precautions Pre-cautions to anterior SALONI PT-OP-B Current Condition Start: 04/10/19 19:52 Freq: Status: Active Protocol: Document 04/07/19 11:15 AMH (Rec: 04/10/19 20:33 AMH [email or web address]) Current Condition History of Current Condition Onset Date August 2018 Current Complaints complaints of left sided knee pain that began following her hip surgery History of Current Condition 83 year old female who 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 She notes she did really well with her hip rehab and is now walking with a walking stick in the left hand. She reports though that she began experiencing knee pain in the left knee with walking after her hip surgery. She reports feeling off kilter and has low energy since her surgery. She is limited at this time to walking only a few blocks due to left knee pain. Other past medical history includes hx of back pain, arthritis, high blood pressure Treatment Goals Patient/Caregiver Goals Ny would like to return to a walking routine without knee pain as at this time she is limited to a few blocks at a time PT-OP-C Subjective Start: 04/10/19 19:52 Freq: Status: Active Protocol: Document 10/13/19 13:38 LRN (Rec: 10/13/19 14:20 LRN [id number]) OP-PT Subjective Patient Comments Patient Comments Discouraged because she feels little improvement. She states she got a good workout last session, no complaints. PT-OP-D Balance Start: 10/10/19 14:49 Freq: Status: Active Protocol: Document 10/06/19 09:46 HH (Rec: 10/10/19 15:20 HH [email or web address]) Balance Tests Single Limb Standing Single Limb- Right 9s Single Limb- Left 6s Tandem Tandem Standing R foot in front = 11s Lfoot in front =6s PT-OP-E Functional Tests Start: 10/10/19 14:49 Freq: Status: Active Protocol: Document 10/06/19 09:46 HH (Rec: 10/10/19 15:20 HH [email or web address]) Functional Tests 6 Minute Walk Test Distance 650ft Device Used hiking stick on RUE Comments small steps noted Five Times Sit to Stand Test Score 15s Comments without UE support PT-OP-F Manual Assessment Start: 04/10/19 19:52 Freq: Status: Active Protocol: Document 04/07/19 11:15 AMH (Rec: 04/10/19 20:33 AMH [email or web address]) Manual Assessments Soft Tissue Assessment Soft Tissue Mobility Assessment left quadratus lumborum tightness, left paraspinal tightness, Joint Mobility Assessment Joint Mobility Assessment full knee joint ROM, equal leg length today, SI instability noted with + ASLR test PT-OP-J Posture/Palpation/Skin Start: 04/10/19 19:52 Freq: Status: Active Protocol: Document 04/07/19 11:15 AMH (Rec: 04/10/19 20:33 AMH [email or web address]) Posture Evaluation Comments Posture Comments pt stands with the left knee bent and leaning to the left, she also has a forward shoulder posture with a flexed trunk PT-OP-K Range of Motion Start: 04/10/19 19:52 Freq: Status: Active Protocol: Document 04/07/19 11:15 AMH (Rec: 04/10/19 20:33 AMH [email or web address]) Knee Goniometric Range of Motion Knee Right Knee ROM WFL Yes Left Knee ROM WFL Yes PT-OP-M Strength Start: 04/10/19 19:52 Freq: Status: Active Protocol: Document 10/06/19 09:46 HH (Rec: 10/10/19 15:24 HH [email or web address]) Hip Strength Hip Manual Muscle Testing Left Flexion (L2) 4 Good Extension (S1) 4- Good- Abduction 4- Good- Knee Strength Knee Manual Muscle Testing Left Flexion (S2) 4- Good- Extension (L3) 4- Good- PT-OP-Q Treatments Start: 04/10/19 19:52 Freq: Status: Active Protocol: Document 10/13/19 13:38 LRN (Rec: 10/13/19 14:20 LRN [id number]) Cardio Equipment Recumbent Elliptical (Biodex) Duration (Minutes) 10 Resistance 1 Seat Position 5 Other Pt needed continual encouragement to work at somewhat hard level Gym Equipment Shuttle Balance red Details ankle strategy Reps/Duration 3 mins each Comments with knee extended and slightly bent x 3 mins each from B UE support to 1 finger touch to no support. Therapeutic Exercises Standing Exercises Toe raises Standing Exercise Name Ankle DF Side bilateral Equipment Used Wall railing Reps/Minutes 4x 4 Comments Extra time for training of posture and proper movement ( ankle vs body) heel raises Standing Exercise Name ankle PF Side bilateral Equipment Used Wall railing Reps/Minutes 10 x 2 Comments Extra time for training on proper posture and movement at ankles vs body Self-Care/Home Management Treatment Education Patient Education Home Exercise Program Activities Self-Care/Home Management Activities Issued & reviewed HEP: Standing ankle DF/PF with focus on movement at ankles keeping body still and in proper posturing. PT-OP-T Assessment and Plan Start: 04/10/19 19:52 Freq: Status: Active Protocol: Document 10/13/19 13:38 LRN (Rec: 10/13/19 14:20 LRN [id number]) Physical Therapy Assessment Goals LLE strength Impairment weakness with LLE Kosher Dietary Service Supervisor Goal (LTG) Pt will improve her L LE single leg stance and tandem by 5 seconds or greater. LTG Duration 8weeks 6MWT Impairment poor activity tolerance Short Term Goal (STG) Pt will be able to reach 800 ft for 6MWT with/ without hiking stick STG Duration 4 weeks Kosher Dietary Service Supervisor Goal (LTG) Pt will be able to reach 1000ft for 6 MWT without hiking stick to improve her community mobility LTG Duration 8 weeks Five Impairment unable to perform a single leg stance on LLE Short Term Goal (STG) 10/09 cont in progress LLE = 6s , R=9s STG Duration 4 weeks Mcc Goal (LTG) Stefania will be able to balance 10 seconds or greater standing on L LE to improve her balance . LTG Duration 8 weeks Four Kosher Dietary Service Supervisor Goal (LTG) Goal met: Pt is not complaining about her low back discomfort Three Impairment 41/80 LEFS in may Mcc Goal (LTG) will assess next visit. One Impairment L sided knee pain Kosher Dietary Service Supervisor Goal (LTG) Goal: 10/09 pt does not have L knee pain at this point Assessment Summary Assessment Pt fatigued after last session , but happy with session. Pt is not aware of intensity level for endurance ex; therefore she may need to be encouraged to work harder during aerobic conditioning progression. Also recommend progression of her HEP. Ankle DF is weak, plantarflexion is good. She probably also needs home strengthening of ankle IV/EV to improve her ankle strategy with balance. Physical Therapy Plan Frequency and Duration Frequency of Treatment 2x/Week Duration of Treatment 8 Plan of Care Start Date 10/10/19 Plan of Care End Date 12/09/19 Next Visit Focus/Plan Next Note Type Treatment Note Next Visit Plan Start with aerobic conditioning with emphasis on pt working at higher intensity level with rests as needed. Monitor time pt is able to tolerate a higher intensity work out. Might monitor HR/? BP during aerobic exercise. Work on upright strengthening (add ankle IV/EV strengthening to HEP) and balance, forward and side stepping and continue working on overall strength of the LE.
--- NOTE | 2019-10-18 11:18 | PT.OTN ---
Current Diagnoses Unilateral primary osteoarthritis, left knee (10/18/19) Muscle weakness (generalized) (10/18/19) Difficulty in walking, not elsewhere classified (10/18/19) Physical Therapy Treatment Note PT-OP-A Visit Information Start: 04/10/19 19:52 Freq: Status: Active Protocol: Document 10/18/19 10:32 HH (Rec: 10/18/19 11:17 HH [id number]) Out-Patient Physical Therapy Visit Information Visit Information Visit Type Treatment Note Visit Start Time 10:35 Visit Stop Time 11:15 Total Visit Minutes 40 Visit Number 17 Number of SCREEN TENDER Visits 0 PT-OP-B Current Condition Start: 04/10/19 19:52 Freq: Status: Active Protocol: Document 04/07/19 11:15 AMH (Rec: 04/10/19 20:33 AMH [email or web address]) Current Condition History of Current Condition Onset Date August 2018 Current Complaints complaints of left sided knee pain that began following her hip surgery History of Current Condition 83 year old female who 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 She notes she did really well with her hip rehab and is now walking with a walking stick in the left hand. She reports though that she began experiencing knee pain in the left knee with walking after her hip surgery. She reports feeling off kilter and has low energy since her surgery. She is limited at this time to walking only a few blocks due to left knee pain. Other past medical history includes hx of back pain, arthritis, high blood pressure Treatment Goals Patient/Caregiver Goals Ny would like to return to a walking routine without knee pain as at this time she is limited to a few blocks at a time PT-OP-C Subjective Start: 04/10/19 19:52 Freq: Status: Active Protocol: Document 10/18/19 10:32 HH (Rec: 10/18/19 11:17 HH [id number]) OP-PT Subjective Patient Comments Patient Comments My L knee has been bothering me and sleeping on L side is uncomfortable. Porsche not been feeling well for the past couple days and i dont know well. I should go to see my PCP again. Patient Reported Progress Worse PT-OP-D Balance Start: 10/10/19 14:49 Freq: Status: Active Protocol: Document 10/06/19 09:46 HH (Rec: 10/10/19 15:20 HH [email or web address]) Balance Tests Single Limb Standing Single Limb- Right 9s Single Limb- Left 6s Tandem Tandem Standing R foot in front = 11s Lfoot in front =6s PT-OP-E Functional Tests Start: 10/10/19 14:49 Freq: Status: Active Protocol: Document 10/06/19 09:46 HH (Rec: 10/10/19 15:20 HH [email or web address]) Functional Tests 6 Minute Walk Test Distance 650ft Device Used hiking stick on RUE Comments small steps noted Five Times Sit to Stand Test Score 15s Comments without UE support PT-OP-F Manual Assessment Start: 04/10/19 19:52 Freq: Status: Active Protocol: Document 04/07/19 11:15 AMH (Rec: 04/10/19 20:33 AMH [email or web address]) Manual Assessments Soft Tissue Assessment Soft Tissue Mobility Assessment left quadratus lumborum tightness, left paraspinal tightness, Joint Mobility Assessment Joint Mobility Assessment full knee joint ROM, equal leg length today, SI instability noted with + ASLR test PT-OP-J Posture/Palpation/Skin Start: 04/10/19 19:52 Freq: Status: Active Protocol: Document 04/07/19 11:15 AMH (Rec: 04/10/19 20:33 AMH [email or web address]) Posture Evaluation Comments Posture Comments pt stands with the left knee bent and leaning to the left, she also has a forward shoulder posture with a flexed trunk PT-OP-K Range of Motion Start: 04/10/19 19:52 Freq: Status: Active Protocol: Document 04/07/19 11:15 AMH (Rec: 04/10/19 20:33 AMH [email or web address]) Knee Goniometric Range of Motion Knee Right Knee ROM WFL Yes Left Knee ROM WFL Yes PT-OP-M Strength Start: 04/10/19 19:52 Freq: Status: Active Protocol: Document 10/06/19 09:46 HH (Rec: 10/10/19 15:24 HH [email or web address]) Hip Strength Hip Manual Muscle Testing Left Flexion (L2) 4 Good Extension (S1) 4- Good- Abduction 4- Good- Knee Strength Knee Manual Muscle Testing Left Flexion (S2) 4- Good- Extension (L3) 4- Good- PT-OP-Q Treatments Start: 04/10/19 19:52 Freq: Status: Active Protocol: Document 10/18/19 10:32 (Rec: 10/18/19 11:17 [id number]) Cardio Equipment Recumbent Stepper (Sci-Fit) Duration (Minutes) 5 Resistance 3 Gym Equipment Shuttle Balance red Details ankle strategy Reps/Duration 3 mins each Comments with knee extended and slightly bent x 3 mins each from B UE support to 1 finger touch to no support. Therapeutic Exercises Supine Exercises supine SLR Supine Exercise Name assisted with belt Side bilateral Equipment Used belt Reps/Minutes 5 x2 Comments for HEP Bridging Side bilateral Reps/Minutes 8 x2 Comments no discomfort noted Standing Exercises standing ankle board Side bilateral Equipment Used ankle board Reps/Minutes 6 mins Comments with supported, then unsupported, pt reports fatigue Toe raises Standing Exercise Name Ankle DF Side bilateral Equipment Used Wall railing Reps/Minutes 4x 4 Comments Extra time for training of posture and proper movement ( ankle vs body) PT-OP-T Assessment and Plan Start: 04/10/19 19:52 Freq: Status: Active Protocol: Document 10/18/19 10:32 (Rec: 10/18/19 11:17 [id number]) Physical Therapy Assessment Goals LLE strength Impairment weakness with LLE Halfway Goal (LTG) Pt will improve her L LE single leg stance and tandem by 5 seconds or greater. LTG Duration 8weeks 6MWT Impairment poor activity tolerance Short Term Goal (STG) Pt will be able to reach 800 ft for 6MWT with/ without hiking stick STG Duration 4 weeks Halfway Goal (LTG) Pt will be able to reach 1000ft for 6 MWT without hiking stick to improve her community mobility LTG Duration 8 weeks Five Impairment unable to perform a single leg stance on LLE Short Term Goal (STG) 10/09 cont in progress LLE = 6s , R=9s STG Duration 4 weeks Halfway Goal (LTG) Stefania will be able to balance 10 seconds or greater standing on L LE to improve her balance . LTG Duration 8 weeks Four Halfway Goal (LTG) Goal met: Pt is not complaining about her low back discomfort Three Impairment 41/80 LEFS in may Halfway Goal (LTG) will assess next visit. Assessment Summary Assessment Pt came into clinic with report of fatigue since couple days ago and slight knee discomfort. Pt has poor tolerance for this session and needed frequent test. Pt denies pain, SOB, palpitations but just fatigue. Recommended pt to follow up with PCP for consult with her ongiong fatigue condition. Physical Therapy Plan Next Visit Focus/Plan Next Note Type Treatment Note Next Visit Plan Start with aerobic conditioning with emphasis on pt working at higher intensity level with rests as needed. Monitor time pt is able to tolerate a higher intensity work out. Might monitor HR/? BP during aerobic exercise. Work on upright strengthening (add ankle IV/EV strengthening to HEP) and balance, forward and side stepping and continue working on overall strength of the LE.
--- NOTE | 2019-10-20 14:33 | PT.OTN ---
Current Diagnoses Unilateral primary osteoarthritis, left knee (10/20/19) Muscle weakness (generalized) (10/20/19) Difficulty in walking, not elsewhere classified (10/20/19) Physical Therapy Treatment Note PT-OP-A Visit Information Start: 04/10/19 19:52 Freq: Status: Active Protocol: Document 10/20/19 14:09 HH (Rec: 10/20/19 14:33 HH [id number]) Out-Patient Physical Therapy Visit Information Visit Information Visit Type Treatment Note Visit Note Pt mistakenly thought her appt starts at 2pm Visit Start Time 14:09 Visit Stop Time 14:30 Total Visit Minutes 21 Visit Number 18 Number of HOTEL BREAKFAST ATTENDANT Visits 0 PT-OP-B Current Condition Start: 04/10/19 19:52 Freq: Status: Active Protocol: Document 04/07/19 11:15 AMH (Rec: 04/10/19 20:33 AMH [email or web address]) Current Condition History of Current Condition Onset Date August 2018 Current Complaints complaints of left sided knee pain that began following her hip surgery History of Current Condition 83 year old female who 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 She notes she did really well with her hip rehab and is now walking with a walking stick in the left hand. She reports though that she began experiencing knee pain in the left knee with walking after her hip surgery. She reports feeling off kilter and has low energy since her surgery. She is limited at this time to walking only a few blocks due to left knee pain. Other past medical history includes hx of back pain, arthritis, high blood pressure Treatment Goals Patient/Caregiver Goals Ny would like to return to a walking routine without knee pain as at this time she is limited to a few blocks at a time PT-OP-C Subjective Start: 04/10/19 19:52 Freq: Status: Active Protocol: Document 10/20/19 14:09 HH (Rec: 10/20/19 14:33 HH [id number]) OP-PT Subjective Patient Comments Patient Comments Im feeling better the past two days. My L knee feels fine as well. Patient Reported Progress Improving PT-OP-D Balance Start: 10/10/19 14:49 Freq: Status: Active Protocol: Document 10/06/19 09:46 HH (Rec: 10/10/19 15:20 HH [email or web address]) Balance Tests Single Limb Standing Single Limb- Right 9s Single Limb- Left 6s Tandem Tandem Standing R foot in front = 11s Lfoot in front =6s PT-OP-E Functional Tests Start: 10/10/19 14:49 Freq: Status: Active Protocol: Document 10/06/19 09:46 HH (Rec: 10/10/19 15:20 HH [email or web address]) Functional Tests 6 Minute Walk Test Distance 650ft Device Used hiking stick on RUE Comments small steps noted Five Times Sit to Stand Test Score 15s Comments without UE support PT-OP-F Manual Assessment Start: 04/10/19 19:52 Freq: Status: Active Protocol: Document 04/07/19 11:15 AMH (Rec: 04/10/19 20:33 AMH [email or web address]) Manual Assessments Soft Tissue Assessment Soft Tissue Mobility Assessment left quadratus lumborum tightness, left paraspinal tightness, Joint Mobility Assessment Joint Mobility Assessment full knee joint ROM, equal leg length today, SI instability noted with + ASLR test PT-OP-J Posture/Palpation/Skin Start: 04/10/19 19:52 Freq: Status: Active Protocol: Document 04/07/19 11:15 AMH (Rec: 04/10/19 20:33 AMH [email or web address]) Posture Evaluation Comments Posture Comments pt stands with the left knee bent and leaning to the left, she also has a forward shoulder posture with a flexed trunk PT-OP-K Range of Motion Start: 04/10/19 19:52 Freq: Status: Active Protocol: Document 04/07/19 11:15 AMH (Rec: 04/10/19 20:33 AMH [email or web address]) Knee Goniometric Range of Motion Knee Right Knee ROM WFL Yes Left Knee ROM WFL Yes PT-OP-M Strength Start: 04/10/19 19:52 Freq: Status: Active Protocol: Document 10/06/19 09:46 HH (Rec: 10/10/19 15:24 HH [email or web address]) Hip Strength Hip Manual Muscle Testing Left Flexion (L2) 4 Good Extension (S1) 4- Good- Abduction 4- Good- Knee Strength Knee Manual Muscle Testing Left Flexion (S2) 4- Good- Extension (L3) 4- Good- PT-OP-Q Treatments Start: 04/10/19 19:52 Freq: Status: Active Protocol: Document 10/20/19 14:09 HH (Rec: 10/20/19 14:33 [id number]) Cardio Equipment Recumbent Stepper (Sci-Fit) Duration (Minutes) 5 Resistance 3 Other RPM at 25 Gym Equipment Shuttle Balance red Details ankle strategy Reps/Duration 4 mins each Comments with knee extended and slightly bent x 3 mins each from B UE support to 1 finger touch to no support. Therapeutic Exercises Standing Exercises STS Standing Exercise Name semi sit to stand Side bilateral Reps/Minutes 7 x 2 Comments hold on to grab bar single stance Standing Exercise Name marching in place with armswings Side bilateral Reps/Minutes 4 mins Comments PT stands next to pt heel raises Standing Exercise Name ankle PF Side bilateral Equipment Used Wall railing Reps/Minutes 10 x 2 Comments Extra time for training on proper posture and movement at ankles vs body PT-OP-T Assessment and Plan Start: 04/10/19 19:52 Freq: Status: Active Protocol: Document 10/20/19 14:09 (Rec: 10/20/19 14:33 [email or web address]) Physical Therapy Assessment Goals LLE strength Impairment weakness with LLE Aviation Project Manager Goal (LTG) Pt will improve her L LE single leg stance and tandem by 5 seconds or greater. LTG Duration 8weeks 6MWT Impairment poor activity tolerance Short Term Goal (STG) Pt will be able to reach 800 ft for 6MWT with/ without hiking stick STG Duration 4 weeks Aviation Project Manager Goal (LTG) Pt will be able to reach 1000ft for 6 MWT without hiking stick to improve her community mobility LTG Duration 8 weeks Five Impairment unable to perform a single leg stance on LLE Short Term Goal (STG) 10/09 cont in progress LLE = 6s , R=9s STG Duration 4 weeks Aviation Project Manager Goal (LTG) Stefania will be able to balance 10 seconds or greater standing on L LE to improve her balance . LTG Duration 8 weeks Four Aviation Project Manager Goal (LTG) Goal met: Pt is not complaining about her low back discomfort Three Impairment 41/80 LEFS in may Aviation Project Manager Goal (LTG) will assess next visit. One Impairment L sided knee pain Aviation Project Manager Goal (LTG) Goal: 10/09 pt does not have L knee pain at this point Assessment Summary Assessment Pt was late today but she has more energy and less tiring today. Will cont monitor pt's fatigue level. Recommended pt to contact PCP to address her ongoing fatigue Physical Therapy Plan Next Visit Focus/Plan Next Note Type Treatment Note Next Visit Plan Start with aerobic conditioning with emphasis on pt working at higher intensity level with rests as needed. Monitor time pt is able to tolerate a higher intensity work out. Might monitor HR/? BP during aerobic exercise. Work on upright strengthening (add ankle IV/EV strengthening to HEP) and balance, forward and side stepping and continue working on overall strength of the LE.
--- NOTE | 2019-10-27 16:55 | PT.OTN ---
Current Diagnoses Unilateral primary osteoarthritis, left knee (10/27/19) Muscle weakness (generalized) (10/27/19) Difficulty in walking, not elsewhere classified (10/27/19) Physical Therapy Treatment Note PT-OP-A Visit Information Start: 04/10/19 19:52 Freq: Status: Active Protocol: Document 10/27/19 14:22 LRN (Rec: 10/27/19 15:03 LRN [id number]) Out-Patient Physical Therapy Visit Information Visit Information Visit Type Progress Note Visit Start Time 14:22 Visit Stop Time 15:02 Total Visit Minutes 40 Visit Number 19 Evaluation Information Evaluation Date 05/10/19 Precautions Precautions Pre-cautions to anterior SALONI PT-OP-B Current Condition Start: 04/10/19 19:52 Freq: Status: Active Protocol: Document 04/07/19 11:15 AMH (Rec: 04/10/19 20:33 AMH [email or web address]) Current Condition History of Current Condition Onset Date August 2018 Current Complaints complaints of left sided knee pain that began following her hip surgery History of Current Condition 83 year old female who 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 She notes she did really well with her hip rehab and is now walking with a walking stick in the left hand. She reports though that she began experiencing knee pain in the left knee with walking after her hip surgery. She reports feeling off kilter and has low energy since her surgery. She is limited at this time to walking only a few blocks due to left knee pain. Other past medical history includes hx of back pain, arthritis, high blood pressure Treatment Goals Patient/Caregiver Goals Ny would like to return to a walking routine without knee pain as at this time she is limited to a few blocks at a time PT-OP-C Subjective Start: 04/10/19 19:52 Freq: Status: Active Protocol: Document 10/27/19 14:22 LRN (Rec: 10/27/19 15:03 LRN [id number]) OP-PT Subjective Patient Comments Patient Comments States no change, frustrated. States a week ago did her [place] at home 5', but not longer. Overall feels better. Not up to where she was before the surgery. Today L knee is not too bad, like last time sometimes it feels like the knee is going to give out on me PT-OP-D Balance Start: 10/10/19 14:49 Freq: Status: Active Protocol: Document 10/06/19 09:46 HH (Rec: 10/10/19 15:20 HH [email or web address]) Balance Tests Single Limb Standing Single Limb- Right 9s Single Limb- Left 6s Tandem Tandem Standing R foot in front = 11s Lfoot in front =6s PT-OP-E Functional Tests Start: 10/10/19 14:49 Freq: Status: Active Protocol: Document 10/06/19 09:46 HH (Rec: 10/10/19 15:20 HH [email or web address]) Functional Tests 6 Minute Walk Test Distance 650ft Device Used hiking stick on RUE Comments small steps noted Five Times Sit to Stand Test Score 15s Comments without UE support PT-OP-F Manual Assessment Start: 04/10/19 19:52 Freq: Status: Active Protocol: Document 04/07/19 11:15 AMH (Rec: 04/10/19 20:33 AMH [email or web address]) Manual Assessments Soft Tissue Assessment Soft Tissue Mobility Assessment left quadratus lumborum tightness, left paraspinal tightness, Joint Mobility Assessment Joint Mobility Assessment full knee joint ROM, equal leg length today, SI instability noted with + ASLR test PT-OP-J Posture/Palpation/Skin Start: 04/10/19 19:52 Freq: Status: Active Protocol: Document 04/07/19 11:15 AMH (Rec: 04/10/19 20:33 AMH [email or web address]) Posture Evaluation Comments Posture Comments pt stands with the left knee bent and leaning to the left, she also has a forward shoulder posture with a flexed trunk PT-OP-K Range of Motion Start: 04/10/19 19:52 Freq: Status: Active Protocol: Document 04/07/19 11:15 AMH (Rec: 04/10/19 20:33 AMH [email or web address]) Knee Goniometric Range of Motion Knee Right Knee ROM WFL Yes Left Knee ROM WFL Yes PT-OP-M Strength Start: 04/10/19 19:52 Freq: Status: Active Protocol: Document 10/06/19 09:46 HH (Rec: 10/10/19 15:24 HH [email or web address]) Hip Strength Hip Manual Muscle Testing Left Flexion (L2) 4 Good Extension (S1) 4- Good- Abduction 4- Good- Knee Strength Knee Manual Muscle Testing Left Flexion (S2) 4- Good- Extension (L3) 4- Good- PT-OP-Q Treatments Start: 04/10/19 19:52 Freq: Status: Active Protocol: Document 10/27/19 14:22 LRN (Rec: 10/27/19 15:03 LRN [id number]) Cardio Equipment Recumbent Stepper (Sci-Fit) Duration (Minutes) 10 Resistance 3 Seat Position 8 Other rpm 35; per pt last 2 min' at RPE of somewhat hard. Therapeutic Exercises Sitting Exercises Ankle EV Sitting Exercise Name Ankle EV with knees/heels together Side bilateral Reps/Minutes 30x Comments Pt not able to follow 2 or 3 step directions Standing Exercises STS Standing Exercise Name see standing squat ex Toe raises Standing Exercise Name Ankle DF Side bilateral Equipment Used Wall railing Reps/Minutes 10x 3 Comments Much cuing for posture and proper movement (ankle vs body ) single stance Standing Exercise Name marching in place with armswings Side bilateral Reps/Minutes 10' Comments 3 sets of marching with BP taken on last set due to rests x 2 for dizziness standing squats Standing Exercise Name Standing squat Reps/Minutes 10 x 3 heel raises Standing Exercise Name ankle PF Side bilateral Equipment Used Wall railing Reps/Minutes 30x Comments Pt needed cuing for maximal lift Other Exercises BP after Marching Comments 150/84 BP prior to Marching Comments 150/80 PT-OP-T Assessment and Plan Start: 04/10/19 19:52 Freq: Status: Active Protocol: Document 10/27/19 14:22 LRN (Rec: 10/27/19 15:03 LRN [id number]) Physical Therapy Assessment Goals LLE strength Impairment weakness with LLE Tissue Rewinder Goal (LTG) Pt will improve her L LE single leg stance and tandem by 5 seconds or greater. LTG Duration 8weeks 6MWT Impairment poor activity tolerance Short Term Goal (STG) Pt will be able to reach 800 ft for 6MWT with/ without hiking stick STG Duration 4 weeks Senior Care Goal (LTG) Pt will be able to reach 1000ft for 6 MWT without hiking stick to improve her community mobility LTG Duration 8 weeks Five Impairment unable to perform a single leg stance on LLE Short Term Goal (STG) 10/09 cont in progress LLE = 6s , R=9s STG Duration 4 weeks Senior Care Goal (LTG) Stefania will be able to balance 10 seconds or greater standing on L LE to improve her balance . LTG Duration 8 weeks Four Tissue Rewinder Goal (LTG) Goal met: Pt is not complaining about her low back discomfort Three Impairment 41/80 LEFS in may Senior Care Goal (LTG) will assess next visit. One Impairment L sided knee pain Tissue Rewinder Goal (LTG) Goal: 10/09 pt does not have L knee pain at this point Assessment Summary Assessment Pt needed constant awareness training of the level of intensity (somewhat hard) of her aerobic workout on the [employer] to improve endurance. Pt was not able to follow 2 or 3 step commands, but was able to follow 1 step commands when directing exercises. Pt' s complaints of dizziness and low tolerance to exercise during marching did not appear to be cardiovascular related with blood pressure prior to marching 150/80 and after 150/ 84. Further medical assessment for depression and cognition may be needed ( speech therapy?). Physical Therapy Plan Frequency and Duration Frequency of Treatment 2x/Week Duration of Treatment 8 Plan of Care Start Date 10/10/19 Plan of Care End Date 12/09/19 Next Visit Focus/Plan Next Note Type Treatment Note Next Visit Plan Reassess for Progress note. Aerobic conditioning progression with emphasis on pt working at higher intensity level with rests as needed. Monitor time pt is able to tolerate a higher intensity work out. Might monitor HR/? BP during aerobic exercise. Work on upright strengthening (add ankle IV/EV strengthening to HEP), balance training, forward and side stepping and continue working on overall strength of the LEs.
--- NOTE | 2019-11-10 18:33 | PT.OTN ---
Current Diagnoses Unilateral primary osteoarthritis, left knee (11/10/19) Muscle weakness (generalized) (11/10/19) Difficulty in walking, not elsewhere classified (11/10/19) Physical Therapy Treatment Note PT-OP-A Visit Information Start: 04/10/19 19:52 Freq: Status: Active Protocol: Document 11/10/19 13:55 HH (Rec: 11/10/19 14:34 HH [id number]) Out-Patient Physical Therapy Visit Information Visit Information Visit Type Treatment Note Visit Note pt's last visit =10/26. She missed and cancelled 2 appts Visit Start Time 13:47 Visit Stop Time 14:30 Total Visit Minutes 43 Visit Number 20 Number of CASING OPERATOR Visits 0 PT-OP-B Current Condition Start: 04/10/19 19:52 Freq: Status: Active Protocol: Document 04/07/19 11:15 AMH (Rec: 04/10/19 20:33 AMH [email or web address]) Current Condition History of Current Condition Onset Date August 2018 Current Complaints complaints of left sided knee pain that began following her hip surgery History of Current Condition 83 year old female who 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 She notes she did really well with her hip rehab and is now walking with a walking stick in the left hand. She reports though that she began experiencing knee pain in the left knee with walking after her hip surgery. She reports feeling off kilter and has low energy since her surgery. She is limited at this time to walking only a few blocks due to left knee pain. Other past medical history includes hx of back pain, arthritis, high blood pressure Treatment Goals Patient/Caregiver Goals Ny would like to return to a walking routine without knee pain as at this time she is limited to a few blocks at a time PT-OP-C Subjective Start: 04/10/19 19:52 Freq: Status: Active Protocol: Document 11/10/19 13:55 HH (Rec: 11/10/19 14:34 HH [id number]) OP-PT Subjective Patient Comments Patient Comments Im going to see Dr. Diana to evaluate my L knee. I still feel the same. I have been doing my home ex but didnt go for walk Patient Reported Progress Same PT-OP-D Balance Start: 10/10/19 14:49 Freq: Status: Active Protocol: Document 10/06/19 09:46 HH (Rec: 10/10/19 15:20 HH [email or web address]) Balance Tests Single Limb Standing Single Limb- Right 9s Single Limb- Left 6s Tandem Tandem Standing R foot in front = 11s Lfoot in front =6s PT-OP-E Functional Tests Start: 10/10/19 14:49 Freq: Status: Active Protocol: Document 10/06/19 09:46 HH (Rec: 10/10/19 15:20 HH [email or web address]) Functional Tests 6 Minute Walk Test Distance 650ft Device Used hiking stick on RUE Comments small steps noted Five Times Sit to Stand Test Score 15s Comments without UE support PT-OP-F Manual Assessment Start: 04/10/19 19:52 Freq: Status: Active Protocol: Document 04/07/19 11:15 AMH (Rec: 04/10/19 20:33 AMH [email or web address]) Manual Assessments Soft Tissue Assessment Soft Tissue Mobility Assessment left quadratus lumborum tightness, left paraspinal tightness, Joint Mobility Assessment Joint Mobility Assessment full knee joint ROM, equal leg length today, SI instability noted with + ASLR test PT-OP-J Posture/Palpation/Skin Start: 04/10/19 19:52 Freq: Status: Active Protocol: Document 04/07/19 11:15 AMH (Rec: 04/10/19 20:33 AMH [email or web address]) Posture Evaluation Comments Posture Comments pt stands with the left knee bent and leaning to the left, she also has a forward shoulder posture with a flexed trunk PT-OP-K Range of Motion Start: 04/10/19 19:52 Freq: Status: Active Protocol: Document 04/07/19 11:15 AMH (Rec: 04/10/19 20:33 AMH [email or web address]) Knee Goniometric Range of Motion Knee Right Knee ROM WFL Yes Left Knee ROM WFL Yes PT-OP-M Strength Start: 04/10/19 19:52 Freq: Status: Active Protocol: Document 10/06/19 09:46 HH (Rec: 10/10/19 15:24 HH [email or web address]) Hip Strength Hip Manual Muscle Testing Left Flexion (L2) 4 Good Extension (S1) 4- Good- Abduction 4- Good- Knee Strength Knee Manual Muscle Testing Left Flexion (S2) 4- Good- Extension (L3) 4- Good- PT-OP-Q Treatments Start: 04/10/19 19:52 Freq: Status: Active Protocol: Document 11/10/19 13:55 (Rec: 11/10/19 14:34 [id number]) Cardio Equipment Recumbent Stepper (Sci-Fit) Duration (Minutes) 10 Resistance 3 Seat Position 8 Other rpm 35; per pt last 2 min' at RPE of somewhat hard. Therapeutic Exercises Standing Exercises step up Side bilateral Equipment Used 6'step Reps/Minutes 10 each x 2 step tap Side bilateral Resistance 6 inch step Reps/Minutes 20 x 2 STS Standing Exercise Name see standing squat ex standing ankle board Standing Exercise Name no support needed, within // bar Side bilateral Toe raises Standing Exercise Name Ankle DF Side bilateral Equipment Used Wall railing Reps/Minutes 10x 3 Comments Much cuing for posture and proper movement (ankle vs body ) single stance Standing Exercise Name marching in place with armswings Side bilateral Reps/Minutes 15 x 3 Comments on lowe pad then blue pad standing squats Standing Exercise Name Standing squat Reps/Minutes 10 x 3 Gait Training Gait Activity ground level Device Used none Level of Assistance CGA Surface ground level Distance/Duration 5 mins Comments approx 400 ft, cues on armswing Neuro Re-Education Treatment Balance Activities dynamic balance Details ball toss Surface ground level Equipment balloon Reps/Duration 6 mins Comments ball toss with aide. Pt required to take steps to reach for balloon every time. PT-OP-T Assessment and Plan Start: 04/10/19 19:52 Freq: Status: Active Protocol: Document 11/10/19 13:55 (Rec: 11/10/19 14:34 [id number]) Physical Therapy Assessment Goals LLE strength Impairment weakness with LLE Fdc Goal (LTG) Pt will improve her L LE single leg stance and tandem by 5 seconds or greater. LTG Duration 8weeks 6MWT Impairment poor activity tolerance Short Term Goal (STG) Pt will be able to reach 800 ft for 6MWT with/ without hiking stick STG Duration 4 weeks Fdc Goal (LTG) Pt will be able to reach 1000ft for 6 MWT without hiking stick to improve her community mobility LTG Duration 8 weeks Five Impairment unable to perform a single leg stance on LLE Short Term Goal (STG) 10/09 cont in progress LLE = 6s , R=9s STG Duration 4 weeks Medical/Surgery Registered Nurse Goal (LTG) Stefania will be able to balance 10 seconds or greater standing on L LE to improve her balance . LTG Duration 8 weeks Four Fdc Goal (LTG) Goal met: Pt is not complaining about her low back discomfort Three Impairment 41/80 LEFS in may Fdc Goal (LTG) will assess next visit. Assessment Summary Assessment Pt has a very good session today who did not request many rest breaks and able to tolerate a series of therapeutic exercies. Pt is happy with her performance today but not sure if that will be consistent. Her dynamic balance has improved as well and able to play ball toss game today. Will cont to encourage pt to self monitor her ex intensity and frequency . Will reassess her progress next visit Physical Therapy Plan Next Visit Focus/Plan Next Note Type Progress Note Next Visit Plan Reassess for Progress note. Aerobic conditioning progression with emphasis on pt working at higher intensity level with rests as needed. Monitor time pt is able to tolerate a higher intensity work out. Might monitor HR/? BP during aerobic exercise. Work on upright strengthening (add ankle IV/EV strengthening to HEP), balance training, forward and side stepping and continue working on overall strength of the LEs.
--- NOTE | 2019-11-10 18:45 | PT.OPPN ---
Current Diagnoses Unilateral primary osteoarthritis, left knee (11/10/19) Muscle weakness (generalized) (11/10/19) Difficulty in walking, not elsewhere classified (11/10/19) Physical Therapy Progress Note PT-OP-A Visit Information Start: 04/10/19 19:52 Freq: Status: Active Protocol: Document 11/10/19 13:55 HH (Rec: 11/10/19 14:34 HH [id number]) Out-Patient Physical Therapy Visit Information Visit Information Visit Type Treatment Note Visit Note pt's last visit =10/26. 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 She notes she did really well with her hip rehab and is now walking with a walking stick in the left hand. She reports though that she began experiencing knee pain in the left knee with walking after her hip surgery. She reports feeling off kilter and has low energy since her surgery. She is limited at this time to walking only a few blocks due to left knee pain. Other past medical history includes hx of back pain, arthritis, high blood pressure Treatment Goals Patient/Caregiver Goals Ny would like to return to a walking routine without knee pain as at this time she is limited to a few blocks at a time PT-OP-C Subjective Start: 04/10/19 19:52 Freq: Status: Active Protocol: Document 11/10/19 13:55 HH (Rec: 11/10/19 14:34 HH [id number]) OP-PT Subjective Patient Comments Patient Comments Im going to see Dr. Diana to evaluate my L knee. I still feel the same. I have been doing my home ex but didnt go for walk Patient Reported Progress Same PT-OP-D Balance Start: 10/10/19 14:49 Freq: Status: Active Protocol: Document 10/06/19 09:46 HH (Rec: 10/10/19 15:20 HH [email or web address]) Balance Tests Single Limb Standing Single Limb- Right 9s Single Limb- Left 6s Tandem Tandem Standing R foot in front = 11s Lfoot in front =6s PT-OP-E Functional Tests Start: 10/10/19 14:49 Freq: Status: Active Protocol: Document 10/06/19 09:46 HH (Rec: 10/10/19 15:20 HH [email or web address]) Functional Tests 6 Minute Walk Test Distance 650ft Device Used hiking stick on RUE Comments small steps noted Five Times Sit to Stand Test Score 15s Comments without UE support PT-OP-F Manual Assessment Start: 04/10/19 19:52 Freq: Status: Active Protocol: Document 04/07/19 11:15 AMH (Rec: 04/10/19 20:33 AMH [email or web address]) Manual Assessments Soft Tissue Assessment Soft Tissue Mobility Assessment left quadratus lumborum tightness, left paraspinal tightness, Joint Mobility Assessment Joint Mobility Assessment full knee joint ROM, equal leg length today, SI instability noted with + ASLR test PT-OP-J Posture/Palpation/Skin Start: 04/10/19 19:52 Freq: Status: Active Protocol: Document 04/07/19 11:15 AMH (Rec: 04/10/19 20:33 AMH [email or web address]) Posture Evaluation Comments Posture Comments pt stands with the left knee bent and leaning to the left, she also has a forward shoulder posture with a flexed trunk PT-OP-K Range of Motion Start: 04/10/19 19:52 Freq: Status: Active Protocol: Document 04/07/19 11:15 AMH (Rec: 04/10/19 20:33 AMH [email or web address]) Knee Goniometric Range of Motion Knee Measured in Degrees Right Knee ROM WFL Yes Left Knee ROM WFL Yes PT-OP-M Strength Start: 04/10/19 19:52 Freq: Status: Active Protocol: Document 10/06/19 09:46 HH (Rec: 10/10/19 15:24 HH [email or web address]) Hip Strength Hip Manual Muscle Testing Left Flexion (L2) 4 Good Extension (S1) 4- Good- Abduction 4- Good- Knee Strength Knee Manual Muscle Testing Left Flexion (S2) 4- Good- Extension (L3) 4- Good- PT-OP-T Assessment and Plan Start: 04/10/19 19:52 Freq: Status: Active Protocol: Document 11/10/19 13:55 (Rec: 11/10/19 14:34 [id number]) Physical Therapy Assessment Goals LLE strength Impairment weakness with LLE Short Term Goal (STG) Pt is able to perform sit to stand x5 x 3 sets without UE support today. 11/10/19 Intermediate Goal (LTG) Pt will improve her L LE single leg stance and tandem by 5 seconds or greater. LTG Duration 8weeks 6MWT Impairment poor activity tolerance Short Term Goal (STG) Pt amb approx 600ft without hiking stick today Pt will be able to reach 800 ft for 6MWT with/ without hiking stick STG Duration 4 weeks Intermediate Goal (LTG) Pt will be able to reach 1000ft for 6 MWT without hiking stick to improve her community mobility LTG Duration 8 weeks Five Impairment unable to perform a single leg stance on LLE Short Term Goal (STG) 11/09 did not assess LLE = 6s , R=9s STG Duration 4 weeks Show Design Supervisor Goal (LTG) Stefania will be able to balance 10 seconds or greater standing on L LE to improve her balance . LTG Duration 8 weeks Four Intermediate Goal (LTG) Goal met: Pt is not complaining about her low back discomfort Three Impairment 41/80 LEFS in may Intermediate Goal (LTG) will assess next visit. Progress Towards Goals Progress Towards Goals Slow Progress due to Attendance Issues Assessment Summary Assessment Pt has a very good session today who did not request many rest breaks and able to tolerate a series of therapeutic exercies. Pt is happy with her performance today but not sure if that will be consistent. Her dynamic balance has improved as well and able to play ball toss game today. Will cont to encourage pt to self monitor her ex intensity and frequency . Physical Therapy Plan Next Visit Focus/Plan Next Note Type Treatment Note Next Visit Plan Aerobic conditioning progression with emphasis on pt working at higher intensity level with rests as needed. Monitor time pt is able to tolerate a higher intensity work out. Might monitor HR/? BP during aerobic exercise. Work on upright strengthening (add ankle IV/EV strengthening to HEP), balance training, forward and side stepping and continue working on overall strength of the LEs.
[2019-11-15 12:47] VITALS: BP 132/84; BP 135/89; PULSE 74; PULSE 77
--- NOTE | 2019-11-15 13:54 | PT.OTN ---
Current Diagnoses Unilateral primary osteoarthritis, left knee (11/15/19) Muscle weakness (generalized) (11/15/19) Difficulty in walking, not elsewhere classified (11/15/19) Physical Therapy Treatment Note PT-OP-A Visit Information Start: 04/10/19 19:52 Freq: Status: Active Protocol: Document 11/15/19 12:47 LRN (Rec: 11/15/19 13:31 LRN [id number]) Out-Patient Physical Therapy Visit Information Visit Information Visit Type Treatment Note Visit Note 1 after last PN Visit Start Time 12:47 Visit Stop Time 13:20 Total Visit Minutes 33 Visit Number 21 Evaluation Information Evaluation Date 05/10/19 Precautions Precautions Pre-cautions to anterior SALONI PT-OP-B Current Condition Start: 04/10/19 19:52 Freq: Status: Active Protocol: Document 04/07/19 11:15 AMH (Rec: 04/10/19 20:33 AMH [email or web address]) Current Condition History of Current Condition Onset Date August 2018 Current Complaints complaints of left sided knee pain that began following her hip surgery History of Current Condition 83 year old female who 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 She notes she did really well with her hip rehab and is now walking with a walking stick in the left hand. She reports though that she began experiencing knee pain in the left knee with walking after her hip surgery. She reports feeling off kilter and has low energy since her surgery. She is limited at this time to walking only a few blocks due to left knee pain. Other past medical history includes hx of back pain, arthritis, high blood pressure Treatment Goals Patient/Caregiver Goals Ny would like to return to a walking routine without knee pain as at this time she is limited to a few blocks at a time PT-OP-C Subjective Start: 04/10/19 19:52 Freq: Status: Active Protocol: Document 11/15/19 12:47 LRN (Rec: 11/15/19 13:31 LRN [id number]) OP-PT Subjective Patient Comments Patient Comments Saw Dr Diana yesterday and he' d like to wait on an injection to the L knee because she is due for labs with data control assistant. States she is trying to do more at home. She tried heat to knee this morning but can't tell if it helped. Doing ankle exercises. This week having more trouble with balance, hasn't felt confident walking around the house. PT-OP-D Balance Start: 10/10/19 14:49 Freq: Status: Active Protocol: Document 10/06/19 09:46 HH (Rec: 10/10/19 15:20 HH [email or web address]) Balance Tests Single Limb Standing Single Limb- Right 9s Single Limb- Left 6s Tandem Tandem Standing R foot in front = 11s Lfoot in front =6s PT-OP-E Functional Tests Start: 10/10/19 14:49 Freq: Status: Active Protocol: Document 10/06/19 09:46 HH (Rec: 10/10/19 15:20 HH [email or web address]) Functional Tests 6 Minute Walk Test Distance 650ft Device Used hiking stick on RUE Comments small steps noted Five Times Sit to Stand Test Score 15s Comments without UE support PT-OP-F Manual Assessment Start: 04/10/19 19:52 Freq: Status: Active Protocol: Document 04/07/19 11:15 AMH (Rec: 04/10/19 20:33 AMH [email or web address]) Manual Assessments Soft Tissue Assessment Soft Tissue Mobility Assessment left quadratus lumborum tightness, left paraspinal tightness, Joint Mobility Assessment Joint Mobility Assessment full knee joint ROM, equal leg length today, SI instability noted with + ASLR test PT-OP-H Neuro Start: 10/10/19 14:49 Freq: Status: Active Protocol: Document 11/15/19 12:47 LRN (Rec: 11/15/19 13:49 LRN [id number]) Vital Signs Pulse End of PT, after rest, sitting Pulse at Rest (bpm) 74 After ex Pulse at Rest (bpm) 77 Blood Pressure End of PT, after rest, sitting Blood Pressure (90/60-120/80 mmHg) 135/89 H Blood Pressure Source Manual Cuff,Left Upper Extremity After ex, dizzy Blood Pressure (90/60-120/80 mmHg) 132/84 H Blood Pressure Source Manual Cuff,Left Upper Extremity Comments Vital Signs Comments End of PT immediately after sitting. Pt was a little dizzy after standing but refused another BP check by PT Marielle Astudillo. PT-OP-J Posture/Palpation/Skin Start: 04/10/19 19:52 Freq: Status: Active Protocol: Document 04/07/19 11:15 AMH (Rec: 04/10/19 20:33 AMH [email or web address]) Posture Evaluation Comments Posture Comments pt stands with the left knee bent and leaning to the left, she also has a forward shoulder posture with a flexed trunk PT-OP-K Range of Motion Start: 04/10/19 19:52 Freq: Status: Active Protocol: Document 04/07/19 11:15 AMH (Rec: 04/10/19 20:33 AMH [email or web address]) Knee Goniometric Range of Motion Knee Right Knee ROM WFL Yes Left Knee ROM WFL Yes PT-OP-M Strength Start: 04/10/19 19:52 Freq: Status: Active Protocol: Document 10/06/19 09:46 HH (Rec: 10/10/19 15:24 HH [email or web address]) Hip Strength Hip Manual Muscle Testing Left Flexion (L2) 4 Good Extension (S1) 4- Good- Abduction 4- Good- Knee Strength Knee Manual Muscle Testing Left Flexion (S2) 4- Good- Extension (L3) 4- Good- PT-OP-Q Treatments Start: 04/10/19 19:52 Freq: Status: Active Protocol: Document 11/15/19 12:47 LRN (Rec: 11/15/19 13:31 LRN [id number]) Cardio Equipment Recumbent Elliptical (Lust have it!) Duration (Minutes) 10 Resistance 3 Seat Position 7 Other Working RPE of somewhat hard . Therapeutic Exercises Standing Exercises step up Standing Exercise Name Step ups in open without walking stick, then at steps Side bilateral Equipment Used 6 steps, 1 rail Reps/Minutes 10 each x 2 Comments Pt became dizzy after each ex & required a sit rest x 2. PT-OP-T Assessment and Plan Start: 04/10/19 19:52 Freq: Status: Active Protocol: Document 11/15/19 12:47 LRN (Rec: 11/15/19 13:31 LRN [id number]) Physical Therapy Assessment Goals LLE strength Impairment weakness with LLE Short Term Goal (STG) Pt is able to perform sit to stand x5 x 3 sets without UE support today. 11/10/19 Fdc Goal (LTG) Pt will improve her L LE single leg stance and tandem by 5 seconds or greater. LTG Duration 8weeks 6MWT Impairment poor activity tolerance Short Term Goal (STG) Pt amb approx 600ft without hiking stick today Pt will be able to reach 800 ft for 6MWT with/ without hiking stick STG Duration 4 weeks Fdc Goal (LTG) Pt will be able to reach 1000ft for 6 MWT without hiking stick to improve her community mobility LTG Duration 8 weeks Five Impairment unable to perform a single leg stance on LLE Short Term Goal (STG) 11/09 did not assess LLE = 6s , R=9s STG Duration 4 weeks Grades 7 And 8 Visiting Teacher Goal (LTG) Stefania will be able to balance 10 seconds or greater standing on L LE to improve her balance . LTG Duration 8 weeks Four Gr[employer] 7 And 8 Visiting Teacher Goal (LTG) Goal met: Pt is not complaining about her low back discomfort Three Impairment 41/80 LEFS in may Grades 7 And 8 Visiting Teacher Goal (LTG) will assess next visit. Two Impairment decreased core stability with left lateral lean Grades 7 And 8 Visiting Teacher Goal (LTG) Stefania demonstrates improved core control and she is able to lift into a bridge position with her pelvis equal and stable. Excellent progress LTG Duration 8 weeks One Impairment L sided knee pain Fdc Goal (LTG) Goal: 10/09 pt does not have L knee pain at this point Assessment Summary Assessment Poor tolerance to therapy. She required sit rest with water after initial step ups ( in open w/o walking stick), then again after stair step ups. After sitting and vitals pt stood for next ex and immediately requested to lie down with more water. Session shortened due to onset of dizziness and pt report of not feeling good. Vitals were: HR 75, BP 132/84. Pt appeared to be anxious during 2nd therapy ex of step ups in the open without her walking stick. Pt had noted it was not what she normally does. She then tolerated 1 more ex before needing to sit and rest f/b request of reclining back . Session ended with pt reclined to rest until feeling better and drinking a glass of water. Prior to leaving, after reclined rest, immediate on sitting: HR is 74, BP is 135/89. Physical Therapy Plan Frequency and Duration Frequency of Treatment 2x/Week Duration of Treatment 8 Plan of Care Start Date 10/10/19 Plan of Care End Date 12/09/19 Next Visit Focus/Plan Next Note Type Treatment Note Next Visit Plan Vitals to start. Aerobic conditioning progression with emphasis on pt working at higher intensity level with rests as needed. Monitor time pt is able to tolerate a higher intensity work out. Might monitor HR/? BP during aerobic exercise. Work on upright strengthening (add ankle IV/EV strengthening to HEP), balance training, forward and side stepping and continue working on overall strength of the LEs.
--- NOTE | 2019-11-17 14:02 | PT-IP ANOTE ---
Pt canceled her appt for the 5th time d/t not feeling well. Attempted to contact pt but unsuccessful. Reached out to Dr. Diana's care team via email to address pt's ongoing weakness and lack of energy level. Suggested care team to further evaluate pt medically to rule out possible malignancy.
--- NOTE | 2019-11-22 13:46 | PT.OTN ---
Current Diagnoses Unilateral primary osteoarthritis, left knee (11/22/19) Muscle weakness (generalized) (11/22/19) Difficulty in walking, not elsewhere classified (11/22/19) Physical Therapy Treatment Note PT-OP-A Visit Information Start: 04/10/19 19:52 Freq: Status: Active Protocol: Document 11/22/19 13:02 HH (Rec: 11/22/19 13:46 HH [id number]) Out-Patient Physical Therapy Visit Information Visit Information Visit Type Treatment Note Visit Start Time 13:03 Visit Stop Time 13:45 Total Visit Minutes 42 Visit Number 22 Number of TERMITE TREATER HELPER Visits 0 PT-OP-B Current Condition Start: 04/10/19 19:52 Freq: Status: Active Protocol: Document 04/07/19 11:15 AMH (Rec: 04/10/19 20:33 AMH [email or web address]) Current Condition History of Current Condition Onset Date August 2018 Current Complaints complaints of left sided knee pain that began following her hip surgery History of Current Condition 83 year old female who 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 She notes she did really well with her hip rehab and is now walking with a walking stick in the left hand. She reports though that she began experiencing knee pain in the left knee with walking after her hip surgery. She reports feeling off kilter and has low energy since her surgery. She is limited at this time to walking only a few blocks due to left knee pain. Other past medical history includes hx of back pain, arthritis, high blood pressure Treatment Goals Patient/Caregiver Goals Ny would like to return to a walking routine without knee pain as at this time she is limited to a few blocks at a time PT-OP-C Subjective Start: 04/10/19 19:52 Freq: Status: Active Protocol: Document 11/22/19 13:02 HH (Rec: 11/22/19 13:46 HH [id number]) OP-PT Subjective Patient Comments Patient Comments Im feeling better. Porsche been staying at home mostly. The only thing i have to go out is to come for physical therapy. And i do feel my balance is getting better. Patient Reported Progress Improving PT-OP-D Balance Start: 10/10/19 14:49 Freq: Status: Active Protocol: Document 10/06/19 09:46 HH (Rec: 10/10/19 15:20 HH [email or web address]) Balance Tests Single Limb Standing Single Limb- Right 9s Single Limb- Left 6s Tandem Tandem Standing R foot in front = 11s Lfoot in front =6s PT-OP-E Functional Tests Start: 10/10/19 14:49 Freq: Status: Active Protocol: Document 10/06/19 09:46 HH (Rec: 10/10/19 15:20 HH [email or web address]) Functional Tests 6 Minute Walk Test Distance 650ft Device Used hiking stick on RUE Comments small steps noted Five Times Sit to Stand Test Score 15s Comments without UE support PT-OP-F Manual Assessment Start: 04/10/19 19:52 Freq: Status: Active Protocol: Document 04/07/19 11:15 AMH (Rec: 04/10/19 20:33 AMH [email or web address]) Manual Assessments Soft Tissue Assessment Soft Tissue Mobility Assessment left quadratus lumborum tightness, left paraspinal tightness, Joint Mobility Assessment Joint Mobility Assessment full knee joint ROM, equal leg length today, SI instability noted with + ASLR test PT-OP-H Neuro Start: 10/10/19 14:49 Freq: Status: Active Protocol: Document 11/15/19 12:47 LRN (Rec: 11/15/19 13:49 LRN [id number]) Vital Signs Pulse End of PT, after rest, sitting Pulse at Rest (bpm) 74 After ex Pulse at Rest (bpm) 77 Blood Pressure End of PT, after rest, sitting Blood Pressure (90/60-120/80 mmHg) 135/89 H Blood Pressure Source Manual Cuff,Left Upper Extremity After ex, dizzy Blood Pressure (90/60-120/80 mmHg) 132/84 H Blood Pressure Source Manual Cuff,Left Upper Extremity Comments Vital Signs Comments End of PT immediately after sitting. Pt was a little dizzy after standing but refused another BP check by PT Marielle Astudillo. PT-OP-J Posture/Palpation/Skin Start: 04/10/19 19:52 Freq: Status: Active Protocol: Document 04/07/19 11:15 AMH (Rec: 04/10/19 20:33 AMH [email or web address]) Posture Evaluation Comments Posture Comments pt stands with the left knee bent and leaning to the left, she also has a forward shoulder posture with a flexed trunk PT-OP-K Range of Motion Start: 04/10/19 19:52 Freq: Status: Active Protocol: Document 04/07/19 11:15 AMH (Rec: 04/10/19 20:33 AMH [email or web address]) Knee Goniometric Range of Motion Knee Right Knee ROM WFL Yes Left Knee ROM WFL Yes PT-OP-M Strength Start: 04/10/19 19:52 Freq: Status: Active Protocol: Document 10/06/19 09:46 HH (Rec: 10/10/19 15:24 HH [email or web address]) Hip Strength Hip Manual Muscle Testing Left Flexion (L2) 4 Good Extension (S1) 4- Good- Abduction 4- Good- Knee Strength Knee Manual Muscle Testing Left Flexion (S2) 4- Good- Extension (L3) 4- Good- PT-OP-Q Treatments Start: 04/10/19 19:52 Freq: Status: Active Protocol: Document 11/22/19 13:02 HH (Rec: 11/22/19 13:46 [id number]) Cardio Equipment Recumbent Stepper (Sci-Fit) Duration (Minutes) 8 Resistance 3 Seat Position 8 Other rpm 35; per pt last 2 min' at RPE of somewhat hard. Gym Equipment Shuttle Balance red Details unsupported with CGA Reps/Duration 2 mins x 2 sets Comments with PT perturbation for 2nd set. Therapeutic Exercises Standing Exercises step up Standing Exercise Name Step ups in open without walking stick, then at steps Side bilateral Equipment Used 6 steps, 1 rail Reps/Minutes 10 each x 2 Comments Pt became dizzy after each ex & required a sit rest x 2. step tap Side bilateral Resistance 6 inch step Reps/Minutes 20 x 2 standing ankle board Standing Exercise Name no support needed, within // bar Side bilateral Gait Training Gait Activity ground level Device Used none Level of Assistance CGA/ SBA Surface ground level Distance/Duration 7 mins Comments approx 500 ft, out at parking lot, cues on armswing PT-OP-T Assessment and Plan Start: 04/10/19 19:52 Freq: Status: Active Protocol: Document 11/22/19 13:02 HH (Rec: 11/22/19 13:46 [id number]) Physical Therapy Assessment Goals LLE strength Impairment weakness with LLE Short Term Goal (STG) Pt is able to perform sit to stand x5 x 3 sets without UE support today. 11/10/19 Literature Professor Goal (LTG) Pt will improve her L LE single leg stance and tandem by 5 seconds or greater. LTG Duration 8weeks 6MWT Impairment poor activity tolerance Short Term Goal (STG) Pt amb approx 600ft without hiking stick today Pt will be able to reach 800 ft for 6MWT with/ without hiking stick STG Duration 4 weeks Literature Professor Goal (LTG) Pt will be able to reach 1000ft for 6 MWT without hiking stick to improve her community mobility LTG Duration 8 weeks Five Impairment unable to perform a single leg stance on LLE Short Term Goal (STG) 11/09 did not assess LLE = 6s , R=9s STG Duration 4 weeks Literature Professor Goal (LTG) Stefania will be able to balance 10 seconds or greater standing on L LE to improve her balance . LTG Duration 8 weeks Four Senior Living Goal (LTG) Goal met: Pt is not complaining about her low back discomfort Three Impairment 41/80 LEFS in may Senior Living Goal (LTG) will assess next visit. Two Impairment decreased core stability with left lateral lean Literature Professor Goal (LTG) Stefania demonstrates improved core control and she is able to lift into a bridge position with her pelvis equal and stable. Excellent progress LTG Duration 8 weeks One Impairment L sided knee pain Literature Professor Goal (LTG) Goal: 10/09 pt does not have L knee pain at this point Assessment Summary Assessment Pt marie session very well with improved balance noted. No dizziness and discomfort. Pt does need lots of reassurance for her activity tolerance and balance. Reeducated pt to be compliant with her appointments in order to progress continuously. Physical Therapy Plan Next Visit Focus/Plan Next Note Type Treatment Note Next Visit Plan Vitals to start. Aerobic conditioning progression with emphasis on pt working at higher intensity level with rests as needed. Monitor time pt is able to tolerate a higher intensity work out. Might monitor HR/? BP during aerobic exercise. Work on upright strengthening (add ankle IV/EV strengthening to HEP), balance training, forward and side stepping and continue working on overall strength of the LEs.
--- NOTE | 2019-11-29 17:29 | PT.OTN ---
Current Diagnoses Unilateral primary osteoarthritis, left knee (11/29/19) Muscle weakness (generalized) (11/29/19) Difficulty in walking, not elsewhere classified (11/29/19) Physical Therapy Treatment Note PT-OP-A Visit Information Start: 04/10/19 19:52 Freq: Status: Active Protocol: Document 11/29/19 14:43 AM[facility] (Rec: 11/29/19 15:14 AMH [id number]) Out-Patient Physical Therapy Visit Information Visit Information Visit Type Treatment Note Visit Start Time 14:30 Visit Stop Time 15:15 Total Visit Minutes 45 Visit Number 24 Number of COPY CHIEF Visits 0 PT-OP-B Current Condition Start: 04/10/19 19:52 Freq: Status: Active Protocol: Document 04/07/19 11:15 AMH (Rec: 04/10/19 20:33 [facility] [email or web address]) Current Condition History of Current Condition Onset Date August 2018 Current Complaints complaints of left sided knee pain that began following her hip surgery History of Current Condition 83 year old female who 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 She notes she did really well with her hip rehab and is now walking with a walking stick in the left hand. She reports though that she began experiencing knee pain in the left knee with walking after her hip surgery. She reports feeling off kilter and has low energy since her surgery. She is limited at this time to walking only a few blocks due to left knee pain. Other past medical history includes hx of back pain, arthritis, high blood pressure Treatment Goals Patient/Caregiver Goals Ny would like to return to a walking routine without knee pain as at this time she is limited to a few blocks at a time PT-OP-C Subjective Start: 04/10/19 19:52 Freq: Status: Active Protocol: Document 11/29/19 14:43 AMH (Rec: 11/29/19 15:14 AMH [id number]) OP-PT Subjective Patient Comments Patient Comments Everything feels like a big effort. Sure reports she is doing her own housework and has a small garden but is often fatigued. The Dizzyness comes and goes. She notes her balance is affected first thing in the am. Patient Reported Progress Improving PT-OP-D Balance Start: 10/10/19 14:49 Freq: Status: Active Protocol: Document 10/06/19 09:46 HH (Rec: 10/10/19 15:20 HH [email or web address]) Balance Tests Single Limb Standing Single Limb- Right 9s Single Limb- Left 6s Tandem Tandem Standing R foot in front = 11s Lfoot in front =6s PT-OP-E Functional Tests Start: 10/10/19 14:49 Freq: Status: Active Protocol: Document 10/06/19 09:46 HH (Rec: 10/10/19 15:20 HH [email or web address]) Functional Tests 6 Minute Walk Test Distance 650ft Device Used hiking stick on RUE Comments small steps noted Five Times Sit to Stand Test Score 15s Comments without UE support PT-OP-F Manual Assessment Start: 04/10/19 19:52 Freq: Status: Active Protocol: Document 04/07/19 11:15 AMH (Rec: 04/10/19 20:33 AMH [email or web address]) Manual Assessments Soft Tissue Assessment Soft Tissue Mobility Assessment left quadratus lumborum tightness, left paraspinal tightness, Joint Mobility Assessment Joint Mobility Assessment full knee joint ROM, equal leg length today, SI instability noted with + ASLR test PT-OP-H Neuro Start: 10/10/19 14:49 Freq: Status: Active Protocol: Document 11/15/19 12:47 LRN (Rec: 11/15/19 13:49 LRN [id number]) Vital Signs Pulse End of PT, after rest, sitting Pulse at Rest (bpm) 74 After ex Pulse at Rest (bpm) 77 Blood Pressure End of PT, after rest, sitting Blood Pressure (90/60-120/80 mmHg) 135/89 H Blood Pressure Source Manual Cuff,Left Upper Extremity After ex, dizzy Blood Pressure (90/60-120/80 mmHg) 132/84 H Blood Pressure Source Manual Cuff,Left Upper Extremity Comments Vital Signs Comments End of PT immediately after sitting. Pt was a little dizzy after standing but refused another BP check by PT Marielle Astudillo. PT-OP-J Posture/Palpation/Skin Start: 04/10/19 19:52 Freq: Status: Active Protocol: Document 04/07/19 11:15 AMH (Rec: 04/10/19 20:33 AMH [email or web address]) Posture Evaluation Comments Posture Comments pt stands with the left knee bent and leaning to the left, she also has a forward shoulder posture with a flexed trunk PT-OP-K Range of Motion Start: 04/10/19 19:52 Freq: Status: Active Protocol: Document 04/07/19 11:15 AMH (Rec: 04/10/19 20:33 AMH [email or web address]) Knee Goniometric Range of Motion Knee Right Knee ROM WFL Yes Left Knee ROM WFL Yes PT-OP-M Strength Start: 04/10/19 19:52 Freq: Status: Active Protocol: Document 10/06/19 09:46 HH (Rec: 10/10/19 15:24 HH [email or web address]) Hip Strength Hip Manual Muscle Testing Left Flexion (L2) 4 Good Extension (S1) 4- Good- Abduction 4- Good- Knee Strength Knee Manual Muscle Testing Left Flexion (S2) 4- Good- Extension (L3) 4- Good- PT-OP-Q Treatments Start: 04/10/19 19:52 Freq: Status: Active Protocol: Document 11/29/19 14:43 AMH (Rec: 11/29/19 15:14 AMH [id number]) Gym Equipment Shuttle Recovery Unilateral Squats Details Unilateral squats Resistance 37# Shuttle Recovery Platform Stable Reps/Time x 15 each leg Bilateral Squats Resistance #50 Shuttle Recovery Platform Stable Reps/Time 8 x2 Therapeutic Exercises Standing Exercises step up Standing Exercise Name Step ups in open without walking stick, then at steps Side bilateral Equipment Used 6 steps, 1 rail Reps/Minutes 10 each x 2 Comments Pt became dizzy after each ex & required a sit rest x 2. step tap Side bilateral Resistance 6 inch step Reps/Minutes 20 x 2 STS Standing Exercise Name see standing squat ex standing ankle board Standing Exercise Name no support needed, within // bar Side bilateral Toe raises Standing Exercise Name Ankle DF Side bilateral Equipment Used Wall railing Reps/Minutes 10x 3 Comments Much cuing for posture and proper movement (ankle vs body ) tandem Standing Exercise Name modified stagger stance Equipment Used chair behind, rail front Reps/Minutes 10 sec single stance Standing Exercise Name marching in place with armswings Side bilateral Reps/Minutes 15 x 3 Comments on lowe pad then blue pad side steps with theraband Standing Exercise Name sidesteps with theraband Resistance YTB Equipment Used 20 ft length rail Reps/Minutes 4 xms the length of the parallel bars hurdles Standing Exercise Name without support Side bilateral Equipment Used hurdles Reps/Minutes 10 x4 Comments cues on slowing down. standing squats Standing Exercise Name Standing squat Reps/Minutes 10 x 3 2 Standing Exercise Name step up and over Equipment Used 2lb ankle weights, 4in step Reps/Minutes 5 reps both directions Comments f/ side 1 Standing Exercise Name step taps foward Equipment Used 1lb ankle weights, 4in step Reps/Minutes 2 x 10 reps Comments in parallel bars, contact 2> 1 UE support heel raises Standing Exercise Name ankle PF Side bilateral Equipment Used Wall railing Reps/Minutes 30x Comments Pt needed cuing for maximal lift hip extension Side bilateral Equipment Used HH on raised table Reps/Minutes 15x Comments cued hip ER Lunge Standing Exercise Name BOSU Lunge Standing ITB stretch Standing Exercise Name ITB stretch /c legs crossed PT-OP-T Assessment and Plan Start: 04/10/19 19:52 Freq: Status: Active Protocol: Document 11/29/19 17:27 AMH (Rec: 11/29/19 17:29 AMH [email or web address]) Physical Therapy Assessment Assessment Summary Assessment Pt tolerating sessions well, needing rest breaks. She also had some complaints of right knee pain today with sit-stand exercises. She has felt off balance more so in the morning after waking, dizzyness is intermittent Physical Therapy Plan Frequency and Duration Frequency of Treatment 2x/Week Duration of Treatment 8 Plan of Care Start Date 10/10/19 Plan of Care End Date 12/09/19 Therapeutic Interventions Therapeutic Interventions Balance Training,Gait Training ,Home Exercise Program,Manual Therapy,Patient/Caregiver Education,Self-Care/Home Management,Soft Tissue Mobilization,Therapeutic Exercises Next Visit Focus/Plan Next Note Type Treatment Note Next Visit Plan Vitals to start. Aerobic conditioning progression with emphasis on pt working at higher intensity level with rests as needed. Monitor time pt is able to tolerate a higher intensity work out. Might monitor HR/? BP during aerobic exercise. Work on upright strengthening (add ankle IV/EV strengthening to HEP), balance training, forward and side stepping and continue working on overall strength of the LEs.
--- NOTE | 2019-12-02 14:35 | PT.OTN ---
Current Diagnoses Unilateral primary osteoarthritis, left knee (12/02/19) Muscle weakness (generalized) (12/02/19) Difficulty in walking, not elsewhere classified (12/02/19) Physical Therapy Treatment Note PT-OP-A Visit Information Start: 04/10/19 19:52 Freq: Status: Active Protocol: Document 12/02/19 13:50 SP (Rec: 12/02/19 15:38 SP [id number]) Out-Patient Physical Therapy Visit Information Visit Information Visit Type Treatment Note Visit Start Time 13:50 Visit Stop Time 14:35 Total Visit Minutes 45 Visit Number 25 Number of [employer]ICE CAPTAIN Visits 1 PT-OP-B Current Condition Start: 04/10/19 19:52 Freq: Status: Active Protocol: Document 04/07/19 11:15 AMH (Rec: 04/10/19 20:33 AMH [email or web address]) Current Condition History of Current Condition Onset Date August 2018 Current Complaints complaints of left sided knee pain that began following her hip surgery History of Current Condition 83 year old female who 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 She notes she did really well with her hip rehab and is now walking with a walking stick in the left hand. She reports though that she began experiencing knee pain in the left knee with walking after her hip surgery. She reports feeling off kilter and has low energy since her surgery. She is limited at this time to walking only a few blocks due to left knee pain. Other past medical history includes hx of back pain, arthritis, high blood pressure Treatment Goals Patient/Caregiver Goals Ny would like to return to a walking routine without knee pain as at this time she is limited to a few blocks at a time PT-OP-C Subjective Start: 04/10/19 19:52 Freq: Status: Active Protocol: Document 12/02/19 13:50 SP (Rec: 12/02/19 15:38 SP [id number]) OP-PT Subjective Patient Comments Patient Comments I feel more shaky walking today, not great energy level today. PT-OP-D Balance Start: 10/10/19 14:49 Freq: Status: Active Protocol: Document 10/06/19 09:46 HH (Rec: 10/10/19 15:20 HH [email or web address]) Balance Tests Single Limb Standing Single Limb- Right 9s Single Limb- Left 6s Tandem Tandem Standing R foot in front = 11s Lfoot in front =6s PT-OP-E Functional Tests Start: 10/10/19 14:49 Freq: Status: Active Protocol: Document 10/06/19 09:46 HH (Rec: 10/10/19 15:20 HH [email or web address]) Functional Tests 6 Minute Walk Test Distance 650ft Device Used hiking stick on RUE Comments small steps noted Five Times Sit to Stand Test Score 15s Comments without UE support PT-OP-F Manual Assessment Start: 04/10/19 19:52 Freq: Status: Active Protocol: Document 04/07/19 11:15 AMH (Rec: 04/10/19 20:33 AMH [email or web address]) Manual Assessments Soft Tissue Assessment Soft Tissue Mobility Assessment left quadratus lumborum tightness, left paraspinal tightness, Joint Mobility Assessment Joint Mobility Assessment full knee joint ROM, equal leg length today, SI instability noted with + ASLR test PT-OP-H Neuro Start: 10/10/19 14:49 Freq: Status: Active Protocol: Document 11/15/19 12:47 LRN (Rec: 11/15/19 13:49 LRN [id number]) Vital Signs Pulse End of PT, after rest, sitting Pulse at Rest (bpm) 74 After ex Pulse at Rest (bpm) 77 Blood Pressure End of PT, after rest, sitting Blood Pressure (90/60-120/80 mmHg) 135/89 H Blood Pressure Source Manual Cuff,Left Upper Extremity After ex, dizzy Blood Pressure (90/60-120/80 mmHg) 132/84 H Blood Pressure Source Manual Cuff,Left Upper Extremity Comments Vital Signs Comments End of PT immediately after sitting. Pt was a little dizzy after standing but refused another BP check by PT Marielle Astudillo. PT-OP-J Posture/Palpation/Skin Start: 04/10/19 19:52 Freq: Status: Active Protocol: Document 04/07/19 11:15 AMH (Rec: 04/10/19 20:33 AMH [email or web address]) Posture Evaluation Comments Posture Comments pt stands with the left knee bent and leaning to the left, she also has a forward shoulder posture with a flexed trunk PT-OP-K Range of Motion Start: 04/10/19 19:52 Freq: Status: Active Protocol: Document 04/07/19 11:15 AMH (Rec: 04/10/19 20:33 AMH [email or web address]) Knee Goniometric Range of Motion Knee Right Knee ROM WFL Yes Left Knee ROM WFL Yes PT-OP-M Strength Start: 04/10/19 19:52 Freq: Status: Active Protocol: Document 10/06/19 09:46 HH (Rec: 10/10/19 15:24 HH [email or web address]) Hip Strength Hip Manual Muscle Testing Left Flexion (L2) 4 Good Extension (S1) 4- Good- Abduction 4- Good- Knee Strength Knee Manual Muscle Testing Left Flexion (S2) 4- Good- Extension (L3) 4- Good- PT-OP-Q Treatments Start: 04/10/19 19:52 Freq: Status: Active Protocol: Document 12/02/19 13:50 SP (Rec: 12/02/19 15:38 SP [id number]) Cardio Equipment Recumbent Elliptical ([employer]) Duration (Minutes) 6 Resistance 5 Seat Position 2 Other BP pre 142/80 HR 74bpm, post 140/80 HR 76bpm Therapeutic Exercises Standing Exercises step up Standing Exercise Name Step ups in open with L handrail Side bilateral Resistance 2# Equipment Used 6 step Reps/Minutes alternating 10x each leg Comments required brief stand rest between each LE step tap Standing Exercise Name Step taps in //bars without walking stick, forward and lateral Side bilateral Resistance 6 inch step Equipment Used walk stick or rail hover hand over Reps/Minutes 10x each side forward, 10x each side lateral Toe raises Standing Exercise Name Ankle DF Side bilateral Equipment Used Wall railing Reps/Minutes 10x 3 Comments Much cuing for posture and proper movement (ankle vs body ) side steps with theraband Standing Exercise Name sidesteps with and w/o TB, walking stick in leading hand/ lagging hand rail Side bilateral Resistance YTB Equipment Used 15 ft length rail Reps/Minutes 4xms length of // bars each Comments with TB pt c/o dizziness, // bars two laps ok cued feet parallel heel raises Standing Exercise Name ankle PF Side bilateral Equipment Used Wall railing Reps/Minutes 30x Comments Pt needed cuing for maximal lift Neuro Re-Education Treatment Balance Activities dynamic balance Details f/b COG over HERNAN then added with head turns Equipment rocker board Comments Pt c/o dizziness with head turns so needed to sit for recovery. BP 142/72, HR 76 PT-OP-T Assessment and Plan Start: 04/10/19 19:52 Freq: Status: Active Protocol: Document 12/02/19 13:50 SP (Rec: 12/02/19 15:38 SP [id number]) Physical Therapy Assessment Goals LLE strength Impairment weakness with LLE Short Term Goal (STG) Pt is able to perform sit to stand x5 x 3 sets without UE support today. 11/10/19 [employer] Cellar Worker Goal (LTG) Pt will improve her L LE single leg stance and tandem by 5 seconds or greater. LTG Duration 8weeks 6MWT Impairment poor activity tolerance Short Term Goal (STG) Pt amb approx 600ft without hiking stick today Pt will be able to reach 800 ft for 6MWT with/ without hiking stick STG Duration 4 weeks [employer] C[employer] Worker Goal (LTG) Pt will be able to reach 1000ft for 6 MWT without hiking stick to improve her community mobility LTG Duration 8 weeks Five Impairment unable to perform a single leg stance on LLE Short Term Goal (STG) 11/09 did not assess LLE = 6s , R=9s STG Duration 4 weeks [employer] Cellar Worker Goal (LTG) Stefania will be able to balance 10 seconds or greater standing on L LE to improve her balance . LTG Duration 8 weeks Four [facility] Goal (LTG) Goal met: Pt is not complaining about her low back discomfort Three Impairment 41/80 LEFS in may Brewery Cellar Worker Goal (LTG) will assess next visit. Two Impairment decreased core stability with left lateral lean Brew[employer] Cellar Worker Goal (LTG) Stefania demonstrates improved core control and she is able to lift into a bridge position with her pelvis equal and stable. Excellent progress LTG Duration 8 weeks One Impairment L sided knee pain Brewery Cellar Worker Goal (LTG) Goal: 10/09 pt does not have L knee pain at this point Assessment Summary Assessment Pt tolerated session well, needed rest break between exercises (forgot to time activty working). She complained of R k nee pain at end of tx during lateral band walk approx 10 ft and requested needed to sit for recovery, then session ended. Pt had dizziness only during rocker board with added head turns so provided rest break approx 1 min with full recovery. Physical Therapy Plan Frequency and Duration Frequency of Treatment 2x/Week Duration of Treatment 8 Plan of Care Start Date 10/10/19 Plan of Care End Date 12/09/19 Therapeutic Interventions Therapeutic Interventions Balance Training,Gait Training ,Home Exercise Program,Manual Therapy,Patient/Caregiver Education,Self-Care/Home Management,Soft Tissue Mobilization,Therapeutic Exercises Next Visit Focus/Plan Next Note Type Treatment Note Next Visit Plan Assess response to last tx. Next tx add: add ankle IV/EV strengthening to HEP. *Vitals to start. *Aerobic conditioning progression with emphasis on pt working at higher intensity level with rests as needed. Monitor time pt is able to tolerate a higher intensity work out. Might monitor HR/? BP during aerobic exercise. Work on upright strengthening, balance training, forward and side stepping and continue working on overall strength of the LEs.
--- NOTE | 2019-12-06 14:13 | PT-OP ANOTE ---
Pt called and cancelled this afternoon's appt due to dizziness, took BP and low for her at 124/73. Ny stated has a call into her physican wondering if BP meds are at right dose for her. Pt confirmed next appt 12/08/19 with PT. Progress note due, POC expires 12/09/19.
--- NOTE | 2019-12-08 17:29 | PT.OTN ---
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 She notes she did really well with her hip rehab and is now walking with a walking stick in the left hand. She reports though that she began experiencing knee pain in the left knee with walking after her hip surgery. She reports feeling off kilter and has low energy since her surgery. She is limited at this time to walking only a few blocks due to left knee pain. Other past medical history includes hx of back pain, arthritis, high blood pressure Treatment Goals Patient/Caregiver Goals Ny would like to return to a walking routine without knee pain as at this time she is limited to a few blocks at a time PT-OP-C Subjective Start: 04/10/19 19:52 Freq: Status: Active Protocol: Document 12/08/19 13:21 [facility] (Rec: 12/08/19 13:41 [facility] [id number]) OP-PT Subjective Patient Comments Patient Comments pt reports she saw her doctor today and took her blood pressure medication. she is feeling better today PT-OP-D Balance Start: 10/10/19 14:49 Freq: Status: Active Protocol: Document 10/06/19 09:46 HH (Rec: 10/10/19 15:20 HH [email or web address]) Balance Tests Single Limb Standing Single Limb- Right 9s Single Limb- Left 6s Tandem Tandem Standing R foot in front = 11s Lfoot in front =6s PT-OP-E Functional Tests Start: 10/10/19 14:49 Freq: Status: Active Protocol: Document 10/06/19 09:46 HH (Rec: 10/10/19 15:20 HH [email or web address]) Functional Tests 6 Minute Walk Test Distance 650ft Device Used hiking stick on RUE Comments small steps noted Five Times Sit to Stand Test Score 15s Comments without UE support PT-OP-F Manual Assessment Start: 04/10/19 19:52 Freq: Status: Active Protocol: Document 04/07/19 11:15 [facility] (Rec: 04/10/19 20:33 [facility] [email or web address]) Manual Assessments Soft Tissue Assessment Soft Tissue Mobility Assessment left quadratus lumborum tightness, left paraspinal tightness, Joint Mobility Assessment Joint Mobility Assessment full knee joint ROM, equal leg length today, SI instability noted with + ASLR test PT-OP-H Neuro Start: 10/10/19 14:49 Freq: Status: Active Protocol: Document 11/15/19 12:47 LRN (Rec: 11/15/19 13:49 LRN [id number]) Vital Signs Pulse End of PT, after rest, sitting Pulse at Rest (bpm) 74 After ex Pulse at Rest (bpm) 77 Blood Pressure End of PT, after rest, sitting Blood Pressure (90/60-120/80 mmHg) 135/89 H Blood Pressure Source Manual Cuff,Left Upper Extremity After ex, dizzy Blood Pressure (90/60-120/80 mmHg) 132/84 H Blood Pressure Source Manual Cuff,Left Upper Extremity Comments Vital Signs Comments End of PT immediately after sitting. Pt was a little dizzy after standing but refused another BP check by PT Marielle Astudillo. PT-OP-J Posture/Palpation/Skin Start: 04/10/19 19:52 Freq: Status: Active Protocol: Document 04/07/19 11:15 [facility] (Rec: 04/10/19 20:33 [facility] [email or web address]) Posture Evaluation Comments Posture Comments pt stands with the left knee bent and leaning to the left, she also has a forward shoulder posture with a flexed trunk PT-OP-K Range of Motion Start: 04/10/19 19:52 Freq: Status: Active Protocol: Document 04/07/19 11:15 [facility] (Rec: 04/10/19 20:33 [facility] [email or web address]) Knee Goniometric Range of Motion Knee Right Knee ROM WFL Yes Left Knee ROM WFL Yes PT-OP-M Strength Start: 04/10/19 19:52 Freq: Status: Active Protocol: Document 10/06/19 09:46 HH (Rec: 10/10/19 15:24 HH [email or web address]) Hip Strength Hip Manual Muscle Testing Left Flexion (L2) 4 Good Extension (S1) 4- Good- Abduction 4- Good- Knee Strength Knee Manual Muscle Testing Left Flexion (S2) 4- Good- Extension (L3) 4- Good- PT-OP-Q Treatments Start: 04/10/19 19:52 Freq: Status: Active Protocol: Document 12/02/19 13:50 SP (Rec: 12/02/19 15:38 SP [id number]) Cardio Equipment Recumbent Elliptical (BUYSTAND) Duration (Minutes) 6 Resistance 5 Seat Position 2 Other BP pre 142/80 HR 74bpm, post 140/80 HR 76bpm Therapeutic Exercises Standing Exercises step up Standing Exercise Name Step ups in open with L handrail Side bilateral Resistance 2# Equipment Used 6 step Reps/Minutes alternating 10x each leg Comments required brief stand rest between each LE step tap Standing Exercise Name Step taps in //bars without walking stick, forward and lateral Side bilateral Resistance 6 inch step Equipment Used walk stick or rail hover hand over Reps/Minutes 10x each side forward, 10x each side lateral Toe raises Standing Exercise Name Ankle DF Side bilateral Equipment Used Wall railing Reps/Minutes 10x 3 Comments Much cuing for posture and proper movement (ankle vs body ) side steps with theraband Standing Exercise Name sidesteps with and w/o TB, walking stick in leading hand/ lagging hand rail Side bilateral Resistance YTB Equipment Used 15 ft length rail Reps/Minutes 4xms length of // bars each Comments with TB pt c/o dizziness, // bars two laps ok cued feet parallel heel raises Standing Exercise Name ankle PF Side bilateral Equipment Used Wall railing Reps/Minutes 30x Comments Pt needed cuing for maximal lift Neuro Re-Education Treatment Balance Activities dynamic balance Details f/b COG over HERNAN then added with head turns Equipment rocker board Comments Pt c/o dizziness with head turns so needed to sit for recovery. BP 142/72, HR 76 PT-OP-Q Treatments Start: 10/10/19 14:49 Freq: Status: Active Protocol: Document 12/08/19 13:21 [facility] (Rec: 12/08/19 13:41 [facility] [id number]) Gym Equipment Cable Column (Body Solid) Hip Abduction Resistance 10# Shuttle Recovery Unilateral Squats Details Unilateral squats Resistance 37# Shuttle Recovery Platform Stable Reps/Time x 15 each leg Bilateral Squats Resistance #50 Shuttle Recovery Platform Stable Reps/Time 8 x2 Therapeutic Exercises Supine Exercises supine SLR Supine Exercise Name assisted with belt Side bilateral Equipment Used belt Reps/Minutes 5 x2 Comments for HEP Bridging Side bilateral Reps/Minutes 8 x2 Comments no discomfort noted Sidelying Exercises Clamshell Sidelying Exercise Name Clamshell Side bilateral Equipment Used TB L2 Manual Therapy Treatment Soft Tissue Mobilization right quadriceps Body Location L quad Mobilization Type Cross-Friction,Myofascial Release Intensity/Depth Moderate Body Position Supine Manual Techniques 1 Type manaul iliopsoas stretch in isadora test positon Reps/Duration x 2 min PT-OP-T Assessment and Plan Start: 04/10/19 19:52 Freq: Status: Active Protocol: Document 12/08/19 17:25 [facility] (Rec: 12/08/19 17:29 [facility] [email or web address]) Physical Therapy Assessment Goals Five Impairment unable to perform a single leg stance on LLE Short Term Goal (STG) 11/09 did not assess LLE = 6s , R=9s STG Duration 4 weeks Director Of Finance Goal (LTG) Stefania will be able to balance 10 seconds or greater standing on L LE to improve her balance . LTG Duration 8 weeks Four Intermediate Goal (LTG) Goal met: Pt is not complaining about her low back discomfort Two Impairment decreased core stability with left lateral lean Director Of Finance Goal (LTG) Stefania demonstrates improved core control and she is able to lift into a bridge position with her pelvis equal and stable. Excellent progress LTG Duration 8 weeks One Impairment L sided knee pain Intermediate Goal (LTG) Goal: 10/09 pt does not have L knee pain at this point Progress Towards Goals Progress Towards Goals Progressing Toward Goals Progress Comments pt is starting to feel like she has a little more endurance at home. Assessment Summary Assessment Pt doing better today with her endurance and she had her blood pressure medication this am. Physical Therapy Plan Frequency and Duration Frequency of Treatment 2x/Week Duration of Treatment 8 Plan of Care Start Date 12/08/19 Plan of Care End Date 01/27/20 Therapeutic Interventions Therapeutic Interventions Balance Training,Gait Training ,Home Exercise Program,Manual Therapy,Patient/Caregiver Education,Self-Care/Home Management,Soft Tissue Mobilization,Therapeutic Exercises
--- NOTE | 2019-12-08 17:30 | PT.OPPOC ---
Physical, Occupational & Speech Therapy At [facility] Current Diagnoses Unilateral primary osteoarthritis, left knee (12/08/19) Muscle weakness (generalized) (12/08/19) Difficulty in walking, not elsewhere classified (12/08/19) Visit Care Team Role Provider Type Patience Gordillo MD Primary Care Provider Physician Specialty: Family Practice Address: [address] [place] [address], [facility] [place], [address] Email: [email or web address] MD Attending Provider Physician Specialty: Orthopedic Surgery Address: [address] [place] [address], [place], [address] Email: [email or web address] Plan Of Care PT-OP-T Assessment and Plan Start: 04/10/19 19:52 Freq: Status: Active Protocol: Document 12/08/19 17:25 [facility] (Rec: 12/08/19 17:29 [facility] [email or web address]) Physical Therapy Assessment Goals Five Impairment unable to perform a single leg stance on LLE Short Term Goal (STG) 11/09 did not assess LLE = 6s , R=9s STG Duration 4 weeks Group Home Goal (LTG) Stefania will be able to balance 10 seconds or greater standing on L LE to improve her balance . LTG Duration 8 weeks Four Group Home Goal (LTG) Goal met: Pt is not complaining about her low back discomfort Two Impairment decreased core stability with left lateral lean [employer] House Operator Goal (LTG) Stefania demonstrates improved core control and she is able to lift into a bridge position with her pelvis equal and stable. Excellent progress LTG Duration 8 weeks One Impairment L sided knee pain [employer] House Operator Goal (LTG) Goal: 10/09 pt does not have L knee pain at this point Progress Towards Goals Progress Towards Goals Progressing Toward Goals Progress Comments pt is starting to feel like she has a little more endurance at home. Assessment Summary Assessment Pt doing better today with her endurance and she had her blood pressure medication this am. Physical Therapy Plan Frequency and Duration Frequency of Treatment 2x/Week Duration of Treatment 8 Plan of Care Start Date 12/08/19 Plan of Care End Date 01/27/20 Therapeutic Interventions Therapeutic Interventions Balance Training,Gait Training ,Home Exercise Program,Manual Therapy,Patient/Caregiver Education,Self-Care/Home Management,Soft Tissue Mobilization,Therapeutic Exercises Plan of Care Dates Plan of Care Start Date 12/08/19 Plan of Care End Date 01/27/20 Electronically Signed by: Eloise Sharp, PT 12/08/19 5045 Please Sign and Return: I have reviewed this Plan of Care and certify that the skilled therapy services above are required to meet the patient?s needs. Physician Signature Date Printed Name and Credentials Clinical Instructor Signature Printed Name and Credentials
--- NOTE | 2019-12-13 15:15 | PT.OTN ---
Current Diagnoses Unilateral primary osteoarthritis, left knee (12/13/19) Muscle weakness (generalized) (12/13/19) Difficulty in walking, not elsewhere classified (12/13/19) Physical Therapy Treatment Note PT-OP-A Visit Information Start: 04/10/19 19:52 Freq: Status: Active Protocol: Document 12/13/19 14:34 SP (Rec: 12/13/19 15:38 SP [id number]) Out-Patient Physical Therapy Visit Information Visit Information Visit Type Treatment Note Visit Note No bike available today warm up. 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 She notes she did really well with her hip rehab and is now walking with a walking stick in the left hand. She reports though that she began experiencing knee pain in the left knee with walking after her hip surgery. She reports feeling off kilter and has low energy since her surgery. She is limited at this time to walking only a few blocks due to left knee pain. Other past medical history includes hx of back pain, arthritis, high blood pressure Treatment Goals Patient/Caregiver Goals Ny would like to return to a walking routine without knee pain as at this time she is limited to a few blocks at a time PT-OP-C Subjective Start: 04/10/19 19:52 Freq: Status: Active Protocol: Document 12/13/19 14:34 SP (Rec: 12/13/19 15:38 SP [id number]) OP-PT Subjective Patient Comments Patient Comments Pt stated blood pressure has been running low, don't want to scare you. Saw doctor and did lots of testing with no concerns. Took BP meds today. PT-OP-D Balance Start: 10/10/19 14:49 Freq: Status: Active Protocol: Document 10/06/19 09:46 HH (Rec: 10/10/19 15:20 HH [email or web address]) Balance Tests Single Limb Standing Single Limb- Right 9s Single Limb- Left 6s Tandem Tandem Standing R foot in front = 11s Lfoot in front =6s PT-OP-E Functional Tests Start: 10/10/19 14:49 Freq: Status: Active Protocol: Document 10/06/19 09:46 HH (Rec: 10/10/19 15:20 HH [email or web address]) Functional Tests 6 Minute Walk Test Distance 650ft Device Used hiking stick on RUE Comments small steps noted Five Times Sit to Stand Test Score 15s Comments without UE support PT-OP-F Manual Assessment Start: 04/10/19 19:52 Freq: Status: Active Protocol: Document 04/07/19 11:15 AMH (Rec: 04/10/19 20:33 AMH [email or web address]) Manual Assessments Soft Tissue Assessment Soft Tissue Mobility Assessment left quadratus lumborum tightness, left paraspinal tightness, Joint Mobility Assessment Joint Mobility Assessment full knee joint ROM, equal leg length today, SI instability noted with + ASLR test PT-OP-H Neuro Start: 10/10/19 14:49 Freq: Status: Active Protocol: Document 11/15/19 12:47 LRN (Rec: 11/15/19 13:49 LRN [id number]) Vital Signs Pulse End of PT, after rest, sitting Pulse at Rest (bpm) 74 After ex Pulse at Rest (bpm) 77 Blood Pressure End of PT, after rest, sitting Blood Pressure (90/60-120/80 mmHg) 135/89 H Blood Pressure Source Manual Cuff,Left Upper Extremity After ex, dizzy Blood Pressure (90/60-120/80 mmHg) 132/84 H Blood Pressure Source Manual Cuff,Left Upper Extremity Comments Vital Signs Comments End of PT immediately after sitting. Pt was a little dizzy after standing but refused another BP check by PT Marielle Astudillo. PT-OP-J Posture/Palpation/Skin Start: 04/10/19 19:52 Freq: Status: Active Protocol: Document 04/07/19 11:15 AMH (Rec: 04/10/19 20:33 AMH [email or web address]) Posture Evaluation Comments Posture Comments pt stands with the left knee bent and leaning to the left, she also has a forward shoulder posture with a flexed trunk PT-OP-K Range of Motion Start: 04/10/19 19:52 Freq: Status: Active Protocol: Document 04/07/19 11:15 AMH (Rec: 04/10/19 20:33 AMH [email or web address]) Knee Goniometric Range of Motion Knee Right Knee ROM WFL Yes Left Knee ROM WFL Yes PT-OP-M Strength Start: 04/10/19 19:52 Freq: Status: Active Protocol: Document 10/06/19 09:46 HH (Rec: 10/10/19 15:24 HH [email or web address]) Hip Strength Hip Manual Muscle Testing Left Flexion (L2) 4 Good Extension (S1) 4- Good- Abduction 4- Good- Knee Strength Knee Manual Muscle Testing Left Flexion (S2) 4- Good- Extension (L3) 4- Good- PT-OP-Q Treatments Start: 04/10/19 19:52 Freq: Status: Active Protocol: Document 12/02/19 13:50 SP (Rec: 12/02/19 15:38 SP [id number]) Cardio Equipment Recumbent Elliptical (Trippifi) Duration (Minutes) 6 Resistance 5 Seat Position 2 Other BP pre 142/80 HR 74bpm, post 140/80 HR 76bpm Therapeutic Exercises Standing Exercises step up Standing Exercise Name Step ups in open with L handrail Side bilateral Resistance 2# Equipment Used 6 step Reps/Minutes alternating 10x each leg Comments required brief stand rest between each LE step tap Standing Exercise Name Step taps in //bars without walking stick, forward and lateral Side bilateral Resistance 6 inch step Equipment Used walk stick or rail hover hand over Reps/Minutes 10x each side forward, 10x each side lateral Toe raises Standing Exercise Name Ankle DF Side bilateral Equipment Used Wall railing Reps/Minutes 10x 3 Comments Much cuing for posture and proper movement (ankle vs body ) side steps with theraband Standing Exercise Name sidesteps with and w/o TB, walking stick in leading hand/ lagging hand rail Side bilateral Resistance YTB Equipment Used 15 ft length rail Reps/Minutes 4xms length of // bars each Comments with TB pt c/o dizziness, // bars two laps ok cued feet parallel heel raises Standing Exercise Name ankle PF Side bilateral Equipment Used Wall railing Reps/Minutes 30x Comments Pt needed cuing for maximal lift Neuro Re-Education Treatment Balance Activities dynamic balance Details f/b COG over HERNAN then added with head turns Equipment rocker board Comments Pt c/o dizziness with head turns so needed to sit for recovery. BP 142/72, HR 76 PT-OP-Q Treatments Start: 10/10/19 14:49 Freq: Status: Active Protocol: Document 12/13/19 14:34 SP (Rec: 12/13/19 15:38 SP [id number]) Gym Equipment Shuttle Recovery Unilateral Squats Details Unilateral squats Resistance dec 25# Shuttle Recovery Platform Stable Reps/Time x10 each leg Max cuing sequencing Bilateral Squats Resistance #50 Shuttle Recovery Platform Stable Reps/Time 8 x2, max cue slow pacing ecc and not lock out at top Therapeutic Exercises Standing Exercises step up Equipment Used 6 step, R rail Reps/Minutes x2 Comments had to stop due to dizziness and sit step tap Reps/Minutes 2x6 reps Comments brief stop stand between sets secondary to dizziness, recover quickly side steps with theraband Standing Exercise Name sidesteps with and w/o TB, at rail hand rail Side bilateral Resistance YTB ankle>below knee> lower thigh Equipment Used 20 ft length rail Reps/Minutes at rail 3 laps R and L Comments L knee pain Gait Training Gait Activity ground level Description 6MWT =619 ft Device Used 1 walk stick Level of Assistance SBA Surface ground level Distance/Duration 6 min Treatment Focus increase stride Comments cued increased stride, upright posture Neuro Re-Education Treatment Balance Activities dynamic balance Details standing on green foam ovals with arm swings Equipment at rail Reps/Duration 1 min each foot position Comments cued upright posture, glut facilitation PT-OP-T Assessment and Plan Start: 04/10/19 19:52 Freq: Status: Active Protocol: Document 12/13/19 14:34 SP (Rec: 12/13/19 15:38 SP [id number]) Physical Therapy Assessment Goals LLE strength Impairment weakness with LLE Short Term Goal (STG) Pt is able to perform sit to stand x5 x 3 sets without UE support today. 11/10/19 Gas Utility Worker Goal (LTG) Pt will improve her L LE single leg stance and tandem by 5 seconds or greater. LTG Duration 8weeks 6MWT Impairment poor activity tolerance Short Term Goal (STG) Pt amb approx 600ft without hiking stick today Pt will be able to reach 800 ft for 6MWT with/ without hiking stick 12/13/19: 619 ft using 1 walking stick STG Duration 4 weeks Detention Goal (LTG) Pt will be able to reach 1000ft for 6 MWT without hiking stick to improve her community mobility LTG Duration 8 weeks Five Impairment unable to perform a single leg stance on LLE Short Term Goal (STG) 11/09 did not assess LLE = 6s , R=9s STG Duration 4 weeks Gas Utility Worker Goal (LTG) Stefania will be able to balance 10 seconds or greater standing on L LE to improve her balance . LTG Duration 8 weeks Four Gas Utility Worker Goal (LTG) Goal met: Pt is not complaining about her low back discomfort Three Impairment 41/80 LEFS in may Detention Goal (LTG) will assess next visit. Two Impairment decreased core stability with left lateral lean Detention Goal (LTG) Stefania demonstrates improved core control and she is able to lift into a bridge position with her pelvis equal and stable. Excellent progress LTG Duration 8 weeks One Impairment L sided knee pain Gas Utility Worker Goal (LTG) Goal: 10/09 pt does not have L knee pain at this point Assessment Summary Assessment Pt stated felt good after supine activity last tx, no concerns. Assessed pt's BP post shuttle recovery 130/78. Pt reported dizziness during step tap and step up/down, brief stand rest recovers. Continued have pain in L knee with lateral band walk, akash band below knee/ankle, improved at lower thigh. Pt was able complete 6 MWT using walking stick 619 ft with improvement in stride, occasional cuing. I feel fine , feels good to do because doesn't have big space at home and uneven gravel outside house. Physical Therapy Plan Frequency and Duration Frequency of Treatment 2x/Week Duration of Treatment 8 Plan of Care Start Date 12/08/19 Plan of Care End Date 01/27/20 Therapeutic Interventions Therapeutic Interventions Balance Training,Gait Training ,Home Exercise Program,Manual Therapy,Patient/Caregiver Education,Self-Care/Home Management,Soft Tissue Mobilization,Therapeutic Exercises Next Visit Focus/Plan Next Note Type Treatment Note Next Visit Plan Assess response to last tx shuttle, standing, 6MWT. Next tx add: add ankle IV/EV strengthening to HEP. *Vitals to start. *Aerobic conditioning progression with emphasis on pt working at higher intensity level with rests as needed. Monitor time pt is able to tolerate a higher intensity work out. Might monitor HR/? BP during aerobic exercise. Work on upright strengthening, balance training, forward and side stepping and continue working on overall strength of the LEs. PT-OP-T Assessment and Plan Start: 10/10/19 14:49 Freq: Status: Active Protocol: Document 12/13/19 14:34 SP (Rec: 12/13/19 15:38 SP [id number]) Physical Therapy Assessment Goals LLE strength Impairment weakness with LLE Short Term Goal (STG) Pt is able to perform sit to stand x5 x 3 sets without UE support today. 11/10/19 Gas Utility Worker Goal (LTG) Pt will improve her L LE single leg stance and tandem by 5 seconds or greater. LTG Duration 8weeks 6MWT Impairment poor activity tolerance Short Term Goal (STG) Pt amb approx 600ft without hiking stick today Pt will be able to reach 800 ft for 6MWT with/ without hiking stick 12/13/19: 619 ft using 1 walking stick STG Duration 4 weeks Detention Goal (LTG) Pt will be able to reach 1000ft for 6 MWT without hiking stick to improve her community mobility LTG Duration 8 weeks Five Impairment unable to perform a single leg stance on LLE Short Term Goal (STG) 11/09 did not assess LLE = 6s , R=9s STG Duration 4 weeks Detention Goal (LTG) Stefania will be able to balance 10 seconds or greater standing on L LE to improve her balance . LTG Duration 8 weeks Four Gas Utility Worker Goal (LTG) Goal met: Pt is not complaining about her low back discomfort Three Impairment 41/80 LEFS in may Detention Goal (LTG) will assess next visit. Two Impairment decreased core stability with left lateral lean Detention Goal (LTG) Stefania demonstrates improved core control and she is able to lift into a bridge position with her pelvis equal and stable. Excellent progress LTG Duration 8 weeks One Impairment L sided knee pain Gas Utility Worker Goal (LTG) Goal: 10/09 pt does not have L knee pain at this point Assessment Summary Assessment Pt stated felt good after supine activity last tx, no concerns. Assessed pt's BP post shuttle recovery 130/78. Pt reported dizziness during step tap and step up/down, brief stand rest recovers. Continued have pain in L knee with lateral band walk, akash band below knee/ankle, improved at lower thigh. Pt was able complete 6 MWT using walking stick 619 ft with improvement in stride, occasional cuing. I feel fine , feels good to do because doesn't have big space at home and uneven gravel outside house. Physical Therapy Plan Frequency and Duration Frequency of Treatment 2x/Week Duration of Treatment 8 Plan of Care Start Date 12/08/19 Plan of Care End Date 01/27/20 Therapeutic Interventions Therapeutic Interventions Balance Training,Gait Training ,Home Exercise Program,Manual Therapy,Patient/Caregiver Education,Self-Care/Home Management,Soft Tissue Mobilization,Therapeutic Exercises Next Visit Focus/Plan Next Note Type Treatment Note Next Visit Plan Assess response to last tx shuttle, standing, 6MWT. Next tx add: add ankle IV/EV strengthening to HEP. *Vitals to start. *Aerobic conditioning progression with emphasis on pt working at higher intensity level with rests as needed. Monitor time pt is able to tolerate a higher intensity work out. Might monitor HR/? BP during aerobic exercise. Work on upright strengthening, balance training, forward and side stepping and continue working on overall strength of the LEs.
--- NOTE | 2019-12-20 15:15 | PT.OTN ---
Current Diagnoses Unilateral primary osteoarthritis, left knee (12/20/19) Muscle weakness (generalized) (12/20/19) Difficulty in walking, not elsewhere classified (12/20/19) Physical Therapy Treatment Note PT-OP-A Visit Information Start: 04/10/19 19:52 Freq: Status: Active Protocol: Document 12/20/19 14:34 SP (Rec: 12/20/19 15:29 SP [id number]) Out-Patient Physical Therapy Visit Information Visit Information Visit Type Treatment Note Visit Note BP pre activity 142/78, post biodex Visit Start Time 14:34 Visit Stop Time 15:15 Total Visit Minutes 41 Visit Number 28 Number of CARPENTRY SPECIALIST Visits 2 PT-OP-B Current Condition Start: 04/10/19 19:52 Freq: Status: Active Protocol: Document 04/07/19 11:15 AMH (Rec: 04/10/19 20:33 AMH [email or web address]) Current Condition History of Current Condition Onset Date August 2018 Current Complaints complaints of left sided knee pain that began following her hip surgery History of Current Condition 83 year old female who 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 She notes she did really well with her hip rehab and is now walking with a walking stick in the left hand. She reports though that she began experiencing knee pain in the left knee with walking after her hip surgery. She reports feeling off kilter and has low energy since her surgery. She is limited at this time to walking only a few blocks due to left knee pain. Other past medical history includes hx of back pain, arthritis, high blood pressure Treatment Goals Patient/Caregiver Goals yN would like to return to a walking routine without knee pain as at this time she is limited to a few blocks at a time PT-OP-C Subjective Start: 04/10/19 19:52 Freq: Status: Active Protocol: Document 12/20/19 14:34 SP (Rec: 12/20/19 15:29 SP [id number]) OP-PT Subjective Patient Comments Patient Comments Pt reported having down day, no particular reason. I see Dr Diana next Thursday on why L knee still hurting but mostly when first get up. PT-OP-D Balance Start: 10/10/19 14:49 Freq: Status: Active Protocol: Document 10/06/19 09:46 HH (Rec: 10/10/19 15:20 HH [email or web address]) Balance Tests Single Limb Standing Single Limb- Right 9s Single Limb- Left 6s Tandem Tandem Standing R foot in front = 11s Lfoot in front =6s PT-OP-E Functional Tests Start: 10/10/19 14:49 Freq: Status: Active Protocol: Document 10/06/19 09:46 HH (Rec: 10/10/19 15:20 HH [email or web address]) Functional Tests 6 Minute Walk Test Distance 650ft Device Used hiking stick on RUE Comments small steps noted Five Times Sit to Stand Test Score 15s Comments without UE support PT-OP-F Manual Assessment Start: 04/10/19 19:52 Freq: Status: Active Protocol: Document 04/07/19 11:15 AMH (Rec: 04/10/19 20:33 AMH [email or web address]) Manual Assessments Soft Tissue Assessment Soft Tissue Mobility Assessment left quadratus lumborum tightness, left paraspinal tightness, Joint Mobility Assessment Joint Mobility Assessment full knee joint ROM, equal leg length today, SI instability noted with + ASLR test PT-OP-H Neuro Start: 10/10/19 14:49 Freq: Status: Active Protocol: Document 11/15/19 12:47 LRN (Rec: 11/15/19 13:49 LRN [id number]) Vital Signs Pulse End of PT, after rest, sitting Pulse at Rest (bpm) 74 After ex Pulse at Rest (bpm) 77 Blood Pressure End of PT, after rest, sitting Blood Pressure (90/60-120/80 mmHg) 135/89 H Blood Pressure Source Manual Cuff,Left Upper Extremity After ex, dizzy Blood Pressure (90/60-120/80 mmHg) 132/84 H Blood Pressure Source Manual Cuff,Left Upper Extremity Comments Vital Signs Comments End of PT immediately after sitting. Pt was a little dizzy after standing but refused another BP check by PT Marielle Astudillo. PT-OP-J Posture/Palpation/Skin Start: 04/10/19 19:52 Freq: Status: Active Protocol: Document 04/07/19 11:15 AMH (Rec: 04/10/19 20:33 AMH [email or web address]) Posture Evaluation Comments Posture Comments pt stands with the left knee bent and leaning to the left, she also has a forward shoulder posture with a flexed trunk PT-OP-K Range of Motion Start: 04/10/19 19:52 Freq: Status: Active Protocol: Document 04/07/19 11:15 AMH (Rec: 04/10/19 20:33 AMH [email or web address]) Knee Goniometric Range of Motion Knee Right Knee ROM WFL Yes Left Knee ROM WFL Yes PT-OP-M Strength Start: 04/10/19 19:52 Freq: Status: Active Protocol: Document 10/06/19 09:46 HH (Rec: 10/10/19 15:24 HH [email or web address]) Hip Strength Hip Manual Muscle Testing Left Flexion (L2) 4 Good Extension (S1) 4- Good- Abduction 4- Good- Knee Strength Knee Manual Muscle Testing Left Flexion (S2) 4- Good- Extension (L3) 4- Good- PT-OP-Q Treatments Start: 04/10/19 19:52 Freq: Status: Active Protocol: Document 12/02/19 13:50 SP (Rec: 12/02/19 15:38 SP [id number]) Cardio Equipment Recumbent Elliptical (Nextdoor) Duration (Minutes) 6 Resistance 5 Seat Position 2 Other BP pre 142/80 HR 74bpm, post 140/80 HR 76bpm Therapeutic Exercises Standing Exercises step up Standing Exercise Name Step ups in open with L handrail Side bilateral Resistance 2# Equipment Used 6 step Reps/Minutes alternating 10x each leg Comments required brief stand rest between each LE step tap Standing Exercise Name Step taps in //bars without walking stick, forward and lateral Side bilateral Resistance 6 inch step Equipment Used walk stick or rail hover hand over Reps/Minutes 10x each side forward, 10x each side lateral Toe raises Standing Exercise Name Ankle DF Side bilateral Equipment Used Wall railing Reps/Minutes 10x 3 Comments Much cuing for posture and proper movement (ankle vs body ) side steps with theraband Standing Exercise Name sidesteps with and w/o TB, walking stick in leading hand/ lagging hand rail Side bilateral Resistance YTB Equipment Used 15 ft length rail Reps/Minutes 4xms length of // bars each Comments with TB pt c/o dizziness, // bars two laps ok cued feet parallel heel raises Standing Exercise Name ankle PF Side bilateral Equipment Used Wall railing Reps/Minutes 30x Comments Pt needed cuing for maximal lift Neuro Re-Education Treatment Balance Activities dynamic balance Details f/b COG over HERNAN then added with head turns Equipment rocker board Comments Pt c/o dizziness with head turns so needed to sit for recovery. BP 142/72, HR 76 PT-OP-Q Treatments Start: 10/10/19 14:49 Freq: Status: Active Protocol: Document 12/20/19 14:34 SP (Rec: 12/20/19 15:29 SP [id number]) Cardio Equipment Recumbent Elliptical (Biodex) Duration (Minutes) 6 Resistance 2 Seat Position 6 Therapeutic Exercises Standing Exercises step up Equipment Used 6 step, R rail Reps/Minutes 10 reps leading each LE Comments tolerated well, cued for sequencing same LE up /down side steps with theraband Standing Exercise Name sidestew/ TB 1 hand rail Side bilateral Resistance YTB @ ankle Equipment Used 20 ft length rail Reps/Minutes at rail 3 laps R and L Comments good thigh work out 2 laps 100 sec before seated rest required hurdles Standing Exercise Name step taps then DL over back, forward locomotion Equipment Used rail contact 1 UE Comments stopped after 93 sec due to looked down causing dizziness w/ taps ok forw. standing squats Standing Exercise Name sit to stand Equipment Used 18chair Reps/Minutes 5 reps in 12.10 sec Comments arms on lap Other Exercises Step-up/over/retro Other Exercise Name step up over x2 steps Equipment Used 6, 8: steps 2 HR Reps/Minutes x4 sets Comments 165 sec tolerated in standing Gait Training Gait Activity step count Description forward gait Device Used in //bars not needed Level of Assistance SBA Surface stable floor Distance/Duration 20 ft laps (16, 18, 19 steps) Treatment Focus increased stride length Comments cued increase stride length, upright posture and arm swing PT-OP-T Assessment and Plan Start: 04/10/19 19:52 Freq: Status: Active Protocol: Document 12/20/19 14:34 SP (Rec: 12/20/19 15:29 SP [id number]) Physical Therapy Assessment Goals LLE strength Impairment weakness with LLE Short Term Goal (STG) Pt is able to perform sit to stand x5 x 3 sets without UE support today. 11/10/19 12/20/19 5 reps in 12.10 sec ( hands on lap) [employer] Goal (LTG) Pt will improve her L LE single leg stance and tandem by 5 seconds or greater. LTG Duration 8weeks 6MWT Impairment poor activity tolerance Short Term Goal (STG) Pt amb approx 600ft without hiking stick today Pt will be able to reach 800 ft for 6MWT with/ without hiking stick 12/13/19: 619 ft using 1 walking stick 12/20/19 standing ex 93-165 sec tolerated before seated rest. STG Duration 4 weeks Care Home Goal (LTG) Pt will be able to reach 1000ft for 6 MWT without hiking stick to improve her community mobility LTG Duration 8 weeks Five Impairment unable to perform a single leg stance on LLE Short Term Goal (STG) 11/09 did not assess LLE = 6s , R=9s STG Duration 4 weeks Care Home Goal (LTG) Stefania will be able to balance 10 seconds or greater standing on L LE to improve her balance . LTG Duration 8 weeks Four [employer] Goal (LTG) Goal met: Pt is not complaining about her low back discomfort Three Impairment 41/80 LEFS in may Care Home Goal (LTG) will assess next visit. Two Impairment decreased core stability with left lateral lean Care Home Goal (LTG) Stefania demonstrates improved core control and she is able to lift into a bridge position with her pelvis equal and stable. Excellent progress LTG Duration 8 weeks One Impairment L sided knee pain Care Home Goal (LTG) Goal: 10/09 pt does not have L knee pain at this point Assessment Summary Assessment Pt increased activity tolerance today in standing: initially 93 sec standing activities increased to 165 sec by end of tx. Pt noted improvement in gait stride and foot clearance by end of tx walking with walking stick on R. Physical Therapy Plan Frequency and Duration Frequency of Treatment 2x/Week Duration of Treatment 8 Plan of Care Start Date 12/08/19 Plan of Care End Date 01/27/20 Therapeutic Interventions Therapeutic Interventions Balance Training,Gait Training ,Home Exercise Program,Manual Therapy,Patient/Caregiver Education,Self-Care/Home Management,Soft Tissue Mobilization,Therapeutic Exercises Next Visit Focus/Plan Next Note Type Treatment Note Next Visit Plan Assess response to last tx standing ex, balance, endurance activity in standing . Continue gait foot clearance /stride quality, endurance Next tx add: add ankle IV/EV strengthening to HEP. *Vitals to start. *Aerobic conditioning progression with emphasis on pt working at higher intensity level with rests as needed. Monitor time pt is able to tolerate a higher intensity work out. Might monitor HR/? BP during aerobic exercise. Work on upright strengthening, balance training, forward and side stepping and continue working on overall strength of the LEs. PT-OP-T Assessment and Plan Start: 10/10/19 14:49 Freq: Status: Active Protocol: Document 12/20/19 14:34 SP (Rec: 12/20/19 15:29 SP [id number]) Physical Therapy Assessment Goals LLE strength Impairment weakness with LLE Short Term Goal (STG) Pt is able to perform sit to stand x5 x 3 sets without UE support today. 11/10/19 12/20/19 5 reps in 12.10 sec ( hands on lap) [employer] Goal (LTG) Pt will improve her L LE single leg stance and tandem by 5 seconds or greater. LTG Duration 8weeks 6MWT Impairment poor activity tolerance Short Term Goal (STG) Pt amb approx 600ft without hiking stick today Pt will be able to reach 800 ft for 6MWT with/ without hiking stick 12/13/19: 619 ft using 1 walking stick 12/20/19 standing ex 93-165 sec tolerated before seated rest. STG Duration 4 weeks [employer] Goal (LTG) Pt will be able to reach 1000ft for 6 MWT without hiking stick to improve her community mobility LTG Duration 8 weeks Five Impairment unable to perform a single leg stance on LLE Short Term Goal (STG) 11/09 did not assess LLE = 6s , R=9s STG Duration 4 weeks [employer] Goal (LTG) Stefania will be able to balance 10 seconds or greater standing on L LE to improve her balance . LTG Duration 8 weeks Four [employer] Goal (LTG) Goal met: Pt is not complaining about her low back discomfort Three Impairment 41/80 LEFS in may Care Home Goal (LTG) will assess next visit. Two Impairment decreased core stability with left lateral lean Care Home Goal (LTG) Stefania demonstrates improved core control and she is able to lift into a bridge position with her pelvis equal and stable. Excellent progress LTG Duration 8 weeks One Impairment L sided knee pain Care Home Goal (LTG) Goal: 10/09 pt does not have L knee pain at this point Assessment Summary Assessment Pt increased activity tolerance today in standing: initially 93 sec standing activities increased to 165 sec by end of tx. Pt noted improvement in gait stride and foot clearance by end of tx walking with walking stick on R. Physical Therapy Plan Frequency and Duration Frequency of Treatment 2x/Week Duration of Treatment 8 Plan of Care Start Date 12/08/19 Plan of Care End Date 01/27/20 Therapeutic Interventions Therapeutic Interventions Balance Training,Gait Training ,Home Exercise Program,Manual Therapy,Patient/Caregiver Education,Self-Care/Home Management,Soft Tissue Mobilization,Therapeutic Exercises Next Visit Focus/Plan Next Note Type Treatment Note Next Visit Plan Assess response to last tx standing ex, balance, endurance activity in standing . Continue gait foot clearance /stride quality, endurance Next tx add: add ankle IV/EV strengthening to HEP. *Vitals to start. *Aerobic conditioning progression with emphasis on pt working at higher intensity level with rests as needed. Monitor time pt is able to tolerate a higher intensity work out. Might monitor HR/? BP during aerobic exercise. Work on upright strengthening, balance training, forward and side stepping and continue working on overall strength of the LEs.
--- NOTE | 2019-12-27 13:45 | PT.OTN ---
Current Diagnoses Unilateral primary osteoarthritis, left knee (12/27/19) Muscle weakness (generalized) (12/27/19) Difficulty in walking, not elsewhere classified (12/27/19) Physical Therapy Treatment Note PT-OP-A Visit Information Start: 04/10/19 19:52 Freq: Status: Active Protocol: Document 12/27/19 13:05 SP (Rec: 12/27/19 14:58 SP [id number]) Out-Patient Physical Therapy Visit Information Visit Information Visit Type Treatment Note Visit Start Time 13:05 Visit Stop Time 13:45 Total Visit Minutes 40 Visit Number 29 Number of [employer] Visits 3 PT-OP-B Current Condition Start: 04/10/19 19:52 Freq: Status: Active Protocol: Document 04/07/19 11:15 AMH (Rec: 04/10/19 20:33 AMH [email or web address]) Current Condition History of Current Condition Onset Date August 2018 Current Complaints complaints of left sided knee pain that began following her hip surgery History of Current Condition 83 year old female who 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 She notes she did really well with her hip rehab and is now walking with a walking stick in the left hand. She reports though that she began experiencing knee pain in the left knee with walking after her hip surgery. She reports feeling off kilter and has low energy since her surgery. She is limited at this time to walking only a few blocks due to left knee pain. Other past medical history includes hx of back pain, arthritis, high blood pressure Treatment Goals Patient/Caregiver Goals Ny would like to return to a walking routine without knee pain as at this time she is limited to a few blocks at a time PT-OP-C Subjective Start: 04/10/19 19:52 Freq: Status: Active Protocol: Document 12/27/19 13:05 SP (Rec: 12/27/19 14:58 SP [id number]) OP-PT Subjective Patient Comments Patient Comments Pt stated Dr Diana gave her an injection in L knee yesterday and having no pain, able sleep better and not feeling is going to collapse on her when walking. Pt stated her BP has been doing well, approx 140s/ 60s. PT-OP-D Balance Start: 10/10/19 14:49 Freq: Status: Active Protocol: Document 10/06/19 09:46 HH (Rec: 10/10/19 15:20 HH [email or web address]) Balance Tests Single Limb Standing Single Limb- Right 9s Single Limb- Left 6s Tandem Tandem Standing R foot in front = 11s Lfoot in front =6s PT-OP-E Functional Tests Start: 10/10/19 14:49 Freq: Status: Active Protocol: Document 10/06/19 09:46 HH (Rec: 10/10/19 15:20 HH [email or web address]) Functional Tests 6 Minute Walk Test Distance 650ft Device Used hiking stick on RUE Comments small steps noted Five Times Sit to Stand Test Score 15s Comments without UE support PT-OP-F Manual Assessment Start: 04/10/19 19:52 Freq: Status: Active Protocol: Document 04/07/19 11:15 AMH (Rec: 04/10/19 20:33 AMH [email or web address]) Manual Assessments Soft Tissue Assessment Soft Tissue Mobility Assessment left quadratus lumborum tightness, left paraspinal tightness, Joint Mobility Assessment Joint Mobility Assessment full knee joint ROM, equal leg length today, SI instability noted with + ASLR test PT-OP-H Neuro Start: 10/10/19 14:49 Freq: Status: Active Protocol: Document 11/15/19 12:47 LRN (Rec: 11/15/19 13:49 LRN [id number]) Vital Signs Pulse End of PT, after rest, sitting Pulse at Rest (bpm) 74 After ex Pulse at Rest (bpm) 77 Blood Pressure End of PT, after rest, sitting Blood Pressure (90/60-120/80 mmHg) 135/89 H Blood Pressure Source Manual Cuff,Left Upper Extremity After ex, dizzy Blood Pressure (90/60-120/80 mmHg) 132/84 H Blood Pressure Source Manual Cuff,Left Upper Extremity Comments Vital Signs Comments End of PT immediately after sitting. Pt was a little dizzy after standing but refused another BP check by PT Marielle Astudillo. PT-OP-J Posture/Palpation/Skin Start: 04/10/19 19:52 Freq: Status: Active Protocol: Document 04/07/19 11:15 AMH (Rec: 04/10/19 20:33 AMH [email or web address]) Posture Evaluation Comments Posture Comments pt stands with the left knee bent and leaning to the left, she also has a forward shoulder posture with a flexed trunk PT-OP-K Range of Motion Start: 04/10/19 19:52 Freq: Status: Active Protocol: Document 04/07/19 11:15 AMH (Rec: 04/10/19 20:33 AMH [email or web address]) Knee Goniometric Range of Motion Knee Right Knee ROM WFL Yes Left Knee ROM WFL Yes PT-OP-M Strength Start: 04/10/19 19:52 Freq: Status: Active Protocol: Document 10/06/19 09:46 HH (Rec: 10/10/19 15:24 HH [email or web address]) Hip Strength Hip Manual Muscle Testing Left Flexion (L2) 4 Good Extension (S1) 4- Good- Abduction 4- Good- Knee Strength Knee Manual Muscle Testing Left Flexion (S2) 4- Good- Extension (L3) 4- Good- PT-OP-Q Treatments Start: 04/10/19 19:52 Freq: Status: Active Protocol: Document 12/02/19 13:50 SP (Rec: 12/02/19 15:38 SP [id number]) Cardio Equipment Recumbent Elliptical ([employer] Duration (Minutes) 6 Resistance 5 Seat Position 2 Other BP pre 142/80 HR 74bpm, post 140/80 HR 76bpm Therapeutic Exercises Standing Exercises step up Standing Exercise Name Step ups in open with L handrail Side bilateral Resistance 2# Equipment Used 6 step Reps/Minutes alternating 10x each leg Comments required brief stand rest between each LE step tap Standing Exercise Name Step taps in //bars without walking stick, forward and lateral Side bilateral Resistance 6 inch step Equipment Used walk stick or rail hover hand over Reps/Minutes 10x each side forward, 10x each side lateral Toe raises Standing Exercise Name Ankle DF Side bilateral Equipment Used Wall railing Reps/Minutes 10x 3 Comments Much cuing for posture and proper movement (ankle vs body ) side steps with theraband Standing Exercise Name sidesteps with and w/o TB, walking stick in leading hand/ lagging hand rail Side bilateral Resistance YTB Equipment Used 15 ft length rail Reps/Minutes 4xms length of // bars each Comments with TB pt c/o dizziness, // bars two laps ok cued feet parallel heel raises Standing Exercise Name ankle PF Side bilateral Equipment Used Wall railing Reps/Minutes 30x Comments Pt needed cuing for maximal lift Neuro Re-Education Treatment Balance Activities dynamic balance Details f/b COG over HERNAN then added with head turns Equipment rocker board Comments Pt c/o dizziness with head turns so needed to sit for recovery. BP 142/72, HR 76 PT-OP-Q Treatments Start: 10/10/19 14:49 Freq: Status: Active Protocol: Document 12/27/19 13:05 SP (Rec: 12/27/19 14:58 SP [id number]) Cardio Equipment Recumbent Stepper ([employer]) Duration (Minutes) 6 Resistance 2.5 Seat Position 8 Other 2.7 RPMs, 1.7 METS Therapeutic Exercises Standing Exercises step up Equipment Used 6 step, R rail Reps/Minutes 10 reps leading each LE Comments tolerated well, cued for sequencing same LE up /down standing squats Standing Exercise Name sit to stand Equipment Used 18chair Reps/Minutes 5 reps in 11.91 sec (.19 sec improvement) Comments arms on lap Gait Training Gait Activity ground level Description 374ft in 3 min 31 sec.= 1.77 ft/sec Device Used 1 walk stick Level of Assistance SBA Surface ground level Distance/Duration 6 min Treatment Focus increase stride length Comments cued increased stride, upright posture Neuro Re-Education Treatment Balance Activities stepping activities Details forward, backward, side, high knee stepping Surface floor Equipment contact as needed back stepping //bar Reps/Duration 4 laps each Comments cued increased stride foot clearance pre gait PT-OP-T Assessment and Plan Start: 04/10/19 19:52 Freq: Status: Active Protocol: Document 12/20/19 14:34 SP (Rec: 12/20/19 15:29 SP [id number]) Physical Therapy Assessment Goals LLE strength Impairment weakness with LLE Short Term Goal (STG) Pt is able to perform sit to stand x5 x 3 sets without UE support today. 11/10/19 12/20/19 5 reps in 12.10 sec ( hands on lap) Detention Goal (LTG) Pt will improve her L LE single leg stance and tandem by 5 seconds or greater. LTG Duration 8weeks 6MWT Impairment poor activity tolerance Short Term Goal (STG) Pt amb approx 600ft without hiking stick today Pt will be able to reach 800 ft for 6MWT with/ without hiking stick 12/13/19: 619 ft using 1 walking stick 12/20/19 standing ex 93-165 sec tolerated before seated rest. STG Duration 4 weeks Contracts Analyst Goal (LTG) Pt will be able to reach 1000ft for 6 MWT without hiking stick to improve her community mobility LTG Duration 8 weeks Five Impairment unable to perform a single leg stance on LLE Short Term Goal (STG) 11/09 did not assess LLE = 6s , R=9s STG Duration 4 weeks Contracts Analyst Goal (LTG) Stefania will be able to balance 10 seconds or greater standing on L LE to improve her balance . LTG Duration 8 weeks Four Detention Goal (LTG) Goal met: Pt is not complaining about her low back discomfort Three Impairment 41/80 LEFS in may Contracts Analyst Goal (LTG) will assess next visit. Two Impairment decreased core stability with left lateral lean Contracts Analyst Goal (LTG) Stefania demonstrates improved core control and she is able to lift into a bridge position with her pelvis equal and stable. Excellent progress LTG Duration 8 weeks One Impairment L sided knee pain Detention Goal (LTG) Goal: 10/09 pt does not have L knee pain at this point Assessment Summary Assessment Pt increased activity tolerance today in standing: initially 93 sec standing activities increased to 165 sec by end of tx. Pt noted improvement in gait stride and foot clearance by end of tx walking with walking stick on R. Physical Therapy Plan Frequency and Duration Frequency of Treatment 2x/Week Duration of Treatment 8 Plan of Care Start Date 12/08/19 Plan of Care End Date 01/27/20 Therapeutic Interventions Therapeutic Interventions Balance Training,Gait Training ,Home Exercise Program,Manual Therapy,Patient/Caregiver Education,Self-Care/Home Management,Soft Tissue Mobilization,Therapeutic Exercises Next Visit Focus/Plan Next Note Type Treatment Note Next Visit Plan Assess response to last tx standing ex, balance, endurance activity in standing . Continue gait foot clearance /stride quality, endurance Next tx add: add ankle IV/EV strengthening to HEP. *Vitals to start. *Aerobic conditioning progression with emphasis on pt working at higher intensity level with rests as needed. Monitor time pt is able to tolerate a higher intensity work out. Might monitor HR/? BP during aerobic exercise. Work on upright strengthening, balance training, forward and side stepping and continue working on overall strength of the LEs. PT-OP-T Assessment and Plan Start: 10/10/19 14:49 Freq: Status: Active Protocol: Document 12/27/19 13:05 SP (Rec: 12/27/19 14:58 SP [id number]) Physical Therapy Assessment Goals LLE strength Impairment weakness with LLE Short Term Goal (STG) Pt is able to perform sit to stand x5 x 3 sets without UE support today. 11/10/19 12/20/19 5 reps in 12.10 sec ( hands on lap) Contracts Analyst Goal (LTG) Pt will improve her L LE single leg stance and tandem by 5 seconds or greater. LTG Duration 8weeks 6MWT Impairment poor activity tolerance Short Term Goal (STG) Pt amb approx 600ft without hiking stick today Pt will be able to reach 800 ft for 6MWT with/ without hiking stick 12/13/19: 619 ft using 1 walking stick 12/20/19 standing ex 93-165 sec tolerated before seated rest. STG Duration 4 weeks Contracts Analyst Goal (LTG) Pt will be able to reach 1000ft for 6 MWT without hiking stick to improve her community mobility LTG Duration 8 weeks Five Impairment unable to perform a single leg stance on LLE Short Term Goal (STG) 11/09 did not assess LLE = 6s , R=9s STG Duration 4 weeks Detention Goal (LTG) Stefania will be able to balance 10 seconds or greater standing on L LE to improve her balance . LTG Duration 8 weeks Four Contracts Analyst Goal (LTG) Goal met: Pt is not complaining about her low back discomfort Three Impairment 41/80 LEFS in may Contracts Analyst Goal (LTG) will assess next visit. Two Impairment decreased core stability with left lateral lean Detention Goal (LTG) Stefania demonstrates improved core control and she is able to lift into a bridge position with her pelvis equal and stable. Excellent progress LTG Duration 8 weeks One Impairment L sided knee pain Contracts Analyst Goal (LTG) Goal: 10/09 pt does not have L knee pain at this point Assessment Summary Assessment Pt tolerates approx 1.5- 2.5 min standing activity with some needing to look down to see step before required needing sit due to c/o dizziness, BP maintains 140/ 70s pre and with acitivity. Gait using R walking stick 2 laps 374 ft 3 min 31 sec. Pt improvement in stride length during gait, stated likes walking, good quad tiring during 2 laps gym during gait in gym with no report dizziness a good work out but if weren't for the dizziness I could do more standing exercises. I wonder if the crystals in my ear like my friend could be a reason, so far doctors are unsure what causing it. Physical Therapy Plan Frequency and Duration Frequency of Treatment 2x/Week Duration of Treatment 8 Plan of Care Start Date 12/08/19 Plan of Care End Date 01/27/20 Therapeutic Interventions Therapeutic Interventions Balance Training,Gait Training ,Home Exercise Program,Manual Therapy,Patient/Caregiver Education,Self-Care/Home Management,Soft Tissue Mobilization,Therapeutic Exercises Next Visit Focus/Plan Next Note Type Treatment Note Next Visit Plan Assess response to last tx standing ex, endurance activity in standing and gait. Continue gait foot clearance/ stride quality, endurance Next tx add: add ankle IV/EV strengthening to HEP. *Vitals to start. *Aerobic conditioning progression with emphasis on pt working at higher intensity level with rests as needed. Monitor time pt is able to tolerate a higher intensity work out. Might monitor HR/? BP during aerobic exercise. Work on upright strengthening, balance training, forward and side stepping and continue working on overall strength of the LEs.
--- NOTE | 2020-01-03 16:29 | PT.OTN ---
Current Diagnoses Unilateral primary osteoarthritis, left knee (01/03/20) Muscle weakness (generalized) (01/03/20) Difficulty in walking, not elsewhere classified (01/03/20) Physical Therapy Treatment Note PT-OP-A Visit Information Start: 04/10/19 19:52 Freq: Status: Active Protocol: Document 01/03/20 13:49 HH (Rec: 01/03/20 16:29 HH [id number]) Out-Patient Physical Therapy Visit Information Visit Information Visit Type Progress Note Visit Start Time 13:48 Visit Stop Time 14:30 Total Visit Minutes 42 Visit Number 30 Number of AVIONICS TECHNICIAN Visits 0 PT-OP-B Current Condition Start: 04/10/19 19:52 Freq: Status: Active Protocol: Document 04/07/19 11:15 AMH (Rec: 04/10/19 20:33 AMH [email or web address]) Current Condition History of Current Condition Onset Date August 2018 Current Complaints complaints of left sided knee pain that began following her hip surgery History of Current Condition 83 year old female who 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 She notes she did really well with her hip rehab and is now walking with a walking stick in the left hand. She reports though that she began experiencing knee pain in the left knee with walking after her hip surgery. She reports feeling off kilter and has low energy since her surgery. She is limited at this time to walking only a few blocks due to left knee pain. Other past medical history includes hx of back pain, arthritis, high blood pressure Treatment Goals Patient/Caregiver Goals Ny would like to return to a walking routine without knee pain as at this time she is limited to a few blocks at a time PT-OP-C Subjective Start: 04/10/19 19:52 Freq: Status: Active Protocol: Document 01/03/20 13:49 HH (Rec: 01/03/20 16:29 HH [id number]) OP-PT Subjective Patient Comments Patient Comments My knee is doing good but I just dont have much energy. I know my BP is doing good and so does my blood work. Patient Reported Progress Improving PT-OP-D Balance Start: 10/10/19 14:49 Freq: Status: Active Protocol: Document 10/06/19 09:46 HH (Rec: 10/10/19 15:20 HH [email or web address]) Balance Tests Single Limb Standing Single Limb- Right 9s Single Limb- Left 6s Tandem Tandem Standing R foot in front = 11s Lfoot in front =6s PT-OP-E Functional Tests Start: 10/10/19 14:49 Freq: Status: Active Protocol: Document 10/06/19 09:46 HH (Rec: 10/10/19 15:20 HH [email or web address]) Functional Tests 6 Minute Walk Test Distance 650ft Device Used hiking stick on RUE Comments small steps noted Five Times Sit to Stand Test Score 15s Comments without UE support PT-OP-F Manual Assessment Start: 04/10/19 19:52 Freq: Status: Active Protocol: Document 04/07/19 11:15 AMH (Rec: 04/10/19 20:33 AMH [email or web address]) Manual Assessments Soft Tissue Assessment Soft Tissue Mobility Assessment left quadratus lumborum tightness, left paraspinal tightness, Joint Mobility Assessment Joint Mobility Assessment full knee joint ROM, equal leg length today, SI instability noted with + ASLR test PT-OP-H Neuro Start: 10/10/19 14:49 Freq: Status: Active Protocol: Document 11/15/19 12:47 LRN (Rec: 11/15/19 13:49 LRN [id number]) Vital Signs Pulse End of PT, after rest, sitting Pulse at Rest (bpm) 74 After ex Pulse at Rest (bpm) 77 Blood Pressure End of PT, after rest, sitting Blood Pressure (90/60-120/80 mmHg) 135/89 H Blood Pressure Source Manual Cuff,Left Upper Extremity After ex, dizzy Blood Pressure (90/60-120/80 mmHg) 132/84 H Blood Pressure Source Manual Cuff,Left Upper Extremity Comments Vital Signs Comments End of PT immediately after sitting. Pt was a little dizzy after standing but refused another BP check by PT Marielle Astudillo. PT-OP-J Posture/Palpation/Skin Start: 04/10/19 19:52 Freq: Status: Active Protocol: Document 04/07/19 11:15 AMH (Rec: 04/10/19 20:33 AMH [email or web address]) Posture Evaluation Comments Posture Comments pt stands with the left knee bent and leaning to the left, she also has a forward shoulder posture with a flexed trunk PT-OP-K Range of Motion Start: 04/10/19 19:52 Freq: Status: Active Protocol: Document 04/07/19 11:15 AMH (Rec: 04/10/19 20:33 AMH [email or web address]) Knee Goniometric Range of Motion Knee Right Knee ROM WFL Yes Left Knee ROM WFL Yes PT-OP-M Strength Start: 04/10/19 19:52 Freq: Status: Active Protocol: Document 10/06/19 09:46 HH (Rec: 10/10/19 15:24 HH [email or web address]) Hip Strength Hip Manual Muscle Testing Left Flexion (L2) 4 Good Extension (S1) 4- Good- Abduction 4- Good- Knee Strength Knee Manual Muscle Testing Left Flexion (S2) 4- Good- Extension (L3) 4- Good- PT-OP-Q Treatments Start: 04/10/19 19:52 Freq: Status: Active Protocol: Document 12/02/19 13:50 SP (Rec: 12/02/19 15:38 SP [id number]) Cardio Equipment Recumbent Elliptical ([employer]) Duration (Minutes) 6 Resistance 5 Seat Position 2 Other BP pre 142/80 HR 74bpm, post 140/80 HR 76bpm Therapeutic Exercises Standing Exercises step up Standing Exercise Name Step ups in open with L handrail Side bilateral Resistance 2# Equipment Used 6 step Reps/Minutes alternating 10x each leg Comments required brief stand rest between each LE step tap Standing Exercise Name Step taps in //bars without walking stick, forward and lateral Side bilateral Resistance 6 inch step Equipment Used walk stick or rail hover hand over Reps/Minutes 10x each side forward, 10x each side lateral Toe raises Standing Exercise Name Ankle DF Side bilateral Equipment Used Wall railing Reps/Minutes 10x 3 Comments Much cuing for posture and proper movement (ankle vs body ) side steps with theraband Standing Exercise Name sidesteps with and w/o TB, walking stick in leading hand/ lagging hand rail Side bilateral Resistance YTB Equipment Used 15 ft length rail Reps/Minutes 4xms length of // bars each Comments with TB pt c/o dizziness, // bars two laps ok cued feet parallel heel raises Standing Exercise Name ankle PF Side bilateral Equipment Used Wall railing Reps/Minutes 30x Comments Pt needed cuing for maximal lift Neuro Re-Education Treatment Balance Activities dynamic balance Details f/b COG over HERNAN then added with head turns Equipment rocker board Comments Pt c/o dizziness with head turns so needed to sit for recovery. BP 142/72, HR 76 PT-OP-Q Treatments Start: 10/10/19 14:49 Freq: Status: Active Protocol: Document 01/03/20 13:49 HH (Rec: 01/03/20 16:29 HH [id number]) Cardio Equipment Recumbent Stepper ([employer]) Duration (Minutes) 6 Resistance 3.0 Seat Position 8 Other 2.7 RPMs, 1.9 METS Gym Equipment Shuttle Balance red Details static stance without support Reps/Duration 4 mins Comments cues to look forward. but pt reports of dizziness after Therapeutic Exercises Standing Exercises step up Equipment Used 6 step, R rail Reps/Minutes 10 reps leading each LE Comments c/o dizziness and requested for rest after 1 round hurdles Standing Exercise Name step taps then DL over back, forward locomotion Equipment Used rail contact 1 UE Comments stopped after ~20 sec due to looked down causing dizziness w/ taps ok forw. Neuro Re-Education Treatment Balance Activities stepping activities Details forward, backward, side, high knee stepping Surface floor Equipment contact as needed back stepping //bar Reps/Duration 2 laps Comments pt cannot marie backward walking d/t ongiong dizziness. Pt stated no vertigo, spinning sensation but more like fainting. PT-OP-T Assessment and Plan Start: 04/10/19 19:52 Freq: Status: Active Protocol: Document 12/20/19 14:34 SP (Rec: 12/20/19 15:29 SP [id number]) Physical Therapy Assessment Goals LLE strength Impairment weakness with LLE Short Term Goal (STG) Pt is able to perform sit to stand x5 x 3 sets without UE support today. 11/10/19 12/20/19 5 reps in 12.10 sec ( hands on lap) Family And Consumer Education Teacher Goal (LTG) Pt will improve her L LE single leg stance and tandem by 5 seconds or greater. LTG Duration 8weeks 6MWT Impairment poor activity tolerance Short Term Goal (STG) Pt amb approx 600ft without hiking stick today Pt will be able to reach 800 ft for 6MWT with/ without hiking stick 12/13/19: 619 ft using 1 walking stick 12/20/19 standing ex 93-165 sec tolerated before seated rest. STG Duration 4 weeks Family And Consumer Education Teacher Goal (LTG) Pt will be able to reach 1000ft for 6 MWT without hiking stick to improve her community mobility LTG Duration 8 weeks Five Impairment unable to perform a single leg stance on LLE Short Term Goal (STG) 11/09 did not assess LLE = 6s , R=9s STG Duration 4 weeks Skilled Nursing Goal (LTG) Stefania will be able to balance 10 seconds or greater standing on L LE to improve her balance . LTG Duration 8 weeks Four Family And Consumer Education Teacher Goal (LTG) Goal met: Pt is not complaining about her low back discomfort Three Impairment 41/80 LEFS in may Family And Consumer Education Teacher Goal (LTG) will assess next visit. Two Impairment decreased core stability with left lateral lean Family And Consumer Education Teacher Goal (LTG) Stefania demonstrates improved core control and she is able to lift into a bridge position with her pelvis equal and stable. Excellent progress LTG Duration 8 weeks One Impairment L sided knee pain Skilled Nursing Goal (LTG) Goal: 10/09 pt does not have L knee pain at this point Assessment Summary Assessment Pt increased activity tolerance today in standing: initially 93 sec standing activities increased to 165 sec by end of tx. Pt noted improvement in gait stride and foot clearance by end of tx walking with walking stick on R. Physical Therapy Plan Frequency and Duration Frequency of Treatment 2x/Week Duration of Treatment 8 Plan of Care Start Date 12/08/19 Plan of Care End Date 01/27/20 Therapeutic Interventions Therapeutic Interventions Balance Training,Gait Training ,Home Exercise Program,Manual Therapy,Patient/Caregiver Education,Self-Care/Home Management,Soft Tissue Mobilization,Therapeutic Exercises Next Visit Focus/Plan Next Note Type Treatment Note Next Visit Plan Assess response to last tx standing ex, balance, endurance activity in standing . Continue gait foot clearance /stride quality, endurance Next tx add: add ankle IV/EV strengthening to HEP. *Vitals to start. *Aerobic conditioning progression with emphasis on pt working at higher intensity level with rests as needed. Monitor time pt is able to tolerate a higher intensity work out. Might monitor HR/? BP during aerobic exercise. Work on upright strengthening, balance training, forward and side stepping and continue working on overall strength of the LEs. PT-OP-T Assessment and Plan Start: 10/10/19 14:49 Freq: Status: Active Protocol: Document 01/03/20 13:49 HH (Rec: 01/03/20 16:29 HH [id number]) Physical Therapy Assessment Goals LLE strength Impairment weakness with LLE Short Term Goal (STG) Pt is able to perform sit to stand x5 x 3 sets without UE support today. 11/10/19 12/20/19 5 reps in 12.10 sec ( hands on lap) Family And Consumer Education Teacher Goal (LTG) Pt will improve her L LE single leg stance and tandem by 5 seconds or greater. LTG Duration 8weeks 6MWT Impairment poor activity tolerance Short Term Goal (STG) Pt amb approx 600ft without hiking stick today Pt will be able to reach 800 ft for 6MWT with/ without hiking stick 12/13/19: 619 ft using 1 walking stick 12/20/19 standing ex 93-165 sec tolerated before seated rest. STG Duration 4 weeks Skilled Nursing Goal (LTG) Pt will be able to reach 1000ft for 6 MWT without hiking stick to improve her community mobility LTG Duration 8 weeks Five Impairment unable to perform a single leg stance on LLE Short Term Goal (STG) 11/09 did not assess LLE = 6s , R=9s STG Duration 4 weeks Skilled Nursing Goal (LTG) Stefania will be able to balance 10 seconds or greater standing on L LE to improve her balance . LTG Duration 8 weeks Four Family And Consumer Education Teacher Goal (LTG) Goal met: Pt is not complaining about her low back discomfort Three Impairment 41/80 LEFS in may Skilled Nursing Goal (LTG) will assess next visit. Two Impairment decreased core stability with left lateral lean Skilled Nursing Goal (LTG) Stefania demonstrates improved core control and she is able to lift into a bridge position with her pelvis equal and stable. Excellent progress LTG Duration 8 weeks One Impairment L sided knee pain Family And Consumer Education Teacher Goal (LTG) Goal: 10/09 pt does not have L knee pain at this point Assessment Summary Assessment Pt didnt marie session well and reported dizziness multiple times. Pt reports she gets dizziness when she looks around but this PT checked her VOR, saccade pursuit, convergence and did not reproduce her symptoms. Per previous tx notes, pt's BP has been doing fine pre post activity, along with unremarkable blood work as stated. However, she tends to get anxious easily and needed reassurance for any mobility ex. Pt has been stating going to PT is my only activity so far. Spent time educating pt to participate more community activity to improve her mobility. Physical Therapy Plan Next Visit Focus/Plan Next Note Type Treatment Note Next Visit Plan Assess response to last tx standing ex, endurance activity in standing and gait. Continue gait foot clearance/ stride quality, endurance Next tx add: add ankle IV/EV strengthening to HEP. *Vitals to start. *Aerobic conditioning progression with emphasis on pt working at higher intensity level with rests as needed. Monitor time pt is able to tolerate a higher intensity work out. Might monitor HR/? BP during aerobic exercise. Work on upright strengthening, balance training, forward and side stepping and continue working on overall strength of the LEs.
--- NOTE | 2020-01-05 14:30 | PT.OTN ---
Current Diagnoses Unilateral primary osteoarthritis, left knee (01/05/20) Muscle weakness (generalized) (01/05/20) Difficulty in walking, not elsewhere classified (01/05/20) Physical Therapy Treatment Note PT-OP-A Visit Information Start: 04/10/19 19:52 Freq: Status: Active Protocol: Document 01/05/20 13:53 HH (Rec: 01/05/20 14:30 HH [id number]) Out-Patient Physical Therapy Visit Information Visit Information Visit Type Treatment Note Visit Start Time 13:48 Visit Stop Time 14:29 Total Visit Minutes 41 Visit Number 31 Number of GRANITE POLISHER Visits 0 PT-OP-B Current Condition Start: 04/10/19 19:52 Freq: Status: Active Protocol: Document 04/07/19 11:15 AMH (Rec: 04/10/19 20:33 AMH [email or web address]) Current Condition History of Current Condition Onset Date August 2018 Current Complaints complaints of left sided knee pain that began following her hip surgery History of Current Condition 83 year old female who 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 She notes she did really well with her hip rehab and is now walking with a walking stick in the left hand. She reports though that she began experiencing knee pain in the left knee with walking after her hip surgery. She reports feeling off kilter and has low energy since her surgery. She is limited at this time to walking only a few blocks due to left knee pain. Other past medical history includes hx of back pain, arthritis, high blood pressure Treatment Goals Patient/Caregiver Goals Ny would like to return to a walking routine without knee pain as at this time she is limited to a few blocks at a time PT-OP-C Subjective Start: 04/10/19 19:52 Freq: Status: Active Protocol: Document 01/05/20 13:53 HH (Rec: 01/05/20 14:30 HH [id number]) OP-PT Subjective Patient Comments Patient Comments I think im getting stronger and able to tolerate since i started therapy. But i do feel dizzy today. Patient Reported Progress Improving PT-OP-D Balance Start: 10/10/19 14:49 Freq: Status: Active Protocol: Document 10/06/19 09:46 HH (Rec: 10/10/19 15:20 HH [email or web address]) Balance Tests Single Limb Standing Single Limb- Right 9s Single Limb- Left 6s Tandem Tandem Standing R foot in front = 11s Lfoot in front =6s PT-OP-E Functional Tests Start: 10/10/19 14:49 Freq: Status: Active Protocol: Document 10/06/19 09:46 HH (Rec: 10/10/19 15:20 HH [email or web address]) Functional Tests 6 Minute Walk Test Distance 650ft Device Used hiking stick on RUE Comments small steps noted Five Times Sit to Stand Test Score 15s Comments without UE support PT-OP-F Manual Assessment Start: 04/10/19 19:52 Freq: Status: Active Protocol: Document 04/07/19 11:15 AMH (Rec: 04/10/19 20:33 AMH [email or web address]) Manual Assessments Soft Tissue Assessment Soft Tissue Mobility Assessment left quadratus lumborum tightness, left paraspinal tightness, Joint Mobility Assessment Joint Mobility Assessment full knee joint ROM, equal leg length today, SI instability noted with + ASLR test PT-OP-H Neuro Start: 10/10/19 14:49 Freq: Status: Active Protocol: Document 11/15/19 12:47 LRN (Rec: 11/15/19 13:49 LRN [id number]) Vital Signs Pulse End of PT, after rest, sitting Pulse at Rest (bpm) 74 After ex Pulse at Rest (bpm) 77 Blood Pressure End of PT, after rest, sitting Blood Pressure (90/60-120/80 mmHg) 135/89 H Blood Pressure Source Manual Cuff,Left Upper Extremity After ex, dizzy Blood Pressure (90/60-120/80 mmHg) 132/84 H Blood Pressure Source Manual Cuff,Left Upper Extremity Comments Vital Signs Comments End of PT immediately after sitting. Pt was a little dizzy after standing but refused another BP check by PT Marielle Astudillo. PT-OP-J Posture/Palpation/Skin Start: 04/10/19 19:52 Freq: Status: Active Protocol: Document 04/07/19 11:15 AMH (Rec: 04/10/19 20:33 AMH [email or web address]) Posture Evaluation Comments Posture Comments pt stands with the left knee bent and leaning to the left, she also has a forward shoulder posture with a flexed trunk PT-OP-K Range of Motion Start: 04/10/19 19:52 Freq: Status: Active Protocol: Document 04/07/19 11:15 AMH (Rec: 04/10/19 20:33 AMH [email or web address]) Knee Goniometric Range of Motion Knee Right Knee ROM WFL Yes Left Knee ROM WFL Yes PT-OP-M Strength Start: 04/10/19 19:52 Freq: Status: Active Protocol: Document 10/06/19 09:46 HH (Rec: 10/10/19 15:24 HH [email or web address]) Hip Strength Hip Manual Muscle Testing Left Flexion (L2) 4 Good Extension (S1) 4- Good- Abduction 4- Good- Knee Strength Knee Manual Muscle Testing Left Flexion (S2) 4- Good- Extension (L3) 4- Good- PT-OP-Q Treatments Start: 04/10/19 19:52 Freq: Status: Active Protocol: Document 12/02/19 13:50 SP (Rec: 12/02/19 15:38 SP [id number]) Cardio Equipment Recumbent Elliptical ([employer]) Duration (Minutes) 6 Resistance 5 Seat Position 2 Other BP pre 142/80 HR 74bpm, post 140/80 HR 76bpm Therapeutic Exercises Standing Exercises step up Standing Exercise Name Step ups in open with L handrail Side bilateral Resistance 2# Equipment Used 6 step Reps/Minutes alternating 10x each leg Comments required brief stand rest between each LE step tap Standing Exercise Name Step taps in //bars without walking stick, forward and lateral Side bilateral Resistance 6 inch step Equipment Used walk stick or rail hover hand over Reps/Minutes 10x each side forward, 10x each side lateral Toe raises Standing Exercise Name Ankle DF Side bilateral Equipment Used Wall railing Reps/Minutes 10x 3 Comments Much cuing for posture and proper movement (ankle vs body ) side steps with theraband Standing Exercise Name sidesteps with and w/o TB, walking stick in leading hand/ lagging hand rail Side bilateral Resistance YTB Equipment Used 15 ft length rail Reps/Minutes 4xms length of // bars each Comments with TB pt c/o dizziness, // bars two laps ok cued feet parallel heel raises Standing Exercise Name ankle PF Side bilateral Equipment Used Wall railing Reps/Minutes 30x Comments Pt needed cuing for maximal lift Neuro Re-Education Treatment Balance Activities dynamic balance Details f/b COG over HERNAN then added with head turns Equipment rocker board Comments Pt c/o dizziness with head turns so needed to sit for recovery. BP 142/72, HR 76 PT-OP-Q Treatments Start: 10/10/19 14:49 Freq: Status: Active Protocol: Document 01/05/20 13:53 HH (Rec: 01/05/20 14:30 HH [id number]) Cardio Equipment Recumbent Stepper ([employer]) Duration (Minutes) 6 Resistance 3.0 Seat Position 8 Other 2.7 RPMs, 1.9 METS Gym Equipment Shuttle Recovery Bilateral Squats Resistance #50 Shuttle Recovery Platform Stable Reps/Time 12 x 3, no discomfort noted. Shuttle Balance red Details static stance without support Reps/Duration 4 mins Comments no dizziness noted. Therapeutic Exercises Standing Exercises step up Equipment Used 6 step, R rail Reps/Minutes 10 reps leading each LE x3 Comments no dizziness noted step tap Equipment Used 6 step, R rail Reps/Minutes 10 reps leading each LE x3 Comments no dizziness noted Neuro Re-Education Treatment Balance Activities dynamic balance Details static stance on blue pad Surface blue foam Reps/Duration 10 secs x 5 Comments with EC, CGA PT-OP-T Assessment and Plan Start: 04/10/19 19:52 Freq: Status: Active Protocol: Document 12/20/19 14:34 SP (Rec: 12/20/19 15:29 SP [id number]) Physical Therapy Assessment Goals LLE strength Impairment weakness with LLE Short Term Goal (STG) Pt is able to perform sit to stand x5 x 3 sets without UE support today. 11/10/19 12/20/19 5 reps in 12.10 sec ( hands on lap) Floating Derrick Operator Goal (LTG) Pt will improve her L LE single leg stance and tandem by 5 seconds or greater. LTG Duration 8weeks 6MWT Impairment poor activity tolerance Short Term Goal (STG) Pt amb approx 600ft without hiking stick today Pt will be able to reach 800 ft for 6MWT with/ without hiking stick 12/13/19: 619 ft using 1 walking stick 12/20/19 standing ex 93-165 sec tolerated before seated rest. STG Duration 4 weeks [facility] Goal (LTG) Pt will be able to reach 1000ft for 6 MWT without hiking stick to improve her community mobility LTG Duration 8 weeks Five Impairment unable to perform a single leg stance on LLE Short Term Goal (STG) 11/09 did not assess LLE = 6s , R=9s STG Duration 4 weeks Floating Derrick Operator Goal (LTG) Stefania will be able to balance 10 seconds or greater standing on L LE to improve her balance . LTG Duration 8 weeks Four [facility] Goal (LTG) Goal met: Pt is not complaining about her low back discomfort Three Impairment 41/80 LEFS in may [facility] Goal (LTG) will assess next visit. Two Impairment decreased core stability with left lateral lean [facility] Goal (LTG) Stefania demonstrates improved core control and she is able to lift into a bridge position with her pelvis equal and stable. Excellent progress LTG Duration 8 weeks One Impairment L sided knee pain [facility] Goal (LTG) Goal: 10/09 pt does not have L knee pain at this point Assessment Summary Assessment Pt increased activity tolerance today in standing: initially 93 sec standing activities increased to 165 sec by end of tx. Pt noted improvement in gait stride and foot clearance by end of tx walking with walking stick on R. Physical Therapy Plan Frequency and Duration Frequency of Treatment 2x/Week Duration of Treatment 8 Plan of Care Start Date 12/08/19 Plan of Care End Date 01/27/20 Therapeutic Interventions Therapeutic Interventions Balance Training,Gait Training ,Home Exercise Program,Manual Therapy,Patient/Caregiver Education,Self-Care/Home Management,Soft Tissue Mobilization,Therapeutic Exercises Next Visit Focus/Plan Next Note Type Treatment Note Next Visit Plan Assess response to last tx standing ex, balance, endurance activity in standing . Continue gait foot clearance /stride quality, endurance Next tx add: add ankle IV/EV strengthening to HEP. *Vitals to start. *Aerobic conditioning progression with emphasis on pt working at higher intensity level with rests as needed. Monitor time pt is able to tolerate a higher intensity work out. Might monitor HR/? BP during aerobic exercise. Work on upright strengthening, balance training, forward and side stepping and continue working on overall strength of the LEs. PT-OP-T Assessment and Plan Start: 10/10/19 14:49 Freq: Status: Active Protocol: Document 01/05/20 13:53 (Rec: 01/05/20 14:30 [id number]) Physical Therapy Assessment Goals LLE strength Impairment weakness with LLE Short Term Goal (STG) Pt is able to perform sit to stand x5 x 3 sets without UE support today. 7/9/20 8/18/20 5 reps in 12.10 sec ( hands on lap) Floating Derrick Operator Goal (LTG) Pt will improve her L LE single leg stance and tandem by 5 seconds or greater. LTG Duration 8weeks 6MWT Impairment poor activity tolerance Short Term Goal (STG) Pt amb approx 600ft without hiking stick today Pt will be able to reach 800 ft for 6MWT with/ without hiking stick 12/13/19: 619 ft using 1 walking stick 12/20/19 standing ex 93-165 sec tolerated before seated rest. STG Duration 4 weeks Floating Derrick Operator Goal (LTG) Pt will be able to reach 1000ft for 6 MWT without hiking stick to improve her community mobility LTG Duration 8 weeks Five Impairment unable to perform a single leg stance on LLE Short Term Goal (STG) 11/09 did not assess LLE = 6s , R=9s STG Duration 4 weeks [facility] Goal (LTG) Stefania will be able to balance 10 seconds or greater standing on L LE to improve her balance . LTG Duration 8 weeks Four [facility] Goal (LTG) Goal met: Pt is not complaining about her low back discomfort Three Impairment 41/80 LEFS in may [facility] Goal (LTG) will assess next visit. Two Impairment decreased core stability with left lateral lean Floating Derrick Operator Goal (LTG) Stefania demonstrates improved core control and she is able to lift into a bridge position with her pelvis equal and stable. Excellent progress LTG Duration 8 weeks One Impairment L sided knee pain Floating Derrick Operator Goal (LTG) Goal: 10/09 pt does not have L knee pain at this point Assessment Summary Assessment Pt marie session very well today . Did not have any dizziness and min breaks taken. Pt stated that although her dizziness is very spontaneous, she feels her strength and balance are overall getting better since evaluation. Physical Therapy Plan Next Visit Focus/Plan Next Note Type Treatment Note Next Visit Plan Assess response to last tx standing ex, endurance activity in standing and gait. Continue gait foot clearance/ stride quality, endurance Next tx add: add ankle IV/EV strengthening to HEP. *Vitals to start. *Aerobic conditioning progression with emphasis on pt working at higher intensity level with rests as needed. Monitor time pt is able to tolerate a higher intensity work out. Might monitor HR/? BP during aerobic exercise. Work on upright strengthening, balance training, forward and side stepping and continue working on overall strength of the LEs.
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
--- NOTE | 2020-01-12 17:42 | PT.OTN ---
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 She notes she did really well with her hip rehab and is now walking with a walking stick in the left hand. She reports though that she began experiencing knee pain in the left knee with walking after her hip surgery. She reports feeling off kilter and has low energy since her surgery. She is limited at this time to walking only a few blocks due to left knee pain. Other past medical history includes hx of back pain, arthritis, high blood pressure Treatment Goals Patient/Caregiver Goals Ny would like to return to a walking routine without knee pain as at this time she is limited to a few blocks at a time PT-OP-C Subjective Start: 04/10/19 19:52 Freq: Status: Active Protocol: Document 01/12/20 14:02 [facility] (Rec: 01/12/20 14:14 [facility] [id number]) OP-PT Subjective Patient Comments Patient Comments pt had a allergic reaction to the smoke and her eyes are swollen today, she mentions it affected her fatigue level. PT-OP-D Balance Start: 10/10/19 14:49 Freq: Status: Active Protocol: Document 10/06/19 09:46 [facility] (Rec: 10/10/19 15:20 [facility] [email or web address]) Balance Tests Single Limb Standing Single Limb- Right 9s Single Limb- Left 6s Tandem Tandem Standing R foot in front = 11s Lfoot in front =6s PT-OP-E Functional Tests Start: 10/10/19 14:49 Freq: Status: Active Protocol: Document 10/06/19 09:46 [facility] (Rec: 10/10/19 15:20 [facility] [email or web address]) Functional Tests 6 Minute Walk Test Distance 650ft Device Used hiking stick on RUE Comments small steps noted Five Times Sit to Stand Test Score 15s Comments without UE support PT-OP-F Manual Assessment Start: 04/10/19 19:52 Freq: Status: Active Protocol: Document 04/07/19 11:15 [facility] (Rec: 04/10/19 20:33 [facility] [email or web address]) Manual Assessments Soft Tissue Assessment Soft Tissue Mobility Assessment left quadratus lumborum tightness, left paraspinal tightness, Joint Mobility Assessment Joint Mobility Assessment full knee joint ROM, equal leg length today, SI instability noted with + ASLR test PT-OP-H Neuro Start: 10/10/19 14:49 Freq: Status: Active Protocol: Document 11/15/19 12:47 [facility] (Rec: 11/15/19 13:49 [facility] [id number]) Vital Signs Pulse End of PT, after rest, sitting Pulse at Rest (bpm) 74 After ex Pulse at Rest (bpm) 77 Blood Pressure End of PT, after rest, sitting Blood Pressure (90/60-120/80 mmHg) 135/89 H Blood Pressure Source Manual Cuff,Left Upper Extremity After ex, dizzy Blood Pressure (90/60-120/80 mmHg) 132/84 H Blood Pressure Source Manual Cuff,Left Upper Extremity Comments Vital Signs Comments End of PT immediately after sitting. Pt was a little dizzy after standing but refused another BP check by PT Marielle Astudillo. PT-OP-J Posture/Palpation/Skin Start: 04/10/19 19:52 Freq: Status: Active Protocol: Document 04/07/19 11:15 [facility] (Rec: 04/10/19 20:33 [facility] [email or web address]) Posture Evaluation Comments Posture Comments pt stands with the left knee bent and leaning to the left, she also has a forward shoulder posture with a flexed trunk PT-OP-K Range of Motion Start: 04/10/19 19:52 Freq: Status: Active Protocol: Document 04/07/19 11:15 [facility] (Rec: 12/08/19 20:33 [facility] [email or web address]) Knee Goniometric Range of Motion Knee Right Knee ROM WFL Yes Left Knee ROM WFL Yes PT-OP-M Strength Start: 04/10/19 19:52 Freq: Status: Active Protocol: Document 10/06/19 09:46 [facility] (Rec: 10/10/19 15:24 [facility] [email or web address]) Hip Strength Hip Manual Muscle Testing Left Flexion (L2) 4 Good Extension (S1) 4- Good- Abduction 4- Good- Knee Strength Knee Manual Muscle Testing Left Flexion (S2) 4- Good- Extension (L3) 4- Good- PT-OP-Q Treatments Start: 04/10/19 19:52 Freq: Status: Active Protocol: Document 12/02/19 13:50 [facility] (Rec: 12/02/19 15:38 SP [id number]) Cardio Equipment Recumbent Elliptical (Mode [place]aire) Duration (Minutes) 6 Resistance 5 Seat Position 2 Other BP pre 142/80 HR 74bpm, post 140/80 HR 76bpm Therapeutic Exercises Standing Exercises step up Standing Exercise Name Step ups in open with L handrail Side bilateral Resistance 2# Equipment Used 6 step Reps/Minutes alternating 10x each leg Comments required brief stand rest between each LE step tap Standing Exercise Name Step taps in //bars without walking stick, forward and lateral Side bilateral Resistance 6 inch step Equipment Used walk stick or rail hover hand over Reps/Minutes 10x each side forward, 10x each side lateral Toe raises Standing Exercise Name Ankle DF Side bilateral Equipment Used Wall railing Reps/Minutes 10x 3 Comments Much cuing for posture and proper movement (ankle vs body ) side steps with theraband Standing Exercise Name sidesteps with and w/o TB, walking stick in leading hand/ lagging hand rail Side bilateral Resistance YTB Equipment Used 15 ft length rail Reps/Minutes 4xms length of // bars each Comments with TB pt c/o dizziness, // bars two laps ok cued feet parallel heel raises Standing Exercise Name ankle PF Side bilateral Equipment Used Wall railing Reps/Minutes 30x Comments Pt needed cuing for maximal lift Neuro Re-Education Treatment Balance Activities dynamic balance Details f/b COG over HERNAN then added with head turns Equipment rocker board Comments Pt c/o dizziness with head turns so needed to sit for recovery. BP 142/72, HR 76 PT-OP-Q Treatments Start: 10/10/19 14:49 Freq: Status: Active Protocol: Document 01/12/20 14:02 [facility] (Rec: 01/12/20 14:14 [facility] [id number]) Cardio Equipment Recumbent Elliptical (Biodex) Duration (Minutes) 5 Resistance 1 Gym Equipment Cable Column (Body Solid) Hip Abduction Resistance 10# Shuttle Recovery Unilateral Squats Details Unilateral squats Resistance dec 25# Shuttle Recovery Platform Stable Reps/Time x10 each leg Max cuing sequencing Bilateral Squats Resistance #50-75 Shuttle Recovery Platform Stable Reps/Time 10 x 3, no discomfort noted. Shuttle Balance red Details static stance without support Reps/Duration 4 mins Comments dizziness noted Therapeutic Exercises Supine Exercises Bridging Side bilateral Reps/Minutes 8 x2 Comments no discomfort noted Sidelying Exercises Clamshell Sidelying Exercise Name Clamshell Side bilateral Equipment Used TB L2 PT-OP-T Assessment and Plan Start: 04/10/19 19:52 Freq: Status: Active Protocol: Document 12/20/19 14:34 [facility] (Rec: 12/20/19 15:29 SP [id number]) Physical Therapy Assessment Goals LLE strength Impairment weakness with LLE Short Term Goal (STG) Pt is able to perform sit to stand x5 x 3 sets without UE support today. 11/10/19 12/20/19 5 reps in 12.10 sec ( hands on lap) [facility] Goal (LTG) Pt will improve her L LE single leg stance and tandem by 5 seconds or greater. LTG Duration 8weeks 6MWT Impairment poor activity tolerance Short Term Goal (STG) Pt amb approx 600ft without hiking stick today Pt will be able to reach 800 ft for 6MWT with/ without hiking stick 12/13/19: 619 ft using 1 walking stick 12/20/19 standing ex 93-165 sec tolerated before seated rest. STG Duration 4 weeks [facility] Goal (LTG) Pt will be able to reach 1000ft for 6 MWT without hiking stick to improve her community mobility LTG Duration 8 weeks Five Impairment unable to perform a single leg stance on LLE Short Term Goal (STG) 11/09 did not assess LLE = 6s , R=9s STG Duration 4 weeks [facility] [employer] Goal (LTG) Stefania will be able to balance 10 seconds or greater standing on L LE to improve her balance . LTG Duration 8 weeks Four [facility] [employer] Goal (LTG) Goal met: Pt is not complaining about her low back discomfort Three Impairment 41/80 LEFS in may [facility] Goal (LTG) will assess next visit. Two Impairment decreased core stability with left lateral lean [facility] Goal (LTG) Stefania demonstrates improved core control and she is able to lift into a bridge position with her pelvis equal and stable. Excellent progress LTG Duration 8 weeks One Impairment L sided knee pain [facility] Goal (LTG) Goal: 10/09 pt does not have L knee pain at this point Assessment Summary Assessment Pt increased activity tolerance today in standing: initially 93 sec standing activities increased to 165 sec by end of tx. Pt noted improvement in gait stride and foot clearance by end of tx walking with walking stick on R. Physical Therapy Plan Frequency and Duration Frequency of Treatment 2x/Week Duration of Treatment 8 Plan of Care Start Date 12/08/19 Plan of Care End Date 01/27/20 Therapeutic Interventions Therapeutic Interventions Balance Training,Gait Training ,Home Exercise Program,Manual Therapy,Patient/Caregiver Education,Self-Care/Home Management,Soft Tissue Mobilization,Therapeutic Exercises Next Visit Focus/Plan Next Note Type Treatment Note Next Visit Plan Assess response to last tx standing ex, balance, endurance activity in standing . Continue gait foot clearance /stride quality, endurance Next tx add: add ankle IV/EV strengthening to HEP. *Vitals to start. *Aerobic conditioning progression with emphasis on pt working at higher intensity level with rests as needed. Monitor time pt is able to tolerate a higher intensity work out. Might monitor HR/? BP during aerobic exercise. Work on upright strengthening, balance training, forward and side stepping and continue working on overall strength of the LEs. PT-OP-T Assessment and Plan Start: 10/10/19 14:49 Freq: Status: Active Protocol: Document 01/12/20 14:20 [facility] (Rec: 01/12/20 14:22 [facility] [id number]) Physical Therapy Assessment Assessment Summary Assessment Pt had decreased strength for her exercises today. She was really fatigued with her allergies as well today. The smoke really got to her. Physical Therapy Plan Frequency and Duration Frequency of Treatment 2x/Week Duration of Treatment 8 Plan of Care Start Date 12/08/19 Plan of Care End Date 01/27/20 Therapeutic Interventions Therapeutic Interventions Balance Training,Gait Training ,Home Exercise Program,Manual Therapy,Patient/Caregiver Education,Self-Care/Home Management,Soft Tissue Mobilization,Therapeutic Exercises Discharge Physical Therapy Discharge Comments Discharge until /p surgery. Next Visit Focus/Plan Next Note Type Treatment Note Next Visit Plan Assess response to last tx standing ex, endurance activity in standing and gait. Continue gait foot clearance/ stride quality, endurance Next tx add: add ankle IV/EV strengthening to HEP. *Vitals to start. *Aerobic conditioning progression with emphasis on pt working at higher intensity level with rests as needed. Monitor time pt is able to tolerate a higher intensity work out. Might monitor HR/? BP during aerobic exercise. Work on upright strengthening, balance training, forward and side stepping and continue working on overall strength of the LEs.
--- NOTE | 2020-01-17 13:45 | PT.OTN ---
Current Diagnoses Unilateral primary osteoarthritis, left knee (01/17/20) Muscle weakness (generalized) (01/17/20) Difficulty in walking, not elsewhere classified (01/17/20) Physical Therapy Treatment Note PT-OP-A Visit Information Start: 04/10/19 19:52 Freq: Status: Active Protocol: Document 01/17/20 13:04 SP (Rec: 01/17/20 15:57 SP [id number]) Out-Patient Physical Therapy Visit Information Visit Information Visit Type Treatment Note Visit Start Time 13:04 Visit Stop Time 13:45 Total Visit Minutes 41 Visit Number 34 Number of Z [employer] Visits 1 PT-OP-B Current Condition Start: 04/10/19 19:52 Freq: Status: Active Protocol: Document 04/07/19 11:15 AMH (Rec: 04/10/19 20:33 AMH [email or web address]) Current Condition History of Current Condition Onset Date August 2018 Current Complaints complaints of left sided knee pain that began following her hip surgery History of Current Condition 83 year old female who 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 She notes she did really well with her hip rehab and is now walking with a walking stick in the left hand. She reports though that she began experiencing knee pain in the left knee with walking after her hip surgery. She reports feeling off kilter and has low energy since her surgery. She is limited at this time to walking only a few blocks due to left knee pain. Other past medical history includes hx of back pain, arthritis, high blood pressure Treatment Goals Patient/Caregiver Goals Ny would like to return to a walking routine without knee pain as at this time she is limited to a few blocks at a time PT-OP-C Subjective Start: 04/10/19 19:52 Freq: Status: Active Protocol: Document 01/17/20 13:04 SP (Rec: 01/17/20 15:57 SP [id number]) OP-PT Subjective Patient Comments Patient Comments Pt reported almost cancelled today's appt, doesn't feel herself today and has been low energy. Wants to keep low gross today. PT-OP-D Balance Start: 10/10/19 14:49 Freq: Status: Active Protocol: Document 10/06/19 09:46 HH (Rec: 10/10/19 15:20 HH [email or web address]) Balance Tests Single Limb Standing Single Limb- Right 9s Single Limb- Left 6s Tandem Tandem Standing R foot in front = 11s Lfoot in front =6s PT-OP-E Functional Tests Start: 10/10/19 14:49 Freq: Status: Active Protocol: Document 10/06/19 09:46 HH (Rec: 10/10/19 15:20 HH [email or web address]) Functional Tests 6 Minute Walk Test Distance 650ft Device Used hiking stick on RUE Comments small steps noted Five Times Sit to Stand Test Score 15s Comments without UE support PT-OP-F Manual Assessment Start: 04/10/19 19:52 Freq: Status: Active Protocol: Document 04/07/19 11:15 AMH (Rec: 04/10/19 20:33 AMH [email or web address]) Manual Assessments Soft Tissue Assessment Soft Tissue Mobility Assessment left quadratus lumborum tightness, left paraspinal tightness, Joint Mobility Assessment Joint Mobility Assessment full knee joint ROM, equal leg length today, SI instability noted with + ASLR test PT-OP-H Neuro Start: 10/10/19 14:49 Freq: Status: Active Protocol: Document 11/15/19 12:47 LRN (Rec: 11/15/19 13:49 LRN [id number]) Vital Signs Pulse End of PT, after rest, sitting Pulse at Rest (bpm) 74 After ex Pulse at Rest (bpm) 77 Blood Pressure End of PT, after rest, sitting Blood Pressure (90/60-120/80 mmHg) 135/89 H Blood Pressure Source Manual Cuff,Left Upper Extremity After ex, dizzy Blood Pressure (90/60-120/80 mmHg) 132/84 H Blood Pressure Source Manual Cuff,Left Upper Extremity Comments Vital Signs Comments End of PT immediately after sitting. Pt was a little dizzy after standing but refused another BP check by PT Marielle Astudillo. PT-OP-J Posture/Palpation/Skin Start: 04/10/19 19:52 Freq: Status: Active Protocol: Document 04/07/19 11:15 AMH (Rec: 04/10/19 20:33 AMH [email or web address]) Posture Evaluation Comments Posture Comments pt stands with the left knee bent and leaning to the left, she also has a forward shoulder posture with a flexed trunk PT-OP-K Range of Motion Start: 04/10/19 19:52 Freq: Status: Active Protocol: Document 04/07/19 11:15 AMH (Rec: 04/10/19 20:33 AMH [email or web address]) Knee Goniometric Range of Motion Knee Right Knee ROM WFL Yes Left Knee ROM WFL Yes PT-OP-M Strength Start: 04/10/19 19:52 Freq: Status: Active Protocol: Document 10/06/19 09:46 HH (Rec: 10/10/19 15:24 HH [email or web address]) Hip Strength Hip Manual Muscle Testing Left Flexion (L2) 4 Good Extension (S1) 4- Good- Abduction 4- Good- Knee Strength Knee Manual Muscle Testing Left Flexion (S2) 4- Good- Extension (L3) 4- Good- PT-OP-Q Treatments Start: 04/10/19 19:52 Freq: Status: Active Protocol: Document 12/02/19 13:50 SP (Rec: 12/02/19 15:38 SP [id number]) Cardio Equipment Recumbent Elliptical (Fanergies) Duration (Minutes) 6 Resistance 5 Seat Position 2 Other BP pre 142/80 HR 74bpm, post 140/80 HR 76bpm Therapeutic Exercises Standing Exercises step up Standing Exercise Name Step ups in open with L handrail Side bilateral Resistance 2# Equipment Used 6 step Reps/Minutes alternating 10x each leg Comments required brief stand rest between each LE step tap Standing Exercise Name Step taps in //bars without walking stick, forward and lateral Side bilateral Resistance 6 inch step Equipment Used walk stick or rail hover hand over Reps/Minutes 10x each side forward, 10x each side lateral Toe raises Standing Exercise Name Ankle DF Side bilateral Equipment Used Wall railing Reps/Minutes 10x 3 Comments Much cuing for posture and proper movement (ankle vs body ) side steps with theraband Standing Exercise Name sidesteps with and w/o TB, walking stick in leading hand/ lagging hand rail Side bilateral Resistance YTB Equipment Used 15 ft length rail Reps/Minutes 4xms length of // bars each Comments with TB pt c/o dizziness, // bars two laps ok cued feet parallel heel raises Standing Exercise Name ankle PF Side bilateral Equipment Used Wall railing Reps/Minutes 30x Comments Pt needed cuing for maximal lift Neuro Re-Education Treatment Balance Activities dynamic balance Details f/b COG over HERNAN then added with head turns Equipment rocker board Comments Pt c/o dizziness with head turns so needed to sit for recovery. BP 142/72, HR 76 PT-OP-Q Treatments Start: 10/10/19 14:49 Freq: Status: Active Protocol: Document 01/17/20 13:04 SP (Rec: 01/17/20 15:57 SP [id number]) Therapeutic Exercises Standing Exercises step tap Equipment Used 6 step, R rail Reps/Minutes x4 steps before stopped Comments dizziness noted Gait Training Gait Activity reciprocal armswings Level of Assistance SBA Surface ground level Distance/Duration 4 mins Treatment Focus segmental movement, increase stride length L>R Comments marching forrward/backward w/ reciprocal armswing ground level Description 170 ft x2 laps Device Used no AD Level of Assistance SBA Surface ground level Treatment Focus increase stride length Comments cued increased stride LLE , upright posture. Manual Therapy Treatment Soft Tissue Mobilization right quadriceps Body Location L distal quad superior to patella Mobilization Type Cross-Friction,Myofascial Release Intensity/Depth Moderate Body Position Supine ITB Body Location L distal ITB Mobilization Type Cross-Friction,Myofascial Release,Sustained Pressure Intensity/Depth Moderate Neuro Re-Education Treatment Balance Activities uneven surface balance Surface blue cushion Equipment rail contact as needed Comments 1. WBOS 2. NBOS 3. Stagger PT-OP-T Assessment and Plan Start: 04/10/19 19:52 Freq: Status: Active Protocol: Document 12/20/19 14:34 SP (Rec: 12/20/19 15:29 SP [id number]) Physical Therapy Assessment Goals LLE strength Impairment weakness with LLE Short Term Goal (STG) Pt is able to perform sit to stand x5 x 3 sets without UE support today. 11/10/19 12/20/19 5 reps in 12.10 sec ( hands on lap) [place] Goal (LTG) Pt will improve her L LE single leg stance and tandem by 5 seconds or greater. LTG Duration 8weeks 6MWT Impairment poor activity tolerance Short Term Goal (STG) Pt amb approx 600ft without hiking stick today Pt will be able to reach 800 ft for 6MWT with/ without hiking stick 12/13/19: 619 ft using 1 walking stick 12/20/19 standing ex 93-165 sec tolerated before seated rest. STG Duration 4 weeks Senior Living Goal (LTG) Pt will be able to reach 1000ft for 6 MWT without hiking stick to improve her community mobility LTG Duration 8 weeks Five Impairment unable to perform a single leg stance on LLE Short Term Goal (STG) 11/09 did not assess LLE = 6s , R=9s STG Duration 4 weeks Senior Living Goal (LTG) Stefania will be able to balance 10 seconds or greater standing on L LE to improve her balance . LTG Duration 8 weeks Four [place] Goal (LTG) Goal met: Pt is not complaining about her low back discomfort Three Impairment 41/80 LEFS in may Senior Living Goal (LTG) will assess next visit. Two Impairment decreased core stability with left lateral lean [place] Goal (LTG) Stefania demonstrates improved core control and she is able to lift into a bridge position with her pelvis equal and stable. Excellent progress LTG Duration 8 weeks One Impairment L sided knee pain Senior Living Goal (LTG) Goal: 10/09 pt does not have L knee pain at this point Assessment Summary Assessment Pt increased activity tolerance today in standing: initially 93 sec standing activities increased to 165 sec by end of tx. Pt noted improvement in gait stride and foot clearance by end of tx walking with walking stick on R. Physical Therapy Plan Frequency and Duration Frequency of Treatment 2x/Week Duration of Treatment 8 Plan of Care Start Date 12/08/19 Plan of Care End Date 01/27/20 Therapeutic Interventions Therapeutic Interventions Balance Training,Gait Training ,Home Exercise Program,Manual Therapy,Patient/Caregiver Education,Self-Care/Home Management,Soft Tissue Mobilization,Therapeutic Exercises Next Visit Focus/Plan Next Note Type Treatment Note Next Visit Plan Assess response to last tx standing ex, balance, endurance activity in standing . Continue gait foot clearance /stride quality, endurance Next tx add: add ankle IV/EV strengthening to HEP. *Vitals to start. *Aerobic conditioning progression with emphasis on pt working at higher intensity level with rests as needed. Monitor time pt is able to tolerate a higher intensity work out. Might monitor HR/? BP during aerobic exercise. Work on upright strengthening, balance training, forward and side stepping and continue working on overall strength of the LEs. PT-OP-T Assessment and Plan Start: 10/10/19 14:49 Freq: Status: Active Protocol: Document 01/17/20 13:04 SP (Rec: 01/17/20 15:57 SP [id number]) Physical Therapy Assessment Goals LLE strength Impairment weakness with LLE Short Term Goal (STG) Pt is able to perform sit to stand x5 x 3 sets without UE support today. 11/10/19 12/20/19 5 reps in 12.10 sec ( hands on lap) Senior Living Goal (LTG) Pt will improve her L LE single leg stance and tandem by 5 seconds or greater. LTG Duration 8weeks 6MWT Impairment poor activity tolerance Short Term Goal (STG) Pt amb approx 600ft without hiking stick today Pt will be able to reach 800 ft for 6MWT with/ without hiking stick 12/13/19: 619 ft using 1 walking stick 12/20/19 standing ex 93-165 sec tolerated before seated rest. STG Duration 4 weeks [place] Goal (LTG) Pt will be able to reach 1000ft for 6 MWT without hiking stick to improve her community mobility LTG Duration 8 weeks Five Impairment unable to perform a single leg stance on LLE Short Term Goal (STG) 11/09 did not assess LLE = 6s , R=9s STG Duration 4 weeks Senior Living Goal (LTG) Stefania will be able to balance 10 seconds or greater standing on L LE to improve her balance . LTG Duration 8 weeks Four Senior Living Goal (LTG) Goal met: Pt is not complaining about her low back discomfort Three Impairment 41/80 LEFS in may [place] Goal (LTG) will assess next visit. Two Impairment decreased core stability with left lateral lean Senior Living Goal (LTG) Stefania demonstrates improved core control and she is able to lift into a bridge position with her pelvis equal and stable. Excellent progress LTG Duration 8 weeks One Impairment L sided knee pain Senior Living Goal (LTG) Goal: 10/09 pt does not have L knee pain at this point Assessment Summary Assessment Pt reported dizziness during step taps so stopped adn required seated rest also after 2nd lap marching f/b in //bars but only required stopped brief rest break. Assessed BP 120/78 L arm for safety WNL. Pt responded well to gait and STMs at end of tx. I feel much better. Physical Therapy Plan Frequency and Duration Frequency of Treatment 2x/Week Duration of Treatment 8 Plan of Care Start Date 12/08/19 Plan of Care End Date 01/27/20 Therapeutic Interventions Therapeutic Interventions Balance Training,Gait Training ,Home Exercise Program,Manual Therapy,Patient/Caregiver Education,Self-Care/Home Management,Soft Tissue Mobilization,Therapeutic Exercises Next Visit Focus/Plan Next Note Type Treatment Note Next Visit Plan Assess response to last tx standing ex, endurance activity in standing and gait. Continue gait foot clearance/ stride quality, endurance Next tx add: add ankle IV/EV strengthening to HEP. *Vitals to start. *Aerobic conditioning progression with emphasis on pt working at higher intensity level with rests as needed. Monitor time pt is able to tolerate a higher intensity work out. Might monitor HR/? BP during aerobic exercise. Work on upright strengthening, balance training, forward and side stepping and continue working on overall strength of the LEs.
--- NOTE | 2020-01-19 11:15 | PT.OTN ---
Current Diagnoses Unilateral primary osteoarthritis, left knee (01/19/20) Muscle weakness (generalized) (01/19/20) Difficulty in walking, not elsewhere classified (01/19/20) Physical Therapy Treatment Note PT-OP-A Visit Information Start: 04/10/19 19:52 Freq: Status: Active Protocol: Document 01/19/20 10:33 SP (Rec: 01/19/20 11:29 SP [id number]) Out-Patient Physical Therapy Visit Information Visit Information Visit Type Treatment Note Visit Start Time 10:33 Visit Stop Time 11:15 Total Visit Minutes 42 Visit Number 35 Number of ECCLESIA[employer] WORKER Visits 2 PT-OP-B Current Condition Start: 04/10/19 19:52 Freq: Status: Active Protocol: Document 04/07/19 11:15 AMH (Rec: 04/10/19 20:33 AMH [email or web address]) Current Condition History of Current Condition Onset Date August 2018 Current Complaints complaints of left sided knee pain that began following her hip surgery History of Current Condition 83 year old female who 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 She notes she did really well with her hip rehab and is now walking with a walking stick in the left hand. She reports though that she began experiencing knee pain in the left knee with walking after her hip surgery. She reports feeling off kilter and has low energy since her surgery. She is limited at this time to walking only a few blocks due to left knee pain. Other past medical history includes hx of back pain, arthritis, high blood pressure Treatment Goals Patient/Caregiver Goals yN would like to return to a walking routine without knee pain as at this time she is limited to a few blocks at a time PT-OP-C Subjective Start: 04/10/19 19:52 Freq: Status: Active Protocol: Document 01/19/20 10:33 SP (Rec: 01/19/20 11:29 SP [id number]) OP-PT Subjective Patient Comments Patient Comments Pt reported noticed her extra BP medication is out and hasn' t been having her dizziness lately and wondering it wasnt' needed. She follows up with her physician today and will give her feedback on her observations. Pt states still doesn't have the energy would like but noticing improvement in her balance and gains making with PT. Pt requested wanting add more appts so can continue to make progress. PT-OP-D Balance Start: 10/10/19 14:49 Freq: Status: Active Protocol: Document 10/06/19 09:46 HH (Rec: 10/10/19 15:20 HH [email or web address]) Balance Tests Single Limb Standing Single Limb- Right 9s Single Limb- Left 6s Tandem Tandem Standing R foot in front = 11s Lfoot in front =6s PT-OP-E Functional Tests Start: 10/10/19 14:49 Freq: Status: Active Protocol: Document 10/06/19 09:46 HH (Rec: 10/10/19 15:20 HH [email or web address]) Functional Tests 6 Minute Walk Test Distance 650ft Device Used hiking stick on RUE Comments small steps noted Five Times Sit to Stand Test Score 15s Comments without UE support PT-OP-F Manual Assessment Start: 04/10/19 19:52 Freq: Status: Active Protocol: Document 04/07/19 11:15 AMH (Rec: 04/10/19 20:33 AMH [email or web address]) Manual Assessments Soft Tissue Assessment Soft Tissue Mobility Assessment left quadratus lumborum tightness, left paraspinal tightness, Joint Mobility Assessment Joint Mobility Assessment full knee joint ROM, equal leg length today, SI instability noted with + ASLR test PT-OP-H Neuro Start: 10/10/19 14:49 Freq: Status: Active Protocol: Document 11/15/19 12:47 LRN (Rec: 11/15/19 13:49 LRN [id number]) Vital Signs Pulse End of PT, after rest, sitting Pulse at Rest (bpm) 74 After ex Pulse at Rest (bpm) 77 Blood Pressure End of PT, after rest, sitting Blood Pressure (90/60-120/80 mmHg) 135/89 H Blood Pressure Source Manual Cuff,Left Upper Extremity After ex, dizzy Blood Pressure (90/60-120/80 mmHg) 132/84 H Blood Pressure Source Manual Cuff,Left Upper Extremity Comments Vital Signs Comments End of PT immediately after sitting. Pt was a little dizzy after standing but refused another BP check by PT Marielle Astudillo. PT-OP-J Posture/Palpation/Skin Start: 04/10/19 19:52 Freq: Status: Active Protocol: Document 04/07/19 11:15 AMH (Rec: 04/10/19 20:33 AMH [email or web address]) Posture Evaluation Comments Posture Comments pt stands with the left knee bent and leaning to the left, she also has a forward shoulder posture with a flexed trunk PT-OP-K Range of Motion Start: 04/10/19 19:52 Freq: Status: Active Protocol: Document 04/07/19 11:15 AMH (Rec: 04/10/19 20:33 AMH [email or web address]) Knee Goniometric Range of Motion Knee Right Knee ROM WFL Yes Left Knee ROM WFL Yes PT-OP-M Strength Start: 04/10/19 19:52 Freq: Status: Active Protocol: Document 10/06/19 09:46 HH (Rec: 10/10/19 15:24 HH [email or web address]) Hip Strength Hip Manual Muscle Testing Left Flexion (L2) 4 Good Extension (S1) 4- Good- Abduction 4- Good- Knee Strength Knee Manual Muscle Testing Left Flexion (S2) 4- Good- Extension (L3) 4- Good- PT-OP-Q Treatments Start: 04/10/19 19:52 Freq: Status: Active Protocol: Document 12/02/19 13:50 SP (Rec: 12/02/19 15:38 SP [id number]) Cardio Equipment Recumbent Elliptical (BiodSeed[employer]Spark) Duration (Minutes) 6 Resistance 5 Seat Position 2 Other BP pre 142/80 HR 74bpm, post 140/80 HR 76bpm Therapeutic Exercises Standing Exercises step up Standing Exercise Name Step ups in open with L handrail Side bilateral Resistance 2# Equipment Used 6 step Reps/Minutes alternating 10x each leg Comments required brief stand rest between each LE step tap Standing Exercise Name Step taps in //bars without walking stick, forward and lateral Side bilateral Resistance 6 inch step Equipment Used walk stick or rail hover hand over Reps/Minutes 10x each side forward, 10x each side lateral Toe raises Standing Exercise Name Ankle DF Side bilateral Equipment Used Wall railing Reps/Minutes 10x 3 Comments Much cuing for posture and proper movement (ankle vs body ) side steps with theraband Standing Exercise Name sidesteps with and w/o TB, walking stick in leading hand/ lagging hand rail Side bilateral Resistance YTB Equipment Used 15 ft length rail Reps/Minutes 4xms length of // bars each Comments with TB pt c/o dizziness, // bars two laps ok cued feet parallel heel raises Standing Exercise Name ankle PF Side bilateral Equipment Used Wall railing Reps/Minutes 30x Comments Pt needed cuing for maximal lift Neuro Re-Education Treatment Balance Activities dynamic balance Details f/b COG over HERNAN then added with head turns Equipment rocker board Comments Pt c/o dizziness with head turns so needed to sit for recovery. BP 142/72, HR 76 PT-OP-Q Treatments Start: 10/10/19 14:49 Freq: Status: Active Protocol: Document 01/19/20 10:33 SP (Rec: 01/19/20 11:29 SP [id number]) Gym Equipment Shuttle Recovery Unilateral Squats Details Unilateral squats Resistance 37# Shuttle Recovery Platform Stable Reps/Time x10 each leg, little discomfort R knee, cued alignment Bilateral Squats Resistance #50 Shuttle Recovery Platform Stable Reps/Time 10 x 3, no discomfort noted. Therapeutic Exercises Standing Exercises standing squats Standing Exercise Name sit to stands no UE support ( out in front) Reps/Minutes x8 before tired and L knee irritated Gait Training Gait Activity step count Description forward gait Device Used in //bars not needed Level of Assistance SBA Surface stable floor Distance/Duration 20 ft laps (14, 12, 12 steps) Treatment Focus increased stride length Comments cued increase stride length, upright posture and arm swing 1 Description 6 MWT Device Used none Level of Assistance SBA Comments 672 ft Good self corrections posture and stride length. Neuro Re-Education Treatment Balance Activities uneven surface balance Details EO, EC 30 sec each / each osition Surface blue cushion Equipment rail contact as needed Comments 1. WBOS 2. NBOS 3. Stagger PT-OP-T Assessment and Plan Start: 04/10/19 19:52 Freq: Status: Active Protocol: Document 12/20/19 14:34 SP (Rec: 12/20/19 15:29 SP [id number]) Physical Therapy Assessment Goals LLE strength Impairment weakness with LLE Short Term Goal (STG) Pt is able to perform sit to stand x5 x 3 sets without UE support today. 11/10/19 12/20/19 5 reps in 12.10 sec ( hands on lap) Timing Inspector Goal (LTG) Pt will improve her L LE single leg stance and tandem by 5 seconds or greater. LTG Duration 8weeks 6MWT Impairment poor activity tolerance Short Term Goal (STG) Pt amb approx 600ft without hiking stick today Pt will be able to reach 800 ft for 6MWT with/ without hiking stick 12/13/19: 619 ft using 1 walking stick 12/20/19 standing ex 93-165 sec tolerated before seated rest. STG Duration 4 weeks Timing Inspector Goal (LTG) Pt will be able to reach 1000ft for 6 MWT without hiking stick to improve her community mobility LTG Duration 8 weeks Five Impairment unable to perform a single leg stance on LLE Short Term Goal (STG) 11/09 did not assess LLE = 6s , R=9s STG Duration 4 weeks Timing Inspector Goal (LTG) Stefania will be able to balance 10 seconds or greater standing on L LE to improve her balance . LTG Duration 8 weeks Four Timing Inspector Goal (LTG) Goal met: Pt is not complaining about her low back discomfort Three Impairment 41/80 LEFS in may Prison Goal (LTG) will assess next visit. Two Impairment decreased core stability with left lateral lean Prison Goal (LTG) Stefania demonstrates improved core control and she is able to lift into a bridge position with her pelvis equal and stable. Excellent progress LTG Duration 8 weeks One Impairment L sided knee pain Timing Inspector Goal (LTG) Goal: 10/09 pt does not have L knee pain at this point Assessment Summary Assessment Pt increased activity tolerance today in standing: initially 93 sec standing activities increased to 165 sec by end of tx. Pt noted improvement in gait stride and foot clearance by end of tx walking with walking stick on R. Physical Therapy Plan Frequency and Duration Frequency of Treatment 2x/Week Duration of Treatment 8 Plan of Care Start Date 12/08/19 Plan of Care End Date 01/27/20 Therapeutic Interventions Therapeutic Interventions Balance Training,Gait Training ,Home Exercise Program,Manual Therapy,Patient/Caregiver Education,Self-Care/Home Management,Soft Tissue Mobilization,Therapeutic Exercises Next Visit Focus/Plan Next Note Type Treatment Note Next Visit Plan Assess response to last tx standing ex, balance, endurance activity in standing . Continue gait foot clearance /stride quality, endurance Next tx add: add ankle IV/EV strengthening to HEP. *Vitals to start. *Aerobic conditioning progression with emphasis on pt working at higher intensity level with rests as needed. Monitor time pt is able to tolerate a higher intensity work out. Might monitor HR/? BP during aerobic exercise. Work on upright strengthening, balance training, forward and side stepping and continue working on overall strength of the LEs. PT-OP-T Assessment and Plan Start: 10/10/19 14:49 Freq: Status: Active Protocol: Document 01/19/20 10:33 SP (Rec: 01/19/20 11:29 SP [id number]) Physical Therapy Assessment Goals LLE strength Impairment weakness with LLE Short Term Goal (STG) Pt is able to perform sit to stand x5 x 3 sets without UE support today. 11/10/19 12/20/19 5 reps in 12.10 sec ( hands on lap) Timing Inspector Goal (LTG) Pt will improve her L LE single leg stance and tandem by 5 seconds or greater. LTG Duration 8weeks 6MWT Impairment poor activity tolerance Short Term Goal (STG) Pt amb approx 600ft without hiking stick today Pt will be able to reach 800 ft for 6MWT with/ without hiking stick 12/13/19: Met Goal: 619 ft using 1 walking stick 12/20/19 standing ex 93-165 sec tolerated before seated rest. 01/19/20 improved to 672 ft in 6 min. with no AD. occasional cuing for increased stride. STG Duration 4 weeks Timing Inspector Goal (LTG) Pt will be able to reach 1000ft for 6 MWT without hiking stick to improve her community mobility LTG Duration 8 weeks Five Impairment unable to perform a single leg stance on LLE Short Term Goal (STG) 11/09 did not assess LLE = 6s , R=9s STG Duration 4 weeks Prison Goal (LTG) Stefania will be able to balance 10 seconds or greater standing on L LE to improve her balance . LTG Duration 8 weeks Four Timing Inspector Goal (LTG) Goal met: Pt is not complaining about her low back discomfort Three Impairment 41/80 LEFS in may Prison Goal (LTG) will assess next visit. Two Impairment decreased core stability with left lateral lean Timing Inspector Goal (LTG) Stefania demonstrates improved core control and she is able to lift into a bridge position with her pelvis equal and stable. Excellent progress LTG Duration 8 weeks One Impairment L sided knee pain Prison Goal (LTG) Goal: 10/09 pt does not have L knee pain at this point Assessment Summary Assessment Improving in stride length during step count from last assessed, decrease in 4- 6 steps. 6 MWT= 672 ft improvement of 53 ft with no AD today. Improving in balance able to stand uneven surface NBOS up to 30 sec CGA EO/ EC each. Updated progress on some goals today to prepare for PN next week. Next tx reassess 5 reps sit to stand timing. Physical Therapy Plan Frequency and Duration Frequency of Treatment 2x/Week Duration of Treatment 8 Plan of Care Start Date 12/08/19 Plan of Care End Date 01/27/20 Therapeutic Interventions Therapeutic Interventions Balance Training,Gait Training ,Home Exercise Program,Manual Therapy,Patient/Caregiver Education,Self-Care/Home Management,Soft Tissue Mobilization,Therapeutic Exercises Discharge Physical Therapy Discharge Comments Discharge until /p surgery. Next Visit Focus/Plan Next Note Type Treatment Note Next Visit Plan PN due 01/27/20. Assess response to last tx standing uneven surface balance, sit to stands and 6MWT. Continue gait foot clearance/stride quality, endurance Next tx add: add ankle IV/EV strengthening to HEP. *Vitals to start. *Aerobic conditioning progression with emphasis on pt working at higher intensity level with rests as needed. Monitor time pt is able to tolerate a higher intensity work out. Might monitor HR/? BP during aerobic exercise. Work on upright strengthening, balance training, forward and side stepping and continue working on overall strength of the LEs.
--- NOTE | 2020-02-02 17:27 | PT.OPDS ---
Current Diagnoses Unilateral primary osteoarthritis, left knee (02/02/20) Muscle weakness (generalized) (02/02/20) Difficulty in walking, not elsewhere classified (02/02/20) Visit Care Team Role Provider Type Patience Gordillo MD Primary Care Provider Physician Specialty: Family Practice Address: [address] [place] [address], [facility] [place], [address] Email: [email or web address] Diana MD Attending Provider Physician Specialty: Orthopedic Surgery Address: [address] [place] [address], [id number] Email: [email or web address] Visit Number Visit Number [phone] Discharge Summary PT-OP-B Current Condition Start: 04/10/19 19:52 Freq: Status: Active Protocol: Document 04/07/19 11:15 AMH (Rec: 04/10/19 20:33 AMH [email or web address]) Current Condition History of Current Condition Onset Date August 2018 Current Complaints complaints of left sided knee pain that began following her hip surgery History of Current Condition 83 year old female who 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 She notes she did really well with her hip rehab and is now walking with a walking stick in the left hand. She reports though that she began experiencing knee pain in the left knee with walking after her hip surgery. She reports feeling off kilter and has low energy since her surgery. She is limited at this time to walking only a few blocks due to left knee pain. Other past medical history includes hx of back pain, arthritis, high blood pressure Treatment Goals Patient/Caregiver Goals Ny would like to return to a walking routine without knee pain as at this time she is limited to a few blocks at a time PT-OP-C Subjective Start: 04/10/19 19:52 Freq: Status: Active Protocol: Document 02/02/20 10:42 HH (Rec: 02/02/20 12:39 HH [id number]) OP-PT Subjective Patient Comments Patient Comments I didnt come last time because i have some abdominal issues that i cant leave the bathroom. Besides that im doing okay. I havent gone out of the house much since my balance is that great Patient Reported Progress Same PT-OP-D Balance Start: 10/10/19 14:49 Freq: Status: Active Protocol: Document 10/06/19 09:46 HH (Rec: 10/10/19 15:20 HH [email or web address]) Balance Tests Single Limb Standing Single Limb- Right 9s Single Limb- Left 6s Tandem Tandem Standing R foot in front = 11s Lfoot in front =6s PT-OP-E Functional Tests Start: 10/10/19 14:49 Freq: Status: Active Protocol: Document 10/06/19 09:46 HH (Rec: 10/10/19 15:20 HH [email or web address]) Functional Tests 6 Minute Walk Test Distance 650ft Device Used hiking stick on RUE Comments small steps noted Five Times Sit to Stand Test Score 15s Comments without UE support PT-OP-F Manual Assessment Start: 04/10/19 19:52 Freq: Status: Active Protocol: Document 04/07/19 11:15 AMH (Rec: 04/10/19 20:33 AMH [email or web address]) Manual Assessments Soft Tissue Assessment Soft Tissue Mobility Assessment left quadratus lumborum tightness, left paraspinal tightness, Joint Mobility Assessment Joint Mobility Assessment full knee joint ROM, equal leg length today, SI instability noted with + ASLR test PT-OP-H Neuro Start: 10/10/19 14:49 Freq: Status: Active Protocol: Document 11/15/19 12:47 LRN (Rec: 11/15/19 13:49 LRN [id number]) Vital Signs Pulse End of PT, after rest, sitting Pulse at Rest (bpm) 74 After ex Pulse at Rest (bpm) 77 Blood Pressure End of PT, after rest, sitting Blood Pressure (90/60-120/80 mmHg) 135/89 H Blood Pressure Source Manual Cuff,Left Upper Extremity After ex, dizzy Blood Pressure (90/60-120/80 mmHg) 132/84 H Blood Pressure Source Manual Cuff,Left Upper Extremity Comments Vital Signs Comments End of PT immediately after sitting. Pt was a little dizzy after standing but refused another BP check by PT Marielle Astudillo. PT-OP-J Posture/Palpation/Skin Start: 04/10/19 19:52 Freq: Status: Active Protocol: Document 04/07/19 11:15 AMH (Rec: 04/10/19 20:33 AMH [email or web address]) Posture Evaluation Comments Posture Comments pt stands with the left knee bent and leaning to the left, she also has a forward shoulder posture with a flexed trunk PT-OP-K Range of Motion Start: 04/10/19 19:52 Freq: Status: Active Protocol: Document 04/07/19 11:15 AMH (Rec: 04/10/19 20:33 AMH [email or web address]) Knee Goniometric Range of Motion Knee Right Knee ROM WFL Yes Left Knee ROM WFL Yes PT-OP-M Strength Start: 04/10/19 19:52 Freq: Status: Active Protocol: Document 10/06/19 09:46 HH (Rec: 10/10/19 15:24 HH [email or web address]) Hip Strength Hip Manual Muscle Testing Left Flexion (L2) 4 Good Extension (S1) 4- Good- Abduction 4- Good- Knee Strength Knee Manual Muscle Testing Left Flexion (S2) 4- Good- Extension (L3) 4- Good- PT-OP-T Assessment and Plan Start: 04/10/19 19:52 Freq: Status: Active Protocol: Document 12/20/19 14:34 SP (Rec: 12/20/19 15:29 SP [id number]) Physical Therapy Assessment Goals LLE strength Impairment weakness with LLE Short Term Goal (STG) Pt is able to perform sit to stand x5 x 3 sets without UE support today. 11/10/19 12/20/19 5 reps in 12.10 sec ( hands on lap) Network Administrator Goal (LTG) Pt will improve her L LE single leg stance and tandem by 5 seconds or greater. LTG Duration 8weeks 6MWT Impairment poor activity tolerance Short Term Goal (STG) Pt amb approx 600ft without hiking stick today Pt will be able to reach 800 ft for 6MWT with/ without hiking stick 12/13/19: 619 ft using 1 walking stick 12/20/19 standing ex 93-165 sec tolerated before seated rest. STG Duration 4 weeks Mcfp Goal (LTG) Pt will be able to reach 1000ft for 6 MWT without hiking stick to improve her community mobility LTG Duration 8 weeks Five Impairment unable to perform a single leg stance on LLE Short Term Goal (STG) 11/09 did not assess LLE = 6s , R=9s STG Duration 4 weeks Mcfp Goal (LTG) Stefania will be able to balance 10 seconds or greater standing on L LE to improve her balance . LTG Duration 8 weeks Four Mcfp Goal (LTG) Goal met: Pt is not complaining about her low back discomfort Three Impairment 41/80 LEFS in may Mcfp Goal (LTG) will assess next visit. Two Impairment decreased core stability with left lateral lean Network Administrator Goal (LTG) Stefania demonstrates improved core control and she is able to lift into a bridge position with her pelvis equal and stable. Excellent progress LTG Duration 8 weeks One Impairment L sided knee pain Mcfp Goal (LTG) Goal: 10/09 pt does not have L knee pain at this point Assessment Summary Assessment Pt increased activity tolerance today in standing: initially 93 sec standing activities increased to 165 sec by end of tx. Pt noted improvement in gait stride and foot clearance by end of tx walking with walking stick on R. Physical Therapy Plan Frequency and Duration Frequency of Treatment 2x/Week Duration of Treatment 8 Plan of Care Start Date 12/08/19 Plan of Care End Date 01/27/20 Therapeutic Interventions Therapeutic Interventions Balance Training,Gait Training ,Home Exercise Program,Manual Therapy,Patient/Caregiver Education,Self-Care/Home Management,Soft Tissue Mobilization,Therapeutic Exercises Next Visit Focus/Plan Next Note Type Treatment Note Next Visit Plan Assess response to last tx standing ex, balance, endurance activity in standing . Continue gait foot clearance /stride quality, endurance Next tx add: add ankle IV/EV strengthening to HEP. *Vitals to start. *Aerobic conditioning progression with emphasis on pt working at higher intensity level with rests as needed. Monitor time pt is able to tolerate a higher intensity work out. Might monitor HR/? BP during aerobic exercise. Work on upright strengthening, balance training, forward and side stepping and continue working on overall strength of the LEs. PT-OP-T Assessment and Plan Start: 10/10/19 14:49 Freq: Status: Active Protocol: Document 02/02/20 10:42 (Rec: 02/02/20 12:39 [id number]) Physical Therapy Assessment Goals LLE strength Impairment weakness with LLE Short Term Goal (STG) Pt is able to perform sit to stand x5 x 3 sets without UE support today. 11/10/19 12/20/19 5 reps in 12.10 sec ( hands on lap) Network Administrator Goal (LTG) Pt will improve her L LE single leg stance and tandem by 5 seconds or greater. LTG Duration 8weeks 6MWT Impairment poor activity tolerance Short Term Goal (STG) Pt amb approx 600ft without hiking stick today Pt will be able to reach 800 ft for 6MWT with/ without hiking stick 12/13/19: Met Goal: 619 ft using 1 walking stick 12/20/19 standing ex 93-165 sec tolerated before seated rest. 01/19/20 improved to 672 ft in 6 min. with no AD. occasional cuing for increased stride. STG Duration 4 weeks Mcfp Goal (LTG) Pt will be able to reach 1000ft for 6 MWT without hiking stick to improve her community mobility LTG Duration 8 weeks Five Impairment unable to perform a single leg stance on LLE Short Term Goal (STG) 11/09 did not assess LLE = 6s , R=9s STG Duration 4 weeks Network Administrator Goal (LTG) Stefania will be able to balance 10 seconds or greater standing on L LE to improve her balance . LTG Duration 8 weeks Four Network Administrator Goal (LTG) Goal met: Pt is not complaining about her low back discomfort Three Impairment 41/80 LEFS in may Mcfp Goal (LTG) will assess next visit. Two Impairment decreased core stability with left lateral lean Mcfp Goal (LTG) Stefania demonstrates improved core control and she is able to lift into a bridge position with her pelvis equal and stable. Excellent progress LTG Duration 8 weeks One Impairment L sided knee pain Network Administrator Goal (LTG) Goal: 10/09 pt does not have L knee pain at this point Progress Towards Goals Progress Towards Goals Slow Progress due to Activity Tolerance,Slow Progress due to Attendance Issues,Slow Progress due to Medical Issues Assessment Summary Assessment DC pt from therapy today since pt has not make significant progress for the past 2 months . Her progress is mostly limited by her lack of motivation and ongoing weakness. However, Pt reports she has not had any dizziness since a few weeks ago after she stopped taking her blood pressure medication. PT Eloise who did pt's IE also reached out to her via phone to recommond and encourage to increase social participation and do daily walking to improve her overall wellness. Physical Therapy Plan Frequency and Duration Frequency of Treatment 2x/Week Duration of Treatment 8 Plan of Care Start Date 12/08/19 Plan of Care End Date 01/27/20 Discharge Physical Therapy Discharge Reasons Plateau in Progress Next Visit Focus/Plan Next Note Type Treatment Note Next Visit Plan PN due 01/27/20. Assess response to last tx standing uneven surface balance, sit to stands and 6MWT. Continue gait foot clearance/stride quality, endurance Next tx add: add ankle IV/EV strengthening to HEP. *Vitals to start. *Aerobic conditioning progression with emphasis on pt working at higher intensity level with rests as needed. Monitor time pt is able to tolerate a higher intensity work out. Might monitor HR/? BP during aerobic exercise. Work on upright strengthening, balance training, forward and side stepping and continue working on overall strength of the LEs.
== END 2020-02-20 08:45 ==
LOC: PHYS 10:30
PROVIDERS: PCP Student in an Organized Health Care Education/Training Program; Visit Provider Orthopaedic Surgery
DX: M17.12 Unilateral primary osteoarthritis, left knee (principal); M62.81 Muscle weakness (generalized); R26.2 Difficulty in walking, not elsewhere classified
CPT/HCPCS: 95851; 97110; 97112; 97116; 97140; 97161; 97164; 97530; 97535

== ENCOUNTER 2020-06-05 12:02 | Emergency (ER) | payer MEDICARE, OTHER, SELFPAY ==
[2018-09-23 16:43] VITALS: BMI 23.4
[2019-11-15 12:47] VITALS: PULSE 74; PULSE 77
[2020-06-05] VITALS (27 sets, daily range): BP systolic 173–216; BP diastolic 79–98; PULSE 65–76; RESP 18–35; TEMP 36.7–37; O2SAT 81–100
--- NOTE | 2020-06-05 12:11 | DI.RAD.S_ITS ---
PROCEDURE: XR CHEST 1V INDICATIONS: chest pain TECHNIQUE: One view of the chest was acquired. COMPARISON: [facility], , CHEST 1 VIEW, 12/08/2014, 15:42. FINDINGS: Surgical changes and devices: None. Lungs and pleura: Lungs are clear. No pleural effusions or pneumothorax. Mediastinum: Mediastinal contours appear normal. Heart size is normal. Bones and chest wall: No suspicious bony lesions. Overlying soft tissues appear unremarkable. IMPRESSION: No acute cardiopulmonary process. Dictated by: Martinez Clarke M.D. on 06/05/2020 at 12:00 Approved by: Martinez Clarke M.D. on 06/05/2020 at 12:03
[2020-06-05 12:26] LABS: Add Manual Diff / Slide Review NO; Basophils Absolute Auto 100 /uL (0-100); Basophils Percent Auto 0.9 % (0-2); Eosinophils Absolute Auto 300 /uL (0-450); Eosinophils Percent Auto 4.8 % (2-4); Hematocrit 35.9 % (36-46); Hemoglobin 12.5 g/dL (12.0-16.0); Lymphocytes Absolute Auto 1300 /uL (1100-4500); Mean Corpuscular HGB Conc 34.7 % (30-36); Mean Corpuscular Hemoglobin 30.7 PG (26-34); Mean Corpuscular Volume 88.5 fL (80-100); Monocytes Absolute Auto 500 /uL (0-900); Monocytes Percent Auto 8.1 % (3-14); Neutrophils Absolute Auto 3900 /uL (1500-7000); Neutrophils Percent Auto 64.2 % (50-75); Platelet Count 237 X10^3/uL (150-400); Red Blood Cell Count 4.06 X10^6/uL (4.0-5.2); Red Cell Distribution Width 12.8 % (11.6-14.8)
--- NOTE | 2020-06-05 12:31 | DI.CT.S_ITS ---
PROCEDURE: CT HEAD/BRAIN WO CON INDICATIONS: n/v, htn, dizzy, no trauma TECHNIQUE: Noncontrast 4.5 mm thick angled axial sections acquired from the foramen magnum to the vertex, with coronal and sagittal reformats. For radiation dose reduction, the following was used: automated exposure control, adjustment of mA and/or kV according to patient size. COMPARISON: [facility], CT, CT HEAD/BRAIN WO/W CON, 06/01/2019, 14:37. FINDINGS: Image quality: Excellent. CSF spaces: Basal cisterns are patent. No extra-axial fluid collections. The ventricles are symmetric in size and shape. Brain: No intracranial bleeds or masses. There is cerebral volume loss for age, with resultant ventricular and sulcal prominence. There are periventricular and deep white matter chronic small vessel ischemic changes. There is intracranial internal carotid artery atherosclerosis. Skull and face: Calvarium and visualized facial bones appear intact, without suspicious lesions. Sinuses: Visualized sinuses and mastoids are clear. IMPRESSION: No acute intracranial abnormality demonstrated. Global cerebral volume loss and chronic microvascular ischemic changes similar to comparison exams. Dictated by: Remy Prieto M.D. on 06/05/2020 at 13:13 Approved by: Remy Prieto M.D. on 06/05/2020 at 13:14
[2020-06-05 12:34] LABS: INR 1.1 (0.9-1.3)
[2020-06-05 12:36] LABS: PTT Partial Thromboplastin Tim 36 SECONDS (26.4-36.2)
[2020-06-05 12:39] LABS: Alanine Aminotransferase 20 IU/L (<35); Albumin 4.2 g/dL (3.5-5.0); Albumin Globulin Ratio 1.1 (1.0-2.8); Alkaline Phosphatase 91 U/L (38-126); Aspartate Aminotransferase 27 IU/L (14-36); BUN Creatinine Ratio 25.3 (6-22); Bilirubin Total 0.5 mg/dL (0.2-1.3); Blood Urea Nitrogen 23 mg/dL (7-17); Calcium 9.4 mg/dL (8.4-10.2); Carbon Dioxide 28 mmol/L (22-32); Chloride 106 mmol/L (98-107); Creatine Kinase 65 U/L (30-135); Estimated Glomerular Filt Rate 59.2 mL/min (>60); Globulin 3.7 g/dL (1.7-4.1); Glucose 97 mg/dL (80-110); HEMOLYSIS < 15 (0-50); Lipase 75 U/L (23-300); Potassium 4.4 mmol/L (3.4-5.1); Sodium 139 mmol/L (137-145); Total Protein 7.9 g/dL (6.3-8.2)
[2020-06-05] MEDS: ONDANSETRON 4 MG/2 ML INJ IV ×2 (12:41→15:57)
[2020-06-05 12:51] LABS: Troponin I < 0.012 ng/mL (0.01-0.034)
[2020-06-05 13:10] LABS: COVID19 -Nasal RAPID Negative (Negative)
[2020-06-05] MEDS: hydroCHLOROthiazide 12.5 MG CAPSULE PO (13:13)
[2020-06-05] MEDS: LOSARTAN 25 MG TABLET 75 MG PO (13:13)
[2020-06-05 14:06] LABS: Appearance Urine UA Slightly Cloudy; Bilirubin Urine UA NEGATIVE (NEGATIVE); Color Urine UA YELLOW; Glucose Urine UA NEGATIVE (Negative); Ketones Urine UA NEGATIVE (NEGATIVE); Leukocyte Esterase Urine UA TRACE (NEGATIVE); Nitrite Urine UA NEGATIVE (Negative); Occult Blood Urine UA 1+ (Negative); Protein Urine UA NEGATIVE (Negative); Specific Gravity Urine UA 1.015 (1.000-1.035); Urobilinogen Urine UA 0.2 E.U./dL (0.2)
[2020-06-05 14:09] LABS: Amorphous Sediment Urine 1+; Bacteria Urine Occasional (0-1); RBC Urine 1-5/HPF (0-5/HPF); Renal Epithelial Cells Urine 1-5/HPF (0-1/HPF); Squamous Epithelial Cell Urine 1-5 /HPF (0-5/HPF); WBC Urine 1-5/HPF (0-5/HPF)
[2020-06-05 14:10] LABS: Culture Indicated Urine Specimen Cultured
[2020-06-05] MEDS: SODIUM CHLORIDE 0.9% 1,000 ML 500 ML IV (14:42)
[2020-06-05 14:56] LABS: Creatine Kinase 61 U/L (30-135)
[2020-06-05 15:09] LABS: Troponin I < 0.012 ng/mL (0.01-0.034)
--- NOTE | 2020-06-05 16:05 | ED_ITS ---
HPI - Dizziness <Verenice Bullock, [employer]-BC - Last Filed: 06/05/20 16:29> General Chief Complaint: Dizziness Stated Complaint: HTN, Dizzy Time Seen by Provider: 06/05/20 12:20 Source: patient and EMS Mode of arrival: EMS Limitations: no limitations History of Present Illness HPI Narrative: The patient is an 84-year-old female nonsmoker with history of hypertension and gastric wall thickening who presents with a chief complaint of dizziness. She states that she started feeling woozy and lightheaded a few days ago. Not described as spinning. No falls or trauma. She has not taken her blood pressure medication yet today. She started feeling increasingly weak yesterday. She denies any dysuria urgency or frequency but states she has a history of urinary tract infections. She denies any abdominal pain but stated that she was nauseous yesterday. Denies any chest pain or shortness of breath. Denies any cough or congestion. Denies any exposure to coronavirus. She states that and she is woozy sometimes when she stands up, and sometimes when she bends over. This wooziness and dizziness is not consistent, comes and goes. She states that she has not been eating or drinking as much over the past day. Related Data Home Medications Medication Instructions Recorded Confirmed rabeprazole 20 mg PO DAILY 08/18/18 06/05/20 latanoprost 1 drp OPHTHALMIC (EYE) DIRECTED 02/02/19 06/15/19 levothyroxine 50 mcg PO QAM 02/02/19 06/05/20 mirabegron [Myrbetriq] 50 mg PO BEDTIME 02/02/19 06/05/20 hydrochlorothiazide 12.5 mg PO QAM 06/05/20 06/05/20 losartan 75 mg PO QAM 06/05/20 06/05/20 Previous Rx's Medication Instructions Recorded acetaminophen 975 mg PO TID #0 tab 09/02/18 cephalexin [Keflex] 500 mg PO BID #14 cap 06/05/20 ondansetron 4 mg PO Q6H PRN #14 tab 06/05/20 Allergies Allergy/AdvReac Type Severity Reaction Status Date / Time latex Allergy Intermediate Rash Verified 06/05/20 12:11 doxycycline [DOXYCYCLINE] Allergy Unknown Pt does Verified 06/05/20 12:11 not remember nitrofurantoin Allergy Unknown Verified 06/05/20 12:11 [NITROFURANTOIN] sulfamethoxazole Allergy Unknown Pt does Verified 06/05/20 12:11 [From SEPTRA] not remember trimethoprim [From SEPTRA] Allergy Unknown Pt does Verified 06/05/20 12:11 not remember ranitidine AdvReac Severe Diarrhea Verified 06/05/20 12:11 amoxicillin [From Augmentin] AdvReac Unknown Pt does Verified 06/05/20 12:11 not remember clavulanic acid AdvReac Unknown Pt does Verified 06/05/20 12:11 [From Augmentin] not remember Review of Systems <SLICK Lynn - Last Filed: 06/05/20 16:29> Review of Systems Narrative: GENERAL: Denies chills, fatigue, malaise, fever, sweats. HEENT: Denies sinus pain, ear pain, sore throat, difficulty swallowing, dizziness. RESPIRATORY: Denies dyspnea, cough, wheezing, hemoptysis, sputum. CARDIOVASCULAR: Denies chest pain, palpitations, orthopnea, edema, GASTROINTESTINAL: See HPI : Denies dysuria, frequency, incontinence, hematuria, urinary retention. MUSCULOSKELETAL: denies weakness, joint pain, or bony pain SKIN: Denies rash, skin lesions, or other NEUROLOGIC: See HPI PSYCHIATRIC: No concerning psychosocial issues. 12 point review of systems is negative except for those stated above Patient History <SLICK Lynn - Last Filed: 06/05/20 16:29> Medical History (Updated 06/05/20 @ 16:14 by SLICK Lynn) Easy bruisability GERD (gastroesophageal reflux disease) HLD (hyperlipidemia) HTN (hypertension) Hypothyroidism Numbness and tingling in both hands Ocular migraine Osteoarthritis Surgical History History of bladder suspension procedure History of carpal tunnel repair Hx of bilateral cataract extraction Hx of repair of left rotator cuff (~2006) Status post appendectomy Status post hysterectomy Status post rotator cuff repair Social History household members: caregiver and none Smoking Status: Never smoker alcohol intake: current Smoking Status: Never smoker alcohol intake frequency: 0-2 drinks per day Substance Use Type: does not use Exam <JOSE Lynn-BC - Last Filed: 06/05/20 16:29> Narrative Exam Narrative: GENERAL: This is a well-nourished, well-developed patient, in no acute distress HEAD: Atraumatic. Normocephalic. No temporal or scalp tenderness. EYES: Pupils equal round and reactive. Extraocular motions intact. No scleral icterus. No injection or drainage. No vertigo. ENT: Nose without bleeding, purulent drainage or septal hematoma. Throat without erythema, tonsillar hypertrophy or exudate. Uvula midline. Airway patent. Slightly dry mucous membranes bilateral TMs pearly lowe NECK: Trachea midline. No JVD or lymphadenopathy. Supple, nontender, no meningeal signs. CARDIOVASCULAR: Regular rate and rhythm RESPIRATORY: Clear to auscultation. Breath sounds equal bilaterally. No wheezes, rales, or rhonchi. No cough. No increased respiratory effort. No accessory muscle use. GASTROINTESTINAL: Abdomen soft, non-tender, nondistended. No hepato- splenomegaly, or palpable masses. No guarding. Active bowel sounds all 4 quadrants. No pain to palpation of abdominal wall multiple times. EXTREMITIES: No clubbing, cyanosis, or edema. No joint tenderness, effusion, or edema noted. BACK: Nontender without deformity or crepitance. No flank tenderness. NEURO: AOx3. SKIN: No rash or erythema. On visible skin. Initial Vital Signs Initial Vital Signs: Vital Signs Temperature 98.1 F 06/05/20 12:04 Pulse Rate 68 06/05/20 12:04 Respiratory Rate 18 06/05/20 12:04 Blood Pressure 197/98 H 06/05/20 12:04 Pulse Oximetry 99 06/05/20 12:04 <Jeremias Curtis DO - Last Filed: 06/05/20 18:35> Initial Vital Signs Initial Vital Signs: Vital Signs Temperature 98.1 F 06/05/20 12:04 Pulse Rate 68 06/05/20 12:04 Respiratory Rate 18 06/05/20 12:04 Blood Pressure 197/98 H 06/05/20 12:04 Pulse Oximetry 99 06/05/20 12:04 Scores <JOSE Lynn-BC - Last Filed: 06/05/20 16:29> GCS [place] coma scale eye opening: Spontaneous [place] coma scale verbal response: Orientated [place] coma scale motor response: Obey commands [place] coma scale total score: 15 Course <Verenice Bullock, [employer]-BC - Last Filed: 06/05/20 16:29> Orders Ordered: ED Orders 06/05/20 12:11 XR chest 1V Stat EKG-12 Lead Stat 06/05/20 12:18 Complete Blood Count AUTO DIFF Stat Comprehensive Metabolic Panel Stat Lipase Stat Partial Thromboplastin Time Stat Prothrombin Time INR Stat Troponin & CK Cardiac Panel Stat 06/05/20 12:31 CT head/brain wo con Stat 06/05/20 12:48 COVID19 Stat 06/05/20 13:06 Urinalysis and Microscopic Stat Urine Culture Stat 06/05/20 14:40 Troponin & CK Cardiac Panel Stat Discontinued Medications Hydrochlorothiazide (Hydrochlorothiazide 12.5 Mg Capsule) 12.5 mg PO NOW ONE Stop: 06/05/20 12:39 Last Admin: 06/05/20 13:13 Dose: 12.5 mg Documented by: KIRA Sodium Chloride (Normal Saline 0.9%) 1,000 mls @ 500 mls/hr IV BOLUS ONE Stop: 06/05/20 16:03 Last Infusion: 06/05/20 15:59 Dose: 0 mls/hr Documented by: Admin: 06/05/20 14:42 Dose: 500 mls/hr Documented by: KIRA Losartan Potassium (Losartan 25 Mg Tablet) 75 mg PO NOW ONE Stop: 06/05/20 12:39 Last Admin: 06/05/20 13:13 Dose: 75 mg Documented by: KIRA Ondansetron HCl (Ondansetron 4 Mg/2 Ml Inj) 4 mg IV NOW ONE Stop: 06/05/20 12:32 Last Admin: 06/05/20 12:41 Dose: 4 mg Documented by: LISBETH Ondansetron HCl (Ondansetron 4 Mg/2 Ml Inj) 4 mg IV NOW ONE Stop: 06/05/20 15:44 Last Admin: 06/05/20 15:57 Dose: 4 mg Documented by: LISBETH Vital Signs Vital signs: Vital Signs - 8 hr 06/05/20 12:04 06/05/20 12:28 06/05/20 12:30 Temperature 98.1 F Pulse Rate 68 66 66 Respiratory Rate 18 24 22 Blood Pressure 197/98 H Pulse Oximetry 99 98 97 06/05/20 12:31 06/05/20 12:45 06/05/20 13:12 Temperature Pulse Rate 69 67 67 Respiratory Rate 22 22 20 Blood Pressure 194/88 H Pulse Oximetry 98 99 99 06/05/20 13:13 06/05/20 13:15 06/05/20 13:30 Temperature Pulse Rate 66 74 66 Respiratory Rate 21 22 25 H Blood Pressure 212/87 H Pulse Oximetry 99 99 99 06/05/20 13:31 06/05/20 13:45 06/05/20 14:00 Temperature Pulse Rate 66 65 68 Respiratory Rate 30 H 22 22 Blood Pressure 209/90 H 175/84 H Pulse Oximetry 99 99 98 06/05/20 14:15 06/05/20 14:30 06/05/20 14:45 Temperature Pulse Rate 67 68 66 Respiratory Rate 28 H 21 24 Blood Pressure 185/88 H Pulse Oximetry 100 99 99 06/05/20 15:00 06/05/20 15:18 06/05/20 15:30 Temperature Pulse Rate 67 70 74 Respiratory Rate 28 H 27 H Blood Pressure 196/85 H Pulse Oximetry 100 81 L 98 06/05/20 15:31 06/05/20 15:45 06/05/20 16:16 Temperature Pulse Rate 74 72 75 Respiratory Rate 35 H 33 H Blood Pressure 173/82 H Pulse Oximetry 99 97 98 06/05/20 16:17 06/05/20 16:20 06/05/20 16:22 Temperature Pulse Rate 75 75 74 Respiratory Rate Blood Pressure 216/95 H 216/91 H 190/84 H Pulse Oximetry 99 99 99 06/05/20 16:23 06/05/20 16:30 06/05/20 16:45 Temperature 98.6 F Pulse Rate 76 74 75 Respiratory Rate 20 20 Blood Pressure 190/84 H 185/79 H Pulse Oximetry 99 100 99 <Jeremias Curtis, DO - Last Filed: 06/05/20 18:35> Orders Ordered: ED Orders 06/05/20 12:11 XR chest 1V Stat EKG-12 Lead Stat 06/05/20 12:18 Complete Blood Count AUTO DIFF Stat Comprehensive Metabolic Panel Stat Lipase Stat Partial Thromboplastin Time Stat Prothrombin Time INR Stat Troponin & CK Cardiac Panel Stat 06/05/20 12:31 CT head/brain wo con Stat 06/05/20 12:48 COVID19 Stat 06/05/20 13:06 Urinalysis and Microscopic Stat Urine Culture Stat 06/05/20 14:40 Troponin & CK Cardiac Panel Stat Discontinued Medications Hydrochlorothiazide (Hydrochlorothiazide 12.5 Mg Capsule) 12.5 mg PO NOW ONE Stop: 06/05/20 12:39 Last Admin: 06/05/20 13:13 Dose: 12.5 mg Documented by: KIRA Sodium Chloride (Normal Saline 0.9%) 1,000 mls @ 500 mls/hr IV BOLUS ONE Stop: 06/05/20 16:03 Last Infusion: 06/05/20 15:59 Dose: 0 mls/hr Documented by: Admin: 06/05/20 14:42 Dose: 500 mls/hr Documented by: KIRA Losartan Potassium (Losartan 25 Mg Tablet) 75 mg PO NOW ONE Stop: 06/05/20 12:39 Last Admin: 06/05/20 13:13 Dose: 75 mg Documented by: KIRA Ondansetron HCl (Ondansetron 4 Mg/2 Ml Inj) 4 mg IV NOW ONE Stop: 06/05/20 12:32 Last Admin: 06/05/20 12:41 Dose: 4 mg Documented by: LISBETH Ondansetron HCl (Ondansetron 4 Mg/2 Ml Inj) 4 mg IV NOW ONE Stop: 06/05/20 15:44 Last Admin: 06/05/20 15:57 Dose: 4 mg Documented by: LISBETH Vital Signs Vital signs: Vital Signs - 8 hr 06/05/20 12:04 06/05/20 12:28 06/05/20 12:30 Temperature 98.1 F Pulse Rate 68 66 66 Respiratory Rate 18 24 22 Blood Pressure 197/98 H Pulse Oximetry 99 98 97 06/05/20 12:31 06/05/20 12:45 06/05/20 13:12 Temperature Pulse Rate 69 67 67 Respiratory Rate 22 22 20 Blood Pressure 194/88 H Pulse Oximetry 98 99 99 06/05/20 13:13 06/05/20 13:15 06/05/20 13:30 Temperature Pulse Rate 66 74 66 Respiratory Rate 21 22 25 H Blood Pressure 212/87 H Pulse Oximetry 99 99 99 06/05/20 13:31 06/05/20 13:45 06/05/20 14:00 Temperature Pulse Rate 66 65 68 Respiratory Rate 30 H 22 22 Blood Pressure 209/90 H 175/84 H Pulse Oximetry 99 99 98 06/05/20 14:15 06/05/20 14:30 06/05/20 14:45 Temperature Pulse Rate 67 68 66 Respiratory Rate 28 H 21 24 Blood Pressure 185/88 H Pulse Oximetry 100 99 99 06/05/20 15:00 06/05/20 15:18 06/05/20 15:30 Temperature Pulse Rate 67 70 74 Respiratory Rate 28 H 27 H Blood Pressure 196/85 H Pulse Oximetry 100 81 L 98 06/05/20 15:31 06/05/20 15:45 06/05/20 16:16 Temperature Pulse Rate 74 72 75 Respiratory Rate 35 H 33 H Blood Pressure 173/82 H Pulse Oximetry 99 97 98 06/05/20 16:17 06/05/20 16:20 06/05/20 16:22 Temperature Pulse Rate 75 75 74 Respiratory Rate Blood Pressure 216/95 H 216/91 H 190/84 H Pulse Oximetry 99 99 99 06/05/20 16:23 06/05/20 16:30 06/05/20 16:45 Temperature 98.6 F Pulse Rate 76 74 75 Respiratory Rate 20 20 Blood Pressure 190/84 H 185/79 H Pulse Oximetry 99 100 99 MDM - Dizziness <JOSE Lynn-BC - Last Filed: 06/05/20 16:29> Lab Data Attestation: I reviewed the patient's lab results. Result diagrams: 06/05/20 12:18 06/05/20 12:18 Labs: Lab Results 06/05/20 06/05/20 06/05/20 Range/Units 12:18 12:18 12:18 WBC 6.0 (4.5-11.0) X10^3/uL RBC 4.06 (4.0-5.2) X10^6/uL Hgb 12.5 (12.0-16.0) g/dL Hct 35.9 L (36-46) % MCV 88.5 (80-100) fL MCH 30.7 (26-34) PG MCHC 34.7 (30-36) % RDW 12.8 (11.6-14.8) % Plt Count 237 (150-400) X10^3/uL Neut % (Auto) 64.2 (50-75) % Lymph % (Auto) 22.0 L (25-40) % [place] % (Auto) 8.1 (3-14) % Eos % (Auto) 4.8 H (2-4) % Baso % (Auto) 0.9 (0-2) % Neut # (Auto) 3900 (6453-5343) /uL Lymph # (Auto) 1300 (0115-6349) /uL [place] # (Auto) 500 (0-900) /uL Eos # (Auto) 300 (0-450) /uL Baso # (Auto) 100 (0-100) /uL PT 13.0 H (10.1-12.7) SECONDS INR 1.1 (0.9-1.3) APTT 36 (26.4-36.2) SECONDS Sodium 139 (137-145) mmol/L Potassium 4.4 (3.4-5.1) mmol/L Chloride 106 (98-107) mmol/L Carbon Dioxide 28 (22-32) mmol/L BUN 23 H (7-17) mg/dL Creatinine 0.91 (0.52-1.04) mg/dL Estimated GFR 59.2 L (>60) mL/min BUN/Creatinine Ratio 25.3 H (6-22) Glucose 97 (80-110) mg/dL Calcium 9.4 (8.4-10.2) mg/dL Total Bilirubin 0.5 (0.2-1.3) mg/dL AST 27 (14-36) IU/L ALT 20 (<35) IU/L Alkaline Phosphatase 91 (38-126) U/L Total Creatine Kinase 65 (30-135) U/L CK-MB (CK-2) TNP CK-MB (CK-2) Rel Index TNP Troponin I < 0.012 (0.01-0.034) ng/mL Total Protein 7.9 (6.3-8.2) g/dL Albumin 4.2 (3.5-5.0) g/dL Globulin 3.7 (1.7-4.1) g/dL Albumin/Globulin Ratio 1.1 (1.0-2.8) Lipase 75 (23-300) U/L Urine Color Urine Appearance Urine pH (4.5-8.0) Ur Specific [place] (1.000-1.035) Urine Protein (Negative) Urine Glucose (UA) (Negative) g/dL Urine Ketones (NEGATIVE) Urine Occult Blood (Negative) Urine Nitrate (Negative) Urine Bilirubin (NEGATIVE) Urine Urobilinogen (0.2) E.U./dL Ur Leukocyte Esterase (NEGATIVE) Urine RBC (0-5/HPF) Urine WBC (0-5/HPF) Ur Squamous Epith Cells (0-5/HPF) Ur Renal Epithelial Cell (0-1/HPF) Amorphous Sediment Urine Bacteria (None) Ur Culture Indicated? SARS-CoV-2 (PCR) (Negative) 06/05/20 06/05/20 06/05/20 Range/Units 12:48 13:06 14:40 WBC (4.5-11.0) X10^3/uL RBC (4.0-5.2) X10^6/uL Hgb (12.0-16.0) g/dL Hct (36-46) % MCV (80-100) fL MCH (26-34) PG MCHC (30-36) % RDW (11.6-14.8) % Plt Count (150-400) X10^3/uL Neut % (Auto) (50-75) % Lymph % (Auto) (25-40) % [place] % (Auto) (3-14) % Eos % (Auto) (2-4) % Baso % (Auto) (0-2) % Neut # (Auto) (7625-3046) /uL Lymph # (Auto) (7463-6360) /uL [place] # (Auto) (0-900) /uL Eos # (Auto) (0-450) /uL Baso # (Auto) (0-100) /uL PT (10.1-12.7) SECONDS INR (0.9-1.3) APTT (26.4-36.2) SECONDS Sodium (137-145) mmol/L Potassium (3.4-5.1) mmol/L Chloride (98-107) mmol/L Carbon Dioxide (22-32) mmol/L BUN (7-17) mg/dL Creatinine (0.52-1.04) mg/dL Estimated GFR (>60) mL/min BUN/Creatinine Ratio (6-22) Glucose (80-110) mg/dL Calcium (8.4-10.2) mg/dL Total Bilirubin (0.2-1.3) mg/dL AST (14-36) IU/L ALT (<35) IU/L Alkaline Phosphatase (38-126) U/L Total Creatine Kinase 61 (30-135) U/L CK-MB (CK-2) TNP CK-MB (CK-2) Rel Index TNP Troponin I < 0.012 (0.01-0.034) ng/mL Total Protein (6.3-8.2) g/dL Albumin (3.5-5.0) g/dL Globulin (1.7-4.1) g/dL Albumin/Globulin Ratio (1.0-2.8) Lipase (23-300) U/L Urine Color Yellow Urine Appearance Slightly cloudy Urine pH 7.0 (4.5-8.0) Ur Specific [place] 1.015 (1.000-1.035) Urine Protein Negative (Negative) Urine Glucose (UA) Negative (Negative) g/dL Urine Ketones Negative (NEGATIVE) Urine Occult Blood 1+ H (Negative) Urine Nitrate Negative (Negative) Urine Bilirubin Negative (NEGATIVE) Urine Urobilinogen 0.2 (0.2) E.U./dL Ur Leukocyte Esterase Trace H (NEGATIVE) Urine RBC 1-5/hpf D (0-5/HPF) Urine WBC 1-5/hpf (0-5/HPF) Ur Squamous Epith Cells 1-5 /hpf (0-5/HPF) Ur Renal Epithelial Cell 1-5/hpf H (0-1/HPF) Amorphous Sediment 1+ Urine Bacteria Occasional (0-1) D (None) Ur Culture Indicated? Specimen cultured SARS-CoV-2 (PCR) Negative (Negative) Urine Dip Bedside Urine Glucose Negative Bedside Urine Bilirubin - Negative Bedside Urine Ketone - Negative Urine Specific [place] 1.015 Bedside Urine Occult Blood +/- Bedside Urine pH 6.0 Bedside Urine Protein - Negative Bedside Urine Urobilinogen - Negative Bedside Urine Nitrite - Negative Bedside Urine Leukocytes - Negative Esterase Imaging Data Chest x-ray: Radiologist's Impression: [address] [place] [id number] ReportSigned Patient: Ny Mcallister [facility]#: [id number]: 1935cct:[id number]/Sex: 84 / FDate of Service: 06/05/20Loc: EDAccession Number: [id number] Procedure: XR chest 1V Ordering Provider: Jeremias Curtis D.O. PROCEDURE: XR CHEST 1V INDICATIONS: chest pain TECHNIQUE: One view of the chest was acquired. COMPARISON: [facility], CR, CHEST 1 VIEW, 12/08/2014, 15:42. FINDINGS: Surgical changes and devices: None. Lungs and pleura: Lungs are clear. No pleural effusions or pneumothorax. Mediastinum: Mediastinal contours appear normal. Heart size is normal. Bones and chest wall: No suspicious bony lesions. Overlying soft tissues appear unremarkable. IMPRESSION: No acute cardiopulmonary process. Dictated by: Martinez Clarke M.D. on 06/05/2020 at 12:00 Approved by: Martinez Clarke M.D. on 06/05/2020 at 12:03 CT scan - head: Radiologist's Impression: [address] [place] [address] Scan ReportSigned Patient: Ny Mcallister [facility]#: [id number]: 8Acct:[id number]/Sex: 84 / FDate of Service: 06/05/20Loc: EDAccession Number: [id number] Procedure: CT head/brain wo con Ordering Provider: Verenice Bullock-BC PROCEDURE: CT HEAD/BRAIN WO CON INDICATIONS: n/v, htn, dizzy, no trauma TECHNIQUE: Noncontrast 4.5 mm thick angled axial sections acquired from the foramen magnum to the vertex, with coronal and sagittal reformats. For radiation dose reduction, the following was used: automated exposure control, adjustment of mA and/or kV according to patient size. COMPARISON: [facility], CT, CT HEAD/BRAIN WO/W CON, 06/01/2019, 14:37. FINDINGS: Image quality: Excellent. CSF spaces: Basal cisterns are patent. No extra-axial fluid collections. The ventricles are symmetric in size and shape. Brain: No intracranial bleeds or masses. There is cerebral volume loss for age, with resultant ventricular and sulcal prominence. There are periventricular and deep white matter chronic small vessel ischemic changes. There is intracranial internal carotid artery atherosclerosis. Skull and face: Calvarium and visualized facial bones appear intact, without suspicious lesions. Sinuses: Visualized sinuses and mastoids are clear. IMPRESSION: No acute intracranial abnormality demonstrated. Global cerebral volume loss and chronic microvascular ischemic changes similar to comparison exams. Dictated by: Remy Prieto M.D. on 06/05/2020 at 13:13 Approved by: Remy Prieto M.D. on 06/05/2020 at 13:14 ECG Data Attestation: I personally reviewed and interpreted this ECG as follows: Interpretation: Ventricular rate 67. P.r. 176. Sinus rhythm. QRS 82. viewed by Dr Curtis MDM Narrative Medical decision making narrative: The patient is an 84-year-old female who presents with a chief complaint of dizziness over the past few days that comes and goes. It is not consistent. She does present to the emergency department hypertensive without taking her antihypertensive medications this morning, so she was given her doses here. However given that she was nauseous hypertensive and dizzy, head CT obtained which came back with no acute findings. Her initial troponin is negative. EKG has no acute findings. Chest x-ray is no acute findings. CBC and CMP grossly within normal limits. 2 hour repeat troponin is also negative. Patient is able to tolerate p.o. food and fluids in the emergency department. Have blood and leukocyte esterase in her urine, so will treat for urinary tract infection with Keflex or cephalexin which she has taken before and tolerates well. Urine cultures pending. Will give prescription of Zofran as she does feel improved with this medication the emergency department. However she has no vomiting and no abdominal pain. Able to ambulate with a steady gait down the entire hallway of the emergency department from room one past room 13. I discussed at length very strict return precautions to the ER, especially for fever, inability keep down fluids etcetera. Patient feels dizziness greatly improved. Encouraged follow-up with primary care provider in the next few days. Coronavirus test also negative. Patient and friend have no questions or concerns upon discharge and state understanding of return precautions as well as follow-up care. <Jeremias Curtis, DO - Last Filed: 06/05/20 18:35> Lab Data Labs: Lab Results 06/05/20 06/05/20 06/05/20 Range/Units 12:18 12:18 12:18 WBC 6.0 (4.5-11.0) X10^3/uL RBC 4.06 (4.0-5.2) X10^6/uL Hgb 12.5 (12.0-16.0) g/dL Hct 35.9 L (36-46) % MCV 88.5 (80-100) fL MCH 30.7 (26-34) PG MCHC 34.7 (30-36) % RDW 12.8 (11.6-14.8) % Plt Count 237 (150-400) X10^3/uL Neut % (Auto) 64.2 (50-75) % Lymph % (Auto) 22.0 L (25-40) % [place] % (Auto) 8.1 (3-14) % Eos % (Auto) 4.8 H (2-4) % Baso % (Auto) 0.9 (0-2) % Neut # (Auto) 3900 (5868-7572) /uL Lymph # (Auto) 1300 (8743-7364) /uL [place] # (Auto) 500 (0-900) /uL Eos # (Auto) 300 (0-450) /uL Baso # (Auto) 100 (0-100) /uL PT 13.0 H (10.1-12.7) SECONDS INR 1.1 (0.9-1.3) APTT 36 (26.4-36.2) SECONDS Sodium 139 (137-145) mmol/L Potassium 4.4 (3.4-5.1) mmol/L Chloride 106 (98-107) mmol/L Carbon Dioxide 28 (22-32) mmol/L BUN 23 H (7-17) mg/dL Creatinine 0.91 (0.52-1.04) mg/dL Estimated GFR 59.2 L (>60) mL/min BUN/Creatinine Ratio 25.3 H (6-22) Glucose 97 (80-110) mg/dL Calcium 9.4 (8.4-10.2) mg/dL Total Bilirubin 0.5 (0.2-1.3) mg/dL AST 27 (14-36) IU/L ALT 20 (<35) IU/L Alkaline Phosphatase 91 (38-126) U/L Total Creatine Kinase 65 (30-135) U/L CK-MB (CK-2) TNP CK-MB (CK-2) Rel Index TNP Troponin I < 0.012 (0.01-0.034) ng/mL Total Protein 7.9 (6.3-8.2) g/dL Albumin 4.2 (3.5-5.0) g/dL Globulin 3.7 (1.7-4.1) g/dL Albumin/Globulin Ratio 1.1 (1.0-2.8) Lipase 75 (23-300) U/L Urine Color Urine Appearance Urine pH (4.5-8.0) Ur Specific [place] (1.000-1.035) Urine Protein (Negative) Urine Glucose (UA) (Negative) g/dL Urine Ketones (NEGATIVE) Urine Occult Blood (Negative) Urine Nitrate (Negative) Urine Bilirubin (NEGATIVE) Urine Urobilinogen (0.2) E.U./dL Ur Leukocyte Esterase (NEGATIVE) Urine RBC (0-5/HPF) Urine WBC (0-5/HPF) Ur Squamous Epith Cells (0-5/HPF) Ur Renal Epithelial Cell (0-1/HPF) Amorphous Sediment Urine Bacteria (None) Ur Culture Indicated? SARS-CoV-2 (PCR) (Negative) 06/05/20 06/05/20 06/05/20 Range/Units 12:48 13:06 14:40 WBC (4.5-11.0) X10^3/uL RBC (4.0-5.2) X10^6/uL Hgb (12.0-16.0) g/dL Hct (36-46) % MCV (80-100) fL MCH (26-34) PG MCHC (30-36) % RDW (11.6-14.8) % Plt Count (150-400) X10^3/uL Neut % (Auto) (50-75) % Lymph % (Auto) (25-40) % [place] % (Auto) (3-14) % Eos % (Auto) (2-4) % Baso % (Auto) (0-2) % Neut # (Auto) (7229-1889) /uL Lymph # (Auto) (1687-4567) /uL [place] # (Auto) (0-900) /uL Eos # (Auto) (0-450) /uL Baso # (Auto) (0-100) /uL PT (10.1-12.7) SECONDS INR (0.9-1.3) APTT (26.4-36.2) SECONDS Sodium (137-145) mmol/L Potassium (3.4-5.1) mmol/L Chloride (98-107) mmol/L Carbon Dioxide (22-32) mmol/L BUN (7-17) mg/dL Creatinine (0.52-1.04) mg/dL Estimated GFR (>60) mL/min BUN/Creatinine Ratio (6-22) Glucose (80-110) mg/dL Calcium (8.4-10.2) mg/dL Total Bilirubin (0.2-1.3) mg/dL AST (14-36) IU/L ALT (<35) IU/L Alkaline Phosphatase (38-126) U/L Total Creatine Kinase 61 (30-135) U/L CK-MB (CK-2) TNP CK-MB (CK-2) Rel Index TNP Troponin I < 0.012 (0.01-0.034) ng/mL Total Protein (6.3-8.2) g/dL Albumin (3.5-5.0) g/dL Globulin (1.7-4.1) g/dL Albumin/Globulin Ratio (1.0-2.8) Lipase (23-300) U/L Urine Color Yellow Urine Appearance Slightly cloudy Urine pH 7.0 (4.5-8.0) Ur Specific [place] 1.015 (1.000-1.035) Urine Protein Negative (Negative) Urine Glucose (UA) Negative (Negative) g/dL Urine Ketones Negative (NEGATIVE) Urine Occult Blood 1+ H (Negative) Urine Nitrate Negative (Negative) Urine Bilirubin Negative (NEGATIVE) Urine Urobilinogen 0.2 (0.2) E.U./dL Ur Leukocyte Esterase Trace H (NEGATIVE) Urine RBC 1-5/hpf D (0-5/HPF) Urine WBC 1-5/hpf (0-5/HPF) Ur Squamous Epith Cells 1-5 /hpf (0-5/HPF) Ur Renal Epithelial Cell 1-5/hpf H (0-1/HPF) Amorphous Sediment 1+ Urine Bacteria Occasional (0-1) D (None) Ur Culture Indicated? Specimen cultured SARS-CoV-2 (PCR) Negative (Negative) Urine Dip Bedside Urine Glucose Negative Bedside Urine Bilirubin - Negative Bedside Urine Ketone - Negative Urine Specific [place] 1.015 Bedside Urine Occult Blood +/- Bedside Urine pH 6.0 Bedside Urine Protein - Negative Bedside Urine Urobilinogen - Negative Bedside Urine Nitrite - Negative Bedside Urine Leukocytes - Negative Esterase Discharge Plan Departure Patient Disposition: Home Clinical Impression: Dizziness Urinary tract infection Qualifiers: Urinary tract infection type: site unspecified Hematuria presence: with hematuria Qualified Code(s): N39.0 - Urinary tract infection, site not specified Instructions: How to Choose and Use a Walker, DI for Urinary Tract Infection (UTI), DI for Dizziness-Nonvertigo Activity Restrictions/Additional Instructions: Thank you for trusting us with your care today As discussed, your head CT resulted negative for any acute findings, coronavirus test was negative multiple sets of heart enzymes were normal. Overall your labs were well. However your urine is concerning for infection with bacteria, blood and leukocyte esterase. There is a urine culture pending. We will call you if we need to change your antibiotics. Please keep your appointment with primary care provider for Thursday. In the meantime, please come back to emergency department for any acute concerns such as inability keep down food or fluids abdominal pain with fever etcetera Prescriptions: New cephalexin [Keflex] 500 mg capsule 500 mg PO BID Qty: 14 RF: 0 ondansetron 4 mg tablet,disintegrating 4 mg PO Q6H PRN (Reason: nausea and vomiting) Qty: 14 RF: 0 No Action losartan 25 mg tablet 75 mg PO QAM RF: 0 hydrochlorothiazide 12.5 mg tablet 12.5 mg PO QAM RF: 0 rabeprazole 20 mg Tablet,Delayed Release (Dr/Ec) 20 mg PO DAILY RF: 0 acetaminophen 325 mg Tablet 975 mg PO TID Qty: 0 RF: 0 latanoprost 0.005 % drops 1 drp ophthalmic (eye) DIRECTED RF: 0 levothyroxine 50 mcg tablet 50 mcg PO QAM RF: 0 Myrbetriq 50 mg tablet extended release 24 hr 50 mg PO BEDTIME RF: 0 Referrals: Rommel Yoder MD [Primary Care Provider] - <Jeremias Curtis DO - Last Filed: 06/05/20 18:35> [facility] Dr Curtis Co-Sign Statement: I was available for consultation during this patient's emergency department visit. This chart is signed by myself for administrative purposes only. I did not have direct contact with this patient during this visit. They were seen independently by the APC.
== END 2020-06-05 16:56 | disposition home or self-care (01) ==
PROVIDERS: Emergency Medicine; Emergency Provider Nurse Practitioner Family; Family Provider Orthopaedic Surgery; PCP Student in an Organized Health Care Education/Training Program
DX: R42 Dizziness and giddiness (principal); N39.0 Urinary tract infection, site not specified; R07.9 Chest pain, unspecified; I10 Essential (primary) hypertension; E78.5 Hyperlipidemia, unspecified; E03.9 Hypothyroidism, unspecified; Z20.822 Contact with and (suspected) exposure to COVID-19; R11.2 Nausea with vomiting, unspecified
CPT/HCPCS: 36415; 70450; 71045; 80053; 81001; 81003; 82550; 83690; 84484; 85025; 85610; 85730; 87077; 87086; 87186; 87635; 93005; 96361; 96374; 96376; 99284; C9803; J2405

== ENCOUNTER → 2020-07-18 10:36 | Outpatient (CLI) | payer MEDICARE, OTHER, SELFPAY ==
[2018-09-23 16:43] VITALS: BMI 23.4
[2019-11-15 12:47] VITALS: PULSE 74; PULSE 77
[2020-07-18 10:46] LABS: Bacteria Urine None Seen
[2020-07-18 11:12] LABS: Appearance Urine UA CLEAR; Bilirubin Urine UA NEGATIVE (NEGATIVE); Color Urine UA YELLOW; Glucose Urine UA NEGATIVE (Negative); Ketones Urine UA NEGATIVE (NEGATIVE); Leukocyte Esterase Urine UA 1+ (NEGATIVE); Nitrite Urine UA NEGATIVE (Negative); Occult Blood Urine UA 1+ (Negative); Protein Urine UA NEGATIVE (Negative); Specific Gravity Urine UA 1.015 (1.000-1.035); Urobilinogen Urine UA 0.2 E.U./dL (0.2)
[2020-07-18 11:19] LABS: Add Manual Diff / Slide Review NO; Basophils Absolute Auto 100 /uL (0-100); Basophils Percent Auto 0.9 % (0-2); Eosinophils Absolute Auto 400 /uL (0-450); Eosinophils Percent Auto 6.6 % (2-4); Hemoglobin 12.3 g/dL (12.0-16.0); Lymphocytes Absolute Auto 1300 /uL (1100-4500); Lymphocytes Percent Auto 19.5 % (25-40); Mean Corpuscular HGB Conc 34.3 % (30-36); Mean Corpuscular Hemoglobin 30.3 PG (26-34); Mean Corpuscular Volume 88.3 fL (80-100); Monocytes Absolute Auto 400 /uL (0-900); Monocytes Percent Auto 5.4 % (3-14); Neutrophils Absolute Auto 4600 /uL (1500-7000); Neutrophils Percent Auto 67.6 % (50-75); Platelet Count 290 X10^3/uL (150-400); Red Blood Cell Count 4.07 X10^6/uL (4.0-5.2); Red Cell Distribution Width 13.1 % (11.6-14.8); White Blood Cell Count 6.8 X10^3/uL (4.5-11.0)
[2020-07-18 11:24] LABS: Culture Indicated Urine Cult Not Indicated; RBC Urine 1-5/HPF (0-5/HPF); Squamous Epithelial Cell Urine 5-10 /HPF (0-5/HPF); WBC Urine 5-10/HPF (0-5/HPF)
[2020-07-18 12:03] LABS: Alanine Aminotransferase 24 IU/L (<35); Albumin 4.5 g/dL (3.5-5.0); Albumin Globulin Ratio 1.2 (1.0-2.8); Alkaline Phosphatase 99 U/L (38-126); Aspartate Aminotransferase 32 IU/L (14-36); BUN Creatinine Ratio 25.2 (6-22); Bilirubin Total 0.5 mg/dL (0.2-1.3); Blood Urea Nitrogen 27 mg/dL (7-17); Calcium 9.6 mg/dL (8.4-10.2); Carbon Dioxide 23 mmol/L (22-32); Chloride 106 mmol/L (98-107); Cholesterol 306 mg/dL (140-199); Estimated Glomerular Filt Rate 49.1 mL/min (>60); Globulin 3.7 g/dL (1.7-4.1); Glucose 96 mg/dL (80-110); HDL Cholesterol 49 mg/dL (40-60); HEMOLYSIS < 15 (0-50); LDL Cholesterol Calculated 223 mg/dL (<100); Potassium 4.6 mmol/L (3.4-5.1); Sodium 138 mmol/L (137-145); Total Protein 8.2 g/dL (6.3-8.2); Triglycerides 169 mg/dL (35-150)
[2020-07-18 12:33] LABS: TSH w/ Reflex to FT4 3.75 uIU/mL (0.47-4.68)
[2020-07-18 12:50] LABS: Vitamin B12 704 pg/mL (239-931)
== END ==
PROVIDERS: Family Provider Orthopaedic Surgery; PCP Internal Medicine; Referring Provider Internal Medicine; Visit Provider Internal Medicine
DX: E03.9 Hypothyroidism, unspecified (principal); I10 Essential (primary) hypertension; E78.5 Hyperlipidemia, unspecified; R53.82 Chronic fatigue, unspecified; R30.0 Dysuria
CPT/HCPCS: 36415; 80053; 80061; 81001; 82607; 84443; 85025

== ENCOUNTER → 2020-11-22 10:47 | Outpatient (CLI) | payer MEDICARE, OTHER, SELFPAY ==
[2018-09-23 16:43] VITALS: BMI 23.4
--- NOTE | 2020-11-22 | DI.RAD.S_ITS ---
PROCEDURE: XR DEXA AXIAL SKELETON INDICATIONS: Asymptomatic menopausal state COMPARISON: [facility], CR, XR DEXA AXIAL SKELETON, 11/23/2017, 14:15. FINDINGS: This blank DEXA report has been sent in error by the PACS system. The correct and complete report will be forthcoming in 1-2 days. Thank you for your patience and understanding. Dictated by: Deyanira Phelps MD, PhD on 11/22/2020 at 11:28 Approved by: Deyanira Phelps MD, PhD on 11/22/2020 at 11:28
== END ==
PROVIDERS: Family Provider Orthopaedic Surgery; PCP Internal Medicine; Referring Provider Internal Medicine; Visit Provider Internal Medicine
DX: M85.852 Other specified disorders of bone density and structure, left thigh (principal); Z78.0 Asymptomatic menopausal state; Z82.62 Family history of osteoporosis
CPT/HCPCS: 77080

== ENCOUNTER → 2020-12-12 12:41 | Outpatient (CLI) | payer MEDICARE, OTHER, SELFPAY ==
[2018-09-23 16:43] VITALS: BMI 23.4
[2020-12-12 13:57] LABS: Bilirubin Urine UA NEGATIVE (NEGATIVE); Color Urine UA YELLOW; Glucose Urine UA NEGATIVE (Negative); Ketones Urine UA NEGATIVE (NEGATIVE); Leukocyte Esterase Urine UA 1+ (NEGATIVE); Nitrite Urine UA POSITIVE (Negative); Occult Blood Urine UA 1+ (Negative); Protein Urine UA NEGATIVE (Negative); Specific Gravity Urine UA 1.015 (1.000-1.035); Urobilinogen Urine UA 0.2 E.U./dL (0.2)
[2020-12-12 13:58] LABS: pH Urine UA 5.5 (4.5-8.0)
[2020-12-12 13:59] LABS: Appearance Urine UA Slightly Cloudy
[2020-12-12 14:05] LABS: Bacteria Urine Few (2-10); RBC Urine 0-1/HPF (0-5/HPF); Squamous Epithelial Cell Urine 1-5 /HPF (0-5/HPF); WBC Urine 5-10/HPF (0-5/HPF)
[2020-12-12 14:06] LABS: Culture Indicated Urine Specimen Cultured
[2020-12-12 14:10] LABS: Add Manual Diff / Slide Review NO; Basophils Absolute Auto 100 /uL (0-100); Basophils Percent Auto 0.7 % (0-2); Eosinophils Absolute Auto 300 /uL (0-450); Eosinophils Percent Auto 3.6 % (2-4); Hematocrit 35.5 % (36-46); Hemoglobin 11.8 g/dL (12.0-16.0); Lymphocytes Absolute Auto 1400 /uL (1100-4500); Lymphocytes Percent Auto 17.8 % (25-40); Mean Corpuscular HGB Conc 33.4 % (30-36); Mean Corpuscular Hemoglobin 29.8 PG (26-34); Mean Corpuscular Volume 89.3 fL (80-100); Monocytes Absolute Auto 400 /uL (0-900); Monocytes Percent Auto 5.5 % (3-14); Neutrophils Absolute Auto 5700 /uL (1500-7000); Neutrophils Percent Auto 72.4 % (50-75); Platelet Count 231 X10^3/uL (150-400); Red Blood Cell Count 3.98 X10^6/uL (4.0-5.2); Red Cell Distribution Width 13.2 % (11.6-14.8); White Blood Cell Count 7.9 X10^3/uL (4.5-11.0)
[2020-12-12 14:23] LABS: Hemoglobin A1C% w Est Avg Glu 5.4 % (4.0-6.0)
[2020-12-12 14:33] LABS: BUN Creatinine Ratio 20.7 (6-22); Blood Urea Nitrogen 24 mg/dL (7-17); Calcium 9.5 mg/dL (8.4-10.2); Carbon Dioxide 19 mmol/L (22-32); Chloride 112 mmol/L (98-107); Estimated Glomerular Filt Rate 44.6 mL/min (>60); Glucose 91 mg/dL (80-110); HEMOLYSIS < 15 (0-50); Potassium 4.6 mmol/L (3.4-5.1); Sodium 140 mmol/L (137-145)
== END ==
PROVIDERS: Family Provider Orthopaedic Surgery; PCP Internal Medicine; Referring Provider Orthopaedic Surgery; Visit Provider Orthopaedic Surgery
DX: Z01.818 Encounter for other preprocedural examination (principal); R73.9 Hyperglycemia, unspecified
CPT/HCPCS: 36415; 80048; 81001; 83036; 85025; 87086; 93005

== ENCOUNTER 2021-11-22 17:16 | Emergency (ER) | payer MEDICARE, OTHER, SELFPAY ==
[2018-09-23 16:43] VITALS: BMI 23.4
[2021-11-22] VITALS (10 sets, daily range): BP systolic 180–214; BP diastolic 81–98; PULSE 53–61; RESP 18; TEMP 36.5; O2SAT 97–100; BMI 20.7
--- NOTE | 2021-11-22 18:03 | ED.NAVMDI ---
HPI - Nausea/Vomiting/Diarrhea <Annabelle Avila [facility] - Last Filed: 11/23/21 21:36> General Chief complaint: Nausea/Vomiting/Diarrhea Stated complaint: dehydration,vomiting, nausea Time Seen by Provider: 11/22/21 17:39 Source: patient Mode of arrival: Wheelchair History of Present Illness HPI Narrative: This is an 86-year-old female presents to the emergency department with her grandson with concern of nausea and vomiting for the last 24 hours. Patient's grandson reports that patient has worsening dementia and she is forgetting to take her medications on some days, he is concerned that she is not eating and drinking enough and that she lives alone and isn't taking as good care of herself as he thinks that she should. Patient denies any pain, she denies any recent injury or fall, states that she is had nausea and vomiting today without any diarrhea, reports that she has regular bowel movements and there has not been any blood in them. She denies any dizziness but endorses feeling fatigued, denies abdominal pain, back pain or any recent changes to her health. Her primary care provider is Dr. Kimberli donald, reports that she has not seen her in at least one month or longer. Patient's grandson is concerned about her elevated blood pressure and is concerned that she is not getting enough nutrition or eating healthy food. Patient reports that she took her medications today and patient's grandson reports that she has taken two days' worth of her weekly pill box medications, today is Thursday and she should have six days missing. Patient reports that she remembers to take her medicine every day due to her routine in her routine include sitting down for breakfast and then taking her medications afterwards. Related Data Home Medications Medication Instructions Recorded Confirmed rabeprazole 20 mg tablet,delayed 20 mg PO DAILY 08/18/18 06/05/20 release latanoprost 0.005 % eye drops 1 drp ophthalmic (eye) DIRECTED 02/02/19 06/15/19 levothyroxine 50 mcg tablet 50 mcg PO QAM 02/02/19 06/05/20 mirabegron 50 mg tablet,extended 50 mg PO BEDTIME 02/02/19 06/05/20 release 24 hr (Myrbetriq) hydrochlorothiazide 12.5 mg tablet 12.5 mg PO QAM 06/05/20 06/05/20 losartan 25 mg tablet 75 mg PO QAM 06/05/20 06/05/20 Previous Rx's Medication Instructions Recorded acetaminophen 325 mg tablet 975 mg PO TID #0 tabs 09/02/18 cephalexin 500 mg capsule (Keflex) 500 mg PO BID #14 caps 06/05/20 ondansetron 4 mg disintegrating 4 mg PO Q6H PRN nausea and 06/05/20 tablet vomiting #14 tabs cephalexin 500 mg capsule 500 mg PO BID 10 days #20 caps 11/22/21 ondansetron HCl 4 mg tablet 4 mg PO QID PRN nausea and 11/22/21 vomiting #5 tabs Allergies Allergy/AdvReac Type Severity Reaction Status Date / Time latex Allergy Intermediate Rash Verified 11/22/21 17:53 doxycycline [DOXYCYCLINE] Allergy Unknown Pt does Verified 11/22/21 17:53 not remember nitrofurantoin Allergy Unknown Verified 11/22/21 17:53 [NITROFURANTOIN] sulfamethoxazole Allergy Unknown Pt does Verified 11/22/21 17:53 [From SEPTRA] not remember trimethoprim [From SEPTRA] Allergy Unknown Pt does Verified 11/22/21 17:53 not remember ranitidine AdvReac Severe Diarrhea Verified 11/22/21 17:53 amoxicillin [From Augmentin] AdvReac Unknown Pt does Verified 11/22/21 17:53 not remember clavulanic acid AdvReac Unknown Pt does Verified 11/22/21 17:53 [From Augmentin] not remember Review of Systems <XIN Velásquez - Last Filed: 11/23/21 21:36> Review of Systems Narrative: General: denies fever, chills, malaise, sweats, endorses increased fatigue Head/Neck: denies headache, neck pain, dizziness Eyes: denies visual changes, eye pain Cardio: denies chest pain, palpitations, edema Respiratory: denies dyspnea, cough, orthopnea GI: Denies abdominal pain, nausea, vomiting, or diarrhea : denies dysuria, hematuria, urinary retention, frequency or incontinence MSK: denies joint pain, muscle weakness Skin: denies rash, itching, skin lesions or other Neuro: denies numbness, tingling Patient History <XIN Velásquez - Last Filed: 11/23/21 21:36> Medical History (Updated 11/23/21 @ 01:30 by Verenice Lynn DO) Easy bruisability GERD (gastroesophageal reflux disease) HLD (hyperlipidemia) HTN (hypertension) Hypothyroidism Numbness and tingling in both hands Ocular migraine Osteoarthritis Surgical History History of bladder suspension procedure History of carpal tunnel repair Hx of bilateral cataract extraction Hx of repair of left rotator cuff (~2006) Status post appendectomy Status post hysterectomy Status post rotator cuff repair Social History household members: caregiver and none Smoking Status: Never smoker alcohol intake: current Smoking Status: Never smoker alcohol intake frequency: holidays/special occasions only Substance Use Type: does not use Exam <XIN Velásquez - Last Filed: 11/23/21 21:36> Narrative Exam Narrative: Independently reviewed vitals signs and nursing notes. General: cooperative, comfortable, in no acute distress, well groomed Head: atraumatic, symmetrical facial expressions Neck: supple Eyes: equal round and reactive, EOMI, conjunctiva normal Nose: nares patent, no rhinorrhea Mouth/Throat: moist mucus membranes Cardiovascular: regular rate and rhythm, S1-S2 without murmur, no peripheral edema, warm extremities Respiratory: normal effort, able to speak in complete sentences, no audible wheezing, stridor, or rales. No retractions or tachypnea. GI: abdomen soft, nontender to palpation, nondistended, no masses, no exquisite tenderness with exam, without guarding or rebound. MSK: moves all extremities, neurovascularly intact, no weakness, normal tone Skin: brisk capillary refill, no rash, no erythema Neuro: normal speech and cognition, A&O x3 Psych: mental status is grossly normal, congruent mood, normal affect, pleasant and cooperative Initial Vital Signs Initial Vital Signs: Vital Signs Temperature 97.7 F 11/22/21 17:30 Pulse Rate 59 L 11/22/21 17:30 Respiratory Rate 18 11/22/21 17:30 Blood Pressure 180/81 H 11/22/21 17:30 Pulse Oximetry 99 11/22/21 17:30 Oxygen Delivery Method 11/22/21 17:30 <Verenice Lynn DO - Last Filed: 11/23/21 01:58> Initial Vital Signs Initial Vital Signs: Vital Signs Temperature 97.7 F 11/22/21 17:30 Pulse Rate 59 L 11/22/21 17:30 Respiratory Rate 18 11/22/21 17:30 Blood Pressure 180/81 H 11/22/21 17:30 Pulse Oximetry 99 11/22/21 17:30 Oxygen Delivery Method 11/22/21 17:30 Course <XIN Velásquez - Last Filed: 11/23/21 21:36> Orders Ordered: Discontinued Medications Hydrochlorothiazide (Hydrochlorothiazide 25 Mg Tablet) 12.5 mg PO NOW ONE Stop: 11/22/21 19:58 Last Admin: 11/22/21 20:19 Dose: 12.5 mg Documented By: EB Sodium Chloride (Normal Saline 0.9%) 500 mls @ 1,000 mls/hr IV BOLUS ONE Stop: 11/22/21 18:33 Last Infusion: 11/22/21 19:57 Dose: 0 mls/hr Documented By: Admin: 11/22/21 18:31 Dose: 1,000 mls/hr Documented By: AT Ceftriaxone Sodium 1,000 mg/ (Sodium Chloride) 100 mls @ 200 mls/hr IV NOW ONE Stop: 11/22/21 18:20 Last Infusion: 11/22/21 19:57 Dose: 0 mls/hr Documented By: Admin: 11/22/21 18:32 Dose: 200 mls/hr Documented By: AT Losartan Potassium (Losartan 50 Mg Tablet) 75 mg PO NOW ONE Stop: 11/22/21 19:58 Last Admin: 11/22/21 20:20 Dose: 75 mg Documented By: EB Ondansetron HCl (Ondansetron 4 Mg/2 Ml Inj) 4 mg IV NOW ONE Stop: 11/22/21 18:05 Last Admin: 11/22/21 18:32 Dose: 4 mg Documented By: AT Vital Signs Vital signs: Vital Signs - 8 hr 11/22/21 19:57 11/22/21 20:20 11/22/21 21:06 Pulse Rate 55 L Blood Pressure 214/93 H 205/90 H 212/98 H Pulse Oximetry 99 Oxygen Delivery Method Room Air 11/22/21 21:06 11/22/21 21:30 11/22/21 21:30 Pulse Rate 61 58 L Blood Pressure 198/91 H Pulse Oximetry 100 100 Oxygen Delivery Method 11/22/21 22:00 11/22/21 22:32 11/22/21 23:00 Pulse Rate 53 L 58 L Blood Pressure Pulse Oximetry 99 99 98 Oxygen Delivery Method 11/22/21 23:30 11/22/21 23:58 11/22/21 23:58 Pulse Rate 58 L 59 L Blood Pressure 201/90 H Pulse Oximetry 97 98 Oxygen Delivery Method 11/23/21 00:00 11/23/21 00:00 11/23/21 00:15 Pulse Rate 59 L 59 L Blood Pressure 193/91 H Pulse Oximetry 98 98 Oxygen Delivery Method 11/23/21 00:15 11/23/21 00:30 11/23/21 00:30 Pulse Rate 59 L Blood Pressure 180/88 H 183/123 H Pulse Oximetry 97 Oxygen Delivery Method 11/23/21 00:31 11/23/21 00:31 11/23/21 00:33 Pulse Rate 56 L 57 L Blood Pressure 181/119 H Pulse Oximetry 98 98 Oxygen Delivery Method 11/23/21 00:33 11/23/21 00:39 11/23/21 00:45 Pulse Rate 58 L Blood Pressure 187/90 H 193/87 H Pulse Oximetry 100 Oxygen Delivery Method 11/23/21 01:00 11/23/21 01:15 11/23/21 01:30 Pulse Rate Blood Pressure 187/86 H 175/85 H 179/88 H Pulse Oximetry Oxygen Delivery Method <Verenice Lynn, - Last Filed: 11/23/21 01:58> Orders Ordered: Discontinued Medications Hydrochlorothiazide (Hydrochlorothiazide 25 Mg Tablet) 12.5 mg PO NOW ONE Stop: 11/22/21 19:58 Last Admin: 11/22/21 20:19 Dose: 12.5 mg Documented By: EB Sodium Chloride (Normal Saline 0.9%) 500 mls @ 1,000 mls/hr IV BOLUS ONE Stop: 11/22/21 18:33 Last Infusion: 11/22/21 19:57 Dose: 0 mls/hr Documented By: Admin: 11/22/21 18:31 Dose: 1,000 mls/hr Documented By: AT Ceftriaxone Sodium 1,000 mg/ (Sodium Chloride) 100 mls @ 200 mls/hr IV NOW ONE Stop: 11/22/21 18:20 Last Infusion: 11/22/21 19:57 Dose: 0 mls/hr Documented By: Admin: 11/22/21 18:32 Dose: 200 mls/hr Documented By: AT Losartan Potassium (Losartan 50 Mg Tablet) 75 mg PO NOW ONE Stop: 11/22/21 19:58 Last Admin: 11/22/21 20:20 Dose: 75 mg Documented By: EB Ondansetron HCl (Ondansetron 4 Mg/2 Ml Inj) 4 mg IV NOW ONE Stop: 11/22/21 18:05 Last Admin: 11/22/21 18:32 Dose: 4 mg Documented By: AT Reevaluation(s) Reevaluation #1: Patient seen blood pressure is elevated after talking with the grandson she likely threw up her blood pressure medications and is likely not taking them regularly. Gave her home blood pressure medications will continue to monitor. Grandson would like for her to be kept for observation or admission but at this vitals are appropriate other than her hypertension she is not vomiting she is asymptomatic otherwise and is tolerating orals. Discussed will continue to monitor her blood pressure to see which direction and goes and will re-evaluate as needed. Time: 21:13 Vital Signs Vital signs: Vital Signs - 8 hr 11/22/21 19:57 11/22/21 20:20 11/22/21 21:06 Pulse Rate 55 L Blood Pressure 214/93 H 205/90 H 212/98 H Pulse Oximetry 99 Oxygen Delivery Method Room Air 11/22/21 21:06 11/22/21 21:30 11/22/21 21:30 Pulse Rate 61 58 L Blood Pressure 198/91 H Pulse Oximetry 100 100 Oxygen Delivery Method 11/22/21 22:00 11/22/21 22:32 11/22/21 23:00 Pulse Rate 53 L 58 L Blood Pressure Pulse Oximetry 99 99 98 Oxygen Delivery Method 11/22/21 23:30 11/22/21 23:58 11/22/21 23:58 Pulse Rate 58 L 59 L Blood Pressure 201/90 H Pulse Oximetry 97 98 Oxygen Delivery Method 11/23/21 00:00 11/23/21 00:00 11/23/21 00:15 Pulse Rate 59 L 59 L Blood Pressure 193/91 H Pulse Oximetry 98 98 Oxygen Delivery Method 11/23/21 00:15 11/23/21 00:30 11/23/21 00:30 Pulse Rate 59 L Blood Pressure 180/88 H 183/123 H Pulse Oximetry 97 Oxygen Delivery Method 11/23/21 00:31 11/23/21 00:31 11/23/21 00:33 Pulse Rate 56 L 57 L Blood Pressure 181/119 H Pulse Oximetry 98 98 Oxygen Delivery Method 11/23/21 00:33 11/23/21 00:39 11/23/21 00:45 Pulse Rate 58 L Blood Pressure 187/90 H 193/87 H Pulse Oximetry 100 Oxygen Delivery Method 11/23/21 01:00 11/23/21 01:15 11/23/21 01:30 Pulse Rate Blood Pressure 187/86 H 175/85 H 179/88 H Pulse Oximetry Oxygen Delivery Method MDM - Nausea/Vomiting/Diarrhea <XIN Velásquez - Last Filed: 11/23/21 21:36> Lab Data Result diagrams: 11/22/21 18:30 11/22/21 18:30 Labs: Lab Results 11/22/21 11/22/21 11/22/21 Range/Units 18:00 18:30 18:30 WBC 8.3 (4.5-11.0) X10^3/uL RBC 4.06 (4.0-5.2) X10^6/uL Hgb 12.1 (12.0-16.0) g/dL Hct 34.8 L (36-46) % MCV 85.7 (80-100) fL MCH 29.7 (26-34) PG MCHC 34.7 (30-36) % RDW 14.1 (11.6-14.8) % Plt Count 235 (150-400) X10^3/uL Neut % (Auto) 75.6 H (50-75) % Lymph % (Auto) 14.3 L (25-40) % Bethel % (Auto) 4.6 (3-14) % Eos % (Auto) 4.8 H (2-4) % Baso % (Auto) 0.7 (0-2) % Neut # (Auto) 6300 (7245-0459) /uL Lymph # (Auto) 1200 (9613-0458) /uL Bethel # (Auto) 400 (0-900) /uL Eos # (Auto) 400 (0-450) /uL Baso # (Auto) 100 (0-100) /uL Sodium 138 (137-145) mmol/L Potassium 4.2 (3.4-5.1) mmol/L Chloride 106 (98-107) mmol/L Carbon Dioxide 21 L (22-32) mmol/L BUN 28 H (7-17) mg/dL Creatinine 0.93 (0.52-1.04) mg/dL Estimated GFR > 60 (>60) mL/min BUN/Creatinine Ratio 30.1 H (6-22) Glucose 92 (80-110) mg/dL Lactate (0.7-2.1) mmol/L Calcium 8.9 (8.4-10.2) mg/dL Magnesium 1.7 (1.6-2.3) mg/dL Total Bilirubin 0.5 (0.2-1.3) mg/dL AST 27 (14-36) IU/L ALT 13 (<35) IU/L Alkaline Phosphatase 79 (38-126) U/L Total Creatine Kinase 52 (30-135) U/L CK-MB (CK-2) TNP CK-MB (CK-2) Rel Index TNP Troponin I < 0.012 (0.01-0.034) ng/mL C-Reactive Protein < 0.5 (<1.0) mg/dL Total Protein 7.8 (6.3-8.2) g/dL Albumin 4.2 (3.5-5.0) g/dL Globulin 3.6 (1.7-4.1) g/dL Albumin/Globulin Ratio 1.2 (1.0-2.8) Lipase (23-300) U/L Urine RBC 1-5/hpf (0-5/HPF) Urine WBC 10-30/hpf H (0-5/HPF) Ur Squamous Epith Cells 0-1 /hpf (0-5/HPF) Amorphous Sediment 1+ Urine Bacteria Few (2-10) H (None) Ur Culture Indicated? Specimen cultured SARS-CoV-2 (PCR) (Negative) 11/22/21 11/22/21 11/22/21 Range/Units 18:30 18:30 19:47 WBC (4.5-11.0) X10^3/uL RBC (4.0-5.2) X10^6/uL Hgb (12.0-16.0) g/dL Hct (36-46) % MCV (80-100) fL MCH (26-34) PG MCHC (30-36) % RDW (11.6-14.8) % Plt Count (150-400) X10^3/uL Neut % (Auto) (50-75) % Lymph % (Auto) (25-40) % Bethel % (Auto) (3-14) % Eos % (Auto) (2-4) % Baso % (Auto) (0-2) % Neut # (Auto) (0328-3141) /uL Lymph # (Auto) (0453-1325) /uL Bethel # (Auto) (0-900) /uL Eos # (Auto) (0-450) /uL Baso # (Auto) (0-100) /uL Sodium (137-145) mmol/L Potassium (3.4-5.1) mmol/L Chloride (98-107) mmol/L Carbon Dioxide (22-32) mmol/L BUN (7-17) mg/dL Creatinine (0.52-1.04) mg/dL Estimated GFR (>60) mL/min BUN/Creatinine Ratio (6-22) Glucose (80-110) mg/dL Lactate 1.1 (0.7-2.1) mmol/L Calcium (8.4-10.2) mg/dL Magnesium (1.6-2.3) mg/dL Total Bilirubin (0.2-1.3) mg/dL AST (14-36) IU/L ALT (<35) IU/L Alkaline Phosphatase (38-126) U/L Total Creatine Kinase (30-135) U/L CK-MB (CK-2) CK-MB (CK-2) Rel Index Troponin I (0.01-0.034) ng/mL C-Reactive Protein (<1.0) mg/dL Total Protein (6.3-8.2) g/dL Albumin (3.5-5.0) g/dL Globulin (1.7-4.1) g/dL Albumin/Globulin Ratio (1.0-2.8) Lipase 103 (23-300) U/L Urine RBC (0-5/HPF) Urine WBC (0-5/HPF) Ur Squamous Epith Cells (0-5/HPF) Amorphous Sediment Urine Bacteria (None) Ur Culture Indicated? SARS-CoV-2 (PCR) Negative (Negative) Urine Dip Bedside Urine Glucose Negative Bedside Urine Bilirubin - Negative Bedside Urine Ketone - Negative Urine Specific Weikert 1.020 Bedside Urine Occult Blood ++ Bedside Urine pH 6.0 Bedside Urine Protein + 30 Bedside Urine Urobilinogen - Negative Bedside Urine Nitrite - Negative Bedside Urine Leukocytes ++ 125 Esterase ECG Data Interpretation: EKG independently reviewed by Dr. Lynn and reveals sinus bradycardia at 58 bpm with regular axis and intervals. No STEMI, ST segment changes, arrhythmia, or acute ischemic changes. MDM Narrative Medical decision making narrative: This is an 86-year-old female who lives independently, history of dementia, hypertension, not on any anticoagulants who is brought into the emergency department by her grandson who checks in on his grandmother weekly for nausea and vomiting which started this morning. Patient endorses mild dysuria with suprapubic pressure, her UA was found to have bacteria, wbc's and rbc's, urine is pending for culture. Lab work does not show any leukocytosis or anemia. She was given IV Zofran, and reported feeling better right afterwards. She was given 500 mL of normal saline for dehydration. Patient takes hydrochlorothiazide and losartan at baseline, reports that she took her medications today but she was hypertensive in the emergency department today with systolic blood pressure up to 180. Diastolic blood pressure remained less than 90. Patient denies any chest pain or ST changes her EKG. <Verenice Lynn, DO - Last Filed: 11/23/21 01:58> Lab Data Labs: Lab Results 11/22/21 11/22/21 11/22/21 Range/Units 18:00 18:30 18:30 WBC 8.3 (4.5-11.0) X10^3/uL RBC 4.06 (4.0-5.2) X10^6/uL Hgb 12.1 (12.0-16.0) g/dL Hct 34.8 L (36-46) % MCV 85.7 (80-100) fL MCH 29.7 (26-34) PG MCHC 34.7 (30-36) % RDW 14.1 (11.6-14.8) % Plt Count 235 (150-400) X10^3/uL Neut % (Auto) 75.6 H (50-75) % Lymph % (Auto) 14.3 L (25-40) % Bethel % (Auto) 4.6 (3-14) % Eos % (Auto) 4.8 H (2-4) % Baso % (Auto) 0.7 (0-2) % Neut # (Auto) 6300 (1573-1157) /uL Lymph # (Auto) 1200 (0596-8894) /uL Bethel # (Auto) 400 (0-900) /uL Eos # (Auto) 400 (0-450) /uL Baso # (Auto) 100 (0-100) /uL Sodium 138 (137-145) mmol/L Potassium 4.2 (3.4-5.1) mmol/L Chloride 106 (98-107) mmol/L Carbon Dioxide 21 L (22-32) mmol/L BUN 28 H (7-17) mg/dL Creatinine 0.93 (0.52-1.04) mg/dL Estimated GFR > 60 (>60) mL/min BUN/Creatinine Ratio 30.1 H (6-22) Glucose 92 (80-110) mg/dL Lactate (0.7-2.1) mmol/L Calcium 8.9 (8.4-10.2) mg/dL Magnesium 1.7 (1.6-2.3) mg/dL Total Bilirubin 0.5 (0.2-1.3) mg/dL AST 27 (14-36) IU/L ALT 13 (<35) IU/L Alkaline Phosphatase 79 (38-126) U/L Total Creatine Kinase 52 (30-135) U/L CK-MB (CK-2) TNP CK-MB (CK-2) Rel Index TNP Troponin I < 0.012 (0.01-0.034) ng/mL C-Reactive Protein < 0.5 (<1.0) mg/dL Total Protein 7.8 (6.3-8.2) g/dL Albumin 4.2 (3.5-5.0) g/dL Globulin 3.6 (1.7-4.1) g/dL Albumin/Globulin Ratio 1.2 (1.0-2.8) Lipase (23-300) U/L Urine RBC 1-5/hpf (0-5/HPF) Urine WBC 10-30/hpf H (0-5/HPF) Ur Squamous Epith Cells 0-1 /hpf (0-5/HPF) Amorphous Sediment 1+ Urine Bacteria Few (2-10) H (None) Ur Culture Indicated? Specimen cultured SARS-CoV-2 (PCR) (Negative) 11/22/21 11/22/21 11/22/21 Range/Units 18:30 18:30 19:47 WBC (4.5-11.0) X10^3/uL RBC (4.0-5.2) X10^6/uL Hgb (12.0-16.0) g/dL Hct (36-46) % MCV (80-100) fL MCH (26-34) PG MCHC (30-36) % RDW (11.6-14.8) % Plt Count (150-400) X10^3/uL Neut % (Auto) (50-75) % Lymph % (Auto) (25-40) % Bethel % (Auto) (3-14) % Eos % (Auto) (2-4) % Baso % (Auto) (0-2) % Neut # (Auto) (2425-8896) /uL Lymph # (Auto) (0813-4060) /uL Bethel # (Auto) (0-900) /uL Eos # (Auto) (0-450) /uL Baso # (Auto) (0-100) /uL Sodium (137-145) mmol/L Potassium (3.4-5.1) mmol/L Chloride (98-107) mmol/L Carbon Dioxide (22-32) mmol/L BUN (7-17) mg/dL Creatinine (0.52-1.04) mg/dL Estimated GFR (>60) mL/min BUN/Creatinine Ratio (6-22) Glucose (80-110) mg/dL Lactate 1.1 (0.7-2.1) mmol/L Calcium (8.4-10.2) mg/dL Magnesium (1.6-2.3) mg/dL Total Bilirubin (0.2-1.3) mg/dL AST (14-36) IU/L ALT (<35) IU/L Alkaline Phosphatase (38-126) U/L Total Creatine Kinase (30-135) U/L CK-MB (CK-2) CK-MB (CK-2) Rel Index Troponin I (0.01-0.034) ng/mL C-Reactive Protein (<1.0) mg/dL Total Protein (6.3-8.2) g/dL Albumin (3.5-5.0) g/dL Globulin (1.7-4.1) g/dL Albumin/Globulin Ratio (1.0-2.8) Lipase 103 (23-300) U/L Urine RBC (0-5/HPF) Urine WBC (0-5/HPF) Ur Squamous Epith Cells (0-5/HPF) Amorphous Sediment Urine Bacteria (None) Ur Culture Indicated? SARS-CoV-2 (PCR) Negative (Negative) Urine Dip Bedside Urine Glucose Negative Bedside Urine Bilirubin - Negative Bedside Urine Ketone - Negative Urine Specific Weikert 1.020 Bedside Urine Occult Blood ++ Bedside Urine pH 6.0 Bedside Urine Protein + 30 Bedside Urine Urobilinogen - Negative Bedside Urine Nitrite - Negative Bedside Urine Leukocytes ++ [address] scan - abdomen/pelvis: Radiologist's Impression: Close Head CT (Signed) Maikel Wild - 11/22/21 Abdomen/Pelvis CT (Signed) Maikel Wild - 11/22/21 Launch?[place] [address] CT Scan Report Signed Patient: Ny Mcallister MR#: [id number] : 1935 Acct:[id number] Age/Sex: 86 / F Date of Service: 11/22/21 Loc: ED Accession Number: [id number] ?? Procedure: CT abdomen pelvis w con Ordering Provider: Verenice Lynn D.O. PROCEDURE:? CT ABDOMEN PELVIS W CON ? INDICATIONS:? v, ? uti, htn ? TECHNIQUE:? After the administration of IV contrast, axial sections were acquired from the lung bases to the pubic symphysis.? Coronal and sagittal reformats were performed.? For radiation dose reduction, the following was used:? automated exposure control, adjustment of mA and/or kV according to patient size. ? COMPARISON:? None. ? FINDINGS:? Image quality:? There is metallic streak artifact from patient's right hip prosthesis.? ? Lung bases:? There is mild atelectasis and scarring in the lung bases.? ? Heart:? Heart is normal in size.? There is a large hiatal hernia. ? ? ABDOMEN: Liver:? There is mild focal fatty infiltration in the anterior left hepatic lobe. Gallbladder:? There are small dependent calcified gallstones in the gallbladder without gallbladder wall thickening or pericholecystic fluid.? ? Biliary ducts:? No biliary ductal dilatation.? ? Pancreas:? Unremarkable.? ? Spleen:? Normal in size.? ? Adrenal Glands:? No adrenal nodules.? ? Kidneys and Ureters:? No definite hydronephrosis.? ? ? Stomach and Bowel:? Stomach and small bowel loops are normal in caliber and wall thickness.? The appendix is not discretely well visualized but there are no pericecal inflammatory changes to suggest appendicitis.? There is colonic diverticulosis without acute diverticulitis.? Mild segmental wall thickening is demonstrated in the sigmoid colon suggestive of a mild colitis.? Peritoneum:? No abnormal intraperitoneal fluid.? No free air.? ? Ventral Wall: ? No hernia.? Abdominal Nodes:? No retroperitoneal or mesenteric adenopathy by size criteria.? Vessels:? Aorta and inferior vena cava are normal in size.? ? PELVIS: Pelvic Organs:? Unremarkable.? ? Bladder:? Unremarkable.? ? Pelvic Nodes: No enlarged lymph nodes.? Miscellaneous: No inguinal hernias are seen. ? ? ? Bones:? There is mild retrolisthesis of L2 on L3 measuring approximately 0.4 cm.? Minimal retrolisthesis also demonstrated at L1-L2.? There is minimal anterolisthesis at L4-5.? Visualized osseous structures demonstrate no suspicious focal lesions. ? IMPRESSION:? ? 1. Cholelithiasis without evidence of cholecystitis. ? 2. Focal hepatic fatty infiltration in the left hepatic lobe.? ? 3. Colonic diverticulosis without acute diverticulitis.? ? ? Dictated by: Maikel Wild M.D. on 11/23/2021 at 0:40 ? ? Approved by: Maikel Wild M.D. on 11/23/2021 at 0:45?? CT scan - head: Radiologist's Impression: [address] [address] [address] Scan Report Signed Patient: Ny Mcallister MR#: [id number] : 1935 Acct:[id number] Age/Sex: 86 / F Date of Service: 11/22/21 Loc: ED Accession Number: [id number] ?? Procedure: CT head/brain wo con Ordering Provider: Verenice Lynn D.O. PROCEDURE:? CT HEAD/BRAIN WO CON ? INDICATIONS:? Not given. ? TECHNIQUE:? Noncontrast 4.5 mm thick angled axial sections acquired from the foramen magnum to the vertex, with coronal and sagittal reformats.? For radiation dose reduction, the following was used:? automated exposure control, adjustment of mA and/or kV according to patient size.? ? COMPARISON:? [facility], CT, CT ABDOMEN PELVIS W CON, 11/22/2021, 23:41.? [facility], CT, CT HEAD/BRAIN WO CON, 06/05/2020, 13:03. ? FINDINGS:? Image quality:? Excellent.? ? CSF spaces:? Basal cisterns are patent.? No extra-axial fluid collections.? There is mild to moderate cerebral volume loss, with resultant ventricular and sulcal prominence.? ? Brain:? No intracranial hemorrhage, mass, or mass effect.? There are subcortical, periventricular and deep white matter hypodensities consistent with [id number] chronic small vessel ischemic changes.? The lowe-white matter junction appears preserved. ?There is intracranial internal carotid artery atherosclerosis.? ? Skull and face:? Calvarium and visualized facial bones appear intact, without suspicious lesions.? ? Sinuses:? Visualized sinuses and mastoids are clear.? ? IMPRESSION:? ? 1. No acute intracranial abnormality. ? 2. Mild to moderate chronic white matter small vessel ischemic changes and cerebral volume loss.? ? Dictated by: Maikel Wild M.D. on 11/23/2021 at 0:22 ? ? Approved by: Maikel Wild M.D. on 11/23/2021 at 0:24?? ECG Data Interpretation: EKG independently reviewed by Dr. Lynn and reveals sinus bradycardia at 58 bpm with regular axis and intervals. No STEMI, ST segment changes, arrhythmia, or acute ischemic changes. Sinus Maximo rate of 58 AR 186 QRS is 76 and QTC of 457. No acute ST elevation or depression noted. V2 appears change with S-wave with no other changes noted in comparison to prior from 12/12/2020. MDM Narrative Medical decision making narrative: This is an 86-year-old female who lives independently, history of dementia, hypertension, not on any anticoagulants who is brought into the emergency department by her grandson who checks in on his grandmother weekly for nausea and vomiting which started this morning. Patient endorses mild dysuria with suprapubic pressure, her UA was found to have bacteria, wbc's and rbc's, urine is pending for culture. Lab work does not show any leukocytosis or anemia. She was given IV Zofran, and reported feeling better right afterwards. She was given 500 mL of normal saline for dehydration. Patient takes hydrochlorothiazide and losartan at baseline, reports that she took her medications today but she was hypertensive in the emergency department today with systolic blood pressure up to 180. Diastolic blood pressure remained less than 90. Patient denies any chest pain or ST changes her EKG. [facility] 11/22/211909: Patient signed out to myself by [employer]. Patient was seen independently evaluated by myself. She does have some dementia, hypertension not on anticoagulants and is accompanied by her grandson. She had some nausea vomiting which started in the last day, she describes some mild urinary symptoms. Denies abdominal pain, back or flank pain, no weakness ambulating while at home. She had her blood pressure medications around noon and reportedly or possibly threw them up shortly thereafter. Patient denies any chest pain or shortness of breath. Patient's labs, EKG are overall reassuring urine has leuks, with 10-30 wbc's and 2-10 bacteria making urinary cause likely particularly with her symptoms. COVID swab was obtained and is negative. Patient is quite hypertensive up to the 220 range. She was given her home blood pressure medications it has very slowly been decreasing. Grandson states she is a little bit more confused than normal. Head CT was obtained which is negative for acute change. CT abdomen pelvis was obtained shows gallstones, but no evidence of cholecystitis, no thickening or pericholecystic fluid patient is nontender on exam over this area. No biliary ductal dilation with normal CMP and lipase. Patient does have some mild changes in the lumbar spine. And some focal fatty hepatic infiltration that is unlikely cause of her symptoms today Patient's abdominal exam is benign. She is requesting to return home her family at bedside is comfortable with this. Patients family at bedside is quite uncomfortable with this. Patient has ambulated in the department. Her blood pressure although not normal has been slowly drifting down words and I do not wish to totally normalize it and a short period of time. We reviewed this, reviewed all of her findings today. Patient's family would really like her kept overnight, did discuss with the hospitalist who defers observation or admission at this time. Plan to start oral antibiotic she is tolerated Ceftin in the past. She does have multiple medication allergy she did receive a dose of IV Rocephin here. Family has already set up [facility] and she has PT coming to the house twice weekly. They are also in process of trying to get her set up with a SNF in [place] where the grandson lives. Return precautions discussed for worsening symptoms for further imaging and evaluation. All questions answered. Discharge Plan Departure Patient Disposition: Home Clinical Impression: Hypertension Cystitis, acute Qualifiers: Hematuria presence: with hematuria Qualified Code(s): N30.01 - Acute cystitis with hematuria Instructions: DI for Urinary Tract Infection (UTI) Activity Restrictions/Additional Instructions: Please follow up with your physician if your symptoms have not had resolution of your symptoms. Take antibiotics until completely gone. You received your 1st dose of antibiotic tonight you do not to start your new prescription until tomorrow. You may take Zofran 1 tablet every 6 hours as needed for nausea [facility] Please return for fevers, persistent vomiting, new abdominal, back or flank pain, black or bloody stools, difficulty with urination, new chest pain or shortness of breath or other new or concerning symptoms. Prescriptions: New cephalexin 500 mg capsule 500 mg PO BID 10 Days Qty: 20 0RF ondansetron HCl 4 mg tablet 4 mg PO QID PRN (Reason: nausea and vomiting) Qty: 5 0RF No Action losartan 25 mg tablet 75 mg PO QAM hydrochlorothiazide 12.5 mg tablet 12.5 mg PO QAM cephalexin [Keflex] 500 mg capsule 500 mg PO BID Qty: 14 0RF ondansetron 4 mg tablet,disintegrating 4 mg PO Q6H PRN (Reason: nausea and vomiting) Qty: 14 0RF rabeprazole 20 mg Tablet,Delayed Release (Dr/Ec) 20 mg PO DAILY acetaminophen 325 mg Tablet 975 mg PO TID Qty: 0 0RF latanoprost 0.005 % drops 1 drp ophthalmic (eye) DIRECTED levothyroxine 50 mcg tablet 50 mcg PO QAM Myrbetriq 50 mg tablet extended release 24 hr 50 mg PO BEDTIME Referrals: Kimberli Donald MD [Primary Care Provider] - Visit Report Forms: Patient Portal/API
[2021-11-22] MEDS: SODIUM CHLORIDE 0.9% 500 ML 1000 ML IV (18:31)
[2021-11-22] MEDS: ONDANSETRON 4 MG/2 ML INJ IV (18:32)
[2021-11-22] MEDS: cefTRIAXone 1,000 MG in SODIUM CHLORIDE 0.9% 100 ML 200 MG IV (18:32)
[2021-11-22 18:37] LABS: Amorphous Sediment Urine 1+; Bacteria Urine Few (2-10); Culture Indicated Urine Specimen Cultured; RBC Urine 1-5/HPF (0-5/HPF); Squamous Epithelial Cell Urine 0-1 /HPF (0-5/HPF); WBC Urine 10-30/HPF (0-5/HPF)
[2021-11-22 18:47] LABS: Add Manual Diff / Slide Review NO; Basophils Absolute Auto 100 /uL (0-100); Basophils Percent Auto 0.7 % (0-2); Eosinophils Absolute Auto 400 /uL (0-450); Eosinophils Percent Auto 4.8 % (2-4); Hematocrit 34.8 % (36-46); Hemoglobin 12.1 g/dL (12.0-16.0); Lymphocytes Absolute Auto 1200 /uL (1100-4500); Lymphocytes Percent Auto 14.3 % (25-40); Mean Corpuscular HGB Conc 34.7 % (30-36); Mean Corpuscular Hemoglobin 29.7 PG (26-34); Mean Corpuscular Volume 85.7 fL (80-100); Monocytes Absolute Auto 400 /uL (0-900); Monocytes Percent Auto 4.6 % (3-14); Neutrophils Absolute Auto 6300 /uL (1500-7000); Neutrophils Percent Auto 75.6 % (50-75); Platelet Count 235 X10^3/uL (150-400); Red Blood Cell Count 4.06 X10^6/uL (4.0-5.2); Red Cell Distribution Width 14.1 % (11.6-14.8); White Blood Cell Count 8.3 X10^3/uL (4.5-11.0)
--- NOTE | 2021-11-22 19:20 | CM.SWNOTE ---
AUDIO VIDEO REPAIRER/DCP Note AUDIO VIDEO REPAIRER receives consult and enters room. Patient is 86 y/o female who presents to the ED due to concern for N/V/D. Patient has new dx of Dementia and hx of Cysitis, HLD, HTN, Hypothryoidisum and vertigo. Patient presents to ED with grandson. Per grandson and RN, family is doing concurrent marine oil terminal superintendent planning for [facility] care facilities locally and in [place] for patient. It is reported that patient has [facility] but there is concern that patient has not been taking medication regularly. AUDIO VIDEO REPAIRER provides patient and grandson with senior resource guide and grandson denies further needs from AUDIO VIDEO REPAIRER. Plan: Patient to d/c to home when medically clear, family to seek out marine oil terminal superintendent care plan for patient. Davina Hernandez, CHILD WELFARE COUNSELOR
[2021-11-22 19:21] LABS: Lipase 103 U/L (23-300)
[2021-11-22 19:23] LABS: Alanine Aminotransferase 13 IU/L (<35); Albumin 4.2 g/dL (3.5-5.0); Albumin Globulin Ratio 1.2 (1.0-2.8); Alkaline Phosphatase 79 U/L (38-126); Aspartate Aminotransferase 27 IU/L (14-36); BUN Creatinine Ratio 30.1 (6-22); Bilirubin Total 0.5 mg/dL (0.2-1.3); Blood Urea Nitrogen 28 mg/dL (7-17); Calcium 8.9 mg/dL (8.4-10.2); Carbon Dioxide 21 mmol/L (22-32); Chloride 106 mmol/L (98-107); Creatine Kinase 52 U/L (30-135); Estimated Glomerular Filt Rate > 60 mL/min (>60); Globulin 3.6 g/dL (1.7-4.1); Glucose 92 mg/dL (80-110); HEMOLYSIS 24 (0-50); Magnesium 1.7 mg/dL (1.6-2.3); Potassium 4.2 mmol/L (3.4-5.1); Sodium 138 mmol/L (137-145); Total Protein 7.8 g/dL (6.3-8.2)
[2021-11-22 19:30] LABS: Lactate (Lactic Acid) 1.1 mmol/L (0.7-2.1)
[2021-11-22 19:35] LABS: Troponin I < 0.012 ng/mL (0.01-0.034)
[2021-11-22 19:49] LABS: C-Reactive Protein Quant < 0.5 mg/dL (<1.0)
[2021-11-22] MEDS: hydroCHLOROthiazide 25 MG TABLET 12.5 MG PO (20:19)
[2021-11-22] MEDS: LOSARTAN 50 MG TABLET 75 MG PO (20:20)
[2021-11-22 20:22] LABS: COVID19 -Nasal RAPID Negative (Negative)
--- NOTE | 2021-11-22 20:40 | PC.NURSE ---
Akash Pennington, is point of contact for the next 24hrs.
--- NOTE | 2021-11-22 22:45 | PC.NURSE ---
Son speaking with doctor to express concerns that she is having worsening confusion even since arriving to the ER, as well as concern over her going home and not having 24/7 care when she has medications that she most likely isn't taking because of this confusion. Pt BP remains elevated after pt received her home medications. Provider aware of this.
--- NOTE | 2021-11-22 22:50 | DI.CT.S_ITS ---
PROCEDURE: CT HEAD/BRAIN WO CON INDICATIONS: Not given. TECHNIQUE: Noncontrast 4.5 mm thick angled axial sections acquired from the foramen magnum to the vertex, with coronal and sagittal reformats. For radiation dose reduction, the following was used: automated exposure control, adjustment of mA and/or kV according to patient size. COMPARISON: [facility], CT, CT ABDOMEN PELVIS W CON, 11/22/2021, 23:41. [facility], CT, CT HEAD/BRAIN WO CON, 06/05/2020, 13:03. FINDINGS: Image quality: Excellent. CSF spaces: Basal cisterns are patent. No extra-axial fluid collections. There is mild to moderate cerebral volume loss, with resultant ventricular and sulcal prominence. Brain: No intracranial hemorrhage, mass, or mass effect. There are subcortical, periventricular and deep white matter hypodensities consistent with [id number] chronic small vessel ischemic changes. The lowe-white matter junction appears preserved. There is intracranial internal carotid artery atherosclerosis. Skull and face: Calvarium and visualized facial bones appear intact, without suspicious lesions. Sinuses: Visualized sinuses and mastoids are clear. IMPRESSION: 1. No acute intracranial abnormality. 2. Mild to moderate chronic white matter small vessel ischemic changes and cerebral volume loss. Dictated by: Maikel Wild M.D. on 11/23/2021 at 0:22 Approved by: Maikel Wild M.D. on 11/23/2021 at 0:24
--- NOTE | 2021-11-22 22:50 | DI.CT.S_ITS ---
PROCEDURE: CT ABDOMEN PELVIS W CON INDICATIONS: v, ? uti, htn TECHNIQUE: After the administration of IV contrast, axial sections were acquired from the lung bases to the pubic symphysis. Coronal and sagittal reformats were performed. For radiation dose reduction, the following was used: automated exposure control, adjustment of mA and/or kV according to patient size. COMPARISON: None. FINDINGS: Image quality: There is metallic streak artifact from patient's right hip prosthesis. Lung bases: There is mild atelectasis and scarring in the lung bases. Heart: Heart is normal in size. There is a large hiatal hernia. ABDOMEN: Liver: There is mild focal fatty infiltration in the anterior left hepatic lobe. Gallbladder: There are small dependent calcified gallstones in the gallbladder without gallbladder wall thickening or pericholecystic fluid. Biliary ducts: No biliary ductal dilatation. Pancreas: Unremarkable. Spleen: Normal in size. Adrenal Glands: No adrenal nodules. Kidneys and Ureters: No definite hydronephrosis. Stomach and Bowel: Stomach and small bowel loops are normal in caliber and wall thickness. The appendix is not discretely well visualized but there are no pericecal inflammatory changes to suggest appendicitis. There is colonic diverticulosis without acute diverticulitis. Mild segmental wall thickening is demonstrated in the sigmoid colon suggestive of a mild colitis. Peritoneum: No abnormal intraperitoneal fluid. No free air. Ventral Wall: No hernia. Abdominal Nodes: No retroperitoneal or mesenteric adenopathy by size criteria. Vessels: Aorta and inferior vena cava are normal in size. PELVIS: Pelvic Organs: Unremarkable. Bladder: Unremarkable. Pelvic Nodes: No enlarged lymph nodes. Miscellaneous: No inguinal hernias are seen. Bones: There is mild retrolisthesis of L2 on L3 measuring approximately 0.4 cm. Minimal retrolisthesis also demonstrated at L1-L2. There is minimal anterolisthesis at L4-5. Visualized osseous structures demonstrate no suspicious focal lesions. IMPRESSION: 1. Cholelithiasis without evidence of cholecystitis. 2. Focal hepatic fatty infiltration in the left hepatic lobe. 3. Colonic diverticulosis without acute diverticulitis. Dictated by: Maikel Wild M.D. on 11/23/2021 at 0:40 Approved by: Maikel Wild M.D. on 11/23/2021 at 0:45
--- NOTE | 2021-11-22 23:54 | PC.NURSE ---
Pt up to use bedside commode very frequently, voiding little amounts at a time. Pt SBA, states she feels slightly wobbly but denies assistance pivoting when offered.
[2021-11-23] VITALS (10 sets, daily range): BP systolic 175–193; BP diastolic 85–123; PULSE 56–59; O2SAT 97–100
== END 2021-11-23 01:46 | disposition home or self-care (01) ==
PROVIDERS: Nurse Practitioner Critical Care Medicine; Emergency Provider Emergency Medicine; Family Provider Orthopaedic Surgery; PCP Internal Medicine
DX: I10 Essential (primary) hypertension (principal); N30.01 Acute cystitis with hematuria; F03.90 Unspecified dementia, unspecified severity, without behavioral disturbance, psychotic disturbance, mood disturbance, and anxiety; Z20.822 Contact with and (suspected) exposure to COVID-19
CPT/HCPCS: 36415; 70450; 74177; 80053; 81003; 81015; 82550; 83605; 83690; 83735; 84484; 85025; 86140; 87077; 87086; 87186; 87635; 93005; 93010; 96365; 96375; 99284; C9803; J0696; J2405; Q9967

== ENCOUNTER 2021-11-27 13:23 | Emergency (ER) | payer MEDICARE, OTHER, SELFPAY ==
[2018-09-23 16:43] VITALS: BMI 23.4
[2021-11-27] VITALS (32 sets, daily range): BP systolic 161–202; BP diastolic 71–95; PULSE 59–100; RESP 15–20; TEMP 36.6; O2SAT 94–100; BMI 21.1
--- NOTE | 2021-11-27 13:32 | DI.RAD.S_ITS ---
PROCEDURE: XR CHEST 1V INDICATIONS: suspected sepsis TECHNIQUE: One view of the chest was acquired. COMPARISON: [facility], CR, XR CHEST 1V, 06/05/2020, 12:30. FINDINGS: Surgical changes and devices: None. Lungs and pleura: Lungs are clear. No pleural effusions or pneumothorax. Mediastinum: Mediastinal contours appear normal. Heart size is normal. Bones and chest wall: No suspicious bony lesions. Overlying soft tissues appear unremarkable. IMPRESSION: No acute cardiopulmonary abnormalities or focal airspace disease. Dictated by: Raad Duran M.D. on 11/27/2021 at 14:47 Approved by: Raad Duran M.D. on 11/27/2021 at 14:48
[2021-11-27] MEDS: SODIUM CHLORIDE 0.9% 1,000 ML 1000 ML IV ×3 (14:00→22:45)
[2021-11-27 14:02] LABS: Add Manual Diff / Slide Review NO; Basophils Absolute Auto 0 /uL (0-100); Basophils Percent Auto 0.9 % (0-2); Eosinophils Absolute Auto 200 /uL (0-450); Eosinophils Percent Auto 3.2 % (2-4); Hematocrit 35.9 % (36-46); Hemoglobin 12.3 g/dL (12.0-16.0); Lymphocytes Absolute Auto 1100 /uL (1100-4500); Lymphocytes Percent Auto 19.1 % (25-40); Mean Corpuscular HGB Conc 34.3 % (30-36); Mean Corpuscular Hemoglobin 29.5 PG (26-34); Mean Corpuscular Volume 86.1 fL (80-100); Monocytes Absolute Auto 400 /uL (0-900); Monocytes Percent Auto 6.4 % (3-14); Neutrophils Absolute Auto 4000 /uL (1500-7000); Neutrophils Percent Auto 70.4 % (50-75); Platelet Count 248 X10^3/uL (150-400); Red Blood Cell Count 4.17 X10^6/uL (4.0-5.2); Red Cell Distribution Width 13.8 % (11.6-14.8); White Blood Cell Count 5.7 X10^3/uL (4.5-11.0)
[2021-11-27 14:09] LABS: PTT Partial Thromboplastin Tim 37 SECONDS (26.4-36.2)
[2021-11-27 14:10] LABS: INR 1.3 (0.9-1.3); Prothrombin Time 14.1 SECONDS (10.1-12.7)
[2021-11-27 14:11] LABS: Alanine Aminotransferase 11 IU/L (<35); Albumin Globulin Ratio 1.1 (1.0-2.8); Alkaline Phosphatase 77 U/L (38-126); Aspartate Aminotransferase 22 IU/L (14-36); BUN Creatinine Ratio 18.2 (6-22); Bilirubin Total 0.6 mg/dL (0.2-1.3); Blood Urea Nitrogen 20 mg/dL (7-17); Calcium 8.6 mg/dL (8.4-10.2); Carbon Dioxide 25 mmol/L (22-32); Chloride 105 mmol/L (98-107); Estimated Glomerular Filt Rate 50 mL/min (>60); Globulin 3.6 g/dL (1.7-4.1); Glucose 92 mg/dL (80-110); HEMOLYSIS < 15 (0-50); Lipase 73 U/L (23-300); Potassium 3.9 mmol/L (3.4-5.1); Sodium 138 mmol/L (137-145); Total Protein 7.6 g/dL (6.3-8.2)
[2021-11-27 14:12] LABS: Lactate (Lactic Acid) 0.9 mmol/L (0.7-2.1)
[2021-11-27 14:28] LABS: Procalcitonin 0.03 ng/mL (<0.5)
[2021-11-27 14:58] LABS: Amorphous Sediment Urine 1+; Bacteria Urine None Seen; Culture Indicated Urine Specimen Cultured; RBC Urine 5-10/HPF (0-5/HPF); WBC Urine 0-1/HPF (0-5/HPF)
[2021-11-27 14:59] LABS: COVID19 -Nasal RAPID Negative (Negative)
--- NOTE | 2021-11-27 15:54 | ED_ITS ---
HPI - Weakness <Lacie Raad, DO - Last Filed: 12/01/21 06:53> General Chief complaint: Urogenital-Female Stated complaint: Ortho hypotension/ uti Time Seen by Provider: 11/27/21 15:47 Source: patient Mode of arrival: EMS History of Present Illness HPI Narrative: Patient is an 86-year-old female with history of increasing dementia, hypothyroid hypertension presenting today at the request of her PCP. She was s een and evaluated here on November 22 she was here at that time for nausea vomiting some abdominal pain. She had blood work CT done she was found have a UTI which grew E coli and is pansensitive. She was appropriately discharged home on Keflex. Blood work at that time was reassuring and no sign of sepsis. She was seen evaluated by her PCP 2 days ago who increased her Keflex from b.i.d. to t.i.d.. Her son is with her now who states that he she has had increasing confusion. She is extremely weak. She is not eating she is not drinking. She generally is not doing well. Concern for worsening infection. She intermittently complains of some abdominal pain but is not complaining of any now. She is not having any nausea vomiting chest pain or shortness of breath palpitations. Sign is primary historian along with chart. Related Data Home Medications Medication Instructions Recorded Confirmed rabeprazole 20 mg tablet,delayed 20 mg PO DAILY 08/18/18 06/05/20 release latanoprost 0.005 % eye drops 1 drp ophthalmic (eye) DIRECTED 02/02/19 06/15/19 levothyroxine 50 mcg tablet 50 mcg PO QAM 02/02/19 06/05/20 mirabegron 50 mg tablet,extended 50 mg PO BEDTIME 02/02/19 06/05/20 release 24 hr (Myrbetriq) hydrochlorothiazide 12.5 mg tablet 12.5 mg PO QAM 06/05/20 06/05/20 losartan 25 mg tablet 75 mg PO QAM 06/05/20 06/05/20 cephalexin 500 mg capsule 500 mg PO BID 11/27/21 11/27/21 Previous Rx's Medication Instructions Recorded acetaminophen 325 mg tablet 975 mg PO TID #0 tabs 09/02/18 cephalexin 500 mg capsule (Keflex) 500 mg PO BID #14 caps 06/05/20 ondansetron 4 mg disintegrating 4 mg PO Q6H PRN nausea and 06/05/20 tablet vomiting #14 tabs cephalexin 500 mg capsule 500 mg PO BID 10 days #20 caps 11/22/21 ondansetron HCl 4 mg tablet 4 mg PO QID PRN nausea and 11/22/21 vomiting #5 tabs Allergies Allergy/AdvReac Type Severity Reaction Status Date / Time latex Allergy Intermediate Rash Verified 11/27/21 13:33 doxycycline [DOXYCYCLINE] Allergy Unknown Pt does Verified 11/27/21 13:33 not remember nitrofurantoin Allergy Unknown Verified 11/27/21 13:33 [NITROFURANTOIN] sulfamethoxazole Allergy Unknown Pt does Verified 11/27/21 13:33 [From SEPTRA] not remember trimethoprim [From SEPTRA] Allergy Unknown Pt does Verified 11/27/21 13:33 not remember ranitidine AdvReac Severe Diarrhea Verified 11/27/21 13:33 amoxicillin [From Augmentin] AdvReac Unknown Pt does Verified 11/27/21 13:33 not remember clavulanic acid AdvReac Unknown Pt does Verified 11/27/21 13:33 [From Augmentin] not remember Review of Systems <Lacie Shankar DO - Last Filed: 12/01/21 06:53> Review of Systems Narrative: GENERAL: Denies chills, fatigue, malaise, fever, sweats, travel HEENT: Denies sinus pain, ear pain, sore throat, difficulty swallowing, neck pain RESPIRATORY: Denies dyspnea, cough, wheezing, hemoptysis, sputum. CARDIOVASCULAR: Denies chest pain, palpitations, orthopnea, edema GASTROINTESTINAL: Denies nausea, vomiting, abdominal pain, diarrhea, constipation, melena. : see HPI MUSCULOSKELETAL: Denies weakness, joint pain, or bony pain SKIN: No rash, no erythema, no pruritus NEUROLOGIC: Denies weakness, dizziness, headache, numbness, change in speech, confusion PSYCHIATRIC: No concerning psychosocial issues. 12 point review of systems is negative except for those stated above and HPI Patient History <Lacie Shankar DO - Last Filed: 12/01/21 06:53> Medical History (Updated 11/28/21 @ 01:54 by Alisha Cope RN) Easy bruisability GERD (gastroesophageal reflux disease) HLD (hyperlipidemia) HTN (hypertension) Hypothyroidism Numbness and tingling in both hands Ocular migraine Osteoarthritis Surgical History History of bladder suspension procedure History of carpal tunnel repair Hx of bilateral cataract extraction Hx of repair of left rotator cuff (~2006) Status post appendectomy Status post hysterectomy Status post rotator cuff repair Social History household members: caregiver and none Smoking Status: Never smoker alcohol intake: current Smoking Status: Never smoker alcohol intake frequency: holidays/special occasions only Substance Use Type: does not use Exam <DO Duc Wolf Last Filed: 12/01/21 06:53> Initial Vital Signs Initial Vital Signs: Vital Signs Temperature 97.8 F 11/27/21 13:28 Pulse Rate 63 11/27/21 13:28 Respiratory Rate 15 11/27/21 13:28 Blood Pressure 168/78 H 11/27/21 13:28 Pulse Oximetry 98 11/27/21 13:28 Oxygen Delivery Method 11/27/21 13:28 GENERAL: Week alert 86-year-old female no acute distress HEENT: Head atraumatic,EOMI, pupils reactive, face symmetric, moist mucous membranes] CARDIOVASCULAR: Regular rate and rhythm without murmurs, rubs or gallops. RESPIRATORY: Breath sounds equal bilaterally, no wheezes rales or rhonchi. ABDOMEN: Soft, nontender. Normoactive bowel sounds all 4 quadrants. No guarding or rebound. EXTREMITIES: Normal range of motion, no clubbing or edema. Neurovascularly intact NEUROLOGICAL: Moving all extremities, awake and alert SKIN: Warm, dry, no laceration, no petechiae, no rashes or lesions. <Derek Armas DO - Last Filed: 11/28/21 04:23> Initial Vital Signs Initial Vital Signs: Vital Signs Temperature 97.8 F 11/27/21 13:28 Pulse Rate 63 11/27/21 13:28 Respiratory Rate 15 11/27/21 13:28 Blood Pressure 168/78 H 11/27/21 13:28 Pulse Oximetry 98 11/27/21 13:28 Oxygen Delivery Method 11/27/21 13:28 Course <DO Duc Wolf Last Filed: 12/01/21 06:53> Orders Ordered: Discontinued Medications Sodium Chloride (Normal Saline 0.9%) 1,000 mls @ 1,000 mls/hr IV BOLUS ONE Stop: 11/27/21 14:31 Last Infusion: 11/27/21 16:01 Dose: 0 mls/hr Documented By: Admin: 11/27/21 14:00 Dose: 1,000 mls/hr Documented By: SHANEKA(2) Sodium Chloride (Normal Saline 0.9%) 1,000 mls @ 1,000 mls/hr IV BOLUS ONE Stop: 11/27/21 17:55 Last Infusion: 11/27/21 19:00 Dose: 0 mls/hr Documented By: Admin: 11/27/21 17:06 Dose: 1,000 mls/hr Documented By: SHANEKA(3) Ceftriaxone Sodium 1,000 mg/ (Sodium Chloride) 100 mls @ 200 mls/hr IV NOW ONE Stop: 11/27/21 16:57 Last Infusion: 11/27/21 17:42 Dose: 0 mls/hr Documented By: Admin: 11/27/21 17:06 Dose: 200 mls/hr Documented By: SHANEKA(3) Sodium Chloride (Normal Saline 0.9%) 1,000 mls @ 1,000 mls/hr IV BOLUS ONE Stop: 11/27/21 23:42 Last Infusion: 11/27/21 23:47 Dose: 0 mls/hr Documented By: Admin: 11/27/21 22:45 Dose: 1,000 mls/hr Documented By: DEVEN Meclizine HCl (Meclizine Hcl 12.5 Mg Tablet) 25 mg PO NOW ONE Stop: 11/27/21 22:25 Last Admin: 11/27/21 22:37 Dose: 25 mg Documented By: DEVEN Vital Signs Vital signs: Vital Signs - 8 hr 11/27/21 20:31 11/27/21 20:32 11/27/21 20:32 Pulse Rate 63 63 Pulse Rate [Orthostatic Lying] Pulse Rate [Orthostatic Sitting] Pulse Rate [Orthostatic Standing] Blood Pressure 197/78 H Blood Pressure [Orthostatic Lying] Blood Pressure [Orthostatic Sitting] Blood Pressure [Orthostatic Standing] Pulse Oximetry 94 97 11/27/21 21:00 11/27/21 21:03 11/27/21 21:03 Pulse Rate 65 62 Pulse Rate [Orthostatic Lying] Pulse Rate [Orthostatic Sitting] Pulse Rate [Orthostatic Standing] Blood Pressure 197/95 H Blood Pressure [Orthostatic Lying] Blood Pressure [Orthostatic Sitting] Blood Pressure [Orthostatic Standing] Pulse Oximetry 96 97 11/27/21 21:30 11/27/21 21:30 11/27/21 22:29 Pulse Rate 59 L Pulse Rate [Orthostatic Lying] 60 Pulse Rate [Orthostatic Sitting] 62 Pulse Rate [Orthostatic Standing] 63 Blood Pressure 179/84 H Blood Pressure [Orthostatic Lying] 198/86 H Blood Pressure [Orthostatic Sitting] 174/80 H Blood Pressure [Orthostatic Standing] 161/71 H Pulse Oximetry 99 11/27/21 22:00 11/27/21 22:00 11/27/21 22:24 Pulse Rate 59 L Pulse Rate [Orthostatic Lying] Pulse Rate [Orthostatic Sitting] Pulse Rate [Orthostatic Standing] Blood Pressure 187/84 H 198/86 H Blood Pressure [Orthostatic Lying] Blood Pressure [Orthostatic Sitting] Blood Pressure [Orthostatic Standing] Pulse Oximetry 98 11/27/21 22:24 11/27/21 22:26 11/27/21 22:26 Pulse Rate 60 62 Pulse Rate [Orthostatic Lying] Pulse Rate [Orthostatic Sitting] Pulse Rate [Orthostatic Standing] Blood Pressure 174/80 H Blood Pressure [Orthostatic Lying] Blood Pressure [Orthostatic Sitting] Blood Pressure [Orthostatic Standing] Pulse Oximetry 98 97 11/27/21 22:27 11/27/21 22:27 11/27/21 22:30 Pulse Rate 63 Pulse Rate [Orthostatic Lying] Pulse Rate [Orthostatic Sitting] Pulse Rate [Orthostatic Standing] Blood Pressure 161/71 H 173/79 H Blood Pressure [Orthostatic Lying] Blood Pressure [Orthostatic Sitting] Blood Pressure [Orthostatic Standing] Pulse Oximetry 95 11/27/21 22:30 11/27/21 22:41 11/27/21 22:41 Pulse Rate 61 59 L Pulse Rate [Orthostatic Lying] Pulse Rate [Orthostatic Sitting] Pulse Rate [Orthostatic Standing] Blood Pressure 167/78 H Blood Pressure [Orthostatic Lying] Blood Pressure [Orthostatic Sitting] Blood Pressure [Orthostatic Standing] Pulse Oximetry 98 98 11/27/21 23:00 11/27/21 23:00 11/27/21 23:31 Pulse Rate 60 60 Pulse Rate [Orthostatic Lying] Pulse Rate [Orthostatic Sitting] Pulse Rate [Orthostatic Standing] Blood Pressure 191/85 H Blood Pressure [Orthostatic Lying] Blood Pressure [Orthostatic Sitting] Blood Pressure [Orthostatic Standing] Pulse Oximetry 98 98 11/27/21 23:32 11/27/21 23:32 11/28/21 00:00 Pulse Rate 60 Pulse Rate [Orthostatic Lying] Pulse Rate [Orthostatic Sitting] Pulse Rate [Orthostatic Standing] Blood Pressure 190/81 H 194/86 H Blood Pressure [Orthostatic Lying] Blood Pressure [Orthostatic Sitting] Blood Pressure [Orthostatic Standing] Pulse Oximetry 100 11/28/21 00:00 11/28/21 00:31 11/28/21 00:31 Pulse Rate 60 70 Pulse Rate [Orthostatic Lying] Pulse Rate [Orthostatic Sitting] Pulse Rate [Orthostatic Standing] Blood Pressure 196/82 H Blood Pressure [Orthostatic Lying] Blood Pressure [Orthostatic Sitting] Blood Pressure [Orthostatic Standing] Pulse Oximetry 91 73 L 11/28/21 01:00 11/28/21 01:00 Pulse Rate 62 Pulse Rate [Orthostatic Lying] Pulse Rate [Orthostatic Sitting] Pulse Rate [Orthostatic Standing] Blood Pressure 187/85 H Blood Pressure [Orthostatic Lying] Blood Pressure [Orthostatic Sitting] Blood Pressure [Orthostatic Standing] Pulse Oximetry 99 <Derek Armas, DO - Last Filed: 11/28/21 04:23> Orders Ordered: Discontinued Medications Sodium Chloride (Normal Saline 0.9%) 1,000 mls @ 1,000 mls/hr IV BOLUS ONE Stop: 11/27/21 14:31 Last Infusion: 11/27/21 16:01 Dose: 0 mls/hr Documented By: Admin: 11/27/21 14:00 Dose: 1,000 mls/hr Documented By: SHANEKA(2) Sodium Chloride (Normal Saline 0.9%) 1,000 mls @ 1,000 mls/hr IV BOLUS ONE Stop: 11/27/21 17:55 Last Infusion: 11/27/21 19:00 Dose: 0 mls/hr Documented By: Admin: 11/27/21 17:06 Dose: 1,000 mls/hr Documented By: SHANEKA(3) Ceftriaxone Sodium 1,000 mg/ (Sodium Chloride) 100 mls @ 200 mls/hr IV NOW ONE Stop: 11/27/21 16:57 Last Infusion: 11/27/21 17:42 Dose: 0 mls/hr Documented By: Admin: 11/27/21 17:06 Dose: 200 mls/hr Documented By: SHANEKA(3) Sodium Chloride (Normal Saline 0.9%) 1,000 mls @ 1,000 mls/hr IV BOLUS ONE Stop: 11/27/21 23:42 Last Infusion: 11/27/21 23:47 Dose: 0 mls/hr Documented By: Admin: 11/27/21 22:45 Dose: 1,000 mls/hr Documented By: DEVEN Meclizine HCl (Meclizine Hcl 12.5 Mg Tablet) 25 mg PO NOW ONE Stop: 11/27/21 22:25 Last Admin: 11/27/21 22:37 Dose: 25 mg Documented By: DEVEN Vital Signs Vital signs: Vital Signs - 8 hr 11/27/21 20:31 11/27/21 20:32 11/27/21 20:32 Pulse Rate 63 63 Pulse Rate [Orthostatic Lying] Pulse Rate [Orthostatic Sitting] Pulse Rate [Orthostatic Standing] Blood Pressure 197/78 H Blood Pressure [Orthostatic Lying] Blood Pressure [Orthostatic Sitting] Blood Pressure [Orthostatic Standing] Pulse Oximetry 94 97 11/27/21 21:00 11/27/21 21:03 11/27/21 21:03 Pulse Rate 65 62 Pulse Rate [Orthostatic Lying] Pulse Rate [Orthostatic Sitting] Pulse Rate [Orthostatic Standing] Blood Pressure 197/95 H Blood Pressure [Orthostatic Lying] Blood Pressure [Orthostatic Sitting] Blood Pressure [Orthostatic Standing] Pulse Oximetry 96 97 11/27/21 21:30 11/27/21 21:30 11/27/21 22:29 Pulse Rate 59 L Pulse Rate [Orthostatic Lying] 60 Pulse Rate [Orthostatic Sitting] 62 Pulse Rate [Orthostatic Standing] 63 Blood Pressure 179/84 H Blood Pressure [Orthostatic Lying] 198/86 H Blood Pressure [Orthostatic Sitting] 174/80 H Blood Pressure [Orthostatic Standing] 161/71 H Pulse Oximetry 99 11/27/21 22:00 11/27/21 22:00 11/27/21 22:24 Pulse Rate 59 L Pulse Rate [Orthostatic Lying] Pulse Rate [Orthostatic Sitting] Pulse Rate [Orthostatic Standing] Blood Pressure 187/84 H 198/86 H Blood Pressure [Orthostatic Lying] Blood Pressure [Orthostatic Sitting] Blood Pressure [Orthostatic Standing] Pulse Oximetry 98 11/27/21 22:24 11/27/21 22:26 11/27/21 22:26 Pulse Rate 60 62 Pulse Rate [Orthostatic Lying] Pulse Rate [Orthostatic Sitting] Pulse Rate [Orthostatic Standing] Blood Pressure 174/80 H Blood Pressure [Orthostatic Lying] Blood Pressure [Orthostatic Sitting] Blood Pressure [Orthostatic Standing] Pulse Oximetry 98 97 11/27/21 22:27 11/27/21 22:27 11/27/21 22:30 Pulse Rate 63 Pulse Rate [Orthostatic Lying] Pulse Rate [Orthostatic Sitting] Pulse Rate [Orthostatic Standing] Blood Pressure 161/71 H 173/79 H Blood Pressure [Orthostatic Lying] Blood Pressure [Orthostatic Sitting] Blood Pressure [Orthostatic Standing] Pulse Oximetry 95 11/27/21 22:30 11/27/21 22:41 11/27/21 22:41 Pulse Rate 61 59 L Pulse Rate [Orthostatic Lying] Pulse Rate [Orthostatic Sitting] Pulse Rate [Orthostatic Standing] Blood Pressure 167/78 H Blood Pressure [Orthostatic Lying] Blood Pressure [Orthostatic Sitting] Blood Pressure [Orthostatic Standing] Pulse Oximetry 98 98 11/27/21 23:00 11/27/21 23:00 11/27/21 23:31 Pulse Rate 60 60 Pulse Rate [Orthostatic Lying] Pulse Rate [Orthostatic Sitting] Pulse Rate [Orthostatic Standing] Blood Pressure 191/85 H Blood Pressure [Orthostatic Lying] Blood Pressure [Orthostatic Sitting] Blood Pressure [Orthostatic Standing] Pulse Oximetry 98 98 11/27/21 23:32 11/27/21 23:32 11/28/21 00:00 Pulse Rate 60 Pulse Rate [Orthostatic Lying] Pulse Rate [Orthostatic Sitting] Pulse Rate [Orthostatic Standing] Blood Pressure 190/81 H 194/86 H Blood Pressure [Orthostatic Lying] Blood Pressure [Orthostatic Sitting] Blood Pressure [Orthostatic Standing] Pulse Oximetry 100 11/28/21 00:00 11/28/21 00:31 11/28/21 00:31 Pulse Rate 60 70 Pulse Rate [Orthostatic Lying] Pulse Rate [Orthostatic Sitting] Pulse Rate [Orthostatic Standing] Blood Pressure 196/82 H Blood Pressure [Orthostatic Lying] Blood Pressure [Orthostatic Sitting] Blood Pressure [Orthostatic Standing] Pulse Oximetry 91 73 L 11/28/21 01:00 11/28/21 01:00 Pulse Rate 62 Pulse Rate [Orthostatic Lying] Pulse Rate [Orthostatic Sitting] Pulse Rate [Orthostatic Standing] Blood Pressure 187/85 H Blood Pressure [Orthostatic Lying] Blood Pressure [Orthostatic Sitting] Blood Pressure [Orthostatic Standing] Pulse Oximetry 99 MDM - Weakness <Lacie Shankar, DO - Last Filed: 12/01/21 06:53> Lab Data Result diagrams: 11/27/21 13:40 11/27/21 13:40 Labs: Lab Results 11/27/21 11/27/21 11/27/21 Range/Units 13:40 13:40 13:40 WBC 5.7 (4.5-11.0) X10^3/uL RBC 4.17 (4.0-5.2) X10^6/uL Hgb 12.3 (12.0-16.0) g/dL Hct 35.9 L (36-46) % MCV 86.1 (80-100) fL MCH 29.5 (26-34) PG MCHC 34.3 (30-36) % RDW 13.8 (11.6-14.8) % Plt Count 248 (150-400) X10^3/uL Neut % (Auto) 70.4 (50-75) % Lymph % (Auto) 19.1 L (25-40) % Bibb % (Auto) 6.4 (3-14) % Eos % (Auto) 3.2 (2-4) % Baso % (Auto) 0.9 (0-2) % Neut # (Auto) 4000 (7189-6856) /uL Lymph # (Auto) 1100 (2252-3479) /uL Bibb # (Auto) 400 (0-900) /uL Eos # (Auto) 200 (0-450) /uL Baso # (Auto) 0 (0-100) /uL PT 14.1 H (10.1-12.7) SECONDS INR 1.3 (0.9-1.3) APTT 37 H (26.4-36.2) SECONDS Sodium 138 (137-145) mmol/L Potassium 3.9 (3.4-5.1) mmol/L Chloride 105 (98-107) mmol/L Carbon Dioxide 25 (22-32) mmol/L BUN 20 H (7-17) mg/dL Creatinine 1.10 H (0.52-1.04) mg/dL Estimated GFR 50 L (>60) mL/min BUN/Creatinine Ratio 18.2 (6-22) Glucose 92 (80-110) mg/dL Lactate (0.7-2.1) mmol/L Calcium 8.6 (8.4-10.2) mg/dL Total Bilirubin 0.6 (0.2-1.3) mg/dL AST 22 (14-36) IU/L ALT 11 (<35) IU/L Alkaline Phosphatase 77 (38-126) U/L Total Protein 7.6 (6.3-8.2) g/dL Albumin 4.0 (3.5-5.0) g/dL Globulin 3.6 (1.7-4.1) g/dL Albumin/Globulin Ratio 1.1 (1.0-2.8) Lipase 73 (23-300) U/L Procalcitonin 0.03 (<0.5) ng/mL Urine RBC (0-5/HPF) Urine WBC (0-5/HPF) Amorphous Sediment Urine Bacteria (None) Ur Culture Indicated? SARS-CoV-2 (PCR) (Negative) 11/27/21 11/27/21 11/27/21 Range/Units 13:40 13:45 14:29 WBC (4.5-11.0) X10^3/uL RBC (4.0-5.2) X10^6/uL Hgb (12.0-16.0) g/dL Hct (36-46) % MCV (80-100) fL MCH (26-34) PG MCHC (30-36) % RDW (11.6-14.8) % Plt Count (150-400) X10^3/uL Neut % (Auto) (50-75) % Lymph % (Auto) (25-40) % Bibb % (Auto) (3-14) % Eos % (Auto) (2-4) % Baso % (Auto) (0-2) % Neut # (Auto) (8466-1273) /uL Lymph # (Auto) (9890-3913) /uL Bibb # (Auto) (0-900) /uL Eos # (Auto) (0-450) /uL Baso # (Auto) (0-100) /uL PT (10.1-12.7) SECONDS INR (0.9-1.3) APTT (26.4-36.2) SECONDS Sodium (137-145) mmol/L Potassium (3.4-5.1) mmol/L Chloride (98-107) mmol/L Carbon Dioxide (22-32) mmol/L BUN (7-17) mg/dL Creatinine (0.52-1.04) mg/dL Estimated GFR (>60) mL/min BUN/Creatinine Ratio (6-22) Glucose (80-110) mg/dL Lactate 0.9 (0.7-2.1) mmol/L Calcium (8.4-10.2) mg/dL Total Bilirubin (0.2-1.3) mg/dL AST (14-36) IU/L ALT (<35) IU/L Alkaline Phosphatase (38-126) U/L Total Protein (6.3-8.2) g/dL Albumin (3.5-5.0) g/dL Globulin (1.7-4.1) g/dL Albumin/Globulin Ratio (1.0-2.8) Lipase (23-300) U/L Procalcitonin (<0.5) ng/mL Urine RBC 5-10/hpf H (0-5/HPF) Urine WBC 0-1/hpf (0-5/HPF) Amorphous Sediment 1+ Urine Bacteria None seen (None) Ur Culture Indicated? Specimen cultured SARS-CoV-2 (PCR) Negative (Negative) Urine Dip Bedside Urine Glucose Negative Bedside Urine Bilirubin - Negative Bedside Urine Ketone - Negative Urine Specific [place] 1.015 Bedside Urine Occult Blood ++ Bedside Urine pH 6.0 Bedside Urine Protein - Negative Bedside Urine Urobilinogen - Negative Bedside Urine Nitrite - Negative Bedside Urine Leukocytes - Negative Esterase Imaging Data Chest x-ray: Radiologist Impression: PROCEDURE:? XR CHEST 1V ? INDICATIONS:? suspected sepsis ? TECHNIQUE:? One view of the chest was acquired.? ? COMPARISON:? [facility], CR, XR CHEST 1V, 06/05/2020, 12:30. ? FINDINGS:? ? Surgical changes and devices:? None.? ? Lungs and pleura:? Lungs are clear.? No pleural effusions or pneumothorax.? ? Mediastinum:? Mediastinal contours appear normal.? Heart size is normal.? ? Bones and chest wall:? No suspicious bony lesions.? Overlying soft tissues appear unremarkable.? ? IMPRESSION:? No acute cardiopulmonary abnormalities or focal airspace disease. ? Dictated by: Raad Duran M.D. on 11/27/2021 at 14:47 ? ? US - abdomen: Radiologist Impression: PROCEDURE: US ABDOMEN LIMITED ? INDICATIONS:? ruq ? TECHNIQUE:? Real-time focused scanning was performed of the abdomen, with image documentation.? ? COMPARISON:? [facility], CR, XR CHEST 1V, 11/27/2021, 13:57.? [facility], CT, CT ABDOMEN PELVIS W CON, 11/22/2021, 23:41. ? FINDINGS:? The liver is normal in size and demonstrates no focal lesions.? The liver is overall not well seen, secondary to limited windows. ? Small gallstones are seen.? The gallbladder wall is not thickened, measuring 3 mm or less.? No specific pericholecystic fluid is seen.? The sonographic Weber sign is negative. ? There is no biliary dilatation, the common bile duct measures 4 mm.? ? Pancreas is not seen, secondary to overlying bowel gas.? ? This study is limited by bowel gas. ? ? IMPRESSION:? Gallstones are seen, yet without additional sonographic signs of cholecystitis.? Negative for biliary dilatation. ? Please correlate with physical examination findings, patient presentation, and laboratory values.? ? Overall limited imaging quality, secondary to bowel gas. ? ? ECG Data Interpretation: Normal sinus rhythm rate 64 SC interval 168 QRS [address] changes or T- wave inversions MDM Narrative Medical decision making narrative: Patient is weak. Blood work again is overall reassuring. She is on an appropriate antibiotic. She is given a L of IV fluids she actually had 2 L here in the ED and a dose of IV Rocephin. She is mildly dehydrated with a slight elevation of creatinine of 1.1. She overall does appear much weaker. She is found to have cholelithiasis without signs of cholecystitis had no elevated bilirubin or liver enzymes at this time. Multiple attempts to get patient up she is extremely weak not steady overall not doing well at home despite normal blood work. Discussed case with Dr. Kendall, whose partner will come down to evaluate patient. <Derek Armas, DO - Last Filed: 11/28/21 04:23> Lab Data Labs: Lab Results 11/27/21 11/27/21 11/27/21 Range/Units 13:40 13:40 13:40 WBC 5.7 (4.5-11.0) X10^3/uL RBC 4.17 (4.0-5.2) X10^6/uL Hgb 12.3 (12.0-16.0) g/dL Hct 35.9 L (36-46) % MCV 86.1 (80-100) fL MCH 29.5 (26-34) PG MCHC 34.3 (30-36) % RDW 13.8 (11.6-14.8) % Plt Count 248 (150-400) X10^3/uL Neut % (Auto) 70.4 (50-75) % Lymph % (Auto) 19.1 L (25-40) % Bibb % (Auto) 6.4 (3-14) % Eos % (Auto) 3.2 (2-4) % Baso % (Auto) 0.9 (0-2) % Neut # (Auto) 4000 (8113-3451) /uL Lymph # (Auto) 1100 (5032-7317) /uL Bibb # (Auto) 400 (0-900) /uL Eos # (Auto) 200 (0-450) /uL Baso # (Auto) 0 (0-100) /uL PT 14.1 H (10.1-12.7) SECONDS INR 1.3 (0.9-1.3) APTT 37 H (26.4-36.2) SECONDS Sodium 138 (137-145) mmol/L Potassium 3.9 (3.4-5.1) mmol/L Chloride 105 (98-107) mmol/L Carbon Dioxide 25 (22-32) mmol/L BUN 20 H (7-17) mg/dL Creatinine 1.10 H (0.52-1.04) mg/dL Estimated GFR 50 L (>60) mL/min BUN/Creatinine Ratio 18.2 (6-22) Glucose 92 (80-110) mg/dL Lactate (0.7-2.1) mmol/L Calcium 8.6 (8.4-10.2) mg/dL Total Bilirubin 0.6 (0.2-1.3) mg/dL AST 22 (14-36) IU/L ALT 11 (<35) IU/L Alkaline Phosphatase 77 (38-126) U/L Total Protein 7.6 (6.3-8.2) g/dL Albumin 4.0 (3.5-5.0) g/dL Globulin 3.6 (1.7-4.1) g/dL Albumin/Globulin Ratio 1.1 (1.0-2.8) Lipase 73 (23-300) U/L Procalcitonin 0.03 (<0.5) ng/mL Urine RBC (0-5/HPF) Urine WBC (0-5/HPF) Amorphous Sediment Urine Bacteria (None) Ur Culture Indicated? SARS-CoV-2 (PCR) (Negative) 11/27/21 11/27/21 11/27/21 Range/Units 13:40 13:45 14:29 WBC (4.5-11.0) X10^3/uL RBC (4.0-5.2) X10^6/uL Hgb (12.0-16.0) g/dL Hct (36-46) % MCV (80-100) fL MCH (26-34) PG MCHC (30-36) % RDW (11.6-14.8) % Plt Count (150-400) X10^3/uL Neut % (Auto) (50-75) % Lymph % (Auto) (25-40) % Bibb % (Auto) (3-14) % Eos % (Auto) (2-4) % Baso % (Auto) (0-2) % Neut # (Auto) (4643-7465) /uL Lymph # (Auto) (8575-2648) /uL Bibb # (Auto) (0-900) /uL Eos # (Auto) (0-450) /uL Baso # (Auto) (0-100) /uL PT (10.1-12.7) SECONDS INR (0.9-1.3) APTT (26.4-36.2) SECONDS Sodium (137-145) mmol/L Potassium (3.4-5.1) mmol/L Chloride (98-107) mmol/L Carbon Dioxide (22-32) mmol/L BUN (7-17) mg/dL Creatinine (0.52-1.04) mg/dL Estimated GFR (>60) mL/min BUN/Creatinine Ratio (6-22) Glucose (80-110) mg/dL Lactate 0.9 (0.7-2.1) mmol/L Calcium (8.4-10.2) mg/dL Total Bilirubin (0.2-1.3) mg/dL AST (14-36) IU/L ALT (<35) IU/L Alkaline Phosphatase (38-126) U/L Total Protein (6.3-8.2) g/dL Albumin (3.5-5.0) g/dL Globulin (1.7-4.1) g/dL Albumin/Globulin Ratio (1.0-2.8) Lipase (23-300) U/L Procalcitonin (<0.5) ng/mL Urine RBC 5-10/hpf H (0-5/HPF) Urine WBC 0-1/hpf (0-5/HPF) Amorphous Sediment 1+ Urine Bacteria None seen (None) Ur Culture Indicated? Specimen cultured SARS-CoV-2 (PCR) Negative (Negative) Urine Dip Bedside Urine Glucose Negative Bedside Urine Bilirubin - Negative Bedside Urine Ketone - Negative Urine Specific [place] 1.015 Bedside Urine Occult Blood ++ Bedside Urine pH 6.0 Bedside Urine Protein - Negative Bedside Urine Urobilinogen - Negative Bedside Urine Nitrite - Negative Bedside Urine Leukocytes - Negative Esterase MDM Narrative Medical decision making narrative: Patient is weak. Blood work again is overall reassuring. She is on an appropriate antibiotic. She is given a L of IV fluids she actually had 2 L here in the ED and a dose of IV Rocephin. She is mildly dehydrated with a slight elevation of creatinine of 1.1. She overall does appear much weaker. She is found to have cholelithiasis without signs of cholecystitis had no elevated bilirubin or liver enzymes at this time. Multiple attempts to get patient up she is extremely weak not steady overall not doing well at home despite normal blood work. Discussed case with Dr. Kendall, whose partner will come down to evaluate patient. [1800] (Pawel) Patient received in sign out from Dr. Taylor]. I have reviewed the clinical course and performed an independent history and physical exam. Patient is still feeling dizzy and weak and unable to ambulate at time of hospitalist consultation. Please see his note for results of that consultation, however after evaluation she was given fluids and meclizine and upon completion she felt significant improvement, was no longer dizzy was ambulating at or near her baseline. There was discussion with patient and family and they felt comfortable going home, prescriptions written, questions answered to their apparent satisfaction and return precautions discussed Discharge Plan Departure Patient Disposition: Home Clinical Impression: Acute dehydration, Vertigo, Hypertension Instructions: DI for Dehydration -- Adult, DI for Dizziness-Nonvertigo Activity Restrictions/Additional Instructions: *You have been diagnosed with [dizziness and dehydration. As we discussed your evaluation is largely reassuring, labs are unremarkable and he responded quite well to the therapies given. Prescriptions have been given to you, please take them to the pharmacy of your choosing. ] *What to do: *Please continue to take your regular medications as directed. [ ] New medication prescriptions sent to your pharmacy: [ ] [x ] New medication written as a paper prescription [ ] No new medications given *Please follow up with your primary care provider in 2-3 days, call for an appointment. Let them know you were seen in the Emergency Department and that we ask that you be seen in follow up. We will electronically transmit a record of today's note if your PCP is in our system *If you do not have a primary care provider please contact the [facility] Resource line at [phone]. They will ask some questions about your medical history and help get you set up with a doctor in the community. *Return to Emergency Department if you should have any new, worsening or concerning symptoms, such as [fever greater than 101 F, shaking chills, worsening pain, persistent vomiting or other bothersome symptoms] Prescriptions: No Action losartan 25 mg tablet 75 mg PO QAM hydrochlorothiazide 12.5 mg tablet 12.5 mg PO QAM cephalexin [Keflex] 500 mg capsule 500 mg PO BID Qty: 14 0RF ondansetron 4 mg tablet,disintegrating 4 mg PO Q6H PRN (Reason: nausea and vomiting) Qty: 14 0RF cephalexin 500 mg capsule 500 mg PO BID rabeprazole 20 mg Tablet,Delayed Release (Dr/Ec) 20 mg PO DAILY acetaminophen 325 mg Tablet 975 mg PO TID Qty: 0 0RF latanoprost 0.005 % drops 1 drp ophthalmic (eye) DIRECTED levothyroxine 50 mcg tablet 50 mcg PO QAM Myrbetriq 50 mg tablet extended release 24 hr 50 mg PO BEDTIME cephalexin 500 mg capsule 500 mg PO BID 10 Days Qty: 20 0RF ondansetron HCl 4 mg tablet 4 mg PO QID PRN (Reason: nausea and vomiting) Qty: 5 0RF Referrals: Kimberli Donald MD [Primary Care Provider] - Visit Report Forms: Patient Portal/API
--- NOTE | 2021-11-27 17:00 | DI.US.S_ITS ---
PROCEDURE: US ABDOMEN LIMITED INDICATIONS: ruq TECHNIQUE: Real-time focused scanning was performed of the abdomen, with image documentation. COMPARISON: [facility], CR, XR CHEST 1V, 11/27/2021, 13:57. [facility], CT, CT ABDOMEN PELVIS W CON, 11/22/2021, 23:41. FINDINGS: The liver is normal in size and demonstrates no focal lesions. The liver is overall not well seen, secondary to limited windows. Small gallstones are seen. The gallbladder wall is not thickened, measuring 3 mm or less. No specific pericholecystic fluid is seen. The sonographic Weber sign is negative. There is no biliary dilatation, the common bile duct measures 4 mm. Pancreas is not seen, secondary to overlying bowel gas. This study is limited by bowel gas. IMPRESSION: Gallstones are seen, yet without additional sonographic signs of cholecystitis. Negative for biliary dilatation. Please correlate with physical examination findings, patient presentation, and laboratory values. Overall limited imaging quality, secondary to bowel gas. Dictated by: James Robin M.D. on 11/27/2021 at 16:38 Approved by: James Robin M.D. on 11/27/2021 at 16:39
[2021-11-27] MEDS: cefTRIAXone 1,000 MG in SODIUM CHLORIDE 0.9% 100 ML 200 MG IV (17:06)
--- NOTE | 2021-11-27 22:12 | P.CONS_ITS ---
History of Present Illness Consult details Date Patient Seen: 11/27/21 Time Patient Seen: 22:00 Chief complaint: Ortho hypotension/ uti Narrative: Ms. Mcallister is an 86W with PMH chronic vertigo, hypothyroid, HTN, dementia who presents to the hospital with weakness, fatigue and dizziness. THe patient has been living alone until recently. Family is at bedside. She apparently has had progressively worsening confusion since earlier this year, this has occurred wit h forgetfulness, worsening appetite and worsening mobility. Her family is in [place] and has come out within the last few days to help her at home. She does have visiting angels and some help at home. She has had forgetfulness and inability to take her medications consistently as prescribed. She recently was in the ED with similar symptoms and urinalysis was done which showed a UTI. Her urine culture ultimately grew <10,000 adan-sensitive E. coli. She was treated with antibiotics with keflex, and still has a week of treatment left. After discharge from the emergency room she did have worsening fatigue, mobility, and dizziness. Her PCP recommended re-evaluation in the ED. Consult was requested to evaluate for admission. In the ED workup was done, vitals notable for elevated blood pressure. Labs notable for normal WBC, hgb, electrolytes. Creatinine 1.1 with baseline appears to be 0.9. UA showed no WBCs, bacteria. She did get orthostatics done with no change in heart rate but drop in blood pressure from systolic 198 to 161. Chest xray showed no acute process. Abdominal ultrasound showed no acute process. She was given IV fluids and meclizine and felt improved and was able to ambulate without dizziness. Meds Home Medications and Allergies Home Medications Medication Instructions Recorded Confirmed Type rabeprazole 20 mg tablet,delayed 20 mg PO DAILY 08/18/18 06/05/20 History release acetaminophen 325 mg tablet 975 mg PO TID #0 tabs 09/02/18 06/05/20 Rx latanoprost 0.005 % eye drops 1 drp ophthalmic (eye) DIRECTED 02/02/19 06/15/19 History levothyroxine 50 mcg tablet 50 mcg PO QAM 02/02/19 06/05/20 History mirabegron 50 mg tablet,extended 50 mg PO BEDTIME 02/02/19 06/05/20 History release 24 hr (Myrbetriq) cephalexin 500 mg capsule (Keflex) 500 mg PO BID #14 caps 06/05/20 Rx hydrochlorothiazide 12.5 mg tablet 12.5 mg PO QAM 06/05/20 06/05/20 History losartan 25 mg tablet 75 mg PO QAM 06/05/20 06/05/20 History ondansetron 4 mg disintegrating 4 mg PO Q6H PRN nausea and 06/05/20 Rx tablet vomiting #14 tabs cephalexin 500 mg capsule 500 mg PO BID 10 days #20 caps 11/22/21 Rx ondansetron HCl 4 mg tablet 4 mg PO QID PRN nausea and 11/22/21 Rx vomiting #5 tabs cephalexin 500 mg capsule 500 mg PO BID 11/27/21 11/27/21 History Allergies Allergy/AdvReac Type Severity Reaction Status Date / Time latex Allergy Intermediate Rash Verified 11/27/21 13:33 doxycycline [DOXYCYCLINE] Allergy Unknown Pt does Verified 11/27/21 13:33 not remember nitrofurantoin Allergy Unknown Verified 11/27/21 13:33 [NITROFURANTOIN] sulfamethoxazole Allergy Unknown Pt does Verified 11/27/21 13:33 [From SEPTRA] not remember trimethoprim [From SEPTRA] Allergy Unknown Pt does Verified 11/27/21 13:33 not remember ranitidine AdvReac Severe Diarrhea Verified 11/27/21 13:33 amoxicillin [From Augmentin] AdvReac Unknown Pt does Verified 11/27/21 13:33 not remember clavulanic acid AdvReac Unknown Pt does Verified 11/27/21 13:33 [From Augmentin] not remember Review of Systems Review of Systems Narrative: 14 systems reviewed and negative aside from what is noted in HPI Exam Vital Signs (past 8 hours): - 11/27/21 18:30 11/27/21 18:35 11/27/21 18:35 Pulse Rate 68 68 Pulse Rate [Orthostatic Lying] Pulse Rate [Orthostatic Sitting] Pulse Rate [Orthostatic Standing] Respiratory Rate 18 18 Blood Pressure 196/77 H Blood Pressure [Orthostatic Lying] Blood Pressure [Orthostatic Sitting] Blood Pressure [Orthostatic Standing] Pulse Oximetry 99 98 11/27/21 19:00 11/27/21 19:00 11/27/21 19:08 Pulse Rate 64 65 Pulse Rate [Orthostatic Lying] Pulse Rate [Orthostatic Sitting] Pulse Rate [Orthostatic Standing] Respiratory Rate Blood Pressure 179/77 H Blood Pressure [Orthostatic Lying] Blood Pressure [Orthostatic Sitting] Blood Pressure [Orthostatic Standing] Pulse Oximetry 98 100 11/27/21 19:10 11/27/21 19:30 11/27/21 20:00 Pulse Rate 63 Pulse Rate [Orthostatic Lying] Pulse Rate [Orthostatic Sitting] Pulse Rate [Orthostatic Standing] Respiratory Rate Blood Pressure 174/74 H 181/73 H Blood Pressure [Orthostatic Lying] Blood Pressure [Orthostatic Sitting] Blood Pressure [Orthostatic Standing] Pulse Oximetry 98 11/27/21 20:00 11/27/21 20:31 11/27/21 20:32 Pulse Rate 63 63 Pulse Rate [Orthostatic Lying] Pulse Rate [Orthostatic Sitting] Pulse Rate [Orthostatic Standing] Respiratory Rate Blood Pressure 197/78 H Blood Pressure [Orthostatic Lying] Blood Pressure [Orthostatic Sitting] Blood Pressure [Orthostatic Standing] Pulse Oximetry 97 94 11/27/21 20:32 11/27/21 21:00 11/27/21 21:03 Pulse Rate 63 65 62 Pulse Rate [Orthostatic Lying] Pulse Rate [Orthostatic Sitting] Pulse Rate [Orthostatic Standing] Respiratory Rate Blood Pressure Blood Pressure [Orthostatic Lying] Blood Pressure [Orthostatic Sitting] Blood Pressure [Orthostatic Standing] Pulse Oximetry 97 96 97 11/27/21 21:03 11/27/21 21:30 11/27/21 21:30 Pulse Rate 59 L Pulse Rate [Orthostatic Lying] Pulse Rate [Orthostatic Sitting] Pulse Rate [Orthostatic Standing] Respiratory Rate Blood Pressure 197/95 H 179/84 H Blood Pressure [Orthostatic Lying] Blood Pressure [Orthostatic Sitting] Blood Pressure [Orthostatic Standing] Pulse Oximetry 99 11/27/21 22:29 11/27/21 22:00 11/27/21 22:00 Pulse Rate 59 L Pulse Rate [Orthostatic Lying] 60 Pulse Rate [Orthostatic Sitting] 62 Pulse Rate [Orthostatic Standing] 63 Respiratory Rate Blood Pressure 187/84 H Blood Pressure [Orthostatic Lying] 198/86 H Blood Pressure [Orthostatic Sitting] 174/80 H Blood Pressure [Orthostatic Standing] 161/71 H Pulse Oximetry 98 11/27/21 22:24 11/27/21 22:24 11/27/21 22:26 Pulse Rate 60 62 Pulse Rate [Orthostatic Lying] Pulse Rate [Orthostatic Sitting] Pulse Rate [Orthostatic Standing] Respiratory Rate Blood Pressure 198/86 H Blood Pressure [Orthostatic Lying] Blood Pressure [Orthostatic Sitting] Blood Pressure [Orthostatic Standing] Pulse Oximetry 98 97 11/27/21 22:26 11/27/21 22:27 11/27/21 22:27 Pulse Rate 63 Pulse Rate [Orthostatic Lying] Pulse Rate [Orthostatic Sitting] Pulse Rate [Orthostatic Standing] Respiratory Rate Blood Pressure 174/80 H 161/71 H Blood Pressure [Orthostatic Lying] Blood Pressure [Orthostatic Sitting] Blood Pressure [Orthostatic Standing] Pulse Oximetry 95 11/27/21 22:30 11/27/21 22:30 11/27/21 22:41 Pulse Rate 61 Pulse Rate [Orthostatic Lying] Pulse Rate [Orthostatic Sitting] Pulse Rate [Orthostatic Standing] Respiratory Rate Blood Pressure 173/79 H 167/78 H Blood Pressure [Orthostatic Lying] Blood Pressure [Orthostatic Sitting] Blood Pressure [Orthostatic Standing] Pulse Oximetry 98 11/27/21 22:41 11/27/21 23:00 11/27/21 23:00 Pulse Rate 59 L 60 Pulse Rate [Orthostatic Lying] Pulse Rate [Orthostatic Sitting] Pulse Rate [Orthostatic Standing] Respiratory Rate Blood Pressure 191/85 H Blood Pressure [Orthostatic Lying] Blood Pressure [Orthostatic Sitting] Blood Pressure [Orthostatic Standing] Pulse Oximetry 98 98 11/27/21 23:31 11/27/21 23:32 11/27/21 23:32 Pulse Rate 60 60 Pulse Rate [Orthostatic Lying] Pulse Rate [Orthostatic Sitting] Pulse Rate [Orthostatic Standing] Respiratory Rate Blood Pressure 190/81 H Blood Pressure [Orthostatic Lying] Blood Pressure [Orthostatic Sitting] Blood Pressure [Orthostatic Standing] Pulse Oximetry 98 100 11/28/21 00:00 11/28/21 00:00 11/28/21 00:31 Pulse Rate 60 Pulse Rate [Orthostatic Lying] Pulse Rate [Orthostatic Sitting] Pulse Rate [Orthostatic Standing] Respiratory Rate Blood Pressure 194/86 H 196/82 H Blood Pressure [Orthostatic Lying] Blood Pressure [Orthostatic Sitting] Blood Pressure [Orthostatic Standing] Pulse Oximetry 91 11/28/21 00:31 11/28/21 01:00 11/28/21 01:00 Pulse Rate 70 62 Pulse Rate [Orthostatic Lying] Pulse Rate [Orthostatic Sitting] Pulse Rate [Orthostatic Standing] Respiratory Rate Blood Pressure 187/85 H Blood Pressure [Orthostatic Lying] Blood Pressure [Orthostatic Sitting] Blood Pressure [Orthostatic Standing] Pulse Oximetry 73 L 99 Oxygen Delivery Method Room Air Narrative Exam Narrative: GEN: no acute distress HEENT: moist mucous membranes, PERRL NECK: trachea midline, no JVD CV: regular rate and rhythm, no murmurs PULM: clear bilaterally ABD: soft, nontender, nondistended no organomegaly EXT: warm and well perfused with no edema NEURO: confused ,no focal deficits Objective Labs Result Diagrams: 11/27/21 13:40 11/27/21 13:40 Labs: Laboratory Results - last 24 hr 11/27/21 11/27/21 11/27/21 13:40 13:40 13:40 WBC 5.7 RBC 4.17 Hgb 12.3 Hct 35.9 L MCV 86.1 MCH 29.5 MCHC 34.3 RDW 13.8 Plt Count 248 Neut % (Auto) 70.4 Lymph % (Auto) 19.1 L Parmer % (Auto) 6.4 Eos % (Auto) 3.2 Baso % (Auto) 0.9 Neut # (Auto) 4000 Lymph # (Auto) 1100 Parmer # (Auto) 400 Eos # (Auto) 200 Baso # (Auto) 0 PT 14.1 H INR 1.3 APTT 37 H Sodium 138 Potassium 3.9 Chloride 105 Carbon Dioxide 25 BUN 20 H Creatinine 1.10 H Estimated GFR 50 L BUN/Creatinine Ratio 18.2 Glucose 92 Lactate Calcium 8.6 Total Bilirubin 0.6 AST 22 ALT 11 Alkaline Phosphatase 77 Total Protein 7.6 Albumin 4.0 Globulin 3.6 Albumin/Globulin Ratio 1.1 Lipase 73 Procalcitonin 0.03 Urine RBC Urine WBC Amorphous Sediment Urine Bacteria Ur Culture Indicated? SARS-CoV-2 (PCR) 11/27/21 11/27/21 11/27/21 13:40 13:45 14:29 WBC RBC Hgb Hct MCV MCH MCHC RDW Plt Count Neut % (Auto) Lymph % (Auto) Parmer % (Auto) Eos % (Auto) Baso % (Auto) Neut # (Auto) Lymph # (Auto) Parmer # (Auto) Eos # (Auto) Baso # (Auto) PT INR APTT Sodium Potassium Chloride Carbon Dioxide BUN Creatinine Estimated GFR BUN/Creatinine Ratio Glucose Lactate 0.9 Calcium Total Bilirubin AST ALT Alkaline Phosphatase Total Protein Albumin Globulin Albumin/Globulin Ratio Lipase Procalcitonin Urine RBC 5-10/hpf H Urine WBC 0-1/hpf Amorphous Sediment 1+ Urine Bacteria None seen Ur Culture Indicated? Specimen cultured SARS-CoV-2 (PCR) Negative [facility] Medical History (Updated 11/28/21 @ 01:54 by Alisha Cope RN) Easy bruisability GERD (gastroesophageal reflux disease) HLD (hyperlipidemia) HTN (hypertension) Hypothyroidism Numbness and tingling in both hands Ocular migraine Osteoarthritis Surgical History History of bladder suspension procedure History of carpal tunnel repair Hx of bilateral cataract extraction Hx of repair of left rotator cuff (~2006) Status post appendectomy Status post hysterectomy Status post rotator cuff repair Social History household members: caregiver and none Tobacco & Substance Use Smoking Status: Never smoker alcohol intake: current Assessment & Plan Assessment & Plan narrative: Ms. Mcallister is an 86W with progressing dementia who presents with dizziness, generalized weakness. 1. Generalized weakness I suspect that she has had an acutely worsening of her progressive decline which is largely due to hypovolemia secondary to UTI. Her labs are reassuring and UA is reassuring indicating keflex is appropriately treating UTI. At baseline she already has worsening appetite perhaps from advancing dementia or a component of reflux. It is reasonable to consider PPI when she sees her PCP. Her creatinine was slightly above baseline. This indicates dehydration and she was orthostatic and her symptoms resolved with IV fluids. She is encouraged to keep hydrated. In addition she should follow up with her PCP about blood pressure medication adjustment as this may predispose her to orthostatic symptoms. 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 Her son notes very labile blood pressures at times at home, from 110s to 200s, this is possibly playing a role in her symptoms. I suspect that with medication adjustment and consistent administration this may improve. Son preferred to follow up with PCP to consider adjusting these medications. She was given meclizine for dizziness and miralax for constipation. Time Spent With Patient Critical Care time: I spent a total of [] minutes of critical care time on this patient's care today; this time is exclusive of procedural time.
[2021-11-27] MEDS: MECLIZINE HCL 12.5 MG TABLET 25 MG PO (22:37)
[2021-11-28] VITALS: BP 194/86; PULSE 60; O2SAT 91
[2021-11-28 00:31] VITALS: BP 196/82; PULSE 70; O2SAT 73
[2021-11-28 01:00] VITALS: BP 187/85; PULSE 62; O2SAT 99
== END 2021-11-28 01:54 | disposition home or self-care (01) ==
PROVIDERS: Emergency Medicine; Emergency Provider Emergency Medicine; Family Provider Orthopaedic Surgery; PCP Internal Medicine
DX: E86.0 Dehydration (principal); R42 Dizziness and giddiness; I10 Essential (primary) hypertension; R11.2 Nausea with vomiting, unspecified; R79.89 Other specified abnormal findings of blood chemistry; Z20.822 Contact with and (suspected) exposure to COVID-19
CPT/HCPCS: 36415; 51701; 71045; 76705; 80053; 81003; 81015; 83605; 83690; 84145; 85025; 85610; 85730; 87040; 87086; 87635; 93005; 96361; 96365; 99284; C9803; J0696

== ENCOUNTER 2021-12-08 15:39 | Emergency (ER) | payer MEDICARE, OTHER, SELFPAY ==
[2018-09-23 16:43] VITALS: BMI 23.4
[2021-12-08] VITALS (25 sets, daily range): BP systolic 173–227; BP diastolic 80–96; PULSE 63–78; RESP 18–35; TEMP 37.4; O2SAT 97–99
--- NOTE | 2021-12-08 16:01 | DI.RAD.S_ITS ---
PROCEDURE: XR CHEST 1V INDICATIONS: suspected sepsis TECHNIQUE: One view of the chest was acquired. COMPARISON: [facility], CR, XR CHEST 1V, 11/27/2021, 13:57. FINDINGS: Surgical changes and devices: None. Overlying EKG wires. Lungs and pleura: Atelectasis adjacent to the hiatal hernia. No focal consolidation. No pleural effusions or pneumothorax. Mediastinum: Mediastinal contours appear normal. Heart size is normal. Moderate to large hiatal hernia. Bones and chest wall: No suspicious bony lesions. Severe degenerative changes of the shoulders with high-riding humeral head suggestive of chronic rotator cuff tearing. Overlying soft tissues appear unremarkable. IMPRESSION: Moderate to large hiatal hernia with adjacent atelectasis. No acute cardiopulmonary abnormality. Dictated by: Adal Cheema D.O. on 12/08/2021 at 15:55 Approved by: Adal Cheema D.O. on 12/08/2021 at 15:56
[2021-12-08 16:17] LABS: Add Manual Diff / Slide Review NO; Basophils Absolute Auto 0 /uL (0-100); Basophils Percent Auto 0.5 % (0-2); Eosinophils Absolute Auto 200 /uL (0-450); Eosinophils Percent Auto 1.8 % (2-4); Hematocrit 37.1 % (36-46); Hemoglobin 12.9 g/dL (12.0-16.0); Lymphocytes Absolute Auto 1100 /uL (1100-4500); Mean Corpuscular HGB Conc 34.8 % (30-36); Mean Corpuscular Hemoglobin 29.2 PG (26-34); Mean Corpuscular Volume 83.9 fL (80-100); Monocytes Absolute Auto 700 /uL (0-900); Neutrophils Absolute Auto 7400 /uL (1500-7000); Neutrophils Percent Auto 78.7 % (50-75); Platelet Count 261 X10^3/uL (150-400); Red Blood Cell Count 4.42 X10^6/uL (4.0-5.2); Red Cell Distribution Width 13.8 % (11.6-14.8); White Blood Cell Count 9.5 X10^3/uL (4.5-11.0)
[2021-12-08 16:18] LABS: Alanine Aminotransferase 11 IU/L (<35); Albumin 3.9 g/dL (3.5-5.0); Albumin Globulin Ratio 1.1 (1.0-2.8); Alkaline Phosphatase 78 U/L (38-126); Aspartate Aminotransferase 22 IU/L (14-36); BUN Creatinine Ratio 21.7 (6-22); Blood Urea Nitrogen 23 mg/dL (7-17); Calcium 8.9 mg/dL (8.4-10.2); Carbon Dioxide 20 mmol/L (22-32); Chloride 106 mmol/L (98-107); Estimated Glomerular Filt Rate 52 mL/min (>60); Globulin 3.7 g/dL (1.7-4.1); Glucose 85 mg/dL (80-110); HEMOLYSIS < 15 (0-50); Lactate (Lactic Acid) 0.8 mmol/L (0.7-2.1); Lipase 82 U/L (23-300); Potassium 3.4 mmol/L (3.4-5.1); Sodium 139 mmol/L (137-145); Total Protein 7.6 g/dL (6.3-8.2)
[2021-12-08 16:25] LABS: COVID19 -Nasal RAPID Negative (Negative)
[2021-12-08 16:35] LABS: Procalcitonin 0.05 ng/mL (<0.5)
--- NOTE | 2021-12-08 17:10 | ED.WEAKNESS ---
HPI - Weakness <Jeremias HummelXIN - Last Filed: 12/08/21 20:54> General Chief complaint: Weakness Stated complaint: Weakness Time Seen by Provider: 12/08/21 16:48 Source: patient and EMS Mode of arrival: EMS History of Present Illness HPI Narrative: 86-year-old female, nonsmoker, was brought into the emergency department by her son for increasing weakness over last couple of weeks. Patient was previously seen in the ED on November 22 and for acute cystitis and dehydration. Patient is not experiencing any urinary symptoms at this time but just feels overall weak. Patient has not been eating or drinking very much and forgot to take her medication this morning. Patient reports that she has a headache of her occiput that has been going on for since this morning. Patient's son reports he found her laying on the ground of her bedroom early this morning but was not sure if she fell or just laid down. Patient has had urinary urgency and has not had a bowel movement in 1 week. Previous evaluation by hospitalist did not meet criteria for admission due to no acute issues. Patient's son reports of multiple calls to her family doctor finally resulted in a return phone call at 4:55 p.m. on Thursday and stated she could do anything at that time. Related Data Home Medications Medication Instructions Recorded Confirmed levothyroxine 50 mcg tablet 75 mcg PO QAM 02/02/19 12/08/21 mirabegron 50 mg tablet,extended 50 mg PO BEDTIME 02/02/19 12/08/21 release 24 hr (Myrbetriq) losartan 25 mg tablet 75 mg PO QAM 06/05/20 12/08/21 donepezil 5 mg tablet (Aricept) 5 mg PO DAILY 12/08/21 12/08/21 metoprolol succinate 25 mg 25 mg PO DAILY 12/08/21 12/08/21 tablet,extended release 24 hr rosuvastatin 20 mg tablet 20 mg PO DAILY 12/08/21 12/08/21 Allergies Allergy/AdvReac Type Severity Reaction Status Date / Time latex Allergy Intermediate Rash Verified 11/27/21 13:33 doxycycline [DOXYCYCLINE] Allergy Unknown Pt does Verified 11/27/21 13:33 not remember nitrofurantoin Allergy Unknown Verified 11/27/21 13:33 [NITROFURANTOIN] sulfamethoxazole Allergy Unknown Pt does Verified 11/27/21 13:33 [From SEPTRA] not remember trimethoprim [From SEPTRA] Allergy Unknown Pt does Verified 11/27/21 13:33 not remember ranitidine AdvReac Severe Diarrhea Verified 11/27/21 13:33 amoxicillin [From Augmentin] AdvReac Unknown Pt does Verified 11/27/21 13:33 not remember clavulanic acid AdvReac Unknown Pt does Verified 11/27/21 13:33 [From Augmentin] not remember Review of Systems <XIN Swartz - Last Filed: 12/08/21 20:54> Review of Systems Narrative: Narrative: GENERAL: Denies chills, fatigue, fever, sweats. See HPI HEENT: Denies sinus pain, ear pain, sore throat, difficulty swallowing, dizziness. RESPIRATORY: Denies dyspnea, cough, wheezing, sputum. CARDIOVASCULAR: Denies chest pain, palpitations, edema. GASTROINTESTINAL: Denies nausea, vomiting, abdominal pain, diarrhea. : Denies dysuria, frequency, incontinence, hematuria, urinary retention, flank pain. MSK: Denies joint pain, or bony pain. Endorses weakness. SKIN: Denies rash, skin lesions, or pruritis. NEUROLOGIC: Denies numbness, confusion. PSYCHIATRIC: No concerning psychosocial issues. Patient History <XIN Swartz - Last Filed: 12/08/21 20:54> Medical History (Updated 12/13/21 @ 00:01 by ) Easy bruisability GERD (gastroesophageal reflux disease) HLD (hyperlipidemia) HTN (hypertension) Hypothyroidism Numbness and tingling in both hands Ocular migraine Osteoarthritis Surgical History History of bladder suspension procedure History of carpal tunnel repair Hx of bilateral cataract extraction Hx of repair of left rotator cuff (~2006) Status post appendectomy Status post hysterectomy Status post rotator cuff repair Social History household members: caregiver and none Smoking Status: Never smoker alcohol intake: current Smoking Status: Never smoker alcohol intake frequency: holidays/special occasions only Substance Use Type: does not use Exam <XIN Swartz - Last Filed: 12/08/21 20:54> Narrative Exam Narrative: Exam Narrative: GENERAL: This is a under nourished patient, in no acute distress HEAD: Atraumatic. Normocephalic. No occiput pain with palpation. EYES: Pupils equal round and reactive. Extraocular motions intact. No scleral icterus, injection or drainage. ENT: Nose without bleeding, purulent drainage. Throat without erythema, tonsillar hypertrophy or exudate. Airway patent. NECK: Trachea midline. No JVD or lymphadenopathy. Nontender. CARDIOVASCULAR: Regular rate and rhythm without murmurs, peripheral pulses intact, cap refill <2 sec. RESPIRATORY: Breath sounds equal and clear bilaterally. No wheezes, rales, or rhonchi. No cough. No increased respiratory effort. No accessory muscle use. GASTROINTESTINAL: Abdomen soft, non-tender, nondistended without guarding or rebound. No suprapubic pain. MSK: Moves all extremities. Decreased strength in all extremities. Neurovascularly intact. NEURO: A&O x 3. SKIN: Warm, dry, no rashes or lesions noted. Initial Vital Signs Initial Vital Signs: Vital Signs Temperature 99.3 F 12/08/21 15:52 Pulse Rate 66 12/08/21 15:52 Respiratory Rate 20 12/08/21 15:52 Blood Pressure 198/84 H 12/08/21 15:52 Pulse Oximetry 98 12/08/21 15:52 Oxygen Delivery Method 12/08/21 15:52 Reviewed <Lacie Shankar DO - Last Filed: 12/13/21 06:56> Initial Vital Signs Initial Vital Signs: Vital Signs Temperature 99.3 F 12/08/21 15:52 Pulse Rate 66 12/08/21 15:52 Respiratory Rate 20 12/08/21 15:52 Blood Pressure 198/84 H 12/08/21 15:52 Pulse Oximetry 98 12/08/21 15:52 Oxygen Delivery Method 12/08/21 15:52 <Verenice Lynn DO - Last Filed: 12/13/21 08:20> Initial Vital Signs Initial Vital Signs: Vital Signs Temperature 99.3 F 12/08/21 15:52 Pulse Rate 66 12/08/21 15:52 Respiratory Rate 20 12/08/21 15:52 Blood Pressure 198/84 H 12/08/21 15:52 Pulse Oximetry 98 12/08/21 15:52 Oxygen Delivery Method 12/08/21 15:52 Course <XIN Swartz - Last Filed: 12/08/21 20:54> Orders Ordered: Discontinued Medications Acetaminophen (Acetaminophen 325 Mg Tablet) 650 mg PO NOW ONE Stop: 12/08/21 23:48 Last Admin: 12/09/21 00:35 Dose: 650 mg Documented By: ALETA Atorvastatin Calcium (Atorvastatin 20 Mg Tablet) 40 mg PO DAILY [facility] Donepezil HCl (Donepezil 5 Mg Tablet) 5 mg PO BEDTIME [facility] Sodium Chloride (Normal Saline 0.9%) 1,000 mls @ 1,000 mls/hr IV BOLUS ONE Stop: 12/08/21 19:56 Last Infusion: 12/08/21 23:08 Dose: 0 mls/hr Documented By: Admin: 12/08/21 19:24 Dose: 1,000 mls/hr Documented By: GUERDA Levothyroxine Sodium (Levothyroxine 75 Mcg Tablet) 75 mcg PO DAILY [facility] Last Admin: 12/09/21 10:55 Dose: 75 mcg Documented By: ANGELA Losartan Potassium (Losartan 25 Mg Tablet) 25 mg PO NOW ONE Stop: 12/08/21 19:08 Last Admin: 12/08/21 19:25 Dose: 25 mg Documented By: GUERDA Losartan Potassium (Losartan 50 Mg Tablet) 50 mg PO NOW ONE Stop: 12/08/21 19:08 Last Admin: 12/08/21 19:25 Dose: 50 mg Documented By: GUERDA Losartan Potassium (Losartan 50 Mg Tablet) 75 mg PO DAILY [facility] Last Admin: 12/09/21 10:55 Dose: 75 mg Documented By: ANGELA Metoprolol Succinate (Metoprolol Er 25 Mg Tablet) 25 mg PO NOW ONE Stop: 12/08/21 18:49 Last Admin: 12/08/21 19:25 Dose: 25 mg Documented By: GUERDA Metoprolol Succinate (Metoprolol Er 25 Mg Tablet) 25 mg PO DAILY [facility] Last Admin: 12/09/21 10:55 Dose: 25 mg Documented By: ANGELA Consultations Consultation #1: Dr. Kendall, hospitalist, previously saw this patient and reports that there are no current acute issues in which hospitalization is necessitated. Vital Signs Vital signs: Vital Signs - 8 hr 12/09/21 06:00 12/09/21 06:30 12/09/21 07:00 Pulse Rate 62 60 60 Respiratory Rate 31 H 34 H 48 H Blood Pressure Pulse Oximetry 95 95 95 12/09/21 07:30 12/09/21 08:00 12/09/21 08:30 Pulse Rate 68 61 60 Respiratory Rate 25 H 36 H 37 H Blood Pressure Pulse Oximetry 96 96 96 12/09/21 09:00 12/09/21 09:30 12/09/21 09:41 Pulse Rate 71 64 Respiratory Rate 31 H 31 H Blood Pressure 132/62 Pulse Oximetry 95 12/09/21 09:41 12/09/21 09:44 12/09/21 09:49 Pulse Rate 64 64 Respiratory Rate 26 H 37 H Blood Pressure 119/56 L Pulse Oximetry 12/09/21 09:53 12/09/21 10:02 12/09/21 10:30 Pulse Rate 62 68 Respiratory Rate 21 Blood Pressure 158/69 H Pulse Oximetry 12/09/21 10:36 12/09/21 10:36 12/09/21 11:00 Pulse Rate 64 62 Respiratory Rate 24 27 H Blood Pressure 152/73 H Pulse Oximetry 96 99 12/09/21 11:30 12/09/21 12:00 12/09/21 12:30 Pulse Rate 59 L 61 62 Respiratory Rate 31 H 23 27 H Blood Pressure Pulse Oximetry 98 97 12/09/21 13:00 Pulse Rate 65 Respiratory Rate 22 Blood Pressure Pulse Oximetry <Lacie Shankar, - Last Filed: 12/13/21 06:56> Orders Ordered: Discontinued Medications Acetaminophen (Acetaminophen 325 Mg Tablet) 650 mg PO NOW ONE Stop: 12/08/21 23:48 Last Admin: 12/09/21 00:35 Dose: 650 mg Documented By: ALETA Atorvastatin Calcium (Atorvastatin 20 Mg Tablet) 40 mg PO DAILY NO[facility] Donepezil HCl (Donepezil 5 Mg Tablet) 5 mg PO BEDTIME NOÉ Sodium Chloride (Normal Saline 0.9%) 1,000 mls @ 1,000 mls/hr IV BOLUS ONE Stop: 12/08/21 19:56 Last Infusion: 12/08/21 23:08 Dose: 0 mls/hr Documented By: Admin: 12/08/21 19:24 Dose: 1,000 mls/hr Documented By: GUERDA Levothyroxine Sodium (Levothyroxine 75 Mcg Tablet) 75 mcg PO DAILY NOÉ Last Admin: 12/09/21 10:55 Dose: 75 mcg Documented By: ANGELA Losartan Potassium (Losartan 25 Mg Tablet) 25 mg PO NOW ONE Stop: 12/08/21 19:08 Last Admin: 12/08/21 19:25 Dose: 25 mg Documented By: GUERDA Losartan Potassium (Losartan 50 Mg Tablet) 50 mg PO NOW ONE Stop: 12/08/21 19:08 Last Admin: 12/08/21 19:25 Dose: 50 mg Documented By: GUERDA Losartan Potassium (Losartan 50 Mg Tablet) 75 mg PO DAILY [facility] Last Admin: 12/09/21 10:55 Dose: 75 mg Documented By: ANGELA Metoprolol Succinate (Metoprolol Er 25 Mg Tablet) 25 mg PO NOW ONE Stop: 12/08/21 18:49 Last Admin: 12/08/21 19:25 Dose: 25 mg Documented By: GUERDA Metoprolol Succinate (Metoprolol Er 25 Mg Tablet) 25 mg PO DAILY [facility] Last Admin: 12/09/21 10:55 Dose: 25 mg Documented By: ANGELA Vital Signs Vital signs: Vital Signs - 8 hr 12/09/21 06:00 12/09/21 06:30 12/09/21 07:00 Pulse Rate 62 60 60 Respiratory Rate 31 H 34 H 48 H Blood Pressure Pulse Oximetry 95 95 95 12/09/21 07:30 12/09/21 08:00 12/09/21 08:30 Pulse Rate 68 61 60 Respiratory Rate 25 H 36 H 37 H Blood Pressure Pulse Oximetry 96 96 96 12/09/21 09:00 12/09/21 09:30 12/09/21 09:41 Pulse Rate 71 64 Respiratory Rate 31 H 31 H Blood Pressure 132/62 Pulse Oximetry 95 12/09/21 09:41 12/09/21 09:44 12/09/21 09:49 Pulse Rate 64 64 Respiratory Rate 26 H 37 H Blood Pressure 119/56 L Pulse Oximetry 12/09/21 09:53 12/09/21 10:02 12/09/21 10:30 Pulse Rate 62 68 Respiratory Rate 21 Blood Pressure 158/69 H Pulse Oximetry 12/09/21 10:36 12/09/21 10:36 12/09/21 11:00 Pulse Rate 64 62 Respiratory Rate 24 27 H Blood Pressure 152/73 H Pulse Oximetry 96 99 12/09/21 11:30 12/09/21 12:00 12/09/21 12:30 Pulse Rate 59 L 61 62 Respiratory Rate 31 H 23 27 H Blood Pressure Pulse Oximetry 98 97 12/09/21 13:00 Pulse Rate 65 Respiratory Rate 22 Blood Pressure Pulse Oximetry <Verenice Lynn, - Last Filed: 12/13/21 08:20> Orders Ordered: Discontinued Medications Acetaminophen (Acetaminophen 325 Mg Tablet) 650 mg PO NOW ONE Stop: 12/08/21 23:48 Last Admin: 12/09/21 00:35 Dose: 650 mg Documented By: GRANTK Atorvastatin Calcium (Atorvastatin 20 Mg Tablet) 40 mg PO DAILY [facility] Donepezil HCl (Donepezil 5 Mg Tablet) 5 mg PO BEDTIME [facility] Sodium Chloride (Normal Saline 0.9%) 1,000 mls @ 1,000 mls/hr IV BOLUS ONE Stop: 12/08/21 19:56 Last Infusion: 12/08/21 23:08 Dose: 0 mls/hr Documented By: Admin: 12/08/21 19:24 Dose: 1,000 mls/hr Documented By: GUERDA Levothyroxine Sodium (Levothyroxine 75 Mcg Tablet) 75 mcg PO DAILY [facility] Last Admin: 12/09/21 10:55 Dose: 75 mcg Documented By: ANGELA Losartan Potassium (Losartan 25 Mg Tablet) 25 mg PO NOW ONE Stop: 12/08/21 19:08 Last Admin: 12/08/21 19:25 Dose: 25 mg Documented By: GUERDA Losartan Potassium (Losartan 50 Mg Tablet) 50 mg PO NOW ONE Stop: 12/08/21 19:08 Last Admin: 12/08/21 19:25 Dose: 50 mg Documented By: GUERDA Losartan Potassium (Losartan 50 Mg Tablet) 75 mg PO DAILY [facility] Last Admin: 12/09/21 10:55 Dose: 75 mg Documented By: ANGELA Metoprolol Succinate (Metoprolol Er 25 Mg Tablet) 25 mg PO NOW ONE Stop: 12/08/21 18:49 Last Admin: 12/08/21 19:25 Dose: 25 mg Documented By: GUERDA Metoprolol Succinate (Metoprolol Er 25 Mg Tablet) 25 mg PO DAILY [facility] Last Admin: 12/09/21 10:55 Dose: 25 mg Documented By: ANGELA Vital Signs Vital signs: Vital Signs - 8 hr 12/09/21 06:00 12/09/21 06:30 12/09/21 07:00 Pulse Rate 62 60 60 Respiratory Rate 31 H 34 H 48 H Blood Pressure Pulse Oximetry 95 95 95 12/09/21 07:30 12/09/21 08:00 12/09/21 08:30 Pulse Rate 68 61 60 Respiratory Rate 25 H 36 H 37 H Blood Pressure Pulse Oximetry 96 96 96 12/09/21 09:00 12/09/21 09:30 12/09/21 09:41 Pulse Rate 71 64 Respiratory Rate 31 H 31 H Blood Pressure 132/62 Pulse Oximetry 95 12/09/21 09:41 12/09/21 09:44 12/09/21 09:49 Pulse Rate 64 64 Respiratory Rate 26 H 37 H Blood Pressure 119/56 L Pulse Oximetry 12/09/21 09:53 12/09/21 10:02 12/09/21 10:30 Pulse Rate 62 68 Respiratory Rate 21 Blood Pressure 158/69 H Pulse Oximetry 12/09/21 10:36 12/09/21 10:36 12/09/21 11:00 Pulse Rate 64 62 Respiratory Rate 24 27 H Blood Pressure 152/73 H Pulse Oximetry 96 99 12/09/21 11:30 12/09/21 12:00 12/09/21 12:30 Pulse Rate 59 L 61 62 Respiratory Rate 31 H 23 27 H Blood Pressure Pulse Oximetry 98 97 12/09/21 13:00 Pulse Rate 65 Respiratory Rate 22 Blood Pressure Pulse Oximetry MDM - Weakness <XIN Swartz - Last Filed: 12/08/21 20:54> Differential Diagnosis Differential diagnosis: Likely other (Weakness) Lab Data Result diagrams: 12/08/21 15:46 12/08/21 15:46 Labs: Lab Results 12/08/21 12/08/21 12/08/21 Range/Units 15:46 15:46 15:46 WBC 9.5 (4.5-11.0) X10^3/uL RBC 4.42 (4.0-5.2) X10^6/uL Hgb 12.9 (12.0-16.0) g/dL Hct 37.1 (36-46) % MCV 83.9 (80-100) fL MCH 29.2 (26-34) PG MCHC 34.8 (30-36) % RDW 13.8 (11.6-14.8) % Plt Count 261 (150-400) X10^3/uL Neut % (Auto) 78.7 H (50-75) % Lymph % (Auto) 12.0 L (25-40) % [place] % (Auto) 7.0 (3-14) % Eos % (Auto) 1.8 L (2-4) % Baso % (Auto) 0.5 (0-2) % Neut # (Auto) 7400 H (3792-0508) /uL Lymph # (Auto) 1100 (3146-2905) /uL [place] # (Auto) 700 (0-900) /uL Eos # (Auto) 200 (0-450) /uL Baso # (Auto) 0 (0-100) /uL Sodium 139 (137-145) mmol/L Potassium 3.4 (3.4-5.1) mmol/L Chloride 106 (98-107) mmol/L Carbon Dioxide 20 L (22-32) mmol/L BUN 23 H (7-17) mg/dL Creatinine 1.06 H (0.52-1.04) mg/dL Estimated GFR 52 L (>60) mL/min BUN/Creatinine Ratio 21.7 (6-22) Glucose 85 (80-110) mg/dL Lactate 0.8 (0.7-2.1) mmol/L Calcium 8.9 (8.4-10.2) mg/dL Total Bilirubin 1.0 (0.2-1.3) mg/dL AST 22 (14-36) IU/L ALT 11 (<35) IU/L Alkaline Phosphatase 78 (38-126) U/L Total Creatine Kinase (30-135) U/L CK-MB (CK-2) CK-MB (CK-2) Rel Index Troponin I (0.01-0.034) ng/mL Total Protein 7.6 (6.3-8.2) g/dL Albumin 3.9 (3.5-5.0) g/dL Globulin 3.7 (1.7-4.1) g/dL Albumin/Globulin Ratio 1.1 (1.0-2.8) Lipase 82 (23-300) U/L Procalcitonin 0.05 (<0.5) ng/mL Urine Color Urine Appearance Urine pH (4.5-8.0) Ur Specific [place] (1.000-1.035) Urine Protein (Negative) Urine Glucose (UA) (Negative) g/dL Urine Ketones (NEGATIVE) Urine Occult Blood (Negative) Urine Nitrate (Negative) Urine Bilirubin (NEGATIVE) Urine Urobilinogen (0.2) E.U./dL Ur Leukocyte Esterase (NEGATIVE) Urine RBC (0-5/HPF) Urine WBC (0-5/HPF) Ur Squamous Epith Cells (0-5/HPF) Urine Bacteria (None) Granular Casts (None) Ur Culture Indicated? SARS-CoV-2 (PCR) (Negative) 12/08/21 12/08/21 12/08/21 Range/Units 15:46 15:46 16:35 WBC (4.5-11.0) X10^3/uL RBC (4.0-5.2) X10^6/uL Hgb (12.0-16.0) g/dL Hct (36-46) % MCV (80-100) fL MCH (26-34) PG MCHC (30-36) % RDW (11.6-14.8) % Plt Count (150-400) X10^3/uL Neut % (Auto) (50-75) % Lymph % (Auto) (25-40) % [place] % (Auto) (3-14) % Eos % (Auto) (2-4) % Baso % (Auto) (0-2) % Neut # (Auto) (0020-4748) /uL Lymph # (Auto) (0675-2897) /uL [place] # (Auto) (0-900) /uL Eos # (Auto) (0-450) /uL Baso # (Auto) (0-100) /uL Sodium (137-145) mmol/L Potassium (3.4-5.1) mmol/L Chloride (98-107) mmol/L Carbon Dioxide (22-32) mmol/L BUN (7-17) mg/dL Creatinine (0.52-1.04) mg/dL Estimated GFR (>60) mL/min BUN/Creatinine Ratio (6-22) Glucose (80-110) mg/dL Lactate (0.7-2.1) mmol/L Calcium (8.4-10.2) mg/dL Total Bilirubin (0.2-1.3) mg/dL AST (14-36) IU/L ALT (<35) IU/L Alkaline Phosphatase (38-126) U/L Total Creatine Kinase 64 (30-135) U/L CK-MB (CK-2) TNP CK-MB (CK-2) Rel Index TNP Troponin I < 0.012 (0.01-0.034) ng/mL Total Protein (6.3-8.2) g/dL Albumin (3.5-5.0) g/dL Globulin (1.7-4.1) g/dL Albumin/Globulin Ratio (1.0-2.8) Lipase (23-300) U/L Procalcitonin (<0.5) ng/mL Urine Color Yellow Urine Appearance Clear Urine pH 6.0 (4.5-8.0) Ur Specific [place] 1.020 (1.000-1.035) Urine Protein Trace H (Negative) Urine Glucose (UA) Trace H (Negative) g/dL Urine Ketones Trace H (NEGATIVE) Urine Occult Blood 3+ H (Negative) Urine Nitrate Negative (Negative) Urine Bilirubin Negative (NEGATIVE) Urine Urobilinogen 0.2 (0.2) E.U./dL Ur Leukocyte Esterase Negative (NEGATIVE) Urine RBC 5-10/hpf H (0-5/HPF) Urine WBC 1-5/hpf (0-5/HPF) Ur Squamous Epith Cells 1-5 /hpf (0-5/HPF) Urine Bacteria Few (2-10) H (None) Granular Casts 0-1/lpf (None) Ur Culture Indicated? Cult not indicated SARS-CoV-2 (PCR) Negative (Negative) Imaging Data Chest x-ray: Radiologist Impression: [address] [address] XRay Report Signed Patient: Ny Mcallister MR#: [id number] : 1935 Acct:[id number] Age/Sex: 86 / F Date of Service: 12/08/21 Loc: ED Accession Number: [id number] ?? Procedure: XR chest 1V Ordering Provider: Sam Ardon MD PROCEDURE:? XR CHEST 1V ? INDICATIONS:? suspected sepsis ? TECHNIQUE:? One view of the chest was acquired.? ? COMPARISON:? [facility], MICHELLE, XR CHEST 1V, 11/27/2021, 13:57. ? FINDINGS:? ? Surgical changes and devices:? None.? Overlying EKG wires. ? Lungs and pleura:? Atelectasis adjacent to the hiatal hernia.? No focal consolidation.? No pleural effusions or pneumothorax.? ? Mediastinum:? Mediastinal contours appear normal.? Heart size is normal.? Moderate to large hiatal hernia. ? Bones and chest wall:? No suspicious bony lesions.? Severe degenerative changes of the shoulders with high-riding humeral head suggestive of chronic rotator cuff tearing. Overlying soft tissues appear unremarkable.? ? IMPRESSION:? ? Moderate to large hiatal hernia with adjacent atelectasis.? No acute cardiopulmonary abnormality. ? ? Dictated by: Adal Cheema D.O. on 12/08/2021 at 15:55 ? ? Approved by: Adal Cheema D.O. on 12/08/2021 at 15:56 ? MDM Narrative Medical decision making narrative: 86-year-old female that was brought into the emergency department for increased weakness over the last week. Chest x-ray reveals a hiatal hernia and labs are consistent with previous values. Discussed case with Dr. Kendall, hospitalist. After review of chart, declined admission due to no acute issues. Blood pressure was elevated with a systolic over 218. Patient did not take her morning medications. IV Fluids, Metoprolol and Losartan given in the ED. <Lacie Shankar, DO - Last Filed: 12/13/21 06:56> Lab Data Labs: Lab Results 12/08/21 12/08/21 12/08/21 Range/Units 15:46 15:46 15:46 WBC 9.5 (4.5-11.0) X10^3/uL RBC 4.42 (4.0-5.2) X10^6/uL Hgb 12.9 (12.0-16.0) g/dL Hct 37.1 (36-46) % MCV 83.9 (80-100) fL MCH 29.2 (26-34) PG MCHC 34.8 (30-36) % RDW 13.8 (11.6-14.8) % Plt Count 261 (150-400) X10^3/uL Neut % (Auto) 78.7 H (50-75) % Lymph % (Auto) 12.0 L (25-40) % [place] % (Auto) 7.0 (3-14) % Eos % (Auto) 1.8 L (2-4) % Baso % (Auto) 0.5 (0-2) % Neut # (Auto) 7400 H (8086-9684) /uL Lymph # (Auto) 1100 (5779-9075) /uL [place] # (Auto) 700 (0-900) /uL Eos # (Auto) 200 (0-450) /uL Baso # (Auto) 0 (0-100) /uL Sodium 139 (137-145) mmol/L Potassium 3.4 (3.4-5.1) mmol/L Chloride 106 (98-107) mmol/L Carbon Dioxide 20 L (22-32) mmol/L BUN 23 H (7-17) mg/dL Creatinine 1.06 H (0.52-1.04) mg/dL Estimated GFR 52 L (>60) mL/min BUN/Creatinine Ratio 21.7 (6-22) Glucose 85 (80-110) mg/dL Lactate 0.8 (0.7-2.1) mmol/L Calcium 8.9 (8.4-10.2) mg/dL Total Bilirubin 1.0 (0.2-1.3) mg/dL AST 22 (14-36) IU/L ALT 11 (<35) IU/L Alkaline Phosphatase 78 (38-126) U/L Total Creatine Kinase (30-135) U/L CK-MB (CK-2) CK-MB (CK-2) Rel Index Troponin I (0.01-0.034) ng/mL Total Protein 7.6 (6.3-8.2) g/dL Albumin 3.9 (3.5-5.0) g/dL Globulin 3.7 (1.7-4.1) g/dL Albumin/Globulin Ratio 1.1 (1.0-2.8) Lipase 82 (23-300) U/L Procalcitonin 0.05 (<0.5) ng/mL Urine Color Urine Appearance Urine pH (4.5-8.0) Ur Specific [place] (1.000-1.035) Urine Protein (Negative) Urine Glucose (UA) (Negative) g/dL Urine Ketones (NEGATIVE) Urine Occult Blood (Negative) Urine Nitrate (Negative) Urine Bilirubin (NEGATIVE) Urine Urobilinogen (0.2) E.U./dL Ur Leukocyte Esterase (NEGATIVE) Urine RBC (0-5/HPF) Urine WBC (0-5/HPF) Ur Squamous Epith Cells (0-5/HPF) Urine Bacteria (None) Granular Casts (None) Ur Culture Indicated? SARS-CoV-2 (PCR) (Negative) 12/08/21 12/08/21 12/08/21 Range/Units 15:46 15:46 16:35 WBC (4.5-11.0) X10^3/uL RBC (4.0-5.2) X10^6/uL Hgb (12.0-16.0) g/dL Hct (36-46) % MCV (80-100) fL MCH (26-34) PG MCHC (30-36) % RDW (11.6-14.8) % Plt Count (150-400) X10^3/uL Neut % (Auto) (50-75) % Lymph % (Auto) (25-40) % [place] % (Auto) (3-14) % Eos % (Auto) (2-4) % Baso % (Auto) (0-2) % Neut # (Auto) (1463-8225) /uL Lymph # (Auto) (4139-4650) /uL [place] # (Auto) (0-900) /uL Eos # (Auto) (0-450) /uL Baso # (Auto) (0-100) /uL Sodium (137-145) mmol/L Potassium (3.4-5.1) mmol/L Chloride (98-107) mmol/L Carbon Dioxide (22-32) mmol/L BUN (7-17) mg/dL Creatinine (0.52-1.04) mg/dL Estimated GFR (>60) mL/min BUN/Creatinine Ratio (6-22) Glucose (80-110) mg/dL Lactate (0.7-2.1) mmol/L Calcium (8.4-10.2) mg/dL Total Bilirubin (0.2-1.3) mg/dL AST (14-36) IU/L ALT (<35) IU/L Alkaline Phosphatase (38-126) U/L Total Creatine Kinase 64 (30-135) U/L CK-MB (CK-2) TNP CK-MB (CK-2) Rel Index TNP Troponin I < 0.012 (0.01-0.034) ng/mL Total Protein (6.3-8.2) g/dL Albumin (3.5-5.0) g/dL Globulin (1.7-4.1) g/dL Albumin/Globulin Ratio (1.0-2.8) Lipase (23-300) U/L Procalcitonin (<0.5) ng/mL Urine Color Yellow Urine Appearance Clear Urine pH 6.0 (4.5-8.0) Ur Specific [place] 1.020 (1.000-1.035) Urine Protein Trace H (Negative) Urine Glucose (UA) Trace H (Negative) g/dL Urine Ketones Trace H (NEGATIVE) Urine Occult Blood 3+ H (Negative) Urine Nitrate Negative (Negative) Urine Bilirubin Negative (NEGATIVE) Urine Urobilinogen 0.2 (0.2) E.U./dL Ur Leukocyte Esterase Negative (NEGATIVE) Urine RBC 5-10/hpf H (0-5/HPF) Urine WBC 1-5/hpf (0-5/HPF) Ur Squamous Epith Cells 1-5 /hpf (0-5/HPF) Urine Bacteria Few (2-10) H (None) Granular Casts 0-1/lpf (None) Ur Culture Indicated? Cult not indicated SARS-CoV-2 (PCR) Negative (Negative) Imaging Data CT scan - head: Radiologist Impression: CT Scan Report Signed Patient: Ny Mcallister MR#: [id number] : 1935 Acct:[id number] Age/Sex: 86 / F Date of Service: 12/08/21 Loc: ED Accession Number: [id number] ?? Procedure: CT head/brain wo con Ordering Provider: Lacie Shaknar D.O. PROCEDURE:? CT HEAD/BRAIN WO CON ? INDICATIONS:? fall ? TECHNIQUE:? Noncontrast 4.5 mm thick angled axial sections acquired from the foramen magnum to the vertex, with coronal and sagittal reformats.? For radiation dose reduction, the following was used:? automated exposure control, adjustment of mA and/or kV according to patient size.? ? COMPARISON:? [facility], CT, CT HEAD/BRAIN WO CON, 11/22/2021, 23:27. ? FINDINGS:? Image quality:? Excellent.? ? CSF spaces:? Basal cisterns are patent.? No extra-axial fluid collections.? There is moderate cerebral volume loss, with resultant ventricular and sulcal prominence.? ? Brain:? No intracranial hemorrhage, mass, or mass effect.? There are subcortical, periventricular and deep white matter hypodensities consistent with mild chronic small vessel ischemic changes.? The lowe-white matter junction appears preserved.? There is intracranial internal carotid artery atherosclerosis.? ? Skull and face:? Calvarium and visualized facial bones appear intact, without suspicious lesions.? ? Sinuses:? Visualized sinuses and mastoids are clear.? ? IMPRESSION:? ? 1. No acute intracranial abnormality. ? 2. Moderate cerebral volume loss and mild chronic white matter small vessel ischemic changes.? ? Dictated by: Maikel Wild M.D. on 12/08/2021 at 20:49 ? ? Approved by: Maikel Wild M.D. on 12/08/2021 at 20:51? CT scan - chest: Radiologist Impression: CT Scan Report Signed Patient: Ny Mcallister MR#: [id number] : 1935 Acct:[id number] Age/Sex: 86 / F Date of Service: 12/08/21 Loc: ED Accession Number: [id number] ?? Procedure: CT chest abd pel w con Ordering Provider: Lacie Shankar D.O. PROCEDURE:? CT CHEST ABD PEL W CON ? INDICATIONS:? weakness ? TECHNIQUE:? After the administration of oral and intravenous contrast, axial sections acquired from the supraclavicular neck to the pubic symphysis.? Coronal and sagittal reformats were performed.? For radiation dose reduction, the following was used:? automated exposure control, adjustment of mA and/or kV according to patient size.? ? COMPARISON:NM, NM PET CT FUSION SKULL 2 THIGH, 06/08/2019, 16:55.? [facility], CT, CT ABDOMEN PELVIS W CON, 11/22/2021, 23:41.? [facility], CT, CT CHEST ABD PEL W CON, 06/01/2019, 14:37. ? FINDINGS:? Image quality:? There is metallic streak artifact from patient's right hip prosthesis limiting evaluation.? ? CHEST: Lower Neck: No lymphadenopathy by size criteria. Thyroid:? Visualized thyroid demonstrates no discrete nodules. Axillae: No lymphadenopathy by size criteria. Chest Wall:? Unremarkable.? Bones:? No acute fractures identified. ? Lungs and Airways:? No pulmonary contusions or lacerations.? No acute consolidation.? There is bilateral atelectasis including left lower lobe atelectasis tracking along patient's hiatal hernia.? In the right lower lobe, there is a small 0.3 cm nodule on series 5, image 164 which appears unchanged from the prior 06/01/2019 study.? The trachea and central airways are patent. Pleura: No pneumothorax or pleural effusions.? ? Heart: Heart size is normal.? No pericardial effusion. Thoracic Vessels: The aorta and pulmonary arteries are normal in size.? 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 Mediastinum and [place]: No lymphadenopathy by size criteria.? No definite mediastinal hematomas.? Esophagus: No wall thickening.? There is a large hiatal hernia. ? ABDOMEN: Liver:? No hepatic lacerations or perihepatic fluid collections.? There is mild focal fatty infiltration in the anterior left hepatic lobe. Gallbladder:? Within normal limits without calcified gallstones.? ? Biliary ducts:? No biliary ductal dilatation.? ? Pancreas:? Unremarkable.? ? Spleen:? Normal in size.? No splenic lacerations or perisplenic fluid collections. ? Adrenal Glands:? No adrenal nodules.? ? Kidneys and Ureters:? No hydronephrosis.? ? ? Stomach and Bowel:? Stomach, small bowel loops, and colon are normal in caliber and wall thickness.? There is colonic diverticulosis without acute diverticulitis. Peritoneum:? No abnormal intraperitoneal fluid.? No free air.? ? Ventral Wall: ? No hernia.? Abdominal Nodes:? No retroperitoneal or mesenteric adenopathy by size criteria.? Vessels:? Aorta and inferior vena cava are normal in size.? ? PELVIS: Pelvic Organs:? Unremarkable.? ? Bladder:? Unremarkable.? ? Pelvic Nodes: No enlarged lymph nodes.? Miscellaneous: No inguinal hernias are seen. ? ? ? Bones:? No acute fractures identified.? Visualized osseous structures demonstrate no suspicious focal lesions. IMPRESSION:? ? 1.? No definite acute traumatic abnormality in the chest, abdomen, or pelvis. ? 2.? Large hiatal hernia redemonstrated with associated left basilar atelectasis. ? Dictated by: Maikel Wild M.D. on 12/08/2021 at 20:51 ?? ECG Data Interpretation: BOtnick-normal sinus rhythm rate 64 CT interval 174 QRS [address] changes similar to previous EKG MDM Narrative Medical decision making narrative: 86-year-old female that was brought into the emergency department for increased weakness over the last week. Chest x-ray reveals a hiatal hernia and labs are consistent with previous values. Discussed case with Dr. Kendall, hospitalist. After review of chart, declined admission due to no acute issues. Blood pressure was elevated with a systolic over 218. Patient did not take her morning medications. IV Fluids, Metoprolol and Losartan given in the ED. Patient signed out to me by Jb Hummel NP. I have seen evaluated patient myself. I actually saw her last week on and she was discharged home. At that time she had been evaluated by hospitalist team thought that she does not meet any criteria and would be discharged. She actually has gotten significantly weaker. Son states that when he arrived 3 weeks ago she was able to walk she is no longer able to walk you must carrier to and from the bathroom. Her blood pressures are quite elevated at home they do not seem to be this high. Patient complains of mild headache. Patient previously diagnosed with UTI which was thought to be causing her symptoms however the UTI has cleared blood work remains overall reassuring. She has full workup in the ED head CT and chest abdomen pelvis CT this time there is no abnormality. She is simply failing at home. She has lost 10 lb. There was a discussion with the hospitalist about admission and was declined. I again discussed with the night hospitalist and was declined. However patient is on fit for discharge home. This is her 3rd visit to the ED. Her son is actually trying to get her placed. Consult for social Work and physical therapy have been placed. Patient blood pressure remained mildly elevated while in the ED. Patient signed out to Dr. Lynn <Verenice Lynn, DO - Last Filed: 12/13/21 08:20> Lab Data Labs: Lab Results 12/08/21 12/08/21 12/08/21 Range/Units 15:46 15:46 15:46 WBC 9.5 (4.5-11.0) X10^3/uL RBC 4.42 (4.0-5.2) X10^6/uL Hgb 12.9 (12.0-16.0) g/dL Hct 37.1 (36-46) % MCV 83.9 (80-100) fL MCH 29.2 (26-34) PG MCHC 34.8 (30-36) % RDW 13.8 (11.6-14.8) % Plt Count 261 (150-400) X10^3/uL Neut % (Auto) 78.7 H (50-75) % Lymph % (Auto) 12.0 L (25-40) % [place] % (Auto) 7.0 (3-14) % Eos % (Auto) 1.8 L (2-4) % Baso % (Auto) 0.5 (0-2) % Neut # (Auto) 7400 H (0305-7413) /uL Lymph # (Auto) 1100 (7459-2809) /uL [place] # (Auto) 700 (0-900) /uL Eos # (Auto) 200 (0-450) /uL Baso # (Auto) 0 (0-100) /uL Sodium 139 (137-145) mmol/L Potassium 3.4 (3.4-5.1) mmol/L Chloride 106 (98-107) mmol/L Carbon Dioxide 20 L (22-32) mmol/L BUN 23 H (7-17) mg/dL Creatinine 1.06 H (0.52-1.04) mg/dL Estimated GFR 52 L (>60) mL/min BUN/Creatinine Ratio 21.7 (6-22) Glucose 85 (80-110) mg/dL Lactate 0.8 (0.7-2.1) mmol/L Calcium 8.9 (8.4-10.2) mg/dL Total Bilirubin 1.0 (0.2-1.3) mg/dL AST 22 (14-36) IU/L ALT 11 (<35) IU/L Alkaline Phosphatase 78 (38-126) U/L Total Creatine Kinase (30-135) U/L CK-MB (CK-2) CK-MB (CK-2) Rel Index Troponin I (0.01-0.034) ng/mL Total Protein 7.6 (6.3-8.2) g/dL Albumin 3.9 (3.5-5.0) g/dL Globulin 3.7 (1.7-4.1) g/dL Albumin/Globulin Ratio 1.1 (1.0-2.8) Lipase 82 (23-300) U/L Procalcitonin 0.05 (<0.5) ng/mL Urine Color Urine Appearance Urine pH (4.5-8.0) Ur Specific [place] (1.000-1.035) Urine Protein (Negative) Urine Glucose (UA) (Negative) g/dL Urine Ketones (NEGATIVE) Urine Occult Blood (Negative) Urine Nitrate (Negative) Urine Bilirubin (NEGATIVE) Urine Urobilinogen (0.2) E.U./dL Ur Leukocyte Esterase (NEGATIVE) Urine RBC (0-5/HPF) Urine WBC (0-5/HPF) Ur Squamous Epith Cells (0-5/HPF) Urine Bacteria (None) Granular Casts (None) Ur Culture Indicated? SARS-CoV-2 (PCR) (Negative) 12/08/21 12/08/21 12/08/21 Range/Units 15:46 15:46 16:35 WBC (4.5-11.0) X10^3/uL RBC (4.0-5.2) X10^6/uL Hgb (12.0-16.0) g/dL Hct (36-46) % MCV (80-100) fL MCH (26-34) PG MCHC (30-36) % RDW (11.6-14.8) % Plt Count (150-400) X10^3/uL Neut % (Auto) (50-75) % Lymph % (Auto) (25-40) % [place] % (Auto) (3-14) % Eos % (Auto) (2-4) % Baso % (Auto) (0-2) % Neut # (Auto) (8749-6851) /uL Lymph # (Auto) (9373-0520) /uL [place] # (Auto) (0-900) /uL Eos # (Auto) (0-450) /uL Baso # (Auto) (0-100) /uL Sodium (137-145) mmol/L Potassium (3.4-5.1) mmol/L Chloride (98-107) mmol/L Carbon Dioxide (22-32) mmol/L BUN (7-17) mg/dL Creatinine (0.52-1.04) mg/dL Estimated GFR (>60) mL/min BUN/Creatinine Ratio (6-22) Glucose (80-110) mg/dL Lactate (0.7-2.1) mmol/L Calcium (8.4-10.2) mg/dL Total Bilirubin (0.2-1.3) mg/dL AST (14-36) IU/L ALT (<35) IU/L Alkaline Phosphatase (38-126) U/L Total Creatine Kinase 64 (30-135) U/L CK-MB (CK-2) TNP CK-MB (CK-2) Rel Index TNP Troponin I < 0.012 (0.01-0.034) ng/mL Total Protein (6.3-8.2) g/dL Albumin (3.5-5.0) g/dL Globulin (1.7-4.1) g/dL Albumin/Globulin Ratio (1.0-2.8) Lipase (23-300) U/L Procalcitonin (<0.5) ng/mL Urine Color Yellow Urine Appearance Clear Urine pH 6.0 (4.5-8.0) Ur Specific [place] 1.020 (1.000-1.035) Urine Protein Trace H (Negative) Urine Glucose (UA) Trace H (Negative) g/dL Urine Ketones Trace H (NEGATIVE) Urine Occult Blood 3+ H (Negative) Urine Nitrate Negative (Negative) Urine Bilirubin Negative (NEGATIVE) Urine Urobilinogen 0.2 (0.2) E.U./dL Ur Leukocyte Esterase Negative (NEGATIVE) Urine RBC 5-10/hpf H (0-5/HPF) Urine WBC 1-5/hpf (0-5/HPF) Ur Squamous Epith Cells 1-5 /hpf (0-5/HPF) Urine Bacteria Few (2-10) H (None) Granular Casts 0-1/lpf (None) Ur Culture Indicated? Cult not indicated SARS-CoV-2 (PCR) Negative (Negative) MDM Narrative Medical decision making narrative: 86-year-old female that was brought into the emergency department for increased weakness over the last week. Chest x-ray reveals a hiatal hernia and labs are consistent with previous values. Discussed case with Dr. Kendall, hospitalist. After review of chart, declined admission due to no acute issues. Blood pressure was elevated with a systolic over 218. Patient did not take her morning medications. IV Fluids, Metoprolol and Losartan given in the ED. Patient signed out to me by Jb Hummel NP. I have seen evaluated patient myself. I actually saw her last week on and she was discharged home. At that time she had been evaluated by hospitalist team thought that she does not meet any criteria and would be discharged. She actually has gotten significantly weaker. Son states that when he arrived 3 weeks ago she was able to walk she is no longer able to walk you must carrier to and from the bathroom. Her blood pressures are quite elevated at home they do not seem to be this high. Patient complains of mild headache. Patient previously diagnosed with UTI which was thought to be causing her symptoms however the UTI has cleared blood work remains overall reassuring. She has full workup in the ED head CT and chest abdomen pelvis CT this time there is no abnormality. She is simply failing at home. She has lost 10 lb. There was a discussion with the hospitalist about admission and was declined. I again discussed with the night hospitalist and was declined. However patient is on fit for discharge home. This is her 3rd visit to the ED. Her son is actually trying to get her placed. Consult for social Work and physical therapy have been placed. Patient blood pressure remained mildly elevated while in the ED. Patient signed out to Dr. Lynn. 12/09/21 Shane: 86-year-old female for increasing weakness over the past week with her 3rd ER visit starting yesterday. Patient seen independently evaluated by myself. Patient has labs, imaging that do not show any clear acute cause. Patient has had progressive weakness not able to ambulate home patient's family is lifting and moving them. Patient was signed out to Dr. Shankar and then by myself as she was here overnight. She has PT and social work consult placed for today. Observation versus admission was declined yesterday is no clear medical cause. At this time blood cultures are pending but no other pending workup. Patient states she is been depressed but states it seems to be more from her weakness and inability to get around. She states she was quite independent until recently. Her son is seeking rehab type facilities in [place] where he lives as well as locally. Patient did meet with PT was unable to get out of the bed and they do feel she would benefit from rehab. Patient was seen by her [employer]. They were able to find placement at a local rehab facility. Patient has been accepted. Discharge Plan Departure Patient Disposition: SNF Clinical Impression: Weakness Activity Restrictions/Additional Instructions: You are being transferred to another facility for PT OT and rehab with your weakness. Your labs, imaging and workup did not find any other causes for your weakness today. I would recommend following up with a counselor or talking with your provider about mental health resources as well. No clear medical cause has been found but P/ OT feels you would benefit from treatment and their recommendations are included. Patient may continue with AHA diet, medium carbohydrate. Please continue your home medications as prescribed. There are no new medications prescribed today. Please return for fevers, rapidly worsening shortness of breath, lightheadedness or passing out, chest pain, persistent vomiting, new swelling in her extremities or other new or concerning symptoms.
[2021-12-08 17:41] LABS: Appearance Urine UA CLEAR; Bilirubin Urine UA NEGATIVE (NEGATIVE); Color Urine UA YELLOW; Glucose Urine UA TRACE g/dL (Negative); Ketones Urine UA TRACE (NEGATIVE); Leukocyte Esterase Urine UA NEGATIVE (NEGATIVE); Nitrite Urine UA NEGATIVE (Negative); Occult Blood Urine UA 3+ (Negative); Protein Urine UA TRACE (Negative); Urobilinogen Urine UA 0.2 E.U./dL (0.2)
[2021-12-08 17:55] LABS: Bacteria Urine Few (2-10); Granular Casts Urine 0-1/LPF; RBC Urine 5-10/HPF (0-5/HPF); Squamous Epithelial Cell Urine 1-5 /HPF (0-5/HPF); WBC Urine 1-5/HPF (0-5/HPF)
[2021-12-08 17:56] LABS: Culture Indicated Urine Cult Not Indicated
[2021-12-08] MEDS: SODIUM CHLORIDE 0.9% 1,000 ML 1000 ML IV (19:24)
[2021-12-08] MEDS: LOSARTAN 50 MG TABLET PO (19:25)
[2021-12-08] MEDS: LOSARTAN 25 MG TABLET PO (19:25)
[2021-12-08] MEDS: METOPROLOL ER 25 MG TABLET PO (19:25)
--- NOTE | 2021-12-08 20:07 | DI.CT.S_ITS ---
PROCEDURE: CT CHEST ABD PEL W CON INDICATIONS: weakness TECHNIQUE: After the administration of oral and intravenous contrast, axial sections acquired from the supraclavicular neck to the pubic symphysis. Coronal and sagittal reformats were performed. For radiation dose reduction, the following was used: automated exposure control, adjustment of mA and/or kV according to patient size. COMPARISON:NM, NM PET CT FUSION SKULL 2 THIGH, 06/08/2019, 16:55. [facility], CT, CT ABDOMEN PELVIS W CON, 11/22/2021, 23:41. [facility], CT, CT CHEST ABD PEL W CON, 06/01/2019, 14:37. FINDINGS: Image quality: There is metallic streak artifact from patient's right hip prosthesis limiting evaluation. CHEST: Lower Neck: No lymphadenopathy by size criteria. Thyroid: Visualized thyroid demonstrates no discrete nodules. Axillae: No lymphadenopathy by size criteria. Chest Wall: Unremarkable. Bones: No acute fractures identified. Lungs and Airways: No pulmonary contusions or lacerations. No acute consolidation. There is bilateral atelectasis including left lower lobe atelectasis tracking along patient's hiatal hernia. In the right lower lobe, there is a small 0.3 cm nodule on series 5, image 164 which appears unchanged from the prior 06/01/2019 study. The trachea and central airways are patent. Pleura: No pneumothorax or pleural effusions. Heart: Heart size is normal. No pericardial effusion. Thoracic Vessels: The aorta and pulmonary arteries are normal in size. 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 Mediastinum and [place]: No lymphadenopathy by size criteria. No definite mediastinal hematomas. Esophagus: No wall thickening. There is a large hiatal hernia. ABDOMEN: Liver: No hepatic lacerations or perihepatic fluid collections. There is mild focal fatty infiltration in the anterior left hepatic lobe. Gallbladder: Within normal limits without calcified gallstones. Biliary ducts: No biliary ductal dilatation. Pancreas: Unremarkable. Spleen: Normal in size. No splenic lacerations or perisplenic fluid collections. Adrenal Glands: No adrenal nodules. Kidneys and Ureters: No hydronephrosis. Stomach and Bowel: Stomach, small bowel loops, and colon are normal in caliber and wall thickness. There is colonic diverticulosis without acute diverticulitis. Peritoneum: No abnormal intraperitoneal fluid. No free air. Ventral Wall: No hernia. Abdominal Nodes: No retroperitoneal or mesenteric adenopathy by size criteria. Vessels: Aorta and inferior vena cava are normal in size. PELVIS: Pelvic Organs: Unremarkable. Bladder: Unremarkable. Pelvic Nodes: No enlarged lymph nodes. Miscellaneous: No inguinal hernias are seen. Bones: No acute fractures identified. Visualized osseous structures demonstrate no suspicious focal lesions. IMPRESSION: 1. No definite acute traumatic abnormality in the chest, abdomen, or pelvis. 2. Large hiatal hernia redemonstrated with associated left basilar atelectasis. Dictated by: Maikel Wild M.D. on 12/08/2021 at 20:51 Approved by: Maikel Wild M.D. on 12/08/2021 at 20:57
--- NOTE | 2021-12-08 20:07 | DI.CT.S_ITS ---
PROCEDURE: CT HEAD/BRAIN WO CON INDICATIONS: fall TECHNIQUE: Noncontrast 4.5 mm thick angled axial sections acquired from the foramen magnum to the vertex, with coronal and sagittal reformats. For radiation dose reduction, the following was used: automated exposure control, adjustment of mA and/or kV according to patient size. COMPARISON: [facility], CT, CT HEAD/BRAIN WO CON, 11/22/2021, 23:27. FINDINGS: Image quality: Excellent. CSF spaces: Basal cisterns are patent. No extra-axial fluid collections. There is moderate cerebral volume loss, with resultant ventricular and sulcal prominence. Brain: No intracranial hemorrhage, mass, or mass effect. There are subcortical, periventricular and deep white matter hypodensities consistent with mild chronic small vessel ischemic changes. The lowe-white matter junction appears preserved. There is intracranial internal carotid artery atherosclerosis. Skull and face: Calvarium and visualized facial bones appear intact, without suspicious lesions. Sinuses: Visualized sinuses and mastoids are clear. IMPRESSION: 1. No acute intracranial abnormality. 2. Moderate cerebral volume loss and mild chronic white matter small vessel ischemic changes. Dictated by: Maikel Wild M.D. on 12/08/2021 at 20:49 Approved by: Maikel Wild M.D. on 12/08/2021 at 20:51
[2021-12-08 20:24] LABS: Creatine Kinase 64 U/L (30-135)
[2021-12-08 20:37] LABS: Troponin I < 0.012 ng/mL (0.01-0.034)
[2021-12-09] VITALS (37 sets, daily range): BP systolic 119–208; BP diastolic 56–88; PULSE 59–71; RESP 16–48; O2SAT 94–99
[2021-12-09] MEDS: ACETAMINOPHEN 325 MG TABLET 650 MG PO (00:35)
--- NOTE | 2021-12-09 09:54 | PC.NURSE ---
PT and son at bedside
--- NOTE | 2021-12-09 10:10 | PT.IIE ---
Surgical History (Last Reviewed 12/08/21 @ 18:40 by XIN Swartz) History of bladder suspension procedure History of carpal tunnel repair Hx of bilateral cataract extraction Hx of repair of left rotator cuff (~2006) Status post appendectomy Status post hysterectomy Status post rotator cuff repair Medical History (Last Reviewed 12/08/21 @ 18:40 by XIN Swartz) Easy bruisability GERD (gastroesophageal reflux disease) HLD (hyperlipidemia) HTN (hypertension) Hypothyroidism Numbness and tingling in both hands Ocular migraine Osteoarthritis Physical Therapy Inpatient Evaluation/Re-Eval M1 PT/OT-IP Prior Functional Status Start: 12/09/21 08:27 Freq: Status: Active Protocol: Document 12/09/21 10:10 AW (Rec: 12/09/21 10:29 AW [id number]) Medical Review Prior Functional Status Medical History Reviewed Yes Communication Pt is able to make her needs known but with moderate confusion. Pt has dementia. Mobility and Gait Pt has chronic left knee pain. She is typically able to ambulate household distances with a walking stick or FWW. She and her son note that she has been extremely weak the past two weeks and unable to get out of bed. Activities of Daily Living and IADL's Pt states she has been independent with ADLs but her son reports that she has needed assist with all ADLs for several months. Pt states she recieves Meals on Wheels. She does not drive. She is suspected of not taking her medications appropriately. She had private caregiver support 5 days/week from May through November but it was more companionship than assist. Pt' s son, Kobe, has been living with her since November 21 when she first came to the hospital but he is no longer able to provide the level of assist she now requires. Prior Functional Level (Other details) Pt has history of SNF rehab following [facility] ~3 years ago. Social History Household Members none,caregiver Living Arrangements House Number of Floors (Floors) One Floor Number of Stairs To Enter/Railing? Ramped entry. 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 Her son, Kobe, lives in [place]. She has a grandson who lives in [place]. M2 PT-IP Current Condition Start: 12/09/21 08:27 Freq: Status: Active Protocol: Document 12/09/21 10:10 AW (Rec: 12/09/21 10:29 AW [id number]) Physical Therapy Current Condition Current Condition Evaluation Date 12/09/21 Treatment Diagnosis generalized weakness, impaired mobility Onset Date 11/21/21 M3 PT-IP Subjective Start: 12/09/21 08:27 Freq: Status: Active Protocol: Document 12/09/21 10:10 AW (Rec: 12/09/21 10:32 AW [id number]) Subjective Physical Therapy Visit Type Type Initial Evaluation Visit Start Time 09:25 Visit Stop Time 10:10 Total Visit Minutes 45 Notes Pt's son arrived long-term through evaluation and contributed heavily to history . Number of EDITOR INDEX Visits 0 Physical Therapy Visit Comments Patient Comments I think I need help. I can't eat. Nothing appeals. Everything is an effort. Patient Goals To get stronger and be able to take care of herself better Therapy Pain Assessment Pain When Pain Assessed During Mobility Pain Present Pain Present Pain Reported Location left knee Scale Used not quantified Pain Behaviors Facial Grimacing,Guarding, Wincing M4 PT-IP Mobility and Gait Start: 12/09/21 08:27 Freq: Status: Active Protocol: Document 12/09/21 10:10 AW (Rec: 12/09/21 11:57 AW [id number]) PT-Bed Mobility Assessment Supine to Sit Supine to Sit Maximum Assistance,1 Person Assistance Sit to Supine Sit to Supine Minimal Assistance,1 Person Assistance Scooting Scooting Up and Down in Bed Maximum Assistance PT-Transfer Assessment Sit to and From Stand Sit to and from Stand Maximum Assistance,1 Person Assistance,Use of Upper Extremities Equipment Transfer Assistive Device Gait Belt,Front Wheeled Walker Transfers Transfer Destination Bed Transfer Technique sit <> stand Comments Mobility Comments Pt was lying on the hospital bed as PT arrived. BP 132/62 HR 63. Pt attempted to move toward left side of the bed but ultimately needed assist to roll and max A for sidelying to sit. She reported lightheadedness. BP assessed 119/56 HR 68. She needed min- mod assist at all times to maintain seated balance, complaining of weakness and lightheadedness. Symptoms cleared enough for pt to attempt standing. Max A for attempt to stand from EOB with FWW but pt was unable to clear her hips from the mattress. Min/mod A for return to supine. Pt was able to assist with bridging her hips minimally as PT and LIQUEFACTION PLANT OPERATOR provided max A to boost and reposition on the bed. BP was 158/69 HR 65. Gait Assessment Comments Gait Comments Unable to progress to gait this visit. PT-Balance Assessment Sitting Balance and Reactions Static Sitting Balance Ability Poor Dynamic Sitting Balance Ability Poor Standing Balance and Reactions Static Standing Balance Ability Poor Dynamic Standing Balance Ability Poor Device Used FWW M5 PT-IP Objective Assessments Start: 12/09/21 08:27 Freq: Status: Active Protocol: Document 12/09/21 10:10 AW (Rec: 12/09/21 11:57 AW [id number]) Orientation Orientation/Cognition Level of Alertness Confusional State Orientation Name,Year Safety Awareness Decreased Safety Awareness Memory Description Short Term Impaired Gross Range of Motion Lower Extremity ROM Assessment Left Impaired Impairments L knee painful with all ROM, including passive. Strength Lower Extremity Strength Assessment Bilaterally Impaired Hip 3+/5 Knee R 4/5; L 3/5 Ankle 4-/5 Sensation Assessment Sensation Gross Sensation WNL M6 PT-IP Treatment Start: 12/09/21 08:27 Freq: Status: Active Protocol: Document 12/09/21 10:10 AW (Rec: 12/09/21 11:57 AW [id number]) Physical Therapy Treatment Education Education Provided Safety M7 PT-IP Assessment and Plan Start: 12/09/21 08:27 Freq: Status: Active Protocol: Document 12/09/21 10:10 AW (Rec: 12/09/21 11:57 AW [id number]) PT Summary Assessment and Plan Potential Rehabilitation Potential Good Status of Condition at Evaluation Evolving Summary Impairments Pain,ROM,Strength,Balance, Cognition,Bed Mobility, Transfers,Gait,Activity Tolerance Assessment Summary Ny is an 86 yo community- dwelling woman who presents to the ED for the third time since November 22 with worsening weakness. History includes HTN , dementia, and vertigo. At baseline, pt ambulates household distances with FWW and needs some level of assist with ADL's. On assessment today, pt is significantly weak and unable to tolerate sitting more than 5 minutes. She needs max assist for attempts to stand but is unable to clear her hips from the mattress due to weakness and left knee pain. Pt is confused and unable to care for herself at home. She has had private caregivers in the past and her son is currently attempting to provide care for her at home but at this time, she is requiring more assist than they are capable of. She is not safe for the home environment. In the context of debility compared with her functional baseline, PT recommends SNF rehab to improve strength and mobility independence. Pt will likely ultimately need long-term care . Pt's son is currently working on placement options either near [place] or in [place] near his home. Goals Bed Mobility Goal Standby Assistance Transfer Goal Standby Assistance,Front Wheeled Walker Gait Goal Minimal Assistance,Front Wheel Walker Gait Distance 100 Days to Meet Goals 10 Frequency of Treatment Frequency Of Treatment Once a Day Treatment Plan Physical Therapy Treatment Plan Bed Mobility Training,Transfer Training,Gait Training, Therapeutic Exercise,Balance Retraining,Discharge Planning, Hot or Cold Pack,Neuromuscular Re-ed Precautions Other Precautions falls risk Recommendations To Nursing Amount of Assist Needed PT/OT Assist Only,Mechanical Lift Discharge Recommendations PT Discharge Recommendations SNF Rehab Transportation Needs at Discharge Stretcher/Ambulance
[2021-12-09] MEDS: LEVOTHYROXINE 75 MCG TABLET PO (10:55)
[2021-12-09] MEDS: METOPROLOL ER 25 MG TABLET PO (10:55)
[2021-12-09] MEDS: LOSARTAN 50 MG TABLET 75 MG PO (10:55)
--- NOTE | 2021-12-09 13:56 | CM.DANOTE ---
Addendum entered by Kimberli Sellers R.N. 12/09/21 15:14: CM spoke with cinda DOMINGUEZ and got the patients paperwork re-faxed to [facility] at [facility], after october reviewed paperwork needed MD dipti DOMINGUEZ was able to get that and faxed paperwork again. CM spoke with Lisset at [facility] who stated that she had all the paperwork she needed and would be able to accept the patient. [facility] arrived paperwork copy was given to ambulance along with signed BLS from patient is currently being preped for transport and will leave for [facility] shortly. CM will continue to follow to assist with any new DC planning needs prior to DC. Kimberli Sellers hydraulic operator Addendum entered by Kimberli Sellers R.N. 12/09/21 14:40: CM Spoke with Diana DOMINGUEZ in the ED who was getting medication list, DC summary with diet order in place and PASRR faxed to lisset at [facility]. However L[facility] has not received these items yet. CM called down to the POST GRADUATE INTERN in the ED and LVM then called the ED DISTANCE LEARNING COORDINATOR and asked her to fax this information off to October letting them know that [facility] will send the patient back if this is not complete since she has to have the information prior to accepting the patient. CM will follow up to make sure the proper information has been faxed to October prior to patients DC to SNF. Kimberli Sellers hydraulic operator Original Note: DCP/POST GRADUATE INTERN note: Received verbal referral from Dr. Lynn re: medical clearance and discharge plan. Per Dr. Lynn patient unable to walk and because pateint does not meet medical criteria to be admitted to acute care, provider requesting assistance. Met with patient and son at bedside. Son requesting SNF placement. Patient seen by therapy and SNF recommended. Son made aware that patient will be private pay at SNF because she does not meet Medicare criteria for inpatient hospitalization. Son in agreement and would like POST GRADUATE INTERN to call [facility]. Placed call to Lisset at [facility] requesting she review from ED. October reports she can accept but only private pay not under COVID waiver. POST GRADUATE INTERN asked that ED/POST GRADUATE INTERN update son and make sure he is aware of priivate pay. Patient with h/o dementia, PASSR completed. Son plans to possibly take patient to [place] to live with him and his family once rehab completed. Patient requiring BLS transport per PT. Medical necessity for BLS completed and signed by provider. P: [facility] today. Transport to be scheduled by ED. ALBERTO Causey
== END 2021-12-09 15:11 ==
PROVIDERS: Emergency Medicine; Family Medicine Addiction Medicine; Registered Nurse; Emergency Provider Emergency Medicine; Family Provider Orthopaedic Surgery; PCP Internal Medicine
DX: R53.1 Weakness (principal); K44.9 Diaphragmatic hernia without obstruction or gangrene; Z20.822 Contact with and (suspected) exposure to COVID-19
CPT/HCPCS: 36415; 70450; 71045; 71260; 74177; 80053; 81001; 82550; 83605; 83690; 84145; 84484; 85025; 87040; 87635; 93005; 93010; 96360; 96361; 97162; 99284; C9803

== ENCOUNTER → 2022-09-03 06:54 | Outpatient (ROUT) | payer MEDICARE, OTHER, SELFPAY ==
[2018-09-23 16:43] VITALS: BMI 23.4
[2022-09-03 08:54] LABS: Thyroid Stimulating Hormone 2.22 uIU/mL (0.47-4.68)
== END ==
PROVIDERS: Family Provider Orthopaedic Surgery; Visit Provider Nurse Practitioner Family
DX: M19.90 Unspecified osteoarthritis, unspecified site (principal); E03.9 Hypothyroidism, unspecified
CPT/HCPCS: 36415; 84443